=== PATIENT | male | born 1950 | race Caucasian/White ===

== ENCOUNTER 2017-06-21 01:46 | Inpatient (IN) | payer OTHER ==
[~2017-06-21] VITALS: Ht 180.3 cm; Wt 127.2 kg
[2017-06-21] VITALS (8 sets, daily range): BP systolic 105–129; BP diastolic 51–75
--- NOTE | ~2017-06-21 | HC ---
[facility] [place] [address] CONSULTATION Name: KEITH ADAMS Room #: 209-P ADM IN M.R.#: [id number] Admission: 06/21/17 Attend Phys: Jarret Peters MD Discharge: Date of : 52 Report #: [id number] THIS REPORT FOR: //name// CC: Hernán Madrigal REASON FOR CONSULTATION: Chest pain. HISTORY OF PRESENT ILLNESS: The patient is a 67-year-old gentleman with longstanding diabetes, distal small vessel coronary artery disease, medically managed sleep apnea, paralyzed hemidiaphragm and heart block with prior pacemaker implantation. His ejection fraction is in the 55% range with moderately severe pulmonary hypertension by recent echocardiography. He presented in the summer with progressive angina. He ended up having coronary angiography and stenting of the left main and mid right coronary, both with 4.0 x 15 mm Xience medicated stents. Angina following the stenting procedure resolved. He did have exacerbation in his kidney disease post-contrast, although dialysis was not required. Last night, he awakened with midsternal chest tightness. This was reminiscent of his angina. The pain waxed and waned with varying intensity over the course of about 60 minutes. He ended up taking 4 nitroglycerin tablets with variable relief. Paramedics were called and he was brought to the Emergency Department where he has been pain free since. Admitting EKG demonstrated ventricularly paced rhythm. He is currently pain free. He denies orthopnea or paroxysmal nocturnal dyspnea. No history of near syncope or syncope. MEDICATIONS: Include Plavix 75 mg daily, potassium 10 mEq daily, torsemide 20 mg daily, amlodipine 10 mg at night, isosorbide 60 mg twice daily, lisinopril 20 mg twice daily, atorvastatin 40 mg daily, insulin 30 units regular with meals, 70 units Lantus in the evening. He has an intolerance to Effient. PAST MEDICAL HISTORY: Medical records have been reviewed and include a history of mild to moderate carotid plaquing, COPD, diabetes, paralyzed hemidiaphragm, single kidney, PSVT with remote RF ablation, pacemaker implantation, shoulder surgery, knee surgery, tonsillectomy. SOCIAL HISTORY: He is a former smoker, quit in 1986. FAMILY HISTORY: Notable for father with a history of stroke and atrial fibrillation. REVIEW OF SYSTEMS: All systems negative except as that noted above. PHYSICAL EXAMINATION: GENERAL: He is a pleasant gentleman, is pain free. [facility] [address] [place] [address] CONSULTATION Name: KEITH ADAMS Room #: 209-P [facility] IN [facility]#: [id number] Admission: 06/21/17 Attend Phys: Jarret Peters MD Discharge: Date of : 52 Report #: [id number] VITAL SIGNS: Blood pressure is 111/67, heart rate is 62 and regular. He is afebrile, 5 feet 11 inches tall, 280 pounds. HEENT: There are neither xanthelasma, subcutaneous xanthomata, oral mucosal or digital cyanosis or kyphoscoliosis present. CHEST: Clear to auscultation and percussion. CARDIOVASCULAR: Regular rate and rhythm with normal S1, S2. Heart sounds are distant. ABDOMEN: Soft and nontender. EXTREMITIES: Without cyanosis, clubbing or edema. Radial pulses are 2+. NEUROLOGIC: He is alert with a nonfocal exam. EKG, sinus rhythm with ventricular pacing. LABORATORY DATA: Sodium 137, potassium 4.3, creatinine 3.0. Glucose 290, troponin 0.06. ProBNP of 566. White count 11.7, hemoglobin 14, hematocrit 39, platelet count 224. Chest x-ray demonstrates mild perihilar atelectasis. Vascularity is normal. IMPRESSION: 1. Chest pain suspicious for unstable angina. 2. Coronary artery disease with stenting of the left main and mid right coronary (4.0 x 15 mm Xience medicated stents). 3. Advanced chronic kidney disease. 4. Heart block with prior pacemaker implantation. 5. Paralyzed hemidiaphragm; chronic obstructive pulmonary disease; sleep apnea. RECOMMENDATIONS: 1. Hold lisinopril and diuretic therapy. 2. Nephrology consultation. 3. Probable coronary angiography. His symptoms are suspicious for progression of his underlying coronary disease. His issues were discussed with the patient and his in detail including the risk associated with contrast load from angiography, namely dialysis or worsening kidney function. Further thoughts will be forthcoming based on this evaluation and based on his clinical course. Thank you for asking me to participate in his care. <ELECTRONICALLY SIGNED> By: Hernán Urrutia MD, [facility] 06/22/17 1823 0821 1326 Hernán Urrutia MD, FAC /nt
--- NOTE | ~2017-06-21 | EKG ---
[address] [address] ELECTROCARDIOGRAM REPORT Name: KEITH ADAMS Room #: 209-P ADM IN M.R.#: [id number] Admission: 06/21/17 Attend Phys: Jarret Peters MD Discharge: Date of : 52 Report #: [id number] THIS REPORT FOR: //name// [facility] Test Date: 2017-06-26 Test Time: 05:59:12 Pat Name: KEITH ADAMS Department: Room: 209 P Gender: M Clinic Licensed Practical Nurse: STEFFANIE : 1950 Requested By: Narendra Ventura Order Number: [id number] MD: Hernán Urrutia Measurements Intervals [place] Rate: 64 P: 0 [place]: 169 QRS: -88 QRSD: 179 T: 89 QT: 445 QTc: 459 Interpretive Statements Sinus rhythm Left axis deviation Left bundle branch block Compared to ECG 06/24/2017 11:02:18 No significant change was found Electronically Signed On 06-26-2017 8:45:34 DATE PITTER by Hernán Urrutia [email or web address] <ELECTRONICALLY SIGNED> By: Hernán Urrutia MD, [facility] 06/26/17 0845 0559 0559 Hernán Urrutia MD, [facility] /EPI
--- NOTE | ~2017-06-21 | CATHLAB ---
[facility] [place] [address] INVASIVE PROCEDURE REPORT Name: BRYANKEITH W Room #: 209-P [facility] IN [facility].#: [id number] Admission: 06/21/17 Attend Phys: Jarret Peters, Discharge: Date of : 52 Date of Service: 06/25/17 1554 Report #: [id number] THIS REPORT FOR: //name// APPROVED REPORT Patient Details Patient Status: In-Patient Room #: The patient is a 67 year-old male Event Personnel Narendra Ventura Malt House Supervisor, Jona Stark RN, Tiffani Hauser Sandifer, David Monitor Procedures Performed Coronary Angiography Only [id number] CORANG Atherectomy w/wo Plasty Sgl LM [id number] ATHSINGLE Hemostasis with Hemoband Indication Non-STEMI , Dyspnea, Unstable angina Risk Factors Obesity, Chronic Lung DiseaseHypercholesterolemia, Coronary Artery DiseaseHypertensionRenal Failure Previous Procedures/Diagnoses Previous PCI Procedure Narrative The Left Wrist^ was infiltrated with 1% Lidocaine subcutaneous anesthesia. A TRANSRADIAL SLENDER 6F GLIDESHEATH KIT #106387 sheath was inserted into the Left Radial Artery^. Coronary angiography was performed using coronary diagnostic catheters. The right coronary system was accessed and visualized with a JR4 catheter. The left coronary system was accessed and visualized with a VISTA 6FR XB 3.5 #[id number] catheter. The patient tolerated the procedure well and there were no complications associated with the procedure. There was no hematoma. The diagnostic cardiac catheterization was was performed several days before. He presents for a staged angioplasty involving a severe restenotic lesion involving the left main artery stent. This will include laser atherectomy and angioplasty. Intraoperative Conscious Sedation Sedation start time: 13.20 Case end Time: 14.13 Fentanyl 50.0 mcg [facility] [place] [address] INVASIVE PROCEDURE REPORT Name: BRYANKEITH Roxanne Room #: 209-P [facility] IN ..#: [id number] Admission: 06/21/17 Attend Phys: Jarret Peters, Discharge: Date of : 52 Date of Service: 06/25/17 1554 Report #: [id number] Fluoro Time: 15.01 minutes Dose: 2400 mGy Contrast Type and Amount: Visipaque 225 ml Hemodynamics The aortic pressure is 143/91 mmHg with a mean of 74 mmHg. PCI Technique Lesion Anticoagulation was achieved with Angiomax. Patient was preloaded with Brillinta. Percutaneous coronary intervention was performed on the LM. The lesion stenosis prior to intervention was 90% with ALLAN 3 flow. A VISTA 6FR XB 3.5 #[id number] Guide Catheter was used to engage the LCA ostium. A Coco Wire .014 x 182CM #[id number] Interventional Guidewire was used to cross the lesion. BALLOON DILATION A Balloon catheter TREK NC RX 4.0 X 12 #[id number] was inserted and inflated up to 18.00atm for 25seconds. Additional Inflation: 14.00atm for 24seconds. Additional Inflation: 20.00atm for 20seconds. Prior to balloon dilatation, the severe lesion in the left main artery stent was prepped with a laser atherectomy catheter. Multiple passes using 2 different settings were performed at the restenotic site for debulking. After laser atherectomy, balloon angioplasty was performed. STENT DEPLOYMENT A drug-eluting stent RESOLUTE RX 4.0 X 12 #[id number] was inserted and inflated up to 14.00atm for 24seconds. POST STENT DEPLOYMENT BALLOON DILATION A Balloon catheter TREK NC RX 4.5 X 8 #[id number] was inserted and inflated up to 18atm for 24seconds. Additional Inflation: 20.00atm for 20seconds. Final angiography reveals 10 % stenosis with ALLAN 3 flow. Conclusion 1. Successful percutaneous intervention including laser atherectomy and placement of a drug-eluting stent into the severe, [place] [address] INVASIVE PROCEDURE REPORT Name: KEITH ADAMS Room #: 209-P [facility]..#: [id number] Admission: 06/21/17 Attend Phys: Jarret Peters, Discharge: Date of : 52 Date of Service: 06/25/17 1554 Report #: [id number] lesion at the left main artery stent. 2. Dual antiplatelet therapy is recommended. <ELECTRONICALLY SIGNED> By: Narenrda Ventura MD 06/25/17 1554 1554 1554 Narendra Ventura MD /INF
--- NOTE | ~2017-06-21 | EKG ---
[address] [address] ELECTROCARDIOGRAM REPORT Name: KEITH ADAMS Room #: 209-P ADM IN M.R.#: [id number] Admission: 06/21/17 Attend Phys: Jarret Peters MD Discharge: Date of : 52 Report #: [id number] THIS REPORT FOR: //name// [facility] Test Date: 2017-06-24 Test Time: 11:02:18 Pat Name: KEITH ADAMS Department: Room: 209 P Gender: M Senior Agricultural Assistant: SANDRA : 1950 Requested By: Daniel Pulliam Order Number: [id number] MD: Adrian Rouse Measurements Intervals [place] Rate: 67 P: [place]: QRS: -82 QRSD: 176 T: 95 QT: 420 QTc: 444 Interpretive Statements Sinus rhythm lbbb Nonspecific IVCD with LAD Probable anterolateral infarct, recent Electronically Signed On 06-24-2017 23:39:49 GILL TENDER by Adrian Rouse [email or web address] <ELECTRONICALLY SIGNED> By: Adrian Rouse MD 06/24/17 2339 D: 121101 01 Adrian Rouse MD /KINJAL
--- NOTE | ~2017-06-21 | CATHLAB ---
[place] [address] [facility] [place] [address] INVASIVE PROCEDURE REPORT Name: KEITH ADAMS Roxanne Room #: 209-P [facility] IN ..#: [id number] Admission: 06/21/17 Attend Phys: Jarret Peters, Discharge: Date of : 52 Date of Service: 06/22/17 1056 Report #: [id number] THIS REPORT FOR: //name// APPROVED REPORT Patient Details Patient Status: In-Patient Room #: The patient is a 67 year-old male Event Personnel Narendra Ventura Mingle Operator, Jona Stark RN, Moise Sullivan RN RN, Tiffani Hauser Sandifer, David Monitor Procedures Performed Left Heart Cath w/or w/o Coronaries [id number] [facility] Indication Unstable angina Risk Factors Obesity, Hypercholesterolemia, Coronary Artery DiseaseHypertensionRenal Failure Previous Procedures/Diagnoses Previous PCI Procedure Narrative The Right Wrist^ was infiltrated with 1% Lidocaine subcutaneous anesthesia. A TRANSRADIAL SLENDER 6F GLIDESHEATH KIT #259862 sheath was inserted into the Right Radial Artery^. Coronary angiography was performed using coronary diagnostic catheters. The right coronary system was accessed and visualized with a JR4 catheter. The left coronary system was accessed and visualized with a JL3.5 catheter. The left ventricle was accessed and visualized with a PIGTAIL catheter. Left ventricular/Aortic Valve gradient assessed via catheter pullback. Closure device was deployed with a Fr VASC BAND L 27CM #[id number]. There was no hematoma. Intraoperative Conscious Sedation Sedation start time: 9.38 Case end Time: 10.01 Versed mg Fluoro Time: 3.52 minutes [facility] [address] [place] [address] INVASIVE PROCEDURE REPORT Name: KEITH ADAMS Room #: 209-P [facility] IN [facility]#: [id number] Admission: 06/21/17 Attend Phys: Jarret Peters, Discharge: Date of : 52 Date of Service: 06/22/17 1056 Report #: [id number] Dose: 9.13 mGy Contrast Type and Amount: Visipaque 600 ml Diagnostic Cath Left Main There is a stent in the mid/distal segment, with severe restenosis, at least 90%. LAD Supplies 2 diagonal arteries before a total occlusion within the mid segment. The distal segment is partially filled via collateral circulation. This is unchanged from prior procedures. Diagonal 1 Has a high takeoff, has mild diffuse disease. Diagonal 2 Patent vessel, supplies several branches as it travels down the anterolateral wall. Several branches Circumflex Small-caliber vessel with proximal 70% stenosis. Recommend medical therapy. OM1 Small-caliber vessel with moderate diffuse disease. OM2 Small-caliber vessel, with no flow-limiting lesions. Right Coronary This is a dominant vessel with a stent in the midsegment, patent with mild restenosis, 20%. R PDA Moderate diffuse disease. RPLV Patent vessel, no flow-limiting lesions. Left Ventriculography Left Ventriculography was not performed. An LVEDP was measured and there is no gradient across the outflow tract. Hemodynamics The aortic pressure is 129/79 mmHg with a mean of 79 mmHg. The left ventricular pressure is 151/30 mmHg with a mean of mmHg. The left ventricular end diastolic pressure is 37 mmHg. Conclusion 1. Severe restenosis within the left main stent. Recommend staged PCI including laser atherectomy and angioplasty. 2. Patent RCA stent with mild restenosis. <ELECTRONICALLY SIGNED> By: Narendra Ventura MD 06/22/17 1056 1056 1056 Narendra Ventura MD /INF
--- NOTE | ~2017-06-21 | EKG ---
[address] [place] [address] ELECTROCARDIOGRAM REPORT Name: KEITH ADAMS Room #: 209-P ADM IN M.R.#: [id number] Admission: 06/21/17 Attend Phys: Jarret Peters MD Discharge: Date of : 52 Report #: [id number] THIS REPORT FOR: //name// [facility] ED Test Date: 2017-06-21 Test Time: 01:49:33 Pat Name: KEITH ADAMS Department: Room: 209 Gender: M Supervisor Paint: GEM : 1950 Requested By: Saurabh Waite Order Number: [id number] MD: Hernán Urrutia Measurements Intervals [place] Rate: 90 P: 233 NC: 154 QRS: -89 QRSD: 183 T: 75 QT: 410 QTc: 502 Interpretive Statements Sinus rhythm with ventricular pacing Compared to ECG 05/15/2009 06:59:49 Ventricular pacing is now present Electronically Signed On 06-21-2017 12:46:10 ADVENTURE EDUCATION TEACHER by Hernán Urrutia [email or web address] <ELECTRONICALLY SIGNED> By: Hernán Urrutia MD, [facility] 06/21/17 1246 8 8 Hernán Urrutia MD, [facility] /EPI
--- NOTE | ~2017-06-21 | EKG ---
[address] [place] [address] ELECTROCARDIOGRAM REPORT Name: KEITH ADAMS Room #: 209-P ADM IN M.R.#: [id number] Admission: 06/21/17 Attend Phys: Jarret Peters MD Discharge: Date of : 52 Report #: [id number] THIS REPORT FOR: //name// [facility] Test Date: 2017-06-25 Test Time: 17:24:38 Pat Name: KEITH ADAMS Department: Room: 209 P Gender: M Slot Router: Lenore ROA : 1950 Requested By: Narendra Ventura Order Number: [id number] MD: Hernán Urrutia Measurements Intervals [place] Rate: 75 P: -10 [place]: 269 QRS: 267 QRSD: 169 T: 87 QT: 382 QTc: 427 Interpretive Statements Sinus rhythm Prolonged [place] interval Left bundle branch block Compared to ECG 06/24/2017 11:02:18 No significant change was found Electronically Signed On 06-26-2017 8:43:15 MEMORANDUM STATEMENT CLERK by Hernán Urrutia [email or web address] <ELECTRONICALLY SIGNED> By: Hernán Urrutia MD, [facility] 06/26/17 0843 172 23 Hernán Urrutia MD, [facility] /EPI
--- NOTE | ~2017-06-21 | HC ---
[facility] [place] [address] CONSULTATION Name: KEITH ADAMS Room #: 209-P [facility] IN ..#: [id number] Admission: 06/21/17 Attend Phys: Jarret Peters MD Discharge: Date of : 52 Report #: [id number] THIS REPORT FOR: //name// CC: Hernán Madrigal DATE OF SERVICE: 06/21/2017 REASON FOR CONSULTATION: Chronic kidney disease and need for heart cath. HISTORY OF PRESENT ILLNESS: This is a 67-year-old gentleman apparently with known solitary functioning kidney, longstanding diabetes with known proteinuria and CKD and a creatinine of 3, was admitted with angina. He had angina with 2 stents placed over this last summer. He also has a pacemaker. He had crushing chest pain last night, resolved with some nitro, it was then recurred and resolved several times and he was admitted, his troponin-I is slightly elevated. PAST MEDICAL HISTORY: Longstanding diabetes mellitus, very little in the way of neuropathy, no retinopathy that we know of and no enteropathy. He has also had hypertension for sometime, he is a former smoker and has a paralyzed right hemidiaphragm and has had some orthopedic surgeries. HOME MEDICATIONS: Include lisinopril 20 mg daily, Lipitor 40 mg daily, isosorbide mononitrate 60 mg daily, hydrochlorothiazide 25 mg daily, torsemide 20 mg daily, potassium 10 mEq daily, and amlodipine 10 mg daily. SOCIAL HISTORY: Former heavy smoker, but he quit some time ago. Occasional alcohol. REVIEW OF SYSTEMS: GENERAL: He is feeling okay. EYES: His vision is okay. ENT: Hearing okay. Swallows okay. No mouth sores or ulcers. ENDOCRINE: Positive for the diabetes. No known thyroid disease. RESPIRATORY: He does get relatively easily short-winded, particularly when he is lying down. No hemoptysis. CARDIAC: No history palpitations. He did apparently have sick sinus syndrome and a pacemaker was placed, it was more for bradycardia and he has had the angina overnight with elevated troponin and acute coronary syndrome. GASTROINTESTINAL: No nausea, vomiting, or diarrhea. No bloody stools. GENITOURINARY: Good urinary stream. No history of prostate problems or renal stones. NEUROLOGIC: No seizure, syncope, or stroke. PSYCHIATRIC: No depression or anxiety. [facility] [address] [place] [address] CONSULTATION Name: KEITH ADAMS Room #: 209-P [facility]#: [id number] Admission: 06/21/17 Attend Phys: Jarret Peters MD Discharge: Date of : 52 Report #: [id number] PHYSICAL EXAMINATION: GENERAL: This is a reasonably well-appearing gentleman. He is a bit overweight. SKIN: Unremarkable. SKELETAL: Well developed, well nourished, somewhat overweight. HEENT: Extraocular movements are full. Vision intact. No scleral icterus. Hearing intact. Mucous membranes moist. CHEST: Shows somewhat diminished breath sounds. HEART: Regular. ABDOMEN: Soft and nontender. EXTREMITIES: Show trace brawny edema at the ankles. LABORATORY DATA: Hemoglobin is 14. Sodium 137, potassium 4.3, chloride , bicarbonate 22, BUN 74, and creatinine 3. ASSESSMENT: 1. Chronic kidney disease. He has chronic kidney disease, single functioning kidney. He says he has longstanding proteinuria. Certainly, the diabetes is playing a role, seems to be on fairly good treatment at the current time. 2. Acute coronary syndrome. He will need dye. He has appropriately been stopped off the lisinopril and being given IV fluids and diuretics were stopped as well and this should medicate the chances of kidney injury. The chances of his creatinine elevated are probably 25% or bit more, but chances of any serious difficulty requiring dialysis for further therapy likely 10-15% or less. 3. Longstanding diabetes mellitus. 4. Solitary functioning kidney. 5. Longstanding hypertension. 6. Known coronary artery disease, status post stents times 2. 7. Pacemaker. <ELECTRONICALLY SIGNED> By: Daniel Powers MD 06/22/17 1044 1103 1857 Daniel Powers MD /nt
[2017-06-21 02:19] LABS: ABSOLUTE NEUTROPHILS 7.9 thou/uL (1.4-8.2); BASOPHILS 0.4 % (0.0-2.0); EOSINOPHILS 3.3 % (0.0-3.0); HEMATOCRIT 39.1 % (42.0-52.0); LYMPHOCYTES 21.5 % (24.0-44.0); MCH 30.2 pg (26.0-34.0); MCHC 35.9 g/dL (28.0-37.0); MCV 84.1 fL (80.0-100.0); PLATELET COUNT 224 thou/uL (150-400); POLYS 67.8 % (36.0-66.0); RBC 4.65 mil/uL (4.50-6.00); RDW 13.3 % (10.5-14.5); WBC 11.7 thou/uL (4.0-11.0)
[2017-06-21 02:22] LABS: MANUAL DIFF NO
[2017-06-21 02:27] LABS: ANION GAP 14 mmol/L (7-16); BUN 74 mg/dL (7-18); CALCIUM 8.5 mg/dL (8.5-10.1); CHLORIDE 101 mmol/L (98-107); CO2 22 mmol/L (21-32); GLUCOSE 290 mg/dL (74-106); POTASSIUM 4.3 mmol/L (3.5-5.1); SODIUM 137 mmol/L (136-145)
[2017-06-21 02:30] LABS: APTT 24.4 Seconds (24.5-32.8); PROTIME 9.8 Seconds (9.3-11.4)
[2017-06-21] MEDS ORDERED: LISINOPRIL20 MG PO (02:30)
[2017-06-21] MEDS ORDERED: IMDUR 60 MG TAB60 M1 PO ×2 (02:31→02:37)
[2017-06-21] MEDS ORDERED: ATORVASTATIN CA40 MG PO (02:31)
[2017-06-21] MEDS ORDERED: RELION NOV100 UNIT/2 SQ (02:32)
[2017-06-21] MEDS ORDERED: HYDROCHLOROTHIA25 M2 PO (02:33)
[2017-06-21] MEDS ORDERED: NITROGLYCERIN0.4 MG SUBLING (02:33)
[2017-06-21] MEDS ORDERED: NOVOLOG100 UNIT/1 SUBQ (02:34)
[2017-06-21] MEDS ORDERED: DEMADEX20 MG PO (02:35)
[2017-06-21] MEDS ORDERED: KLOR-CON 1010 MEQ PO (02:36)
[2017-06-21] MEDS ORDERED: AMLODIPINE BESY10 MG PO (02:36)
[2017-06-21 02:38] LABS: ALBUMIN 3.3 g/dL (3.4-5.0); ALKALINE PHOSPHATASE 117 U/L (46-116); TOTAL BILIRUBIN 0.5 mg/dL (<0.1-1.0); TOTAL PROTEIN 6.9 g/dL (6.4-8.2); TROPONIN-I 0.06 ng/mL (<0.06)
[2017-06-21 02:58] LABS: SGPT 33 U/L (30-65)
[2017-06-21 03:02] LABS: SGOT ND U/L (15-37)
[2017-06-21 07:12] LABS: CHOLESTEROL 134 mg/dL (<200); HDL CHOLESTEROL 27 mg/dL (>40); TRIGLYCERIDE 668 mg/dL (<150); VLDL 134 mg/dL (<40)
[2017-06-21 13:04] LABS: CALCIUM 9.1 mg/dL (8.5-10.1); CREATININE 2.9 mg/dL (0.7-1.3); POTASSIUM 5.1 mmol/L (3.5-5.1)
[2017-06-21 22:44] LABS: URINE BILIRUBIN NEGATIVE (Negative); URINE BLOOD 1+ (Negative); URINE COLOR YELLOW; URINE GLUCOSE-RANDOM* TRACE (Negative); URINE KETONES NEGATIVE (Negative); URINE NITRITE NEGATIVE (Negative); URINE PROTEIN (DIPSTICK) 2+ (Negative); URINE SPECIFIC GRAVITY 1.025 (1.005-1.035); URINE UROBILINOGEN 0.2 E.U./dl (0.2-1.0)
[2017-06-21 22:56] LABS: BACTERIA 1-9 Few /HPF (None Seen); CASTS None Seen /LPF (None Seen); CRYSTALS None Seen /LPF (None Seen); SQUAMOUS None Seen /LPF (0-3); URINE RBC 0-2 Rare /HPF (0-2); URINE WBC None Seen /HPF (0-5)
[2017-06-21 23:37] LABS: PROT/CREAT RATIO 2.1; URINE CREATININE-RANDOM* 95.6 mg/dL
[2017-06-22] VITALS (11 sets, daily range): BP systolic 120–1119; BP diastolic 55–78
[2017-06-22 01:08] LABS: GLYCOHEMOGLOBIN (HGB A1C) 8.3 % (4.8-5.6)
[2017-06-22 03:50] LABS: HEMATOCRIT 34.9 % (42.0-52.0); HEMOGLOBIN 12.5 gm/dL (14.0-18.0); MCH 30.2 pg (26.0-34.0); MCV 83.8 fL (80.0-100.0); RBC 4.16 mil/uL (4.50-6.00); RDW 13.5 % (10.5-14.5); WBC 8.7 thou/uL (4.0-11.0)
[2017-06-22 04:19] LABS: CALCIUM 8.6 mg/dL (8.5-10.1); CREATININE 2.8 mg/dL (0.7-1.3); MAGNESIUM 1.9 mg/dL (1.8-2.4); PHOSPHORUS 5.4 mg/dL (2.5-4.9); POTASSIUM 4.2 mmol/L (3.5-5.1)
[2017-06-23 04:00] VITALS: BP 142/87
[2017-06-23 06:18] LABS: HEMATOCRIT 35.8 % (42.0-52.0); HEMOGLOBIN 12.8 gm/dL (14.0-18.0); MCH 30.3 pg (26.0-34.0); MCHC 35.7 g/dL (28.0-37.0); MCV 84.7 fL (80.0-100.0); RBC 4.23 mil/uL (4.50-6.00); RDW 13.5 % (10.5-14.5); WBC 8.9 thou/uL (4.0-11.0)
[2017-06-23 06:29] LABS: CALCIUM 8.8 mg/dL (8.5-10.1); CREATININE 2.5 mg/dL (0.7-1.3); POTASSIUM 4.8 mmol/L (3.5-5.1)
[2017-06-23 08:48] VITALS: BP 120/68
[2017-06-23 10:14] LABS: HEMATOCRIT 38.7 % (42.0-52.0); HEMOGLOBIN 13.4 gm/dL (14.0-18.0); MCH 29.5 pg (26.0-34.0); MCHC 34.6 g/dL (28.0-37.0); MCV 85.1 fL (80.0-100.0); RBC 4.55 mil/uL (4.50-6.00); RDW 13.3 % (10.5-14.5); WBC 8.5 thou/uL (4.0-11.0)
[2017-06-23 10:26] LABS: PROTIME 10.7 Seconds (9.3-11.4)
[2017-06-23 11:56] VITALS: BP 138/81
[2017-06-23 15:33] VITALS: BP 124/59
[2017-06-23 19:42] VITALS: BP 158/86
[2017-06-23 23:33] VITALS: BP 114/63
[2017-06-24 03:40] VITALS: BP 129/76
[2017-06-24 04:57] LABS: ALBUMIN 2.9 g/dL (3.4-5.0); CALCIUM 8.7 mg/dL (8.5-10.1); CREATININE 2.7 mg/dL (0.7-1.3); PHOSPHORUS 5.2 mg/dL (2.5-4.9); POTASSIUM 4.7 mmol/L (3.5-5.1)
[2017-06-24 07:25] VITALS: BP 122/66
[2017-06-24 16:00] VITALS: BP 126/72
[2017-06-24 20:09] VITALS: BP 130/81
[2017-06-25] VITALS (11 sets, daily range): BP systolic 114–144; BP diastolic 50–86
[2017-06-25 03:25] LABS: CREATININE 2.6 mg/dL (0.7-1.3); PHOSPHORUS 5.6 mg/dL (2.5-4.9); POTASSIUM 4.1 mmol/L (3.5-5.1)
[2017-06-25 10:15] LABS: CALCIUM 9.1 mg/dL (8.5-10.1); CREATININE 2.5 mg/dL (0.7-1.3)
[2017-06-25 12:11] LABS: KAPPA FREE LIGHT CHAINS 56.1 mg/L (3.3-19.4); KAPPA/LAMBDA RATIO 1.88 (0.26-1.65); LAMBDA FREE LIGHT CHAINS 29.9 mg/L (5.7-26.3)
[2017-06-26] VITALS: BP 128/59
[2017-06-26 04:16] VITALS: BP 138/59
[2017-06-26 04:17] LABS: HEMATOCRIT 35.9 % (42.0-52.0); HEMOGLOBIN 12.7 gm/dL (14.0-18.0); MCH 29.9 pg (26.0-34.0); MCHC 35.5 g/dL (28.0-37.0); MCV 84.2 fL (80.0-100.0); RBC 4.26 mil/uL (4.50-6.00); RDW 13.4 % (10.5-14.5); WBC 8.6 thou/uL (4.0-11.0)
[2017-06-26 04:37] LABS: ALBUMIN 3.3 g/dL (3.4-5.0); CALCIUM 9.2 mg/dL (8.5-10.1); CREATININE 2.6 mg/dL (0.7-1.3); MAGNESIUM 1.5 mg/dL (1.8-2.4); PHOSPHORUS 5.2 mg/dL (2.5-4.9); POTASSIUM 4.5 mmol/L (3.5-5.1)
[2017-06-26 07:38] VITALS: BP 148/84
[2017-06-26] MEDS ORDERED: NORVASC 5 MG TAB5 MG PO (09:25)
[2017-06-26] MEDS ORDERED: ASPIR 8181 MG PO (09:25)
[2017-06-26] MEDS ORDERED: BRILINTA90 MG PO (09:25)
[2017-06-26 09:31] VITALS: BP 148/84
== END 2017-06-26 10:35 | disposition home or self-care (01) | DRG 246 ==
LOC: ER 01:46 → 2N 03:47 → EROBS 03:47 → 2N 05:07 → ENTRNSPT 06-26 10:15 → EDTRNSPTSTS 06-26 10:18 → 2N 06-26 10:35
PROVIDERS: Emergency Medicine; Internal Medicine; Internal Medicine Cardiovascular Disease; Internal Medicine Nephrology; Nurse Practitioner Acute Care
PROC: 5A09357 Assistance with Respiratory Ventilation, Less than 24 Consecutive Hours, Continuous Positive Airway Pressure (ICD-10-PCS; 2017-06-21)
PROC: 4A023N7 Measurement of Cardiac Sampling and Pressure, Left Heart, Percutaneous Approach (ICD-10-PCS; principal; 2017-06-22)
PROC: 5A09457 Assistance with Respiratory Ventilation, 24-96 Consecutive Hours, Continuous Positive Airway Pressure (ICD-10-PCS; 2017-06-22)
PROC: 027034Z Dilation of Coronary Artery, One Artery with Drug-eluting Intraluminal Device, Percutaneous Approach (ICD-10-PCS; 2017-06-25)
PROC: 02C03ZZ Extirpation of Matter from Coronary Artery, One Artery, Percutaneous Approach (ICD-10-PCS; 2017-06-25)
PROC: B211YZZ Fluoroscopy of Multiple Coronary Arteries using Other Contrast (ICD-10-PCS; 2017-06-25)
DX: T82.855A Stenosis of coronary artery stent, initial encounter (principal); N17.0 Acute kidney failure with tubular necrosis; I50.32 Chronic diastolic (congestive) heart failure; I25.110 Atherosclerotic heart disease of native coronary artery with unstable angina pectoris; N18.4 Chronic kidney disease, stage 4 (severe); I24.9 Acute ischemic heart disease, unspecified; I13.0 Hypertensive heart and chronic kidney disease with heart failure and stage 1 through stage 4 chronic kidney disease, or unspecified chronic kidney disease; E78.5 Hyperlipidemia, unspecified; J44.9 Chronic obstructive pulmonary disease, unspecified; I45.9 Conduction disorder, unspecified; J98.6 Disorders of diaphragm; E11.40 Type 2 diabetes mellitus with diabetic neuropathy, unspecified; G47.33 Obstructive sleep apnea (adult) (pediatric); R80.9 Proteinuria, unspecified; E11.65 Type 2 diabetes mellitus with hyperglycemia; E66.01 Morbid (severe) obesity due to excess calories; Z68.39 Body mass index [BMI] 39.0-39.9, adult; Z79.82 Long term (current) use of aspirin; Z79.899 Other long term (current) drug therapy; Z79.4 Long term (current) use of insulin; Z95.0 Presence of cardiac pacemaker; Z87.891 Personal history of nicotine dependence; Z82.49 Family history of ischemic heart disease and other diseases of the circulatory system; Z82.3 Family history of stroke; Z95.5 Presence of coronary angioplasty implant and graft
CPT/HCPCS: 10081

== ENCOUNTER 2018-06-26 14:04 | Inpatient (IN) | payer OTHER ==
[~2018-06-26] VITALS: Ht 175.3 cm; Wt 119.3 kg
[2018-06-26] VITALS (7 sets, daily range): BP systolic 123–161; BP diastolic 68–90
[~2018-06-26 14:04] MED LIST: AMLODIPINE BESY10 MG PO; ASPIR 8181 MG PO; ATORVASTATIN CA40 MG PO; BRILINTA90 MG PO; DEMADEX20 MG PO; HYDROCHLOROTHIA25 M2 PO; IMDUR 60 MG TAB60 M1 PO; KLOR-CON 1010 MEQ PO; LISINOPRIL20 MG PO; NITROGLYCERIN0.4 MG SUBLING; NORVASC 5 MG TAB5 MG PO; NOVOLOG100 UNIT/1 SUBQ; RELION NOV100 UNIT/2 SQ
[2018-06-26 14:29] LABS: ABSOLUTE NEUTROPHILS 5.6 thou/uL (1.4-8.2); BASOPHILS 0.8 % (0.0-2.0); EOSINOPHILS 2.6 % (0.0-3.0); HEMATOCRIT 40.4 % (42.0-52.0); HEMOGLOBIN 14.1 gm/dL (14.0-18.0); LYMPHOCYTES 23.6 % (24.0-44.0); MCH 28.8 pg (26.0-34.0); MCHC 34.8 g/dL (28.0-37.0); MCV 82.8 fL (80.0-100.0); MONOCYTES 6.8 % (1.0-8.0); PLATELET COUNT 267 thou/uL (150-400); POLYS 66.2 % (36.0-66.0); RBC 4.89 mil/uL (4.50-6.00); RDW 13.9 % (10.5-14.5); WBC 8.5 thou/uL (4.0-11.0)
[2018-06-26] MEDS ORDERED: PLAVIX 75 MG TA75 M1 PO (14:36)
[2018-06-26 14:37] LABS: ANION GAP 6 mmol/L (7-16); BUN 59 mg/dL (7-18); CALCIUM 8.9 mg/dL (8.5-10.1); CHLORIDE 100 mmol/L (98-107); CO2 26 mmol/L (21-32); CREATININE 3.2 mg/dL (0.7-1.3); GLUCOSE 280 mg/dL (74-106); POTASSIUM 4.8 mmol/L (3.5-5.1); SODIUM 132 mmol/L (136-145)
[2018-06-26 14:45] LABS: TROPONIN-I <0.06 ng/mL (<0.06)
[2018-06-27] VITALS (12 sets, daily range): BP systolic 116–144; BP diastolic 59–80
[2018-06-27 04:25] LABS: CALCIUM 8.8 mg/dL (8.5-10.1); CREATININE 3.1 mg/dL (0.7-1.3); MAGNESIUM 1.9 mg/dL (1.8-2.4); POTASSIUM 4.5 mmol/L (3.5-5.1)
[2018-06-27 04:30] LABS: CHOLESTEROL 96 mg/dL (<200); HDL CHOLESTEROL 36 mg/dL (>40); LDL CHOLESTEROL 41 mg/dL (<100); TC:HDL 2.7 Ratio (Not establshd); TRIGLYCERIDE 99 mg/dL (<150); VLDL 20 mg/dL (<40)
[2018-06-27 04:39] LABS: SERUM ASSESSMENT Clear
[2018-06-27 05:44] LABS: ABSOLUTE NEUTROPHILS 5.9 thou/uL (1.4-8.2); BASOPHILS 0.6 % (0.0-2.0); EOSINOPHILS 2.3 % (0.0-3.0); HEMATOCRIT 35.9 % (42.0-52.0); HEMOGLOBIN 12.5 gm/dL (14.0-18.0); LYMPHOCYTES 22.1 % (24.0-44.0); MCHC 34.9 g/dL (28.0-37.0); MCV 83.2 fL (80.0-100.0); MONOCYTES 7.5 % (1.0-8.0); PLATELET COUNT 244 thou/uL (150-400); POLYS 67.5 % (36.0-66.0); RBC 4.31 mil/uL (4.50-6.00); RDW 13.3 % (10.5-14.5); WBC 8.7 thou/uL (4.0-11.0)
--- NOTE | 2018-06-27 08:28 | EKG ---
[address] [place] [place] [address] ELECTROCARDIOGRAM REPORT Name: KEITH ADAMS Room #: 219-P ADM IN M.R.#: [id number] Admission: 06/26/18 Attend Phys: New Urban MD Discharge: Date of : 52 Report #: [id number] THIS REPORT FOR: //name// [facility] ED Test Date: 2018-06-26 Test Time: 14:10:37 Pat Name: KEITH ADAMS Department: Room: 219 Gender: M Welfare Manager: SAL : 1950 Requested By: Hema Díaz Order Number: [id number] MD: Hernán Urrutia Measurements Intervals [place] Rate: 88 P: 157 FL: 243 QRS: -88 QRSD: 185 T: 93 QT: 408 QTc: 494 Interpretive Statements Ventricular-paced complexes No further rhythm analysis attempted due to paced rhythm Compared to ECG 06/26/2017 05:59:12 No significant change was found Electronically Signed On 06-27-2018 8:28:40 CHICLE GRINDER FEEDER by Hernán Urrutia [email or web address] <ELECTRONICALLY SIGNED> By: Hernán Urrutia MD, [facility] 06/27/18 0828 1410 1410 Hernán Urrutia MD, [facility] /EPI
--- NOTE | 2018-06-27 15:49 | CATHLAB ---
[place] [address] [facility] [place] [address] INVASIVE PROCEDURE REPORT Name: KEITH ADAMS Room #: 219-P ADM IN M.R.#: [id number] Admission: 06/26/18 Attend Phys: New Urban MD Discharge: Date of : 52 Date of Service: 06/27/18 1549 Report #: [id number] THIS REPORT FOR: //name// APPROVED REPORT Study performed: 06/27/2018 11:09:39 Patient Details Patient Status: In-Patient Room #: The patient is a 68 year-old male Event Personnel Narendra Ventura Air Box Tester, Shankar Martin RN RN, Emory Cantrell, Agata Yu Procedures Performed Coronary Angiography Only [id number] [facility] w/wo Plasty Single DIAG [id number] Indication Dyspnea, Unstable angina , Chest pain Risk Factors HypercholesterolemiaPhysical Activity, Coronary Artery DiseaseHypertensionRenal Failure, Diabetes Previous Procedures/Diagnoses Previous PCI Procedure Narrative The Right Wrist^ was infiltrated with 1% Lidocaine subcutaneous anesthesia. A TRANSRADIAL SLENDER 6F GLIDESHEATH KIT #[id number] sheath was inserted into the Right Radial Artery^. Coronary angiography was performed using coronary diagnostic catheters. The right coronary system was accessed and visualized with a JR4 catheter. The left coronary system was accessed and visualized with a JL4 catheter. Closure device was deployed with a Fr VASC BAND L 27CM #[id number]. The patient tolerated the procedure well and there were no complications associated with the procedure. There was no hematoma. Intraoperative Conscious Sedation Sedation start time: 12.24 Case end Time: 13.19 Fentanyl 50 mcg Versed 1 mg [facility] [address] [place] [address] INVASIVE PROCEDURE REPORT Name: KEITH ADAMS Room #: 219-P ADM IN ..#: [id number] Admission: 06/26/18 Attend Phys: New Urban MD Discharge: Date of : 52 Date of Service: 06/27/18 1549 Report #: [id number] Dose: DAP 79438 cGycm2 2245 mGy Coronary Angiography The patient's coronary anatomy is right dominant. Diagnostic Cath Left Main This is a large caliber vessel with mild to moderate disease at the ostium. There is a stent in the mid/distal segment of the left main artery, patent with an eccentric moderate restenosis, approximately 40%. Recommend medical therapy. LAD There is mild diffuse disease in the proximal segment. After giving off a moderate size first diagonal artery, there is a total occlusion in the midsegment of the LAD. The remaining segments of the LAD are filled via collateral circulation from the right PDA. Diagonal 1 Moderate size caliber vessel, supplies 2 branches as it travels down the anterolateral wall. There is a severe, discrete stenosis in the proximal segment, 95%. Circumflex Moderate ostial stenosis. OM1 Small-caliber vessel with moderate diffuse disease. OM2 Small-caliber vessel with moderate disease. Right Coronary Dominant vessel with a patent stent in the mid segment, with mild restenosis. R PDA Small-caliber vessel with moderate to severe diffuse disease in the mid segment. Unchanged from prior angiograms, continue with medical therapy. RPLV 2 RPL branches, both patent with mild to moderate disease. Left Ventriculography Left Ventriculography was not performed. Hemodynamics The aortic pressure is 132/63 mmHg with a mean of 94 mmHg. PCI Technique Lesion Percutaneous coronary intervention was performed on the first diagnonal branch segment. The lesion stenosis prior to intervention was 95% with ALLAN 3 flow. A VISTA 6FR XB 3.5 #[id number] Guide Catheter was used to engage the ostium. A Luge Wire .014 x 182CM #[id number] Interventional Guidewire was used to cross the lesion. BALLOON DILATION A Balloon catheter [employer] RX 2.50 X 09 #[id number] was inserted and inflated up to 14.00atm for 62seconds. [place] [address] [place] [address] INVASIVE PROCEDURE REPORT Name: BRYANKEITH Room #: 219-P [facility] IN M.R.#: [id number] Admission: 06/26/18 Attend Phys: New Urban MD Discharge: Date of : 52 Date of Service: 06/27/18 1549 Report #: [id number] STENT DEPLOYMENT A drug-eluting stent RESOLUTE STEPHANI RX 2.5 X 12 #[id number] was inserted and inflated up to 16.00atm for 30seconds. POST STENT DEPLOYMENT BALLOON DILATION A Balloon catheter MOZEC NC RX 2.75 X 08 #[id number] was inserted and inflated up to 20.00atm for 44seconds. Final angiography reveals 5 % stenosis with ALLAN 3 flow. Conclusion 1. Successful insertion of a drug-eluting stent into the proximal segment of a moderate size first diagonal artery. 2. Patent stent in the left main artery with mild to moderate restenosis, continue with medical therapy. 3. Occluded LAD in the mid segment, filled via collateral circulation from the right PDA. Unchanged from prior angiographic procedures. 4. Patent stent in the mid RCA with mild restenosis. 5. Severe diffuse disease in a small PDA, unchanged from prior angiograms. 6. Recommend dual antiplatelet therapy and aggressive risk factor management. <ELECTRONICALLY SIGNED> By: Narendra Ventura MD 06/27/18 1549 1549 1549 Narendra Ventura MD /INF
--- NOTE | 2018-06-27 16:48 | EKG ---
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
[2018-06-28 00:39] VITALS: BP 120/59; BP 130/75
[2018-06-28 04:51] LABS: ALBUMIN 3.4 g/dL (3.4-5.0); ANION GAP 11 mmol/L (7-16); BUN 48 mg/dL (7-18); CALCIUM 9.2 mg/dL (8.5-10.1); CHLORIDE 102 mmol/L (98-107); CO2 23 mmol/L (21-32); GLUCOSE 146 mg/dL (74-106); SGOT 13 U/L (15-37); SGPT 19 U/L (30-65); SODIUM 136 mmol/L (136-145); TOTAL BILIRUBIN 0.5 mg/dL (<0.1-1.0); TOTAL PROTEIN 7.5 g/dL (6.4-8.2); TROPONIN-I <0.06 ng/mL (<0.06)
[2018-06-28 04:57] LABS: HEMATOCRIT 37.8 % (42.0-52.0); HEMOGLOBIN 13.1 gm/dL (14.0-18.0); MCH 28.6 pg (26.0-34.0); MCHC 34.7 g/dL (28.0-37.0); MCV 82.3 fL (80.0-100.0); RBC 4.59 mil/uL (4.50-6.00); RDW 13.4 % (10.5-14.5); WBC 8.7 thou/uL (4.0-11.0)
[2018-06-28 05:48] VITALS: BP 152/93
[2018-06-28 08:00] VITALS: BP 145/75
[2018-06-28] MEDS ORDERED: RANEXA500 MG PO (08:08)
--- NOTE | 2018-06-28 08:43 | EKG ---
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 : 1950 Requested By: Narendra Ventura Order Number: [id number] MD: Hernán Urrutia Measurements Intervals Cades Rate: 68 P: -49 MO: 262 QRS: -83 QRSD: 194 T: 98 QT: 435 QTc: 463 Interpretive Statements Sinus with ventricular-paced complexes No further analysis attempted due to paced rhythm Compared to ECG 06/27/2018 14:46:31 No significant change was found Electronically Signed On 06-28-2018 8:43:33 IMMIGRATION INSPECTOR by Hernán Urrutia [email or web address] <ELECTRONICALLY SIGNED> By: Hernán Urrutia MD, [facility] 06/28/18 0843 3 3 Hernán Urrutia MD, [facility] /EPI
[2018-06-28 10:57] VITALS: BP 145/75
--- NOTE | 2018-07-08 11:19 | HC ---
[facility] [place] [address] CONSULTATION Name: KEITH ADAMS Room #: 219-P [facility] IN M.R.#: [id number] Admission: 06/26/18 Attend Phys: New Urban MD Discharge: 06/28/18 Date of : 52 Report #: [id number] THIS REPORT FOR: //name// CC: New Madrigal DATE OF SERVICE: 06/27/2018 ATTENDING PHYSICIAN: Dr. Urrutia. REASON FOR CONSULTATION: Chronic kidney disease. HISTORY OF PRESENT ILLNESS: The patient is followed by us in the office with known diabetic nephropathy, longstanding diabetes and a single functioning kidney. Baseline creatinine has been about 3, followed in our office. The patient has ongoing and worsening angina. Recently started on Repatha and Ranexa. Creatinine this admission 3.2, one year ago was 3.0. PAST MEDICAL HISTORY: Longstanding diabetes, a little bit of neuropathy, no retinopathy. He has had hypertension. He has been a former smoker. 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 HOME MEDICATIONS: As listed include torsemide p.r.n., amlodipine 5 mg daily, aspirin 81 mg daily, Plavix 75 mg daily, hydrochlorothiazide 25 mg daily, insulin, lisinopril 20 mg daily, Brilinta 90 mg b.i.d., Imdur 60 mg daily. Ranexa and Repatha. SOCIAL HISTORY: Former heavy smoker, but he quit. Occasional alcohol. REVIEW OF SYSTEMS: GENERAL: He has been feeling okay except for the angina, particularly nocturnal recumbent angina. EYES: No problems with his vision. ENT: Hearing okay. No mouth sores. ENDOCRINE: Positive for the diabetes. RESPIRATORY: Does get short winded and relatively easily, particularly when he is lying down. CARDIAC: He has been having the chest pain. He has got a pacemaker. GASTROINTESTINAL: No nausea, vomiting, diarrhea or bloody stools. GENITOURINARY: No dysuria or hematuria. Good urinary stream. NEUROLOGIC: No seizure, syncope or stroke. PSYCHIATRIC: No depression or anxiety. PHYSICAL EXAMINATION: VITAL SIGNS: Reasonably well-appearing, but somewhat overweight gentleman. [facility] [address] [place] [address] CONSULTATION Name: KEITH ADAMS Room #: 219-P [facility] IN [facility].#: [id number] Admission: 06/26/18 Attend Phys: New Urban MD Discharge: 06/28/18 Date of : 52 Report #: [id number] SKIN: Unremarkable. SKELETAL: Shows him to be well developed, well nourished. HEENT: Extraocular movements are full. Vision intact. No scleral icterus. Mucous membranes moist. CHEST: Clear. HEART: Regular. ABDOMEN: Soft and nontender. EXTREMITIES: Show very trace peripheral edema. LABORATORY DATA: The hemoglobin is 12.5, platelets are 244. Sodium 139, potassium 4.5, chloride 103, bicarbonate 24, BUN 60, creatinine 3.1. ASSESSMENT: 1. Diabetic nephropathy, has chronic kidney disease. He is being prepared for catheterization with IV fluids. Lisinopril on hold, diuretics on hold. He will have his catheterization today. Hopefully, limiting the amount of dye using nonionic iso-osmolar dye as much as possible and hopefully will not have a kidney injury. We will of course be following him carefully. 2. Diabetes mellitus with diabetic nephropathy. 3. Hypertension. 4. Paralyzed right hemidiaphragm. 5. History of solitary functioning kidney. <ELECTRONICALLY SIGNED> By: Daniel Powers MD 07/08/18 1119 0934 0951 Daniel Powers MD /nt
== END 2018-06-28 11:36 | disposition home or self-care (01) | DRG 246 ==
LOC: ER 14:04 → 2N 15:23 → EROBS 15:23 → 2N 16:24 → ENTRNSPT 06-28 11:03 → EDTRNSPTSTS 06-28 11:05 → 2N 06-28 11:36
PROVIDERS: Internal Medicine Cardiovascular Disease; Nurse Practitioner; Nurse Practitioner Gerontology; Physician Assistant; ADMIT Hospitalist
PROC: 027034Z Dilation of Coronary Artery, One Artery with Drug-eluting Intraluminal Device, Percutaneous Approach (ICD-10-PCS; principal; 2018-06-26)
PROC: B2111ZZ Fluoroscopy of Multiple Coronary Arteries using Low Osmolar Contrast (ICD-10-PCS; principal; 2018-06-26)
PROC: 5A09457 Assistance with Respiratory Ventilation, 24-96 Consecutive Hours, Continuous Positive Airway Pressure (ICD-10-PCS; principal; 2018-06-26)
DX: I25.110 Atherosclerotic heart disease of native coronary artery with unstable angina pectoris (principal); N17.0 Acute kidney failure with tubular necrosis; I24.9 Acute ischemic heart disease, unspecified; N18.4 Chronic kidney disease, stage 4 (severe); E78.5 Hyperlipidemia, unspecified; J44.9 Chronic obstructive pulmonary disease, unspecified; E11.22 Type 2 diabetes mellitus with diabetic chronic kidney disease; I12.9 Hypertensive chronic kidney disease with stage 1 through stage 4 chronic kidney disease, or unspecified chronic kidney disease; J98.6 Disorders of diaphragm; I45.9 Conduction disorder, unspecified; E66.9 Obesity, unspecified; G47.33 Obstructive sleep apnea (adult) (pediatric); Z95.0 Presence of cardiac pacemaker; Z88.8 Allergy status to other drugs, medicaments and biological substances; Z87.891 Personal history of nicotine dependence; Z95.5 Presence of coronary angioplasty implant and graft; Z68.38 Body mass index [BMI] 38.0-38.9, adult; Z79.82 Long term (current) use of aspirin; Z79.899 Other long term (current) drug therapy
CPT/HCPCS: 10081

== ENCOUNTER 2019-08-07 06:58 | Inpatient (IN) | payer OTHER ==
[~2019-08-07] VITALS: Ht 177.8 cm; Wt 114.4 kg
--- NOTE | ~2019-08-07 | HC ---
[facility] [place] [address] CONSULTATION Name: KEITH ADAMS Room #: 217-P ADM IN M.R.#: [id number] Admission: 08/07/19 Attend Phys: Adrian Rouse MD Discharge: Date of : 52 Report #: [id number] THIS REPORT FOR: cc: Byron Madrigal,Byron Ball,Larry Eckert MD ~ THIS REPORT FOR: //name// CC: Byron Rouse DATE OF SERVICE: 08/12/2019 CHIEF COMPLAINT: Bilateral lower extremity edema. HISTORY OF PRESENT ILLNESS: The patient is a 69-year-old male patient who was admitted to the hospital with dyspnea and worsening renal function. He is noted to have significant lower extremity edema, and I have been asked to see him with regard to edema control measures. The patient states he has tried compression stockings at home without much success. The patient denies any open ulcerations or drainage from this area. PAST MEDICAL HISTORY: Positive for type 2 diabetes mellitus, hypertension, dyslipidemia, coronary artery disease, COPD, history of SVT with ablation, obstructive sleep apnea, chronic kidney disease stage 4. He has a paralyzed right hemidiaphragm. He has a single kidney. Had a previous pacemaker placement. SOCIAL HISTORY: Positive for smoking cigarettes 1 pack per day for 10 years. Admits to occasional alcohol use. No recreational drug use. FAMILY HISTORY: Noncontributory. REVIEW OF SYSTEMS: CONSTITUTIONAL: The patient denies fever, chills or weight loss. NEUROLOGICAL: The patient denies focal weakness, numbness or tingling. EYES: The patient denies visual changes, redness, or drainage. ENT: The patient denies earache, nasal drainage or sore throat. CARDIOVASCULAR: The patient denies chest pain, palpitations or diaphoresis. PULMONARY: The patient denies cough or shortness of breath. GASTROINTESTINAL: The patient denies nausea, vomiting, diarrhea or abdominal pain. ORTHOPEDIC: The patient does complain of swelling and some discomfort in both lower extremities. SKIN: The patient denies ulceration, itching or rashes. PSYCHIATRIC: The patient denies anxiety, irritability or depression. [facility] [address] [place] [address] CONSULTATION Name: KEITH ADAMS Room #: 217-P ADM IN M.R.#: [id number] Admission: 08/07/19 Attend Phys: Adrian Rouse MD Discharge: Date of : 52 Report #: [id number] Other systems in a 14-point review of systems are negative. PHYSICAL EXAMINATION: VITAL SIGNS: Include temperature 97.5, pulse 75, respiratory rate 18, and blood pressure 104/66. GENERAL: This is a well-developed male patient who appears to be in minimal distress. HEENT: Head is normocephalic. Nose and throat are clear. NECK: Supple. LUNGS: Clear. HEART: Regular. ABDOMEN: Soft, bowel sounds are present. EXTREMITIES: Lower extremities demonstrate 2-3+ edema bilaterally. No redness or drainage. Pulses are difficult to palpate, I think, mostly on the basis of edema. He has good capillary refill. LABORATORY DATA: Includes white blood cell count of 11.5 with a hemoglobin of 10.8. Sodium 132, potassium 4.9, chloride 95, CO2 26, BUN 118, creatinine 6.2, albumin is 2.9. Venous Doppler bilateral lower extremities shows no evidence of DVT. CLINICAL IMPRESSION: Bilateral lower extremity edema, likely a combination of factors including worsening renal function with fluid retention as well as some decreased cardiac output. RECOMMENDATIONS: At this point in time, we will recommend moisturizer to the skin like AmLactin. We would like to check an arterial Doppler. If he has reasonable flow I think beginning some gentle compression with William wraps and seeing lymphedema therapy would be helpful. He is to start dialysis soon, which also may help offload some of his fluid overload. The patient is agreeable to current plan. I appreciate being asked to see him in consultation. By: [id number] Larry Valentin MD /nt
--- NOTE | ~2019-08-07 | HC ---
[facility] [place] [address] CONSULTATION Name: KEITH ADAMS Room #: 217-P ADM IN M.R.#: [id number] Admission: 08/07/19 Attend Phys: Adrian Rouse MD Discharge: Date of : 52 Report #: [id number] THIS REPORT FOR: //name// cc: Byron Madrigal Kent DO ~ THIS REPORT FOR: //name// CC: Byron Rouse REASON FOR CONSULTATION: Acute kidney injury. REASON FOR PRESENTATION: Acute ventricular systolic heart failure. HISTORY OF PRESENT ILLNESS: This is a 69-year-old with known history of solitary kidney. He has had major issues with his heart in the past and has extensive cardiac workup done by our cardiology team. He is status post complete heart block with [employer] dual chamber pacemaker placed back in 2017. He is also known to have coronary artery disease. He was born with a single kidney. His baseline creatinine in the last couple of years has been in the 3 range. Most recently, he has been having some issues with extensive weight gain, lower extremity edema, dyspnea on exertion. He presented to the laboratory secretary today for an upgrade of his pacemaker. However, because of his symptoms and the worsening renal function, I was consulted to manage his acute kidney injury. Procedure was aborted and the patient was admitted to the cardiac care unit for further evaluation. PAST MEDICAL HISTORY: 1. Solitary kidney status. 2. Chronic kidney disease, baseline creatinine is around 3. 3. Diabetes mellitus. 4. COPD. 5. Coronary artery disease. 6. SVT and ventricular tachycardia in the past. 7. Paralyzed hemidiaphragm. 8. Status post pacemaker insertion. ALLERGIES: EFFIENT and BRILINTA. SOCIAL HISTORY: No drug or alcohol use. He lives with his . FAMILY HISTORY: Significant for hypertension. HOME MEDICATIONS: 1. Plavix. 2. Ranexa. 3. Isosorbide. [facility] [address] [place] [address] CONSULTATION Name: KEITH ADAMS Room #: 217-P [facility] IN [facility].#: [id number] Admission: 08/07/19 Attend Phys: Adrian Rouse MD Discharge: Date of : 52 Report #: [id number] 4. Lisinopril. 5. Torsemide. 6. Recently added metolazone. REVIEW OF SYSTEMS: GENERAL: Significant for dyspnea on exertion and weakness. CARDIOVASCULAR: Significant for dyspnea on exertion, PND, orthopnea. PULMONARY: Significant for shortness of breath. GASTROINTESTINAL: No nausea or vomiting. GENITOURINARY: No frequency. No urgency. MUSCULOSKELETAL: Significant bilateral lower extremity edema. PHYSICAL EXAMINATION: VITAL SIGNS: Temperature 37.1, pulse rate 87, blood pressure 153/81. HEAD AND NECK: Elevated jugular venous pressure. CHEST: Decreased air entry bilaterally. Crackles present. CARDIOVASCULAR: Regular rate and rhythm, no rub. ABDOMEN: Soft, nontender. LOWER EXTREMITIES: Extensive edema. LABORATORY VALUES: Reviewed. Hemoglobin is 10.4. Sodium is 136, BUN 73, creatinine is 4.3. IMPRESSION AND PLAN: 1. Acute kidney injury. 2. Chronic kidney disease. 3. Acutely decompensated heart failure. 4. Solitary kidney status. 5. Status post automatic implantable cardioverter-defibrillator. 6. Remote history of tachyarrhythmias. 7. Significant worsening of the patient's renal function in the last couple of years. 8. We will initiate the appropriate workup. 9. He is in an acute heart failure and will need aggressive diuresis. 10. Discontinue current intermittent Lasix. 11. Initiate on IV Lasix drip. 12. Initiate on IV metolazone. 13. Daily body weight. 14. Low salt diet. 15. We will continue to follow. By: 1030 1259 Shanika Durant MD /nt
--- NOTE | ~2019-08-07 | EKG ---
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 : 1950 Requested By: Rosangela Vines Order Number: [id number] MD: Measurements Intervals Ephraim Rate: 78 P: 41 IA: 269 QRS: -81 QRSD: 191 T: 103 QT: 429 QTc: 489 Interpretive Statements Sinus rhythm Prolonged IA interval Nonspecific IVCD with LAD Left ventricular hypertrophy Compared to ECG 06/28/2018 07:24:03 First degree AV block now present Intraventricular conduction delay now present Left ventricular hypertrophy now present Ventricular-paced complex(es) or rhythm no longer present [email or web address] By: 8 8 Epiphany Epiphany, /KINJAL
[~2019-08-07 06:58] MED LIST changes: +PLAVIX 75 MG TA75 M1 PO; +RANEXA500 MG PO
[2019-08-07 07:34] VITALS: BP 153/81
[2019-08-07 07:41] LABS: ABSOLUTE NEUTROPHILS 6.9 thou/uL (1.4-8.2); BASOPHILS 0.4 % (0.0-2.0); EOSINOPHILS 3.3 % (0.0-3.0); HEMATOCRIT 32.5 % (42.0-52.0); HEMOGLOBIN 10.4 gm/dL (14.0-18.0); LYMPHOCYTES 15.1 % (24.0-44.0); MCHC 32.1 g/dL (28.0-37.0); MCV 80.8 fL (80.0-100.0); MONOCYTES 9.4 % (1.0-8.0); PLATELET COUNT 332 thou/uL (150-400); POLYS 71.8 % (36.0-66.0); RBC 4.02 mil/uL (4.50-6.00); RDW 15.2 % (10.5-14.5); WBC 9.6 thou/uL (4.0-11.0)
[2019-08-07 07:45] LABS: CREATININE 4.3 mg/dL (0.7-1.3); POTASSIUM 4.8 mmol/L (3.5-5.1)
[2019-08-07 07:48] LABS: INR 1.2
[2019-08-07 07:52] LABS: ALBUMIN 2.9 g/dL (3.4-5.0); TOTAL BILIRUBIN 0.3 mg/dL (<0.1-1.0); TOTAL PROTEIN 7.6 g/dL (6.4-8.2)
[2019-08-07] MEDS ORDERED: DEMADEX20 MG PO (08:01)
--- NOTE | 2019-08-07 09:01 | NUR ---
LASIX 120MG IVP GIVEN PER DR. JULIO ORDER. VITAL SIGNS S/P LASIX: BP: 126/72, HR: 85 BPM, 02 STAT: 96 ON 4L NC, RESP: 25. PT IN STABLE CONTITION AT THIS TIME. WILL DO CXR ONCE PT IS ON THE FLOOR. REPORT CALLED TO VANDANA. PT TRANSFERRED TO 217 IN STABLE CONDITION.
[2019-08-07 10:00] VITALS: BP 127/75
--- NOTE | 2019-08-07 13:32 | NUR ---
ASSUMED CARE OF PT AT APPROX FROM 1000 FROM EP LAB. PLAN WAS FOR A NEW ICD, BUT PT PRESENTED WITH CHF EXACERBATION SO PROCEDUCE POSTPONED. ADMISSION ORDERS AND INSTRUCTIONS COMPLETE. VSS. NO C/O PAIN. PT ON 2-4L NC. AT BEDSIDE. PT CAN NOT LAY FLAT D/T DIFFICULTY BREATHING. WILL CONTINUE TO MONITOR AND FOLLOW POC.
[2019-08-07 15:49] LABS: URINE BILIRUBIN NEGATIVE (Negative); URINE BLOOD TRACE (Negative); URINE CLARITY CLEAR; URINE COLOR YELLOW; URINE GLUCOSE-RANDOM* NEGATIVE (Negative); URINE KETONES NEGATIVE (Negative); URINE LEUKOCYTES-REFLEX NEGATIVE (Negative); URINE NITRITE-REFLEX NEGATIVE (Negative); URINE PROTEIN (DIPSTICK) 1+ (Negative); URINE UROBILINOGEN 0.2 E.U./dl (0.2-1.0)
[2019-08-07 15:56] LABS: AMORPHOUS URATES Few /LPF (None Seen); BACTERIA-REFLEX 1-9 Few /HPF (None Seen); CASTS None Seen /LPF (None Seen); SQUAMOUS None Seen /LPF (0-3); URINE WBC-REFLEX None Seen /HPF (0-5)
[2019-08-07 15:57] LABS: URINE RBC None Seen /HPF (0-2)
--- NOTE | 2019-08-07 16:16 | 2DMMODE ---
[facility] [address] [place] [address] 2 D/M-MODE ECHOCARDIOGRAM Name: KEITH ADAMS Room #: 217-P ADM IN M.R.#: [id number] Admission: 08/07/19 Attend Phys: Adrian Rouse MD Discharge: Date of : 52 Report #: [id number] THIS REPORT FOR: cc: Byron Madrigal Kent DO Lundgren,Hernán Coffey MD [facility] ~ THIS REPORT FOR: //name// ADDENDUM APPROVED REPORT Study performed: 08/07/2019 12:25:22 EXAM: Comprehensive 2D, Doppler, and color-flow Echocardiogram Patient Location: Echo lab Room #: 217 BSA: 2.43 HR: 72 bpm BP: 153/81 mmHg Rhythm: Pacemaker Other Information Study Quality: Good Indications Congestive Heart Failure COPD Dyspnea Pacemaker CAD Cardiomyopathy 2D Dimensions RVDd: 44.88 mm IVSd: 15.42 (7-11mm) LVOT Diam: 21.82 (18-24mm) LVDd: 57.82 mm PWd: 14.19 (7-11mm) Ascending Ao: 35.53 (22-36mm) LVDs: 43.96 (25-40mm) Aortic Root: 34.76 mm IVC: 20.00 mm Volumes Left Atrial Volume (Systole) Single Plane 4CH: 79.53 mL Single Plane 2CH: 80.62 mL LA ESV Index: 37.00 mL/m2 [facility] [address] [place] [address] 2 D/M-MODE ECHOCARDIOGRAM Name: KEITH ADAMS Room #: 217-P ADM IN M.R.#: [id number] Admission: 08/07/19 Attend Phys: Adrian Rouse Discharge: Date of : 52 Report #: [id number] Aortic Valve AoV Peak Henok.: 1.09 m/s AO Peak Gr.: 4.74 mmHg LVOT Max P.17 mmHg LVOT Max V: 0.89 m/s TYRA Vmax: 3.06 cm2 Pulmonary Valve PV Peak Henok.: 1.10 m/s PV Peak Gr.: 4.85 mmHg Tricuspid Valve TR Peak Gr.: 55.00 mmHg PA Pressure: 70.00 mmHg Left Ventricle Left ventricle is borderline dilated. There is hypokinesis in the anterior and apical wallsl. Mild to moderate concentric left ventricular hypertrophy. Left ventricular systolic function is severely decreased. Discordant septal motion probably from right ventricular pacing LVEF is 30%. This study is not technically sufficient to allow evaluation of the LV diastolic function. Right Ventricle The right ventricle is normal size. Right ventricle is hypokinetic. Pacemaker lead is present in the right ventricle. Atria The left atrium size is normal. The right atrium size is normal. Aortic Valve The aortic valve is normal in structure. Trace aortic regurgitation. There is no aortic valvular stenosis. Mitral Valve The mitral valve is normal in structure. Moderate mitral regurgitation. No evidence of mitral valve stenosis. Tricuspid Valve The tricuspid valve is normal in structure. There is mild to moderate tricuspid regurgitation. Estimated PAP 70 mmHg. There is severe pulmonary hypertension. Pulmonic Valve The pulmonary valve is normal in structure. Trace pulmonic regurgitation. [facility] [address] [place] [address] 2 D/M-MODE ECHOCARDIOGRAM Name: KEITH ADAMS Room #: 217-P ADM IN [facility].#: [id number] Admission: 08/07/19 Attend Phys: [facility] Discharge: Date of : 51 Report #: [id number] Great Vessels The aortic root is normal in size. The ascending aorta is normal in size. The inferior vena cava is dilated with no inspiratory collapse. Pericardium There is no pericardial effusion. <Conclusion> Left ventricular systolic function is severely decreased. Discordant septal motion probably from right ventricular pacing There is hypokinesis in the anterior and apical wallsl. LVEF is 30%. The aortic valve is normal in structure. Trace aortic regurgitation, no stenosis. The mitral valve is normal in structure. Moderate mitral regurgitation. Pulmonary artery pressure of 60mmHg There is no pericardial effusion. <ELECTRONICALLY SIGNED> By: Hernán Urrutia MD, FACC 08/07/19 1615 1615 1615 Hernán Urrutia MD, FACC /INF
[2019-08-07 16:40] VITALS: BP 133/71
--- NOTE | 2019-08-07 18:25 | NUR ---
ASSUME CARE OF PT AT APPROX 1000. ASSESSMENTS CHARTED. MEDS GIVEN PER MAR. VSS. PT A&OX4, UP AD PUJA. PT ON 2L NC. BECOMES SOA WITH EXERTION. WILL CONTINUE TO MONITOR AND FOLLOW POC.
[2019-08-07 19:00] LABS: URINE CREATININE-RANDOM* 36.9 mg/dL; URINE PROTEIN-RANDOM* 64.4 mg/dL (<11.9)
[2019-08-07 19:24] VITALS: BP 138/75
[2019-08-08 00:17] VITALS: BP 111/74
--- NOTE | 2019-08-08 01:07 | NUR ---
ASSESSMENTS CHARTED, MEDS GIVEN CHARTED. PATIENT CAME IN FOR SCHEDULED PACEMAKER REVISION AND FOUND TO BE IN HEART FAILURE WITH ADVANCED RENAL FAILURE WITH A CREATININE ABOVE 4. PM REVISION HAS BEEN CANCELLED AT PRESENT AND MAY BE DONE OUTPATIENT PROCEDURE ONCE PATIENT IS MORE STABLE. BILATERAL LOWER EXTREMITY EDEMA, +3. USING HOME BIPAP MACHINE WHILE SLEEPING. PATIENT NPO SINCE MIDNIGHT PER ORDERS. UP AT PUJA IN ROOM, C/O PAIN IN KNEES, TYLENOL DOSED. PATIENT ON LASIX GTT DURING SHIFT. VSS.
[2019-08-08 04:19] VITALS: BP 113/50
[2019-08-08 06:00] LABS: ALBUMIN 2.7 g/dL (3.4-5.0); CREATININE 4.5 mg/dL (0.7-1.3); POTASSIUM 4.6 mmol/L (3.5-5.1); TOTAL BILIRUBIN 0.4 mg/dL (<0.1-1.0); TOTAL PROTEIN 7.3 g/dL (6.4-8.2)
--- NOTE | 2019-08-08 08:11 | HC ---
[facility] [place] [address] CONSULTATION Name: KEITH ADAMS Room #: 217-P [facility] IN M.R.#: [id number] Admission: 08/07/19 Attend Phys: Adrian Rouse MD Discharge: Date of : 52 Report #: [id number] THIS REPORT FOR: //name// cc: Byron Madrigal Kent DO ~ THIS REPORT FOR: //name// CC: Byron Rouse DATE OF SERVICE: 08/07/2019 ENDOCRINE CONSULTATION NOTE CONSULTING PHYSICIAN: Adrian Rouse MD REASON FOR CONSULTATION: Uncontrolled type 2 diabetes mellitus. HISTORY OF PRESENT ILLNESS: This is a 69-year-old male patient whose medical background is significant for multiple medical issues including longstanding type 2 diabetes mellitus, coronary artery disease, status post stent placement in 2017, SVT, congestive heart failure as well as advanced stage 4 chronic kidney disease. The patient was admitted earlier today to revise his pacemaker. The patient had type 2 diabetes mellitus for over 20 years and has gone through multiple therapeutic changes. Most recently, he has been on Humulin 70/30 insulin at a largely variable dose that goes anywhere from 80 to 160 units total daily dose divided in 2-3 doses per day. The patient notes that his blood glucose values varied widely but he has not had a particular issue with hypoglycemia in the past. Again, the patient's diabetic course had been marked by stage 4 chronic kidney disease, as well as retinopathy requiring laser surgery. Also, the patient had a significant cardiac history in the form of coronary artery disease, status post stent placements in 2017, SVT status post ablation, pacemaker placement, and congestive heart failure. The patient is also known to have hyperlipidemia, hypertension. REVIEW OF SYSTEMS: CONSTITUTIONAL: Fatigue, tiredness, but no fever, chills or body weight changes. HEENT: Negative for sinus pain, sinus congestion, ear drainage. PULMONARY: Baseline shortness of breath due to diaphragmatic paralysis and COPD. Intermittent cough, but no hemoptysis. CARDIAC: Dyspnea on exertion, intermittent issues with palpitations, chest [facility] [address] [place] [address] CONSULTATION Name: KEITH ADAMS Room #: 217-P [facility] IN M.R.#: [id number] Admission: 08/07/19 Attend Phys: Adrian Rouse MD Discharge: Date of : 52 Report #: [id number] discomfort, and lower extremity swelling. GASTROINTESTINAL: Abdominal distention, discomfort, nausea, but no vomiting. NEUROLOGY: Negative for loss of consciousness, seizure activity, frequent severe headaches. PSYCHIATRIC: Negative for delusions, hallucinations. Otherwise, his review of systems is noncontributory other than those mentioned in HPI. PAST MEDICAL HISTORY: 1. Type 2 diabetes mellitus. 2. Diabetic retinopathy. 3. Stage 4 chronic kidney disease. 4. Hypertension. 5. Hyperlipidemia. 6. Coronary artery disease, status post stent placement in January 2017. 7. Supraventricular tachycardia, status post ablation and pacemaker placement. 8. Chronic obstructive pulmonary disease. 9. Obstructive sleep apnea. 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 11. Obesity. ACTIVE MEDICATIONS: Include amlodipine 5 mg daily, aspirin 81 mg daily, lisinopril 20 mg daily, Ranexa 500 mg b.i.d., torsemide 20 mg daily, Humulin 70/30 insulin 80-160 units total daily dose, Nitrostat 0.4 mg sublingual p.r.n., and Plavix 75 mg daily. ALLERGIES: THE PATIENT IS ALLERGIC TO EFFIENT AND ELIQUIS WELL STATINS. FAMILY HISTORY: Noncontributory. SOCIAL HISTORY: The patient lives with his . He has 1 son. Denies use of tobacco, alcohol or illicit drugs. PHYSICAL EXAMINATION: GENERAL: Pleasant male patient who is not in apparent pain or distress. VITAL SIGNS: Blood pressure is 153/81 mmHg, heart rate is 87 beats per minute, respirations 25 per minute, and temperature 37.1 Celsius. CONSTITUTIONAL: The patient is sitting at the side of his bed, appears mostly comfortable, not in apparent distress. HEENT: Anicteric sclerae. Intact extraocular motions. NECK: Supple, without carotid bruits or thyromegaly. CHEST: Noted for moderate air entry bilaterally with scattered rales, bibasilar crackles. No wheezes. HEART: Regular rate and rhythm. ABDOMEN: Obese, somewhat distended, somewhat tense, but not tender. No guarding. [facility] [address] [place] [address] CONSULTATION Name: KEITH ADAMS Room #: 217-P [facility] IN M.R.#: [id number] Admission: 08/07/19 Attend Phys: Adrian Rouse MD Discharge: Date of : 52 Report #: [id number] EXTREMITIES: Lower extremity exam is noted for trace ankle edema bilaterally. NEUROLOGIC: Awake, alert and oriented to time, place and person. The remainder of his examination is largely nonfocal. PSYCHIATRIC: Pleasant, interactive, appropriate. Normal mood and affect. LABORATORY RESULTS: Sodium is 136, potassium 4.8, chloride 101, CO2 of 23, anion gap 12, BUN 73, creatinine 4.3, glucose 278, AST 18, total bilirubin 0.3, calcium 9.0, phosphorus 4.1, magnesium 1.9, alkaline phosphatase 149, AST 22, total protein 7.6, albumin 2.9, and EGFR 14. Troponin negative. BNP 13,231. INR 1.2. White blood count 9.6, hemoglobin 10.4, hematocrit 32.5, and platelets 332. Hemoglobin A1c in June 2017 was 8.3. TSH 2.55. ASSESSMENT AND PLAN: 1. Type 2 diabetes mellitus. This has been hard to control and I believe the current regimen is major factor in this instability as the patient requires very large doses that are distinctly variable day to day. I discussed the need to achieve and maintain adequate glycemic control with the patient at length and I made a case for the advantage of utilizing a basal bolus regimen, which he ultimately agreed with. That said, I will move towards a combination of Lantus 40 units q.p.m. and Humalog 15 units t.i.d. a.c along with the support of Humalog supplemental scale, moderate scale as we monitor his blood glucose values a.c. and at bedtime and adjust his insulin needs accordingly. Blood glucose monitoring will commence a.c. and at bedtime and further adjustments will be made as needed. I will obtain a hemoglobin A1c today to better assess his most recent level of control. 2. Hypertension. The patient is currently maintained on lisinopril, Norvasc and Zaroxolyn. Further antihypertensive regimen adjustments will be deferred to the Cardiology and Nephrology services. 3. Hyperlipidemia. The patient is reported as having hyperlipidemia, but is not actively on statin therapy due to statin intolerance. He might be considered for Zetia coverage to exert at least partial control bringing him closer towards a goal range. 4. Chronic kidney disease. This is advanced stage 4 chronic kidney disease. The patient is currently under the care of Dr. Durant. I certainly appreciate this consultation by Dr. Rouse. ADDENDUM I have reviewed the patient's clinical care notes, laboratory data, radiology reports past and present as well as outpatient clinical records for over 35 minutes. <ELECTRONICALLY SIGNED> By: Amaya Tran MD 08/08/19 0811 1153 02 Amaya Tran MD /nt
[2019-08-08 08:14] VITALS: BP 126/72
[2019-08-08 11:16] VITALS: BP 112/58
--- NOTE | 2019-08-08 13:02 | HC ---
[facility] [place] [address] CONSULTATION Name: KEITH ADAMS Room #: 217-P [facility] IN M.R.#: [id number] Admission: 08/07/19 Attend Phys: Adrian Rouse MD Discharge: Date of : 51 Report #: [id number] THIS REPORT FOR: //name// CC: Byron Rouse DATE OF SERVICE: 08/07/2019 REASON FOR CONSULTATION: Acute ventricular systolic heart failure. HISTORY OF PRESENT ILLNESS: The patient is a 69-year-old male with history of coronary artery disease, ischemic cardiomyopathy, complete heart block, status post St. Reyes MRI compatible pacemaker in 01/2017. Recently, he has developed worsening LV systolic heart failure with progression of his heart failure symptoms. Today, he presented for upgrade from a pacemaker to a biventricular ICD. However, he has been experiencing increased shortness of breath, lower extremity edema and is unable to lay flat today. Also, he is noted to be in acute on chronic renal insufficiency and has recently seen his sheet catcher for this in the past week or so. Based on these findings, he needs to be admitted for treatment of his heart failure and optimization of his renal function. REVIEW OF SYSTEMS: GENERAL: Denies fevers or chills. CARDIOVASCULAR: No chest pain or chest tightness. PULMONARY: He is chronically short of breath, GASTROINTESTINAL: No nausea or vomiting. GENITOURINARY: No dysuria. MUSCULOSKELETAL: No myalgias or arthralgias. ENDOCRINE: No heat or cold intolerance. PAST MEDICAL HISTORY: 1. Coronary artery disease, status post stent to LAD and RCA with a recent stent to the diagonal in June 2018 2. Complete heart block, status post St. Reyes dual chamber pacemaker placed in December [address] Rubio at [facility]. 3. Paralyzed hemidiaphragm. 4. Supraventricular tachycardia, status post ablation in 2010. 5. Nonsustained ventricular tachycardia. 6. Carotid artery disease. 7. Chronic obstructive pulmonary disease. 8. Diabetes mellitus. 9. Chronic renal insufficiency with a congenital single kidney. 10. Echo 09/2018, EF 35-40%. 11. Echocardiogram on 04/16/2019, EF of 30-35%. 12. Has not been on beta blockers due to COPD. [facility] [address] [place] [address] CONSULTATION Name: KEITH ADAMS Room #: 217-P [facility] IN M.R.#: [id number] Admission: 08/07/19 Attend Phys: Adrian Rouse MD Discharge: Date of : 52 Report #: [id number] ALLERGIES: BRILINTA AND EFFIENT. HOME MEDICATIONS: Include amlodipine, aspirin and Plavix, Repatha, Trilogy, hydrochlorothiazide, insulin, Imdur, lisinopril, multivitamin, nitroglycerin. [place] 3 fatty acid, Mirapex, prednisone, and torsemide. SOCIAL HISTORY: Does not smoke. FAMILY HISTORY: Noncontributory. PHYSICAL EXAMINATION: GENERAL: He is in some respiratory distress, has difficulty lying down and becomes short of breath. HEENT: Oropharynx is clear. NECK: Supple, no thyromegaly. HEART: Regular rate and rhythm with positive JVD. LUNGS: Clear to auscultation bilaterally. ABDOMEN: Soft, nontender. He does have a palpable liver edge. EXTREMITIES: Show 1-2+ lower extremity edema. NEUROLOGIC: Cranial nerves 2-12 are intact. LABORATORY DATA: Sodium is 136, potassium 4.8, BUN 73, creatinine 4.3. White count 9.6, hemoglobin 10, platelets 332. INR 1.2. ProBNP 13,231. ASSESSMENT: 1. Acute on chronic left ventricular systolic heart failure. 2. Coronary artery disease. 3. Ischemic cardiomyopathy. 4. Complete heart block. 5. Chronic obstructive pulmonary disease. 6. Acute on chronic renal failure. 7. Paralyzed hemidiaphragm. PLAN: The patient's upgrade to a Bi-V ICD will be canceled today. This is due to his volume overload and acute renal failure. We will initiate aggressive IV diuresis. I will give him Lasix 120 IV x 1 and we will have Nephrology service see the patient to help with his diuresis. We will also have pulmonary involved to optimize his lung status. The patient will likely be here several days. If his creatinine improves and he stabilizes from a heart failure standpoint, we could consider performing this device as an inpatient when he is more clinically stable. We will continue to follow. <ELECTRONICALLY SIGNED> By: Adrian Rouse MD 08/08/19 1302 [id number] [id number] Adrian Rouse MD /nt
--- NOTE | 2019-08-08 16:26 | NUR ---
Chart reviewed and case discussed with the care team. Pt came in for a pacermaker revision but it was cancelled due to heart failure. Pt now on lasix gtt. He lives at home with his and has two steps to enter their home. He is indep with gait and adl's and utilizes a cane on occasion. He is up ad ml at this time. He has a pcp and insurance in place for f/u care. DC timeframe is uncertain. No cm interventions are indicated at this time. Will follow along should dc needs arise.
[2019-08-08 16:36] VITALS: BP 128/65
--- NOTE | 2019-08-08 17:20 | NUR ---
PT ALERT AND ORIENTED. SCHEDULED PAIN MED GIVEN WITH PARTIAL RELIEF. LASIX DRIP INFUSING @ 10ML/HR. VSS. WILL CONTINUE TO MONITOR.
[2019-08-08 20:10] VITALS: BP 108/54
--- NOTE | 2019-08-09 00:09 | NUR ---
ASSESSMENTS CHARTED, MEDS CHARTED. PATIENT ON LASIX GTT THERAPY. DIURESING PROGRESSING. DAILY STANDING WEIGHTS ORDERED TO MEASURE PROGRESS. PATIENT USING HOME BIPAP WHILE SLEEPING. UP AT PUJA IN ROOM. ZAFAR. PLAN OF CARE IS TO CONTINUE DIURESING. TRY LOWERING CREATININE LEVELS TO STABLIZE PATIENT SO ICD REVISION CAN BE RESCHEDULED.
[2019-08-09 02:06] LABS: GLYCOHEMOGLOBIN (HGB A1C) 8.7 % (4.8-5.6)
[2019-08-09 04:45] VITALS: BP 110/59
[2019-08-09 06:23] LABS: ALBUMIN 2.9 g/dL (3.4-5.0); CALCIUM 9.4 mg/dL (8.5-10.1); CREATININE 4.7 mg/dL (0.7-1.3); PHOSPHORUS 5.9 mg/dL (2.5-4.9); POTASSIUM 4.5 mmol/L (3.5-5.1)
[2019-08-09 08:00] VITALS: BP 96/57
[2019-08-09 12:19] VITALS: BP 116/62
--- NOTE | 2019-08-09 15:55 | NUR ---
AAOXX4 VERY PLEASANT AND COOPERATIVE. DENIES PAIN AT THIS TIME HE REPORTS OCCASIONAL PAIN IN ANKLES. SKIN INTACT. 2+ EDEMA IN FEET BILAT. LUNGS DIMINISHED. GOOD APPETITE FOR MEALS. IV LEFT ARM REPLACED DUE TO ACCIDENTAL DISLODGEMENT. VOIDS CLEAR YELLOW URINE. AT BEDSIDE.
[2019-08-09 16:00] VITALS: BP 103/70
[2019-08-09 19:09] VITALS: BP 104/50
[2019-08-09 23:58] VITALS: BP 106/67
[2019-08-10 05:10] VITALS: BP 111/66
[2019-08-10 05:19] LABS: CALCIUM 9.1 mg/dL (8.5-10.1); CREATININE 5.1 mg/dL (0.7-1.3); PHOSPHORUS 6.4 mg/dL (2.5-4.9); POTASSIUM 4.9 mmol/L (3.5-5.1)
--- NOTE | 2019-08-10 06:22 | NUR ---
ASSUMED CARE OF PATIENT AT 1900. ASSESSMENT COMPLETED. TELE STRIPS PRINTED AND PLACED IN CHART. PATIENT C/O PAUL HAND AND LE CRAMPING. PATIENT'S POTASSIUM CHECKED AND WNL. FLUID RESTRICTION EXPLAINED TO THE PATIENT AND HELD TO ONLY 1000 ML INTAKE FOR OVERNIGHT SHIFT. PATIENT STATES THAT HE HAS BEEN DRINKING 2X THAT AMOUNT PER SHIFT. PATIENT ON LASIX DRIP. PATIENT ON BIPAP OVERNIGHT. PATIENT STATES THAT HE NOTICES IMPROVEMENT IN THE SWELLING OF HIS PAUL ANKLES AND FEET. PATIENT TO CONTINUE WITH POC.
--- NOTE | 2019-08-10 09:51 | HC ---
[facility] [place] [address] CONSULTATION Name: KEITH ADAMS Room #: 217-P [facility] IN M.R.#: [id number] Admission: 08/07/19 Attend Phys: Adrian Rouse MD Discharge: Date of : 51 Report #: [id number] THIS REPORT FOR: //name// CC: Byron Rouse DATE OF SERVICE: 08/07/2019 REASON FOR CONSULTATION: Coronary artery disease. HISTORY OF PRESENT ILLNESS: The patient is a 69-year-old gentleman with longstanding diabetes, distal small vessel coronary artery disease, sleep apnea, on BiPAP, advanced kidney disease, heart block with prior pacemaker implantation, severe COPD and paralyzed hemidiaphragm. He has a remote history of RF ablation for supraventricular tachycardia. During a recent routine visit, he was found to have nonsustained VT on interrogation of his device. He has also developed severe left ventricular dysfunction in part related to RV pacing. Arrangements were made for a biventricular pacer defibrillator upgrade. Although when he presented, he was found to be in heart failure with advancing renal failure with a creatinine over 4. He is now admitted for further evaluation. The patient denies chest heaviness or pressure. He has had substantial reduction in his angina following his last intervention, which was stenting of the diagonal branch with a 2.5 x 12 mm Resolute stent and laser atherectomy of the left main and stenting with a 4.0 x 12 mm Resolute stent dilated to 4.5 mm. He has been compliant with BiPAP. He was doing his best he tells me to watch carbohydrates and salt intake. ALLERGIES: HE IS ALLERGIC TO EFFIENT AND BRILINTA. MEDICATIONS: Include amlodipine 5 mg daily, aspirin, Plavix 75 mg daily, Repatha every 2 weeks, Trelegy Ellipta, insulin, Imdur 60 mg twice daily, lisinopril 20 mg daily, Ranexa 500 mg twice daily, torsemide 40 mg daily. PAST MEDICAL HISTORY: Medical records have been reviewed and include a history of very severe COPD with recent pulmonary function studies demonstrating an FEV1 of 1.12 or 32% of predicted. Paralyzed hemidiaphragm, solitary kidney. Sleep apnea, mild carotid plaquing, diabetes with nephropathy, pacemaker implantation, shoulder surgery, tonsillectomy. SOCIAL HISTORY: He is a former smoker, quit in 1986. FAMILY HISTORY: Notable for father with atrial fibrillation He is , retired. [facility] [address] [place] [address] CONSULTATION Name: KEITH ADAMS Room #: 217-P [facility] IN .R.#: [id number] Admission: 08/07/19 Attend Phys: Adrian Rouse MD Discharge: Date of : 52 Report #: [id number] REVIEW OF SYSTEMS: All systems negative except as that noted above. PHYSICAL EXAMINATION: GENERAL: A pleasant gentleman who is mildly dyspneic. VITAL SIGNS: Blood pressure is 153/80, heart rate of 87 and regular. He is afebrile. HEENT: There are neither xanthelasma, subcutaneous xanthomata, oral mucosal or digital cyanosis or kyphoscoliosis present. CHEST: Reveals diminished breath sounds at both bases. CARDIAC: Regular rate and rhythm with normal S1, S2. Jugular venous pressure is elevated. ABDOMEN: Soft and nontender. EXTREMITIES: Reveal 1 to 2+ pedal edema. Radial pulses are 2+. NEUROLOGIC: He is alert with a nonfocal exam. LABORATORY DATA: Review of his pacemaker demonstrates ventricular pacing 98% of the time. Creatinine 4.3, sodium 136, potassium 4.8. ProBNP of 13,000. Hemoglobin 10.4, white point 9.6. Chest x-ray is pending. EKG: AV sequential pacing. IMPRESSION: 1. Coronary artery disease with stable angina. 2. Ischemic cardiomyopathy. 3. Advanced chronic kidney disease stage 4. Solitary kidney 4. Severe chronic obstructive pulmonary disease with an FEV1 of 1.12 or 32% of predicted, paralyzed hemidiaphragm 5. HTN 6. Diabetes 7. LEAH RECOMMENDATIONS: 1. Intravenous Lasix. 2. Pulmonary and renal consultations. The device upgrade has been put on hold for now. 3. Dietary salt restriction encouraged. 4. He has been intolerant to statin therapy. Continued monoclonal antibody therapy with Repatha recommended. Further thoughts and plans will be forthcoming based on this evaluation. Thank you for asking me to participate in his care. <ELECTRONICALLY SIGNED> By: Hernán Urrutia MD, FACC 08/10/19 0951 [id number] [id number] Hernán Urrutia MD, FACC /nt
[2019-08-10 12:00] VITALS: BP 82/41
--- NOTE | 2019-08-10 14:52 | NUR ---
AFTER SHOWER PATIENT STARTED C/O COLD SWEATS AND CLAMMY. BLOOD SUGAR AND VITAL SIGNS CHECKED. BLOOD GLUCOSE 125. REPORTS ONE DIARHEA STOOL. BIPAP APPLIED. AMOS MCCABE
[2019-08-10 16:00] VITALS: BP 101/60
--- NOTE | 2019-08-10 18:43 | NUR ---
FEELS MUCH BETTER AT THIS TIME. UP IN CHAIR WATCHING TV WITH . REFUSED BLADDER SCAN. VOIDING LARGE AMTS CLEAR YELLOW URINE WITHOUT DIFFICULTY. REMIANS ON 1500CC FLUID RESTRICTION. REMAINS ON ROOM AIR.
[2019-08-10 20:10] VITALS: BP 98/62
[2019-08-11 00:35] VITALS: BP 108/63
[2019-08-11 04:51] LABS: ALBUMIN 2.9 g/dL (3.4-5.0); CALCIUM 8.8 mg/dL (8.5-10.1); PHOSPHORUS 6.7 mg/dL (2.5-4.9); POTASSIUM 4.4 mmol/L (3.5-5.1)
[2019-08-11 04:53] LABS: CREATININE 6.1 mg/dL (0.7-1.3)
[2019-08-11 05:15] VITALS: BP 105/64
[2019-08-11 08:00] VITALS: BP 98/60
[2019-08-11 11:00] VITALS: BP 93/65
[2019-08-11 17:00] VITALS: BP 95/49
--- NOTE | 2019-08-11 18:38 | NUR ---
ASSUMED CARE 0700. ALERT X4, DENIES CHEST PAIN, DENIES SOB. USES BIPAP FROM HOME WITH LAYING IN BED. PAIN IN LE AND VOICE IT IS PAINFULL AND AWAKENS WHEN HE IS SLEEPING. UP AB PUJA IN ROOM. CALLS FOR ASSISTANCE.
[2019-08-11 19:58] VITALS: BP 104/64
[2019-08-12 05:14] LABS: ALBUMIN 2.9 g/dL (3.4-5.0); CALCIUM 8.8 mg/dL (8.5-10.1); CREATININE 6.2 mg/dL (0.7-1.3); POTASSIUM 4.9 mmol/L (3.5-5.1)
[2019-08-12 05:37] VITALS: BP 100/57
[2019-08-12 07:45] VITALS: BP 104/68
[2019-08-12 12:05] VITALS: BP 104/61
[2019-08-12 15:40] LABS: HEMATOCRIT 34.1 % (42.0-52.0); HEMOGLOBIN 10.8 gm/dL (14.0-18.0); MCH 25.6 pg (26.0-34.0); MCHC 31.7 g/dL (28.0-37.0); MCV 80.8 fL (80.0-100.0); RBC 4.23 mil/uL (4.50-6.00); RDW 15.2 % (10.5-14.5); WBC 11.5 thou/uL (4.0-11.0)
[2019-08-12 15:50] VITALS: BP 92/56
--- NOTE | 2019-08-12 19:35 | NUR ---
ASSUMED CARE AT SHIFT CHANGE, ALERT AND ORIENTED X4. DENIES ANY CP, AND C/O LLE PAIN, MEDICATED INDICATED AND DR MALDONADO NOTIFIED. DR DIAS NOTIFIED ABOUT PATIENT AGREEING ON DIALYSIS, NEW ORDERS RECIEVED AND DR DOUGLAS CONSULT CALLED IN TO HIS OFFICE. PATIENT USES BIPAP ON AND OFF THROUGH OUT THE DAY. ALL CONCERNS AND PATIENTS FAMILY QUESTIONS ADDRESSED AND ANSWERED. AND WILL CONTINEU WITH POC.
[2019-08-12 20:30] VITALS: BP 104/66
[2019-08-13 04:14] LABS: INR 1.1; PROTIME 11.3 Seconds (9.3-11.4)
[2019-08-13 04:43] LABS: ALBUMIN 3.4 g/dL (3.4-5.0); CALCIUM 9.3 mg/dL (8.5-10.1); PHOSPHORUS 8.4 mg/dL (2.5-4.9)
[2019-08-13 04:44] LABS: CREATININE 7.2 mg/dL (0.7-1.3)
[2019-08-13 05:15] VITALS: BP 103/63
--- NOTE | 2019-08-13 07:44 | NUR ---
ASSESSMENTS CHARTED, MEDS GIVEN CHARTED. CONTINUING ON LASIX DRIP DURING SHIFT. PATIENT HAD ULTRASOUND OF LOWER EXTREMITIES DONE WITH NEGATIVE RESULTS. BILATERAL LOWER EXTREMITIES WERE WRAPPED. PATIENT HAS BEEN NPO SINCE MIDNIGHT FOR TESSIO PLACEMENT AND FISTULA GRAFT. C/O PAIN IN LOWER EXTREMITIES CONTINUES TO INCREASE DESPITE PAIN MEDS.
[2019-08-13 08:00] VITALS: BP 85/54
[2019-08-13 12:00] VITALS: BP 94/58
[2019-08-13 16:30] VITALS: BP 115/63
--- NOTE | 2019-08-13 17:21 | NUR ---
patient rec dialysis cath today with planned dialysis need in community. Dr Durant to defer to one of his [facility] clinics for community dialysis. [employer] to assist with faxing pertinent information to that clinic as well and communicating to patient clinic information.
--- NOTE | 2019-08-13 17:26 | NUR ---
ASSUMED CARE AT SHIFT CHANGE, ALERT AND ORIENTED X. VSS AND AFEBRILE VPACED ON THE MONITOR. PT HAS NEW TUNNELLED DIALYSIS CATH RT UPPER CHEST, AND WAS DIALIZED TODAY. C/O PAIN LT LEG AND MEDICATED INDICATED. BG LESS THAN 200 TODAY. AND WILL CONTINUE WITH POC.
[2019-08-13 19:49] VITALS: BP 129/74
--- NOTE | 2019-08-14 04:33 | NUR ---
PT ALERT AND ORIENTED. REPORTS BLE PAIN. PAIN MEDS GIVEN SCHEDULED AND NEED. DENIES CHEST PAIN. GARCÍA WRAPS TO THE LE OVER NIGHT. SPOUSE AT THE BEDSIDE. BIPAP AT HS. VSS. OTHER ASSESSMENTS DOCUMENTED. GOOD URINE OUTPUT. WILL CONTINUE TO FOLLOW POC.
[2019-08-14 05:02] VITALS: BP 102/60
[2019-08-14 08:00] VITALS: BP 110/56
[2019-08-14 08:08] LABS: HEP B SURFACE Ab(ANTI-HBS Non Reactive (()); HEPATITIS B SURFACE AG Negative (Negative)
[2019-08-14 12:00] VITALS: BP 112/64
--- NOTE | 2019-08-14 13:17 | NUR ---
Nutrition: Pt seen for length of stay. Hx stage 4 CKD solitary kidney, DM, CAD, systolic heart failure, cardiomyopathy, severe COPD, obstructive sleep apnea, dyslipidemia. Tunneled catheter palced on 08/13/19 for hemodialysis. Currently on heart heathly 1800 carb control diabetic diet and 80-100% intake. Has 3+ BL ankle/feet edema. Phos 8.4, A1c 8.7, Na 133, Cl 93. Addressed possible need for renal diet if dialysis continues and provided handout. He accepted information reluctantly. Reports UBW of 273#. Was 287# on admit and currently 252#. Weight change expected with dialysis. Discussed food preferences and he is aware of how to call for menu changes. Will follow up by 08/19/19 to determine if Pt desires further education. Consider adding renal diet restriction. Consider low nutrition risk.
--- NOTE | 2019-08-14 13:20 | NUR ---
ASSUMED CARE AT SHIFT, ALERT AND ORIENTED X4. DIALIZED TODAY, AND PATIENT TOLERATED WELL. VSS AND AFEBRILE, VPACED/1AVB/BBB ON THE MONITOR. C/O PAIN TO LLE MEDICATED INDICATED, AND WILL CONTINUE POC.
--- NOTE | 2019-08-14 13:52 | NUR ---
Nutrition: Pt currently requiring dialysis and on heart healthy carb controlled diet. Considering current renal lab values, would suggest adding renal diet restriction.
--- NOTE | 2019-08-14 13:55 | NUR ---
New dialysis referral initiated with [facility] per renal. Pt updated and agreeable. He states he is familiar with the clinic and has been there for his renal appts. He is hoping to dc to home tomorrow after his 3rd dialysis treatment. He completed the first one yesterday and the 2nd today. Flow sheets including in the referral packet. Jp HARLEY at [facility] is working on getting him setup. He prefers a MWF mid day schedule. He plans on driving himself. Will follow with all parties to confirm his outpt schedule.
[2019-08-14 16:00] VITALS: BP 105/47
[2019-08-14 16:47] VITALS: BP 116/68
[2019-08-14 20:13] VITALS: BP 99/54
--- NOTE | 2019-08-15 03:32 | NUR ---
NO CONCERNS OVERNIGHT. PT A0 X4. SPOUSE AT BEDSIDE. LOW BP AT THE BEGINNING OF SHIFT . CURRENTLY STABLE. DENIES CHEST PAIN. STILL C/O LE PAIN. PAIN MEDS ADMINISTERED SCHEDULED. LEG WRAPED PER PT REQUEST. WILL CONTINUE TO FOLLOW POC.
[2019-08-15 03:33] VITALS: BP 102/65
[2019-08-15 08:00] VITALS: BP 111/65
[2019-08-15] MEDS ORDERED: IMDUR 60 MG TAB60 M1 PO (08:19)
[2019-08-15] MEDS ORDERED: TRAMADOL 50 MG50 MG PO (08:19)
[2019-08-15] MEDS ORDERED: HUMALOG100 UNIT/1 SUBQ (08:19)
[2019-08-15] MEDS ORDERED: LANTUS SUBQ (08:19)
[2019-08-15 12:06] VITALS: BP 96/52
[2019-08-15 12:13] VITALS: BP 119/77
--- NOTE | 2019-08-15 14:35 | NUR ---
ASSUMMED PT CARE AT APPROXIMATELY 0700. PT A&O X4. ASSESSMENT CHARTED. FALL PRECAUTIONS IN PLACE. PT DENIES HAVING CHEST PAIN. PT DENIES HAVING SOB. PT STATED HE HAD BILATERAL LOWER EXTREMITIY PAIN. PT RECIEVED ANALGESICS. PT STATED ANALGESICS HELPED RELIEVE PAIN. PT RECEIVED DIALYSIS TODAY. VITAL SIGNS STABLE. BLOOD SUGARS STABLE. PT DISCHARGING HOME C SELF CARE. PT AND SPOUSE RECIEVED DISCHARGE EDUCATION. PT AND SPOUSE STATED UNDERSTANDING AND DENIED HAVING FURTHER QUESTIONS. IV DC. TELE DC. PT COMFORTABLE. PT DENIES HAVING FURTHER CONCERNS. PT RECEIVING MEDICAL TRANSPORT OFF UNIT.
--- NOTE | 2019-08-18 00:31 | H ---
[facility] [place] [address] HISTORY AND PHYSICAL Name: KEITH KRISHNAN Room #: 217-P [facility] IN M.R.#: [id number] Admission: 08/07/19 Attend Phys: Adrian Rouse MD Discharge: 08/15/19 Date of : 52 Report #: [id number] THIS REPORT FOR: //name// CC: Byron Rouse DATE OF SERVICE: 08/07/2019 ADMISSION HISTORY AND PHYSICAL EXAMINATION PRIMARY CARE PHYSICIAN: Dr. Maximus Marquez, . PRIMARY PEN TESTER: Dr. Rouse. PRIMARY BOAT OUTFITTING SUPERVISOR: Dr. Durant. PRIMARY STAPLE SHEAR OPERATOR: Dr. Nando Keene. CHIEF COMPLAINT: Shortness of breath and pain in both lower extremities since past 08/02/2019. HISTORY OF PRESENT ILLNESS: The patient is a very pleasant 69-year-old gentleman with a known medical history of mixed ischemic cardiomyopathy with ejection fraction of 30%, also has severe COPD with chronic kidney disease stage 4 with one kidney and known diabetes mellitus type 2, coronary artery disease with obstructive sleep apnea as well as COPD. The patient informs me that he woke up one morning in 03/2006 and was extremely short of breath and since then, the patient has been to multiple doctors and facilities including [facility] for the evaluation and no etiology for his paralysis of diaphragm has been identified and this has been very frustrating for the patient; however, the patient informs me that the baseline shortness of breath has been an issue since 03/2006, but since past Sunday, his shortness of breath has gotten significantly worse along with difficulty sleeping secondary to the pain and cramping or dull ache in both lower extremities, lower back, legs and knee and muscles, mainly kind of a dull ache and his sitting at the bedside, Mrs. Lisbet Krishnan informs me that all night long, he is moaning and groaning and even getting in and out of a car and getting up from the bed and changing position also causes significant discomfort and he has to lift his lower extremities and this is a significant change since past Sunday. The patient denies any fall or trauma. Denies any heavy lifting and he does not have any radicular pain going from the back to the lower extremity. He denies any numbness or paresthesias in both lower extremities; however, it is kind of a dull ache present in muscles of both lower extremities. The patient denies any associated fever, shaking chills or night sweats and he also denies any chest pain, chest pressure or referred pain. His dyspnea is significantly worse since Sunday and has had some weight gain as well and lower extremity edema, which is present [facility] [address] [place] [address] HISTORY AND PHYSICAL Name: KEITH KRISHNAN Room #: 217-P DIS IN M.R.#: [id number] Admission: 08/07/19 Attend Phys: Adrian Rouse MD Discharge: 08/15/19 Date of : 52 Report #: [id number] for quite some time, but it is now significantly worse. The patient was scheduled for biventricular ICD placement and he was noted to have worsening in his renal function as well as he had significant orthopnea with acute ventricular systolic heart failure and therefore, he is being admitted to the medical service while the Cardiology and Nephrology work on trying to optimize his volume status. REVIEW OF SYSTEMS: The patient has a review of systems negative for any dysuria, hematuria, frequency or urgency of urination and he also denies any hematochezia, melena, nausea, vomiting or diarrhea. Review of systems is also negative for any fever, chills or night sweats and please note that the patient has positive myalgia and arthralgia mainly of both lower extremities and lower back. Other than that, review of system is pretty much completely negative except pulmonary with the shortness of breath and orthopnea per Cardiology and both lower extremities edema worsening. PAST MEDICAL HISTORY: Significant for: 1. Cardiomyopathy with ejection fraction of 30% approximately. Echo report is not available to me, but according to Dr. Rouse's verbal check out, the patient had an ejection fraction of ____ 2. Diabetes mellitus type 2. 3. Chronic kidney disease with solitary kidney. 4. Hypertension. 5. Paralyzed right hemidiaphragm. 6. Chronic obstructive pulmonary disease with FEV1 of 0.3. 7. Hyperlipidemia. 8. History of PSVT with remote RF ablation and pacemaker implantation and now having pacemaker dysfunction. CURRENT MEDICATIONS: 1. Ipratropium and albuterol nebulizer treatment q. 4 hours. 2. Plavix 75 mg daily. 3. Ranolazine 500 mg p.o. b.i.d. 4. Isosorbide mononitrate 60 mg daily. 5. Amlodipine 5 mg daily. 6. Lisinopril 20 mg daily. 7. Aspirin 81 mg daily. 8. Torsemide 20 mg daily. 9. Insulin NPH/regular 70 units as directed and aspart as before meals and at bedtime. ALLERGIES: The patient is allergic to PRASUGREL and APIXABAN, severe general malaise is the reaction he describes. FAMILY HISTORY: The patient's mother in her 80s because of metastatic colon cancer and father of old age in his 80s at the age of 87 [facility] [place] [address] [place] [address] HISTORY AND PHYSICAL Name: KEITH KRISHNAN Room #: 217-P [facility] IN M.R.#: [id number] Admission: 08/07/19 Attend Phys: Adrian Rouse MD Discharge: 08/15/19 Date of : 52 Report #: [id number]. SOCIAL HISTORY: The patient smoked 1 pack per day, but quit 30 years ago and rarely takes any alcohol and no other recreational drugs. The patient is full code and he lives at home with his and Mrs. Lisbet Krishnan is the durable power of deputy county attorney for his health and that she can be reached at [phone]. PAST SURGICAL HISTORY: Significant for: 1. Tonsillectomy. 2. Lipoma removal from right kidney. 3. Pacemaker placement. 4. RF ablation. 5. Sebaceous cyst from the mid back removed. PHYSICAL EXAMINATION: VITAL SIGNS: Temperature 37.1, heart rate 87, respirations 25, blood pressure 153/81, pulse oximetry 93% on room air. GENERAL: Alert and oriented to time, place and person, very pleasant, obese gentleman who is sitting upright and is able to lie down up to 50 degrees incline and beyond that he has significant orthopnea, but the patient is not in any acute respiratory distress. HEENT: Normocephalic, atraumatic. Pupils are equally round and reactive to light and extraocular muscle movement is intact. Conjunctivae are clear, pale. Sclerae are nonicteric. Oropharynx is clear. Mucous membranes moist. Angle of mouth symmetrical. NECK: Supple. Hard to evaluate JVD as the patient is unable to lie down even at 45 degrees. No lymphadenopathy noted. No thyromegaly noted. HEART: S1, S2, regular. No murmur, no S3, no S4. LUNGS: Clear to auscultation bilaterally with distant breath sounds noted, but no wheezing or crackles noted. ABDOMEN: Soft, nontender, nondistended and obese abdomen, hard to evaluate hepatosplenomegaly secondary to large obese abdomen. EXTREMITIES: 2+ pitting edema all the way up to the knee joint and skin extremely dry, but intact. NEUROLOGIC: Completely nonfocal with cranial nerves 2-12 intact. The patient has significant weakness in both lower extremities but it is bilaterally symmetrical and mood and affect normal. LABORATORY DATA AND X-RAYS: The patient's WBC 9600 with increasingly significant monocytosis and eosinophilia and lymphopenia noted. Hemoglobin 10.4 with normal red cell indices, RDW, however, is mildly elevated at 15.2, hematocrit 32.5. Coagulation panel indicates PT 12.0, INR 1.2. Chemistries indicate sodium 136, potassium 4.8, chloride 101, bicarbonate 23, [address] [address] HISTORY AND PHYSICAL Name: KEITH KRISHNAN Room #: 217-P DIS IN M.R.#: [id number] Admission: 08/07/19 Attend Phys: Adrian Rouse MD Discharge: 08/15/19 Date of : 52 Report #: [id number] anion gap 12, BUN 73, creatinine 4.3, estimated GFR 14, glucose 278, calcium 9.0, total bilirubin 0.3, AST 22, alkaline phosphatase 149. BNP markedly elevated at 13,231; however, when compared with a baseline ProBNP, the patient had 2201 as compared to 13,000 today. Urinalysis is pending at the present time. LFTs within normal. AST 18, ALT 22, alkaline phosphatase is 149, total protein 7.6 and albumin low at 2.9. Chest x-ray, PA and lateral, is pending at the time of dictation. ASSESSMENT: 1. Acute exacerbation of chronic systolic heart failure. 2. Severe chronic obstructive pulmonary disease with FEV1 32% of predicted. 3. Chronic kidney disease stage 4 with acute worsening creatinine of 3 weeks ago was 3.3 and today is 4.4. 4. Diabetes mellitus type 2. 5. Right hemidiaphragm paralysis. 6. Obstructive sleep apnea with BiPAP compliance present. 7. Hyperlipidemia. 8. Coronary artery disease, asymptomatic. 9. Anemia of chronic disease with possibly iron deficiency anemia as well. 10. Full code. 11. Both lower extremities with significant arthralgia and myalgia. PLAN: 1. The patient is being admitted to CCU service. Cardiology has admitted the patient because of acute CHF exacerbation. The patient actually was being admitted for replacing the current pacemaker because of pacemaker malfunction and was going to get biventricular pacemaker placement; however, secondary to significant orthopnea, the patient could not get the procedure done and also had significant worsening in the renal function and therefore, Nephrology has already been consulted. 2. Chronic obstructive pulmonary disease without exacerbation. The patient has severe disease with FEV1 32% of predicted. We will go ahead and Cardiology has been consulted and Pulmonary team as well to maximize the management for pulmonary. 3. We will go ahead and do Accu-Cheks q.i.d. before meals and at bedtime. The patient is on 70/30 insulin at home; however, here will use Lantus and t.i.d. aspart insulin or regular insulin. 4. For both lower extremities, myalgia and arthralgia, we will go ahead and do a CPK and a sedimentation rate and we will also check TSH to the blood work and we will do imaging of the lower back L-spine. We will go ahead and consult physical therapy as well. Appreciate Nephrology's inpatient here in the cardiac catheterization lab. We will go ahead and start his budesonide and nebulizer treatment home dose and we will write for incentive spirometer as tolerated as the patient has a hemidiaphragm paralysis. Plan of care was discussed with the patient in detail. 5. For dyslipidemia, the patient is intolerant to statins according to [address] [address] HISTORY AND PHYSICAL Name: KEITH KRISHNAN Room #: 217-P [facility] IN M.R.#: [id number] Admission: 08/07/19 Attend Phys: Adrian Rouse MD Discharge: 08/15/19 Date of : 52 Report #: [id number] Renan's progress note, so we will go ahead and add intolerance to the allergy list and the patient is on Repatha at home. 6. Coronary artery disease remains asymptomatic and we will continue the home medications. <ELECTRONICALLY SIGNED> By: Margarette Trejo MD 08/18/19 0031 1009 [id number] Margarette Trejo MD /nt
== END 2019-08-15 14:36 | disposition home or self-care (01) | DRG 291 ==
LOC: CATH 06:58 → 2N 09:30 → CATH 10:43 → ENTRNSPT 08-15 14:33 → EDTRNSPTSTS 08-15 14:35 → 2N 08-15 14:36
PROVIDERS: Hospitalist; Internal Medicine; Nurse Practitioner Adult Health; ADMIT Internal Medicine Cardiovascular Disease
DX: I13.0 Hypertensive heart and chronic kidney disease with heart failure and stage 1 through stage 4 chronic kidney disease, or unspecified chronic kidney disease (principal); I50.43 Acute on chronic combined systolic (congestive) and diastolic (congestive) heart failure; N18.6 End stage renal disease; N17.9 Acute kidney failure, unspecified; I47.1 Supraventricular tachycardia; E87.1 Hypo-osmolality and hyponatremia; E78.5 Hyperlipidemia, unspecified; I25.10 Atherosclerotic heart disease of native coronary artery without angina pectoris; J44.9 Chronic obstructive pulmonary disease, unspecified; E11.22 Type 2 diabetes mellitus with diabetic chronic kidney disease; E11.319 Type 2 diabetes mellitus with unspecified diabetic retinopathy without macular edema; D63.8 Anemia in other chronic diseases classified elsewhere; G83.89 Other specified paralytic syndromes; G47.33 Obstructive sleep apnea (adult) (pediatric); I25.5 Ischemic cardiomyopathy; E11.65 Type 2 diabetes mellitus with hyperglycemia; E87.6 Hypokalemia; E83.39 Other disorders of phosphorus metabolism; E66.9 Obesity, unspecified; Z88.8 Allergy status to other drugs, medicaments and biological substances; Z68.36 Body mass index [BMI] 36.0-36.9, adult; Z95.5 Presence of coronary angioplasty implant and graft; Z87.891 Personal history of nicotine dependence; Z80.0 Family history of malignant neoplasm of digestive organs; Z95.810 Presence of automatic (implantable) cardiac defibrillator; Z79.82 Long term (current) use of aspirin; Z79.899 Other long term (current) drug therapy
CPT/HCPCS: 10081; 32100; 62110; 62900; 70005

== ENCOUNTER 2019-08-27 15:53 | Inpatient (IN) | payer OTHER ==
[~2019-08-27] VITALS: Ht 177.8 cm; Wt 109.3 kg
[~2019-08-27 15:53] MED LIST changes: +HUMALOG100 UNIT/1 SUBQ; +LANTUS SUBQ; +TRAMADOL 50 MG50 MG PO
[2019-08-27 15:57] VITALS: BP 96/55
[2019-08-27 17:29] LABS: ABSOLUTE NEUTROPHILS 9.4 thou/uL (1.4-8.2); BASOPHILS 0.5 % (0.0-2.0); EOSINOPHILS 0.7 % (0.0-3.0); HEMATOCRIT 34.7 % (42.0-52.0); HEMOGLOBIN 10.9 gm/dL (14.0-18.0); LYMPHOCYTES 15.7 % (24.0-44.0); MCH 25.3 pg (26.0-34.0); MCHC 31.4 g/dL (28.0-37.0); MCV 80.7 fL (80.0-100.0); MONOCYTES 11.4 % (1.0-8.0); PLATELET COUNT 288 thou/uL (150-400); POLYS 71.7 % (36.0-66.0); RDW 16.3 % (10.5-14.5); WBC 13.1 thou/uL (4.0-11.0)
[2019-08-27 17:36] LABS: ANION GAP 9 mmol/L (7-16); BUN 46 mg/dL (7-18); CALCIUM 9.1 mg/dL (8.5-10.1); CHLORIDE 94 mmol/L (98-107); CO2 27 mmol/L (21-32); CREATININE 3.6 mg/dL (0.7-1.3); GLUCOSE 163 mg/dL (74-106); POTASSIUM 4.5 mmol/L (3.5-5.1); SODIUM 130 mmol/L (136-145)
[2019-08-27 17:46] LABS: TROPONIN-I <0.06 ng/mL (<0.06)
[2019-08-27 20:53] LABS: URINE BLOOD NEGATIVE (Negative); URINE CLARITY CLEAR; URINE COLOR YELLOW; URINE GLUCOSE-RANDOM* NEGATIVE (Negative); URINE KETONES NEGATIVE (Negative); URINE LEUKOCYTES-REFLEX NEGATIVE (Negative); URINE NITRITE-REFLEX NEGATIVE (Negative); URINE PROTEIN (DIPSTICK) 3+ (Negative); URINE SPECIFIC GRAVITY >= 1.030 (1.005-1.035); URINE UROBILINOGEN 0.2 E.U./dl (0.2-1.0)
[2019-08-27 20:56] LABS: ICTOTEST (BILI CONFIRMATORY) Negative (Negative); URINE BILIRUBIN NEGATIVE (Negative)
[2019-08-27 21:03] LABS: CASTS None Seen /LPF (None Seen); CRYSTALS None Seen /LPF (None Seen); URINE RBC 3-10 Few /HPF (0-2)
[2019-08-27 21:04] LABS: BACTERIA-REFLEX 1-9 Few /HPF (None Seen); SQUAMOUS None Seen /LPF (0-3); URINE WBC-REFLEX None Seen /HPF (0-5)
[2019-08-28 01:28] VITALS: BP 121/70
[2019-08-28] MEDS ORDERED: LANTUS SUBQ (02:22)
[2019-08-28] MEDS ORDERED: HUMALOG100 UNIT/1 SUBQ (02:23)
[2019-08-28] MEDS ORDERED: NITROGLYCERIN SUBLING (02:28)
--- NOTE | 2019-08-28 02:43 | NUR ---
PT ADMITTED FROM ED. PT AT HOME REPORTED INCREASED WEAKNESS NOT ABLE TO AMBULATE AND INCREASE EDEMA AND PAIN IN BLE. STATED HE CALLED RENAL DR BUT COULD NOT TOLERATE DISCOMFORT UNTIL AM DIALYSIS TREATMENT. PT REPORTED L SIDE PAIN ONCE IN ED. MORPHINE IV PRN WITH RELIEF PT STATED HE WAS AT [facility] 2 WEEKS AGO. PT REPORTS 3 OUTPT DIALYSIS TREATMENTS CHEST TESIO. PT REPORTS 3 DOSES OF LASIX THIS LAST WEEK AND IS CORRELATING INCREASE IN PAIN WITH THIS MED. DUSKY SKIN TONE, BLE EDEMA +3, AND COOL TO THE TOUCH. REVIEWED HOME MED LIST, PT REQUESTING DOSE OF RANEXA AND IMDUR THIS ALLEY, PROVIDER NOTIFIED 9AM DOSE WILL BE PROVIDED NOW. FSBS 407 PT HAD METHYLPREDNISONE AND BOX LUNCH IN ED. ONE TIME DOSE OF LANTUS ORDERED. PT HAS HOME BIPAP AND USING. PT SLEEPS SITTING UPRIGHT WITH FEET DANGLING OVER SIDE OF BED. AT BEDSIDE. PT VERBALIZED UNDERSTANDING OF NEED TO CALL FOR ASSISTANCE R/T FALL RISK. PT REQUESTING PRN NITRO ORDER, PROVIDER NOTIFIED, PT TO DISCUSS WITH DR DURING AM ROUNDS. PT HAS PACEMAKER. PREVIOUS HX DIALYSIS, DM, STENTS X 2,COPD, DM, DEPRESSION.
--- NOTE | 2019-08-28 03:07 | NUR ---
PT STATED HE WAS HAVING ANXIETY RE NOT HAVING THE MEDS HE WANTS THEM. PROVIDER CONTACTED, ORDERS MAINTAINED AND PRN FOR ANXIETY AND SLEEP ADDED.
--- NOTE | 2019-08-28 03:31 | NUR ---
PT DECLINED PRN XANAX AND MELATONIN, STATED HE HAD APPREHENSION VERSUS ANXIETY AND PT WAS GOING TO GO TO SLEEP. AT BEDSIDE.
[2019-08-28 03:45] VITALS: BP 145/85
[2019-08-28 07:13] VITALS: BP 135/83
--- NOTE | 2019-08-28 08:18 | EKG ---
[facility] [place] [address] [address] [place] [address] ELECTROCARDIOGRAM REPORT Name: KEITH ADAMS Room #: 357-P ADM IN M.R.#: [id number] Admission: 08/27/19 Attend Phys: New Urban MD Discharge: Date of : 52 Report #: [id number] THIS REPORT FOR: cc: AUTUMN - Jaclyn family physician/PCP AUTUMN - Jaclyn family physician/PCP Adrian Rouse MD ~ THIS REPORT FOR: //name// 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 : 1950 Requested By: Osito Capone Order Number: [id number] MD: Adrian Rouse Measurements Intervals [place] Rate: 83 P: 249 CO: 227 QRS: -79 QRSD: 198 T: 113 QT: 433 QTc: 509 Interpretive Statements Ventricular-paced complexes No further analysis attempted due to paced rhythm Compared to ECG 08/08/2019 07:19:33 Sinus rhythm no longer present Electronically Signed On 08-28-2019 8:17:03 HEADING SAW OPERATOR by Adrian Rouse [email or web address] <ELECTRONICALLY SIGNED> By: Adrian Rouse MD 08/28/19 0817 1609 1609 Adrian Rouse MD /EPI
--- NOTE | 2019-08-28 13:16 | NUR ---
Nutrition: Pt assessed for RD consult received for 'renal dialysis'. Admit: weakness, LE edema/leg pain. Pt w/ CKD which has progressed to ESRD per notes. Other hx: DM, CAD s/p stents, COPD, depression, heart failure. He had recent tunneled catheter placed 08/13/19 and started HD ~2 wks ago. Per EMR, pt very fluid overloaded w/ plans for daily dialysis. Has a 3.5 hr session ordered for today and tomorrow. On a heart healthy, low K+ diet at this time. RD visited pt while on dialysis. He reports receiving education since HD started and has lots of education materials at home. RD reviewed certain low vs high K+ fruits/vegetables, strongly reminded on phos restriction w/ goal to limit dairy to no more than 1 serving/day. Also discussed 1500 mg Na restriction pt was placed on. He reads food labels thoroughly; "I spend 5x as long at store" per report. He declined further renal diet review needs. Low nutrition risk.
[2019-08-28 15:21] VITALS: BP 119/53
--- NOTE | 2019-08-28 16:21 | NUR ---
ASSUMED CARE OF PT AT 0700. PT AOX4 IN NO ACUTE DISTRESS. SENT TO /RM425 FOR DIALYSIS - 2L REMOVED. PER RENAL TO BE DIALYZED DAILY FOR NOW. AMBULATED AROUND HALLWAY WITH PHYSICAL THERAPY. ON BIPAP/2LNC. CALLS OUT APPROPRIATELY. VITALS STABLE. NOW RESTING. WILL CONT TO MONITOR.
[2019-08-28 19:30] VITALS: BP 100/51
--- NOTE | 2019-08-29 00:11 | NUR ---
PT RESTING IN BED, WATCHING TV, BIPAP ON. BLE EDEMA REMAINS +2. NO C/O PAIN. PT DISCUSSED HE BELIEVES THE STEROIDS ARE IMPROVING HIS PAIN, HE STATED DIALYSIS MAKES HIM FEEL WASHED OUT AND EXHAUSTED. PT CALLS FOR ASSISTANCE WITH AMBULATION.
[2019-08-29 03:45] VITALS: BP 129/69
[2019-08-29 03:51] LABS: HEMATOCRIT 36.8 % (42.0-52.0); HEMOGLOBIN 11.5 gm/dL (14.0-18.0); LYMPHOCYTES 5.8 % (24.0-44.0); MCH 25.3 pg (26.0-34.0); MCHC 31.3 g/dL (28.0-37.0); MCV 80.9 fL (80.0-100.0); MONOCYTES 3.7 % (1.0-8.0); POLYS 90.5 % (36.0-66.0); RBC 4.55 mil/uL (4.50-6.00); RDW 16.5 % (10.5-14.5); WBC 19.9 thou/uL (4.0-11.0)
[2019-08-29 03:56] LABS: ALBUMIN 2.9 g/dL (3.4-5.0); CALCIUM 8.7 mg/dL (8.5-10.1); CREATININE 4.1 mg/dL (0.7-1.3); MAGNESIUM 2.4 mg/dL (1.8-2.4); POTASSIUM 5.6 mmol/L (3.5-5.1)
[2019-08-29 04:07] LABS: ANA INTERPRETATION Negative (Negative)
[2019-08-29 04:31] LABS: PLATELET COUNT 372 thou/uL (150-400)
[2019-08-29 07:12] VITALS: BP 115/60
[2019-08-29 15:29] VITALS: BP 115/66
--- NOTE | 2019-08-29 17:19 | NUR ---
Chart reviewed and case discussed with the care team. Pt known to cm from recent discharge home 10 days ago with new outpt dialysis treatment. [facility] He lives with his and was indep with gait and adl's. He was driving himself to treatments. The pt readmited with fluid overload and edema. He is working with therapy and using his home bipap. The pt does not have any hh or snf history and will likley want to dc to home with outpt tx when medically ready. Will follow along and assess for hh referral. Pt has a cane at home but may need a rwalker pending his progress. He has two steps to enter their home. Pt's is supportive and able to assist as needed. Will follow.
--- NOTE | 2019-08-29 18:48 | NUR ---
PATIENT SEEN BY DR. BRYSON THIS DATE FOR REHAB CONSULT. AT THIS TIME THERE ARE NO REHAB BEDS AVAILABLE ON [address] [place] [address]. NEXT SCHEDULED DISCHARGE IS ON 09/03/19. INFORMED GARMENT PRESSER. IF PATIENT IS STILL IN HOSPITAL SUNDAY (09/01/19) CAN REASSESS BED AVAILIBILITY AND PATEINT APPROPRIATENESS FOR REHAB SERVICES. THANK YOU FOR THIS REFERRAL.
--- NOTE | 2019-08-29 19:34 | NUR ---
HAD DIALYSIS TODAY WHICH HE TOLERATED WELL. DOES NOT SEEM TO BE IN PAIN OR DISTRESS AT THIS TIME. RESPIRATIONS EVEN NON LABORED. BLE WRAPPED ORDERED. WILL CONT WITH PLAN OF CARE.
[2019-08-29 20:24] VITALS: BP 112/66
--- NOTE | 2019-08-29 22:55 | NUR ---
PT WATCHING TV WITH BIPAP ON. PT OFFERING NURSE TEA. BLE WRAPS INTACT PT REQUESTED REMOVAL AT HS. BLE EDEMA+3. NO C/O PAIN. AMBULATES WITH WALKER, CALLS FOR ASSISTANCE.
--- NOTE | 2019-08-30 02:30 | NUR ---
PT AMBULATING IN HALLS, TALKING WITH STAFF AT DESK. PT REPORTS THAT WALKING RELIEVE RLE PAIN.
[2019-08-30 03:59] VITALS: BP 119/65
[2019-08-30 06:57] VITALS: BP 101/56
[2019-08-30] MEDS ORDERED: PANTOPRAZOLE SO40 M1 PO (08:26)
[2019-08-30] MEDS ORDERED: PREDNISONE 20 M20 M1 PO (08:26)
[2019-08-30] MEDS ORDERED: VOLTAREN GEL 1100 G1 TOP (08:26)
--- NOTE | 2019-08-30 09:35 | NUR ---
0735 pt blood glucose 74, pt alert and oriented X4.Complained of right leg pain, 8/10, pt medicated according to order. assessment completed. denies any other needs. pt taken down for dialysis.
[2019-08-30 13:15] VITALS: BP 118/76
--- NOTE | 2019-08-30 14:16 | NUR ---
1310 PT BACK FROM DIALYSIS. JUDITH AND ORIENTED x4. pt updated about discharge. pt stated wanted to talk to dr. iglesias. dr. iglesias paged. waiting for response
--- NOTE | 2019-08-30 16:45 | NUR ---
Pt updated on discharge planning, stated non of the doctor has spoken to him about leaving and wanted to talk to DR. WALKER, DR WALKER paged and informed about pt requested. He stated he is okay with patient staying until he sees pt tomorrow. Pt updated and is okay with waiting until tomorrow to talk to the doctor before discharge.
[2019-08-30 19:40] VITALS: BP 116/64
[2019-08-31 06:22] VITALS: BP 111/58
[2019-08-31 07:29] VITALS: BP 118/64
--- NOTE | 2019-08-31 07:48 | NUR ---
SHORTLY AFTER SHIFT CHANGE NURSE ASKED PATIENT TO CALL WHEN HE WANTS TO GET UP HE IS A HIGH FALL RISK. PATIENT BECAME OFFENDED AND STATED THAT "I HAVE BEEN WALKING AROUND HERE BY MYSELF FOR THE PAST FEW DAYS." PATIENT REFUSES HIGH FALL RISK STATUS AND IS ADAMENT THAT HE DOES NOT HAVE BED ALARM ACTIVATED.
--- NOTE | 2019-08-31 15:19 | NUR ---
PT DOES NOT WANT TO DISCHARGE YET...FEELS WHEN HE GOES HOME HE WILL JUST COME RIGHT BACK...WANTS TO DO REHAB BEFORE DISCHARGE..
[2019-08-31 15:38] VITALS: BP 121/69
[2019-08-31 20:23] VITALS: BP 146/88
--- NOTE | 2019-08-31 21:18 | NUR ---
PT VISITING WITH FAMILY. USES CANE FOR AMBULATION, PT DECLINING TO CALL FOR ASSISTANCE WITH AMBULATION. PT USES BIPAP AT HS. PT NOT SOA WHEN TALKING WITH STAFF. AFFECT BRIGHT. JOKING. PT STATES HE BREATHES BETTER SITTING UPRIGHT TO TALK AND SLEEP UPRIGHT SITTING ON EDGE OF BED AT TIMES. BLE WRAPPED WITH GARCÍA WRAP, EDEMA +2. PT DECLINED HEPARIN. DIALYSIS CHEST CATHETER INTACT. PT STATED HE TALKED WITH HOSPITALIST AND RENAL WEEKEND DR, HE WANTS TO WAIT UNTIL RICKIE RETURNS TO DISCUSS POSSIBLE DC HOME, SINCE REHAB NOT BEING COVERED BY INSURANCE.
[2019-09-01 04:06] VITALS: BP 130/69
--- NOTE | 2019-09-01 06:03 | NUR ---
PT PLACED TRASH CAN IN FRONT OF DOOR DURING THE NIGHT AND TAPED DOWN HIS WALL LIGHT SWITCHES.
[2019-09-01 06:18] LABS: ALBUMIN 2.8 g/dL (3.4-5.0); CALCIUM 8.5 mg/dL (8.5-10.1); CREATININE 3.9 mg/dL (0.7-1.3); PHOSPHORUS 4.6 mg/dL (2.5-4.9); POTASSIUM 4.4 mmol/L (3.5-5.1)
[2019-09-01 07:41] VITALS: BP 131/67
[2019-09-01] MEDS ORDERED: DEXAMETHASONE1 MG PO (08:46)
--- NOTE | 2019-09-01 14:07 | NUR ---
DISCHARGE PLANNING. PATIENT CLINICAL UPDATES FAXED TO [facility] FOR REVIEW. CALL PLACED TO [facility] TO NOTIFY. VERIFIED CLINICALS RECEIVED WITH BARRY, COST ACCOUNTANT. REBECCAT TO DO ONSITE BEDSIDE CONSULT WITH PATIENT. UNIT SW NOTIFIED. PATIENT CLINICAL UPDATES FAXED TO [facility] PER REQUEST. CALL PLACED TO [facility] TO NOTIFY. AWAITING RESPONSE.
[2019-09-01 14:09] VITALS: BP 131/67
--- NOTE | 2019-09-01 15:00 | NUR ---
DISCHARGE ORDER COMPLETED. PATIENT DISCHARGING TO HOME. HOME HEALTH RECOMMENDED AT DISCHARGE. PATIENT DECLINED HOME HEALTH SERVICES. STATES HE DOES NOT NEED. PATIENT DIALYSIS CLINICAL INFORMATION, DISCHARGE SUMMARY AND DIALYSIS FLOW SHEETS FAXED TO [facility]. VERIFIED RECEIVED. UNIT SW AWARE.
--- NOTE | 2019-09-01 15:09 | NUR ---
DISCHARGE NOTE: SW reviewed chart and spoke with nursing and attending physician. Pt is medically stable for discharge home today. Orders written for HH services. Pt is too high level for admission to rehab. SW met with pt at bedside to discuss discharge plan. Pt declines HH services. Pt will resume his regular outpatient dialysis tomorrow at [facility]. planner intern faxed info and orders to [facility] for review. Pt's family to provide transportation home. No additional SW needs identified at this time, but is available to assist should needs arise.
--- NOTE | 2019-09-01 16:39 | NUR ---
PT is A&OX3, PT'S VS ARE STABLE, PT DENIES PAIN AND SOB , PT'S WEAKNESS HAS IMPROVED, PT FINISHED HIS DIALYSIS ABOUT 1300PM , PT IS TOLERATED , RN RECEIVED ORDER TO DC HOME WITH HOME HEALTH , BUT PT REFUSED HOME HEALTH SERVICE, HAS NOTIED, RN HAS GIVING PT DC INSTRUCTIONS, PT UNDSTANDERS WELL, PT'S FAMILY BREAD DOUGH MIXER THE PT ABOUT 1440PM.
== END 2019-09-01 15:24 | disposition home health service (06) | DRG 291 ==
LOC: ER 15:53 → EROBS 21:47 → 3W 21:47 → ENTRNSPT 09-01 15:05 → EDTRNSPTSTS 09-01 15:11 → 3W 09-01 15:24
PROVIDERS: Emergency Medicine; Internal Medicine; Internal Medicine Nephrology; Nurse Practitioner; ADMIT Hospitalist
PROC: 5A1D70Z Performance of Urinary Filtration, Intermittent, Less than 6 Hours Per Day (ICD-10-PCS; principal; 2019-08-28)
PROC: 5A09357 Assistance with Respiratory Ventilation, Less than 24 Consecutive Hours, Continuous Positive Airway Pressure (ICD-10-PCS; principal; 2019-08-28)
PROC: 5A1D70Z Performance of Urinary Filtration, Intermittent, Less than 6 Hours Per Day (ICD-10-PCS; 2019-08-29)
PROC: 5A1D70Z Performance of Urinary Filtration, Intermittent, Less than 6 Hours Per Day (ICD-10-PCS; 2019-08-30)
PROC: 5A1D70Z Performance of Urinary Filtration, Intermittent, Less than 6 Hours Per Day (ICD-10-PCS; 2019-08-31)
PROC: 5A09357 Assistance with Respiratory Ventilation, Less than 24 Consecutive Hours, Continuous Positive Airway Pressure (ICD-10-PCS; 2019-09-01)
DX: I13.2 Hypertensive heart and chronic kidney disease with heart failure and with stage 5 chronic kidney disease, or end stage renal disease (principal); N18.6 End stage renal disease; N17.9 Acute kidney failure, unspecified; M12.862 Other specific arthropathies, not elsewhere classified, left knee; I50.9 Heart failure, unspecified; M12.861 Other specific arthropathies, not elsewhere classified, right knee; M25.562 Pain in left knee; M25.561 Pain in right knee; E11.22 Type 2 diabetes mellitus with diabetic chronic kidney disease; E78.5 Hyperlipidemia, unspecified; I25.10 Atherosclerotic heart disease of native coronary artery without angina pectoris; J44.9 Chronic obstructive pulmonary disease, unspecified; G47.33 Obstructive sleep apnea (adult) (pediatric); J98.6 Disorders of diaphragm; D63.8 Anemia in other chronic diseases classified elsewhere; Z79.82 Long term (current) use of aspirin; Z95.5 Presence of coronary angioplasty implant and graft; Z95.810 Presence of automatic (implantable) cardiac defibrillator; Z79.84 Long term (current) use of oral hypoglycemic drugs; Z79.899 Other long term (current) drug therapy; Z88.8 Allergy status to other drugs, medicaments and biological substances
CPT/HCPCS: 10879; 32100

== ENCOUNTER → 2019-10-27 | Outpatient (CLI) | payer OTHER ==
[~2019-10-27] MED LIST changes: +DEXAMETHASONE1 MG PO; +NITROGLYCERIN SUBLING; +PANTOPRAZOLE SO40 M1 PO; +PREDNISONE 20 M20 M1 PO; +VOLTAREN GEL 1100 G1 TOP
== END ==
LOC: SJCVC 13:43
DX: R94.31 Abnormal electrocardiogram [ECG] [EKG] (principal); I25.118 Atherosclerotic heart disease of native coronary artery with other forms of angina pectoris; I25.5 Ischemic cardiomyopathy; I10 Essential (primary) hypertension; E78.5 Hyperlipidemia, unspecified; I12.0 Hypertensive chronic kidney disease with stage 5 chronic kidney disease or end stage renal disease; N18.6 End stage renal disease; J44.9 Chronic obstructive pulmonary disease, unspecified; G47.33 Obstructive sleep apnea (adult) (pediatric); E11.22 Type 2 diabetes mellitus with diabetic chronic kidney disease; Z99.2 Dependence on renal dialysis; Z79.4 Long term (current) use of insulin

== ENCOUNTER 2020-01-02 14:54 | Emergency (ER) | payer OTHER ==
[~2020-01-02] VITALS: Ht 177.8 cm; Wt 120.2 kg
[2020-01-02] MEDS ORDERED: LEVEMIR100 UNIT/1 SUBQ (15:38)
[2020-01-02] MEDS ORDERED: TORSEMIDE5 MG PO (15:41)
[2020-01-02 17:07] LABS: CALCIUM 9.4 mg/dL (8.5-10.1); CREATININE 4.3 mg/dL (0.7-1.3)
[2020-01-02 17:11] LABS: POTASSIUM 5.3 mmol/L (3.5-5.1)
[2020-01-02 17:24] LABS: ABSOLUTE NEUTROPHILS 6.8 thou/uL (1.4-8.2); BASOPHILS 0.5 % (0.0-2.0); EOSINOPHILS 1.3 % (0.0-3.0); HEMATOCRIT 40.5 % (42.0-52.0); HEMOGLOBIN 13.9 gm/dL (14.0-18.0); LYMPHOCYTES 23.4 % (24.0-44.0); MCH 29.8 pg (26.0-34.0); MCHC 34.2 g/dL (28.0-37.0); MCV 87.3 fL (80.0-100.0); MONOCYTES 10.2 % (1.0-8.0); PLATELET COUNT 268 thou/uL (150-400); POLYS 64.6 % (36.0-66.0); RBC 4.65 mil/uL (4.50-6.00); WBC 10.6 thou/uL (4.0-11.0)
[2020-01-02 18:50] VITALS: BP 119/61
== END 2020-01-02 18:50 | disposition home or self-care (01) ==
LOC: ER 14:54
PROVIDERS: Emergency Medicine
DX: T82.838A Hemorrhage due to vascular prosthetic devices, implants and grafts, initial encounter (principal); R42 Dizziness and giddiness; R60.9 Edema, unspecified; I13.0 Hypertensive heart and chronic kidney disease with heart failure and stage 1 through stage 4 chronic kidney disease, or unspecified chronic kidney disease; N18.4 Chronic kidney disease, stage 4 (severe); I50.9 Heart failure, unspecified; Z88.8 Allergy status to other drugs, medicaments and biological substances; Z79.899 Other long term (current) drug therapy; Z79.82 Long term (current) use of aspirin; Z99.2 Dependence on renal dialysis; Y92.89 Other specified places as the place of occurrence of the external cause

== ENCOUNTER → 2020-02-04 | Outpatient (CLI) | payer OTHER ==
[~2020-02-04] MED LIST changes: +LEVEMIR100 UNIT/1 SUBQ; +TORSEMIDE5 MG PO
== END ==
LOC: SJCVC 14:33
PROVIDERS: ATTEND Internal Medicine
DX: R94.31 Abnormal electrocardiogram [ECG] [EKG] (principal); I25.118 Atherosclerotic heart disease of native coronary artery with other forms of angina pectoris; I25.5 Ischemic cardiomyopathy; I12.0 Hypertensive chronic kidney disease with stage 5 chronic kidney disease or end stage renal disease; E11.22 Type 2 diabetes mellitus with diabetic chronic kidney disease; N18.6 End stage renal disease; E78.5 Hyperlipidemia, unspecified; J44.9 Chronic obstructive pulmonary disease, unspecified; G47.33 Obstructive sleep apnea (adult) (pediatric); M35.3 Polymyalgia rheumatica; Z79.4 Long term (current) use of insulin; Z79.82 Long term (current) use of aspirin; Z79.899 Other long term (current) drug therapy; Z82.49 Family history of ischemic heart disease and other diseases of the circulatory system; Z87.891 Personal history of nicotine dependence; Z99.2 Dependence on renal dialysis

== ENCOUNTER → 2020-02-12 | Outpatient (CLI) | payer OTHER | LOC: SJCVC 15:00 | PROVIDERS: ATTEND Internal Medicine Cardiovascular Disease | DX: R94.31 Abnormal electrocardiogram [ECG] [EKG] (principal); I44.2 Atrioventricular block, complete; I50.20 Unspecified systolic (congestive) heart failure; I25.5 Ischemic cardiomyopathy; Z95.0 Presence of cardiac pacemaker ==

== ENCOUNTER → 2020-02-16 | Outpatient (CLI) | payer OTHER | LOC: HYPER 09:12 | PROVIDERS: ATTEND Emergency Medicine Emergency Medical Services | DX: S81.812A Laceration without foreign body, left lower leg, initial encounter (principal); S91.311A Laceration without foreign body, right foot, initial encounter; E11.621 Type 2 diabetes mellitus with foot ulcer; L97.522 Non-pressure chronic ulcer of other part of left foot with fat layer exposed; E11.622 Type 2 diabetes mellitus with other skin ulcer; L97.822 Non-pressure chronic ulcer of other part of left lower leg with fat layer exposed; E11.628 Type 2 diabetes mellitus with other skin complications; L03.116 Cellulitis of left lower limb; L03.031 Cellulitis of right toe; I25.10 Atherosclerotic heart disease of native coronary artery without angina pectoris; J44.9 Chronic obstructive pulmonary disease, unspecified; I10 Essential (primary) hypertension; E66.9 Obesity, unspecified; G47.30 Sleep apnea, unspecified; Z90.89 Acquired absence of other organs; Z68.38 Body mass index [BMI] 38.0-38.9, adult; Z79.4 Long term (current) use of insulin; Z79.82 Long term (current) use of aspirin; Z79.52 Long term (current) use of systemic steroids; Z99.2 Dependence on renal dialysis; Z87.891 Personal history of nicotine dependence; X58.XXXA Exposure to other specified factors, initial encounter; Y93.89 Activity, other specified; Y92.89 Other specified places as the place of occurrence of the external cause; Y99.8 Other external cause status ==

== ENCOUNTER → 2020-02-25 | Outpatient (CLI) | payer OTHER | LOC: SJCVC 11:18 | PROVIDERS: ATTEND Internal Medicine | DX: I25.118 Atherosclerotic heart disease of native coronary artery with other forms of angina pectoris (principal); R94.31 Abnormal electrocardiogram [ECG] [EKG]; E11.22 Type 2 diabetes mellitus with diabetic chronic kidney disease; I13.2 Hypertensive heart and chronic kidney disease with heart failure and with stage 5 chronic kidney disease, or end stage renal disease; N18.5 Chronic kidney disease, stage 5; I50.42 Chronic combined systolic (congestive) and diastolic (congestive) heart failure; I25.5 Ischemic cardiomyopathy; J44.9 Chronic obstructive pulmonary disease, unspecified; G47.33 Obstructive sleep apnea (adult) (pediatric); M35.3 Polymyalgia rheumatica; Z79.4 Long term (current) use of insulin; Z79.899 Other long term (current) drug therapy; Z87.891 Personal history of nicotine dependence ==

== ENCOUNTER → 2020-02-25 | Outpatient (CLI) | payer OTHER | LOC: HYPER 14:04 | PROVIDERS: ATTEND Emergency Medicine | DX: E11.622 Type 2 diabetes mellitus with other skin ulcer (principal); L97.822 Non-pressure chronic ulcer of other part of left lower leg with fat layer exposed; E11.621 Type 2 diabetes mellitus with foot ulcer; L97.522 Non-pressure chronic ulcer of other part of left foot with fat layer exposed; L03.116 Cellulitis of left lower limb; L03.031 Cellulitis of right toe; S91.311D Laceration without foreign body, right foot, subsequent encounter; S81.812D Laceration without foreign body, left lower leg, subsequent encounter; S91.311A Laceration without foreign body, right foot, initial encounter; L84 Corns and callosities; G47.30 Sleep apnea, unspecified; I25.10 Atherosclerotic heart disease of native coronary artery without angina pectoris; I10 Essential (primary) hypertension; J44.9 Chronic obstructive pulmonary disease, unspecified; M35.3 Polymyalgia rheumatica; Z68.38 Body mass index [BMI] 38.0-38.9, adult; Z99.2 Dependence on renal dialysis; Z79.4 Long term (current) use of insulin; Z79.82 Long term (current) use of aspirin; Z79.52 Long term (current) use of systemic steroids; Z87.891 Personal history of nicotine dependence; X58.XXXA Exposure to other specified factors, initial encounter; Y93.89 Activity, other specified; Y92.89 Other specified places as the place of occurrence of the external cause; Y99.8 Other external cause status; E66.01 Morbid (severe) obesity due to excess calories ==

== ENCOUNTER → 2020-03-10 | Outpatient (CLI) | payer OTHER | LOC: SJCVC 13:33 | PROVIDERS: ATTEND Internal Medicine | DX: I50.42 Chronic combined systolic (congestive) and diastolic (congestive) heart failure (principal); I25.10 Atherosclerotic heart disease of native coronary artery without angina pectoris; I65.23 Occlusion and stenosis of bilateral carotid arteries; G47.33 Obstructive sleep apnea (adult) (pediatric); E11.22 Type 2 diabetes mellitus with diabetic chronic kidney disease; J44.9 Chronic obstructive pulmonary disease, unspecified; N18.5 Chronic kidney disease, stage 5; Z79.4 Long term (current) use of insulin ==

== ENCOUNTER → 2020-03-22 | Outpatient (CLI) | payer OTHER | LOC: LAB 09:30 | PROVIDERS: ATTEND Internal Medicine Cardiovascular Disease | DX: Z01.812 Encounter for preprocedural laboratory examination (principal); Z20.828 Contact with and (suspected) exposure to other viral communicable diseases ==

== ENCOUNTER → 2020-03-23 | Outpatient (CLI) | payer OTHER ==
[~2020-03-23] MED LIST changes: +REPATHA SU140 MG/1 M SUBQ; +TORSEMIDE100 MG PO
== END ==
LOC: SJCVC 13:29
PROVIDERS: ATTEND Internal Medicine Cardiovascular Disease
DX: I45.10 Unspecified right bundle-branch block (principal); R94.31 Abnormal electrocardiogram [ECG] [EKG]; I25.5 Ischemic cardiomyopathy; I50.20 Unspecified systolic (congestive) heart failure; I44.2 Atrioventricular block, complete; J44.9 Chronic obstructive pulmonary disease, unspecified; I25.811 Atherosclerosis of native coronary artery of transplanted heart without angina pectoris; E11.9 Type 2 diabetes mellitus without complications; G47.33 Obstructive sleep apnea (adult) (pediatric); G58.8 Other specified mononeuropathies; E66.01 Morbid (severe) obesity due to excess calories; Z79.82 Long term (current) use of aspirin; Z79.899 Other long term (current) drug therapy; Z79.4 Long term (current) use of insulin; Z82.49 Family history of ischemic heart disease and other diseases of the circulatory system; Z87.891 Personal history of nicotine dependence

== ENCOUNTER 2020-03-25 06:36 | Observation (INO) | payer OTHER ==
[~2020-03-25] VITALS: Ht 185.4 cm; Wt 124.3 kg
[~2020-03-25 06:36] MED LIST changes: -REPATHA SU140 MG/1 M SUBQ; -TORSEMIDE100 MG PO
[2020-03-25 07:38] VITALS: BP 127/62
[2020-03-25] MEDS ORDERED: DEXAMETHASONE1 MG PO (09:04)
[2020-03-25] MEDS ORDERED: REPATHA SU140 MG/1 M SUBQ (09:05)
[2020-03-25] MEDS ORDERED: RANEXA500 MG PO (09:09)
[2020-03-25] MEDS ORDERED: TORSEMIDE100 MG PO (09:10)
--- NOTE | 2020-03-25 13:02 | 2DMMODE ---
[address] [address] D/M-MODE ECHOCARDIOGRAM Name: KEITH ADAMS Room #: 212-P ADM IN M.R.#: [id number] Admission: 03/25/20 Attend Phys: Adrian Rouse MD Discharge: Date of : 52 Report #: [id number] THIS REPORT FOR: cc: FAM - Family physician unknown FAM - Family physician unknown Narendra Ventura MD ~ APPROVED REPORT Study performed: 03/25/2020 11:45:14 EXAM: Limited 2D, Doppler, and color-flow Echocardiogram Patient Location: Recovery Status: JEFFERY BSA: 2.44 HR: 84 bpm BP: 127/62 mmHg Rhythm: Pacemaker Other Information Study Quality: Fair/morbid obesity Technically limited study due to patient sitting up in bed on BiPAP.. Indications Abbreviated echo for Chest pain status post BivICD implant. Rule out pericaridal effusion. Hx: ISCM, CHF, pacemaker, COPD. Tricuspid Valve TR Peak Henok.: 3.18 m/s RAP Estimate: 10.00 mmHg TR Peak Gr.: 41.00 mmHg PA Pressure: 51.00 mmHg Left Ventricle Left ventricular systolic function is severely decreased. LVEF is 30%. Right Ventricle The right ventricle is normal size. Aortic Valve The aortic valve is normal in structure. No aortic regurgitation is present. [address] [address] D/M-MODE ECHOCARDIOGRAM Name: KEITH ADAMS Room #: 212-P ADM IN M.R.#: [id number] Admission: 03/25/20 Attend Phys: Adrian Dominique Couchonnal Discharge: Date of : 52 Report #: [id number] Mitral Valve The mitral valve is normal in structure. Mild to moderate mitral regurgitation. Tricuspid Valve The tricuspid valve is normal in structure. Mild tricuspid regurgitation. Estiamted PAP is 50mmHg. Great Vessels IVC is dilated and collapses <50% with inspiration. Pericardium Trivial posterior pericardial fluid noted. <Conclusion> Left ventricular systolic function is severely decreased. The aortic valve is normal in structure. Mild to moderate mitral regurgitation. Mild tricuspid regurgitation. Estiamted PAP is 50mmHg. <ELECTRONICALLY SIGNED> By: Narendra Ventura MD 03/25/20 1302 130 01 Narendra Ventura MD /INF
[2020-03-25 13:45] VITALS: BP 143/89
--- NOTE | 2020-03-25 16:06 | EKG ---
[facility] [place] [address] ELECTROCARDIOGRAM REPORT Name: KEITH ADAMS Room #: 212-P ADM IN M.R.#: [id number] Admission: 03/25/20 Attend Phys: Adrian Rouse MD Discharge: Date of : 52 Report #: [id number] THIS REPORT FOR: cc: FAM - Family physician unknown FAM - Family physician unknown Denis Meneses MD [facility] ~ THIS REPORT FOR: //name// [facility] Test Date: 2020-03-25 Test Time: 11:08:29 Pat Name: KEITH ADAMS Department: Room: 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 : 1950 Requested By: Ellen Mendoza Order Number: [id number] MD: Denis Meneses Measurements Intervals [place] Rate: 94 P: 90 MS: 69 QRS: 144 QRSD: 168 T: -18 QT: 415 QTc: 520 Interpretive Statements Atrial-sensed ventricular-paced rhythm No further analysis attempted due to paced rhythm Baseline wander in lead(s) I,II,aVR Compared to ECG 08/27/2019 16:09:50 No significant changes Electronically Signed On 03-25-2020 16:05:51 CDT by Denis Meneses [email or web address] <ELECTRONICALLY SIGNED> By: Denis Meneses MD, FACC 03/25/20 1605 1108 1108 Denis Meneses MD, FAC /EPI
--- NOTE | 2020-03-25 16:54 | NUR ---
14:00 SITUATED PT. IN ROOM, SITTING UP AT SIDEOF BED STATED IT WAS EASIER FOR HIM TO BREATHE IN THIS POSITION AND DOES SO AT HOME OFTEN. PACEMAKER INSERTION SITE IS LEFT UPPER CHEST WALL, CLEAN, DRY AND INTACT, NO OOZING OR HEMATOMA AT INSERION SITE. PT. IS V PACED CURRENTLY AND CAPTURING 100% THUS FAR. RATE IN THE 70'S. AT BEDSIDE VERY HELPFUL WITH HIS CARE. PLACED PT. ON HIS HOME BIPAP MACHINE PER HIS REQUEST AND HIS HOME SETTINGS-OXYGEN SATURATIONS=98%. PT. IS ON STEROIDS AND HAS BEEN TAPERING DOWNHIS DOSE BUT FEELS LIKE TODAY HE NEEDS SOME MORE, WILL ASK MD ABOUT SUCH ORDER. VOIDING PER URINAL NO ISSUES. ATE ALL OF HIS LUNCH TRAY. PAIN MEDICATION FOR PAIN=3 AT THE INSERTION SITE WILL MEDICATE FOR SUCH AND BACK PAIN =7 FROM LYING FLAT "ALL MORNING".
--- NOTE | 2020-03-25 19:40 | NUR ---
17:00-PT CONTINUES TO REFUSE TO LIE DOWN AND BE NON-COMPLIANT WITH HIS POC OVERALL. HE HAD SLING UNHOOKED WELL AND SAID THE MD WHEN HE CAME IN TOLD HIM THAT 'WAS FINE SO LONG i DON'T PUT MY ARM ABOVE MY HEAD". THIS IS HIS SELF CARE SO EVEN THOUGH WE HAVE ISNTRUCTED HIM TO FOLLOW POST OP CARE PLANS , HE REFUSES.
[2020-03-25 19:54] VITALS: BP 144/60
[2020-03-26 00:02] VITALS: BP 127/72
--- NOTE | 2020-03-26 04:20 | NUR ---
ASSESSMENT DOCUMENTED.PT BEEN RESTING IN NO ACUTE DISTRESS.A/OX4.S/P PACEMAKER/AICD PLACEMENT.LEFT INCISION INTACT.MILD SWELLING NOTED.PT BEEN UP EITHER SITTING UP ON THE SIDE OF THE BED OR THE RECYCLINER THROUGH THE NOC.INSTRUCTED ON THE POST-OPE INSTRUCTONS/BEDREST ORDERS.PT VOICED UNDERSTANDING,STATING HE IS NOT ABLE TO SLEEP UNLESS HE SLEEPS ON HIS LEFT SIDE OR SIT UP.CPAP ON THROUGH THE NOC.DENIES PAIN.POC IS TO DISCHARGE TO HOME TODAY IF STABLE.WILL CONT TO MONITOR PER POC.
[2020-03-26 04:31] VITALS: BP 141/75
[2020-03-26 06:04] LABS: CALCIUM 9.3 mg/dL (8.5-10.1); CREATININE 5.1 mg/dL (0.7-1.3); POTASSIUM 5.5 mmol/L (3.5-5.1)
[2020-03-26 09:01] VITALS: BP 118/103
[2020-03-26 12:14] VITALS: BP 118/103
--- NOTE | 2020-03-26 14:47 | P ---
[facility] [place] [address] PROCEDURE REPORT Name: KEITH ADAMS Room #: 212-P [facility]..#: [id number] Admission: 03/25/20 Attend Phys: Adrian Rouse MD Discharge: 03/26/20 Date of : 52 Report #: [id number] THIS REPORT FOR: cc: AUTUMN - Family physician unknown AUTUMN - Family physician unknown Adrian Rouse MD ~ CC: AUTUMN Rouse BI-V ICD UPGRADE PREOPERATIVE DIAGNOSES: 1. Cardiomyopathy. 2. [place] Heart Association functional class 3 heart failure. 3. Chronic RV pacing. 4. Chronic obstructive pulmonary disease. 5. Chronic renal insufficiency. 6. Paralyzed hemidiaphragm. PROCEDURES PERFORMED: Upgrade to a Bi-V ICD with addition of an ICD lead and an LV lead. HISTORY: The patient is a gentleman with a history of chronic cardiomyopathy with [place] Heart Association functional class 2-3 heart failure as well as complete heart block, status post pacemaker, who has chronic RV pacing and worsening LV ventricular systolic function. He also has a history of chronic renal insufficiency and a paralyzed left hemidiaphragm. He is here for upgrade from a dual chamber pacemaker to a biventricular ICD. ANESTHESIA: The patient underwent general anesthesia performed by the Anesthesiology service. Of note, this was a challenging induction for anesthesia given his dyspnea when lying flat. Therefore, they initially sedated him while sitting up and then laid him down and intubated him. He did well from an anesthesiology standpoint throughout the procedure. DESCRIPTION OF PROCEDURE: The patient underwent informed consent, was prepped and draped in standard fashion and underwent a venogram showing patency of left axillary vein and received IV antibiotics. Next, lidocaine was injected at the prior incision site. The incision was opened and the device was removed from the pocket. I then obtained access twice to left axillary vein using the extrathoracic approach, which sheaths positioned using the modified Seldinger technique. An ICD lead was positioned in the right ventricular apex with adequate pacing and sensing thresholds and this lead was sutured to the prepectoral fascia. Next, coronary sinus guide sheath was placed into the right atrium and I quickly obtained access to the coronary sinus. A venogram was performed and showed that [facility] [address] [place] [address] PROCEDURE REPORT Name: KEITH ADAMS Room #: 212-P [facility] Yvette Ragland#: [id number] Admission: 03/25/20 Attend Phys: Adrian Rouse MD Discharge: 03/26/20 Date of : 52 Report #: [id number] he had very limited targets. There was essentially only an anterolateral branch noted. Therefore, a quadripolar lead was positioned here with adequate pacing and sensing thresholds, although somewhat higher than desirable. The sheath was split. The lead remained in position and the lead was sutured to the prepectoral fascia. The new LV lead and ICD lead were connected to the ICD and the old atrial lead was connected as well. The old ventricular pacing wire was capped and placed in the pocket. The pocket was irrigated with vancomycin and the pocket was closed in 2 layers using 2-0 for the deep layer, 3-0 for the middle layer. Surgical glue was placed to outer skin layer. A total of 30 mL of contrast was utilized for the procedure. The patient was awoken neurologically and hemodynamically intact. No complications and no significant bleeding. The implanted device was a [employer], model number [id number], serial number [id number]. The atrial lead was a [employer], model number [id number], 53 cm, serial number [id number]. Capped RV lead was a [employer] [id number], 58 cm, serial number [id number]. The new lead implanted RV lead was a Medtronic model number 6935, 62 cm, serial [id number] and the LV lead was a model number 4598, 88 cm, serial [id number]. The atrial lead values were unchanged from nominal settings. The RV lead demonstrated no underlying R waves. The pacing impedance was 40 ohms and the pacing threshold was 0.6 volts at 0.5 milliseconds. The LV lead was programmed from LV1-LV2 with a pacing impedance of 800 ohms and a pacing threshold of 2.3 volts at 1 millisecond. A 30 millisecond LV offset was programmed, which improved the QRS complex down to 135 milliseconds. The VT zone was set at 180-220 beats per minute and the VF zone was set at greater than 240 beats per minute. CONCLUSIONS: 1. Successful upgrade to a Bi-V ICD. 2. Satisfactory atrial, right ventricular and left ventricular pacing and sensing thresholds. <ELECTRONICALLY SIGNED> By: Adrian Rouse MD 03/26/20 1447 1411 1443 Adrian Rouse MD /nt
== END 2020-03-26 13:33 | disposition home or self-care (01) ==
LOC: CATH 06:36 → 2N 12:53 → CATH 13:49 → 2N 03-26 13:33
PROVIDERS: ADMIT Internal Medicine Cardiovascular Disease; ATTEND Internal Medicine Cardiovascular Disease
DX: I25.5 Ischemic cardiomyopathy (principal); J44.9 Chronic obstructive pulmonary disease, unspecified; G47.33 Obstructive sleep apnea (adult) (pediatric); I13.0 Hypertensive heart and chronic kidney disease with heart failure and stage 1 through stage 4 chronic kidney disease, or unspecified chronic kidney disease; N18.9 Chronic kidney disease, unspecified; I50.23 Acute on chronic systolic (congestive) heart failure; G58.8 Other specified mononeuropathies; E11.22 Type 2 diabetes mellitus with diabetic chronic kidney disease; I25.10 Atherosclerotic heart disease of native coronary artery without angina pectoris; I63.29 Cerebral infarction due to unspecified occlusion or stenosis of other precerebral arteries; I44.2 Atrioventricular block, complete; J98.6 Disorders of diaphragm; I47.2 Ventricular tachycardia; Z79.4 Long term (current) use of insulin; Z79.899 Other long term (current) drug therapy
CPT/HCPCS: 62110; 62900; 70005

== ENCOUNTER 2020-04-19 11:58 | Observation (INO) | payer OTHER ==
[~2020-04-19] VITALS: Ht 177.8 cm; Wt 113.4 kg
[~2020-04-19 11:58] MED LIST changes: +REPATHA SU140 MG/1 M SUBQ; +TORSEMIDE100 MG PO
[2020-04-19 12:13] VITALS: BP 126/63
[2020-04-19 16:38] LABS: ABSOLUTE NEUTROPHILS 5.4 thou/uL (1.4-8.2); BASOPHILS 0.8 % (0.0-2.0); EOSINOPHILS 2.7 % (0.0-3.0); HEMATOCRIT 41.1 % (42.0-52.0); HEMOGLOBIN 13.8 gm/dL (14.0-18.0); LYMPHOCYTES 20.2 % (24.0-44.0); MCH 28.3 pg (26.0-34.0); MCHC 33.5 g/dL (28.0-37.0); MCV 84.4 fL (80.0-100.0); MONOCYTES 7.1 % (1.0-8.0); PLATELET COUNT 235 thou/uL (150-400); POLYS 69.2 % (36.0-66.0); RBC 4.87 mil/uL (4.50-6.00); RDW 15.3 % (10.5-14.5); WBC 7.8 thou/uL (4.0-11.0)
[2020-04-19 16:44] LABS: CALCIUM 9.8 mg/dL (8.5-10.1); CREATININE 4.5 mg/dL (0.7-1.3)
[2020-04-19 16:47] LABS: URINE BILIRUBIN NEGATIVE (Negative); URINE BLOOD TRACE (Negative); URINE CLARITY CLEAR; URINE COLOR YELLOW; URINE GLUCOSE-RANDOM* NEGATIVE (Negative); URINE KETONES NEGATIVE (Negative); URINE LEUKOCYTES-REFLEX NEGATIVE (Negative); URINE NITRITE-REFLEX NEGATIVE (Negative); URINE PROTEIN (DIPSTICK) 1+ (Negative); URINE SPECIFIC GRAVITY 1.015 (1.005-1.035); URINE UROBILINOGEN 0.2 E.U./dl (0.2-1.0)
[2020-04-19 16:55] LABS: ALBUMIN 4.4 g/dL (3.4-5.0); MAGNESIUM 2.7 mg/dL (1.8-2.4); PHOSPHORUS 5.1 mg/dL (2.5-4.9); TOTAL BILIRUBIN 0.7 mg/dL (0.2-1.0); TOTAL PROTEIN 9.2 g/dL (6.4-8.2); TROPONIN-I 0.09 ng/mL (<0.06)
[2020-04-19 17:05] LABS: BACTERIA-REFLEX 1-9 Few /HPF (None Seen); CASTS None Seen /LPF (None Seen); CRYSTALS None Seen /LPF (None Seen); SQUAMOUS None Seen /LPF (0-3); URINE RBC None Seen /HPF (0-2); URINE WBC-REFLEX 0-5 Rare /HPF (0-5)
[2020-04-19 21:00] VITALS: BP 118/76
--- NOTE | 2020-04-20 01:00 | NUR ---
PT SITTING UP IN HIS WHEELCHAIR IN THE ROOM, ON HIS CPAP MACHINE. PT HAD TAKEN OFF ALL THE MONITORING CORDS AND HAD REMOVED THE HOSPITAL GOWN AND WORE HIS PERSONAL CLOTHES. PT STATED TO MARINA MCCABE THAT HE WAS NOT COMFORTABLE IN THE ER BED.
--- NOTE | 2020-04-20 01:45 | NUR ---
MOVED PT ROOM 17 AND AND PUT A HOSPITAL BED IN THE ROOM. PT SITTING IN THE RECLINER PER PREFERENCE, ALL PT 'S BELONGINGS MOVED TO ROOM 17 WITH PT.
[2020-04-20 06:31] LABS: CALCIUM 9.7 mg/dL (8.5-10.1); CREATININE 5.2 mg/dL (0.7-1.3); POTASSIUM 4.8 mmol/L (3.5-5.1)
--- NOTE | 2020-04-20 07:34 | EKG ---
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 : 1950 Requested By: Emmie Johansen Order Number: [id number] MD: Denis Meenses Measurements Intervals [place] Rate: 75 P: 67 NH: 58 QRS: 130 QRSD: 164 T: 148 QT: 454 QTc: 508 Interpretive Statements Atrial-sensed ventricular-paced complexes No further analysis attempted due to paced rhythm Baseline wander in lead(s) V6 Compared to ECG 03/25/2020 11:08:29 No significant changes Electronically Signed On 04-20-2020 7:34:21 CDT by Denis Meneses [email or web address] <ELECTRONICALLY SIGNED> By: Denis Meneses MD, FACC 04/20/20 0734 05 05 Denis Meneses MD, FACC /EPI
[2020-04-20 11:53] VITALS: BP 119/54
--- NOTE | 2020-04-20 12:47 | NUR ---
DR CAMARA VISITED WITH PT ABOUT ADMISSION AND PT STATES HE REQUESTS TO BE DISCHARGED HOME LATER THIS AFTERNOON HIS IS HAVING A SURGERY AND HE WANTS TO BE PRESENT FOR SURGERY. DR CAMARA EDUCATED PT ON LEAVING AMA. PT VERBALIZED UNDERSTANDING.
[2020-04-20 15:48] VITALS: BP 114/67
== END 2020-04-20 15:48 | disposition home or self-care (01) ==
LOC: ER 11:58 → EROBS 18:38
PROVIDERS: Nurse Practitioner; Nurse Practitioner Family; ADMIT Hospitalist; ATTEND Hospitalist
DX: I13.2 Hypertensive heart and chronic kidney disease with heart failure and with stage 5 chronic kidney disease, or end stage renal disease (principal); I50.9 Heart failure, unspecified; E11.22 Type 2 diabetes mellitus with diabetic chronic kidney disease; N18.6 End stage renal disease; I25.10 Atherosclerotic heart disease of native coronary artery without angina pectoris; E78.5 Hyperlipidemia, unspecified; J44.9 Chronic obstructive pulmonary disease, unspecified; G47.33 Obstructive sleep apnea (adult) (pediatric); J98.6 Disorders of diaphragm; D50.0 Iron deficiency anemia secondary to blood loss (chronic); Z79.82 Long term (current) use of aspirin; Z79.4 Long term (current) use of insulin; Z87.891 Personal history of nicotine dependence; Z95.818 Presence of other cardiac implants and grafts; Z99.2 Dependence on renal dialysis

== ENCOUNTER 2020-04-22 13:30 | Inpatient (IN) | payer OTHER ==
[~2020-04-22] VITALS: Ht 177.8 cm; Wt 116.1 kg
--- NOTE | ~2020-04-22 | EMS ---
[facility] [address] [place] [address] EMS Patient Care Report Name: KEITH ADAMS Room #: REG ANNMARIE Ragland#: [id number] Admission: 04/22/20 Attend Phys: Discharge: Date of : 52 Report #: [id number] THIS REPORT FOR: //name// Report Transmitted: 04/22/2020 14:08 EMS Care Summary [facility] Incident [id number] @ 04/22/2020 12:47 Incident Location [address] [facility] [place] [address] Patient KEITH ADAMS Male, 69 Years 1950 Patient Address [address] [place] [place] [address] Patient History Asthma,Congestive Heart Failure (CHF),Chronic Obstructive Pulmonary Disease (COPD),Chronic Ischemic Heart Disease,Diabetes,Pacemaker/AICD,Dialysis, Patient Allergies Other drug allergy, Patient Medications Isosorbide, Insulin, Amlodipine, Plavix, Chief Complaint Laceration from fall Disposition Transported No Lights/[place] Reason Falls Transported To [facility] Narrative EMS DISPATCHED FOR A 69 YR OLD MALE WHO FELL FROM STANDING AND HAS LACERATIONS. ASSIGNED UNITS ARRIVED ON SCENE TO FIND A MALE SITTING ON A BENCH IN HIS HOME. 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 PATIENT STATED THAT HE FELL IN THE KITCHEN LANDING IN THE GLASS OVEN FRONT. PATIENT IS ON BLOOD THINNERS AND HAD SEVERAL SMALL SUPERFICIAL LACERATIONS THROUGHOUT HIS BODY INCLUDING HIS UPPER BACK, ELBOW AND KNEE. PATIENT WAS ABLE TO WALK TO THE COT WITH HELP AND PUT IN SEMI DAUGHERTY POSITION. PATIENT STATED THAT HE HAD BEEN GETTING WEAKER THE PAST 3 DAYS. PATIENT MOVED TO AMBULANCE. TRANSPORT BEGAN. VITALS TAKEN. PATIENT INFO GATHERED. PATIENT REMAINED PAIN FREE THROUGHOUT TRANSPORT. VITALS TAKEN. PATIENT INFO GIVEN TO RECEIVING FACILITY VIA [employer] RADIO. PATIENT OFFLOADED FROM AMBULANCE AND TAKEN INTO [facility] ED FOR MD ASSESSMENT. CARE TRANSFERRED. SIGNATURES OBTAINED. UNIT RETURNED TO SERVICE. Initial Vitals @13:03P: 112,R: 18,BP: 145/76,Pain: 0/10,GCS: 15,SpO2: 95,Revised Trauma: 12, @13:12P: 81,R: 18,BP: 155/79,Pain: 0/10,GCS: 15,SpO2: 97,Revised Trauma: 12, Assessments @12:54MENTAL:Person Oriented,Time Oriented,Place Oriented,Event Oriented,SKIN:HEENT:LUNG SOUNDS:ABDOMEN:PELVIS//GI:EXTREMITIES:PULSE:Radial: 2+ Normal,NEURO:@13:15MENTAL:No Abnormalities,SKIN:HEENT:LUNG SOUNDS:ABDOMEN:PELVIS//GI:EXTREMITIES:PULSE:Radial: 2+ Normal,NEURO: Impression Laceration/Abrasion/Hematoma (minor surface trauma) Procedures @12:54ALS AssessmentResponse: UnchangedSucceeded@12:57BandagingResponse: UnchangedSucceeded@13:02StretcherResponse: Unchanged Timeline 12:46,Call Received 12:46,Psap Call 12:47,Dispatched 12:49,En Route 12:53,On Scene 12:54,At Patient 12:54,ALS Assessment,Response: UnchangedSucceeded, 12:57,Bandaging,Response: UnchangedSucceeded, 13:02,Stretcher,Response: Unchanged 13:03,BP: 145/76 M,PULSE: 112,RR: 18 R,SPO2: 95 Ox,ETCO2: ,BG: ,PAIN: 0,GCS: 15, 13:05,Depart Scene 13:12,BP: 155/79 M,PULSE: 81,RR: 18 R,SPO2: 97 Ox,ETCO2: ,BG: ,PAIN: 0,GCS: 15, 13:24,At Destination 14:04,Call Closed [facility] [address] [place] [address] EMS Patient Care Report Name: KEITH ADAMS Room #: REG [facility].#: [id number] Admission: 04/22/20 Attend Phys: Discharge: Date of : 52 Report #: [id number] Disclaimer v1.1 Copyright 2020 [employer] This EMS Care Summary contains data elements from the applicable legal record (which may be displayed differently). It is designed to provide pertinent information for the following purposes: continuity of care, clinical quality, and state data reporting. The complete legal record is available to ED staff and administrators of the receiving hospital in [facility]'s Patient Tracker. All data is provided "as is."
--- NOTE | ~2020-04-22 | EEG ---
[facility] [place] [address] ELECTROENCEPHALOGRAM Name: KEITH ADAMS Room #: 219-P [facility] IN M.R.#: [id number] Admission: 04/22/20 Attend Phys: Jefferson Spaulding MD Discharge: 04/24/20 Date of : 52 Report #: [id number] THIS REPORT FOR: //name// CC: BALJINDER Spaulding DATE OF SERVICE: 04/24/2020 This patient is being evaluated for the possibility of seizure. EEG is low voltage and therefore it is difficult to determine the background frequency. It does appear to be about 8 Hz and 15 microvolt. It is a symmetrical activity. The patient went to sleep that is associated with bilateral slowing and vertex sharp waves. Throughout the record, no active epileptiform activity was noticed. IMPRESSION: This patient's EEG is slow voltage and is somewhat intermixed with theta range slowing that is a nonspecific finding, which can occur with encephalopathy, effect of psychotropic medication, dementia, etc. No active epileptiform activity was noticed during this record. Thank you very much for this referral. By: 1059 1116 Lavelle Gerber MD /nt
--- NOTE | ~2020-04-22 | HC ---
[facility] [address] [address] [place] [address] CONSULTATION Name: KEITH ADAMS Room #: 219-P ADM IN M.R.#: [id number] Admission: 04/22/20 Attend Phys: Jefferson Spaulding MD Discharge: Date of : 52 Report #: [id number] THIS REPORT FOR: cc: BALJINDER VOGEL MD, OSSAMA MD Khosla,Lavelle Hamm MD ~ DATE OF SERVICE: 04/23/2020 HISTORY OF PRESENT ILLNESS: This is a 69-year-old male patient who was evaluated by me for any neurological etiology for the patient's syncope. This patient describes a complicated history. He says that he does not sleep at night well. During the day, he is excessively sleepy. He said he has recurrent episodes of syncope. He will have several of them in a day, but that will last just a second or so. He said he does not fall down. It looks like he excessively feels sleepy and he said he blacks out. He said he had multiple sleep studies done. He follows up with Dr. Casiano in that regard and he is scheduled for another sleep study. It is a nighttime sleep study, but he never had any daytime sleep study. He takes CPAP. He says usually, he takes it at night, but he was taking it during the daytime when I saw him. REVIEW OF SYSTEMS: Pretty extensive in this patient. He has numerous medical problems. He has a history of heoot-iw-rojbinx systolic heart failure. He has a pacemaker. He has a history of cardiomyopathy. He has a history of severe COPD. He has renal failure. He said he has polymyalgia rheumatica. He follows up with [employer]. They have diagnosed this patient with polymyalgia rheumatica and then started the patient on dexamethasone. He indicated that his insomnia and subsequently, these episodes where he blacks out for a second started after that. He does have a history of diabetes. He said his diaphragm is paralyzed on both sides, especially on the right side. He has a history of dyslipidemia. He thinks his pacemaker is incompatible with MRI. A 14-point review of system was carried out and it is positive for multiple problems. He is not complaining of any new eye, ENT, musculoskeletal, constitutional, dermatological, hematological, psychiatric, throat, allergic symptom associated with present symptomatology. PAST MEDICAL HISTORY: Positive for numerous medical problems including COPD. FAMILY HISTORY: Noncontributory. SOCIAL HISTORY: He has smoked in the past. He drinks alcohol very rarely. PHYSICAL EXAMINATION: Indicates he is alert, responsive, oriented. Speech, concentration, fund of knowledge, and memory is at his baseline. Cranial nerve examination 2-12 is nonfocal. He has trouble with position sense on both sides, [facility] [address] [address] CONSULTATION Name: KEITH ADAMS Room #: 219-P [facility] IN M.R.#: [id number] Admission: 04/22/20 Attend Phys: Jefferson Spaulding MD Discharge: Date of : 52 Report #: [id number] but he said he can feel touch. His reflexes are diminished. There is no meningeal sign. I could not look at the fundus. He does dakwlm-tu-fwlx reasonably well. I did not make him back. He is obese individual who does not have any dysmorphic features of eyes, ears, and face. His vision and hearing looks adequate. Pulses are difficult to feel. He has no edema. Cardiac examination is unremarkable. He does have respiratory difficulty and rhonchi on both sides. Blood pressure is 122/50, respiration 17, pulse is 76, temperature is 97.9. LABORATORY DATA: White count is 6.5. Estimated GFR is 13. He is on a combination of aspirin and Plavix. IMPRESSION AND PLAN: This patient is having severe insomnia and he has these spells. These spells may be related to his excessive daytime sleepiness. He is scheduled to have a sleep study and I will suggest getting a multiple sleep latency study at the same time. I will get an EEG and a carotid Doppler done to make sure there are not TIAs, but I still think the emphasis should be on evaluating and managing any systemic cause for his problem. I discussed all of it with the patient in detail. More than 50 minutes of time was spent taking care of this patient and majority of that time was spent counseling and coordinating. By: 1412 1836 Lavelle Gerber MD /nt
[2020-04-22 14:55] LABS: ABSOLUTE NEUTROPHILS 4.7 thou/uL (1.4-8.2); BASOPHILS 0.5 % (0.0-2.0); EOSINOPHILS 1.8 % (0.0-3.0); HEMATOCRIT 38.9 % (42.0-52.0); HEMOGLOBIN 12.8 gm/dL (14.0-18.0); LYMPHOCYTES 18.5 % (24.0-44.0); MONOCYTES 8.3 % (1.0-8.0); PLATELET COUNT 208 thou/uL (150-400); POLYS 70.9 % (36.0-66.0); RBC 4.57 mil/uL (4.50-6.00); RDW 15.4 % (10.5-14.5); WBC 6.6 thou/uL (4.0-11.0)
[2020-04-22 15:00] LABS: CALCIUM 9.3 mg/dL (8.5-10.1); CREATININE 4.9 mg/dL (0.7-1.3)
[2020-04-22 15:04] LABS: POTASSIUM 5.9 mmol/L (3.5-5.1)
[2020-04-22 15:09] LABS: MAGNESIUM 2.7 mg/dL (1.8-2.4); TROPONIN-I 0.13 ng/mL (<0.06)
--- NOTE | 2020-04-22 15:58 | EKG ---
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: Repair Technician: CHACORTA : 1950 Requested By: Rodriguez Gaspar Order Number: [id number] MD: Denis Meneses Measurements Intervals [place] Rate: 78 P: 79 CT: 141 QRS: 164 QRSD: 171 T: -57 QT: 400 QTc: 456 Interpretive Statements Atrial-sensed ventricular-paced complexes No further analysis attempted due to paced rhythm Compared to ECG 04/19/2020 17:06:49 No significant changes Electronically Signed On 04-22-2020 15:58:16 CDT by Denis Meneses [email or web address] <ELECTRONICALLY SIGNED> By: Denis Meneses MD, FACC 04/22/20 1558 1457 1457 Denis Meneses MD, FACC /EPI
--- NOTE | 2020-04-22 17:03 | NUR ---
ASSUMING CARE AT THIS TIME
[2020-04-22 17:33] VITALS: BP 103/58
[2020-04-22 18:45] VITALS: BP 118/74
--- NOTE | 2020-04-22 19:03 | NUR ---
PT ARRIVED FROM ED 1819. ALERT X4, DENIES SOB, DENIES PAIN, +3 EDEMA TO LE. COMBED OUT GLASS IN HAIR. CLEANED UP DRY BLOOD. VSS. FALL PRECAUTIONS IN PLACE. CALL LIGHT IN REACH. DTR BEDSIDE.
[2020-04-23 00:15] VITALS: BP 132/50
--- NOTE | 2020-04-23 04:44 | NUR ---
Assumed pt care at 1900. Pt is alert and oriented but forgetful. Pt is an ER admit. Admission assessment and data, education. No sign of distress noted in pt. Pt is stable. Fall precaution in place. Assessment completed and dcoumented. Scheduled meds administered to pt. NO acute events overnight. Continue to monitor. No further needs at this time.
[2020-04-23 04:45] VITALS: BP 108/64
[2020-04-23 05:36] LABS: ABSOLUTE NEUTROPHILS 4.1 thou/uL (1.4-8.2); BASOPHILS 0.6 % (0.0-2.0); EOSINOPHILS 3.3 % (0.0-3.0); HEMATOCRIT 34.9 % (42.0-52.0); HEMOGLOBIN 11.7 gm/dL (14.0-18.0); LYMPHOCYTES 22.5 % (24.0-44.0); MCH 28.2 pg (26.0-34.0); MCHC 33.6 g/dL (28.0-37.0); MCV 83.8 fL (80.0-100.0); MONOCYTES 10.3 % (1.0-8.0); PLATELET COUNT 189 thou/uL (150-400); POLYS 63.3 % (36.0-66.0); RBC 4.17 mil/uL (4.50-6.00); RDW 15.1 % (10.5-14.5); WBC 6.5 thou/uL (4.0-11.0)
[2020-04-23 05:48] LABS: ALBUMIN 3.6 g/dL (3.4-5.0); CALCIUM 9.1 mg/dL (8.5-10.1); CREATININE 4.6 mg/dL (0.7-1.3); MAGNESIUM 2.6 mg/dL (1.8-2.4); PHOSPHORUS 4.7 mg/dL (2.5-4.9)
--- NOTE | 2020-04-23 10:37 | 2DMMODE ---
[facility] [place] [address] 2 D/M-MODE ECHOCARDIOGRAM Name: KEITH ADAMS Room #: 219-P ADM IN M.R.#: [id number] Admission: 04/22/20 Attend Phys: Jefferson Spaulding MD Discharge: Date of : 52 Report #: [id number] THIS REPORT FOR: cc: BALJINDER VOGEL MD, OSSAMA MD Lundgren, Craig H. MD [facility] ~ APPROVED REPORT Study performed: 04/23/2020 09:53:04 EXAM: Limited 2D, Doppler, and color-flow Echocardiogram Patient Location: Bedside Room #: 219 Status: routine BSA: 2.29 HR: 76 bpm BP: 108/64 mmHg Rhythm: Pacemaker/Irregular Other Information Study Quality: Fair Technically limited study due to morbid obesity, on CPaP, COPD. Indications Limited follow up echo to rule out pericaridal effusion and LV function. Hx: ISCM, Biv ICD, CHF, COPD. 2D Dimensions LVDd: 58.80 mm LVDs: 50.71 (25-40mm) Tricuspid Valve TR Peak Henok.: 3.23 m/s RAP Estimate: 10.00 mmHg TR Peak Gr.: 42.00 mmHg PA Pressure: 52.00 mmHg Left Ventricle Left ventricle is mildly dilated. Left ventricular systolic function is moderately decreased. LVEF is 40%. Right Ventricle Right ventricle is mildly hypokinetic. Device lead is present in the right ventricle. [facility] [address] [place] [address] 2 D/M-MODE ECHOCARDIOGRAM Name: KEITH ADAMS Room #: 219-P ADM IN M.R.#: [id number] Admission: 04/22/20 Attend Phys: Jefferson Spaulding MD Discharge: Date of : 52 Report #: [id number] Aortic Valve The aortic valve is normal in structure. No aortic regurgitation is present. Mitral Valve The mitral valve is normal in structure. Mild mitral regurgitation. Tricuspid Valve The tricuspid valve is normal in structure. Mild tricuspid regurgitation. Estimated PAP is 50-55mmHg. Great Vessels IVC is dilated and collapses <50% with inspiration. Pericardium There is no pericardial effusion. <Conclusion> Left ventricular systolic function is moderately decreased. LVEF is 40%. The aortic valve is normal in structure. No aortic regurgitation or stenosis The mitral valve is normal in structure. Mild mitral regurgitation. Pulmonary artery pressure of 50mmHg There is no pericardial effusion. <ELECTRONICALLY SIGNED> By: Hernán Urrutia MD, FACC 04/23/20 1037 1037 1037 Hernán Urrutia MD, FACC /INF
--- NOTE | 2020-04-23 11:05 | NUR ---
ORDERS FOR EVAL AND TREAT. OBSERVED Pt STAND AND AMBULATE IN ROOM. Pt STATES HE ISN'T HAVING ANY DIFFICULTY WITH MOBILITY AND PASSED O.T. Pt DECLINING FORMAL P.T. EVAL. Pt APPEARS SAFE FOR HOME WHEN MEDICALLY CLEAR
[2020-04-23 13:33] VITALS: BP 122/50
[2020-04-23 16:50] VITALS: BP 122/75
[2020-04-23 17:19] LABS: BE(vivo) 1.1 mmol/L (-2 to +3); HCO3 26.1 mmol/L (22.0-26.0); PCO2 42.8 mmHg (35.0-45.0); PO2 79.7 mmHg (80.0-100.0); pH 7.403 (7.360-7.450); sO2 95.8 % (92.0-98.0)
[2020-04-23 20:55] VITALS: BP 106/67
[2020-04-24 04:45] VITALS: BP 118/64
[2020-04-24 05:36] LABS: HEMATOCRIT 36.8 % (42.0-52.0); HEMOGLOBIN 12.3 gm/dL (14.0-18.0); MCH 28.3 pg (26.0-34.0); MCHC 33.4 g/dL (28.0-37.0); MCV 84.7 fL (80.0-100.0); RBC 4.34 mil/uL (4.50-6.00); WBC 6.7 thou/uL (4.0-11.0)
--- NOTE | 2020-04-24 06:05 | NUR ---
pt alert and oriented, forgetful, was lethargic and sitting in chair at start of shift and then found up in bed with monitor and o2 sat monitor removed and he was packing up his cpap machine stated he was going home he was agitated and stated no one will tell him why he has to stay he states his is in hospital also and he needs to go home so he can visit her, reassured pt and he agreed to stay after talking to family, vss, no c/o pain, using cpap while sleeping, will con't to monitor per ppoc.
[2020-04-24 06:14] LABS: CALCIUM 9.4 mg/dL (8.5-10.1); CREATININE 5.1 mg/dL (0.7-1.3); MAGNESIUM 2.6 mg/dL (1.8-2.4); POTASSIUM 5.3 mmol/L (3.5-5.1)
[2020-04-24 07:08] LABS: CORTISOL 30 MIN 24.9 ug/dL (Not Estab.); CORTISOL 60 MIN 22.3 ug/dL (Not Estab.); CORTISOL BASELINE 13.4 ug/dL (())
[2020-04-24 08:00] VITALS: BP 113/68
[2020-04-24 12:15] VITALS: BP 131/74
[2020-04-24] MEDS ORDERED: TRAZODONE HCL50 MG PO (13:18)
[2020-04-24 15:00] VITALS: BP 101/54; BP 112/70; BP 125/82
[2020-04-24 16:37] VITALS: BP 112/70
--- NOTE | 2020-04-24 17:15 | NUR ---
ASSUMMED PT CARE AT APPROXIMATELTY 0700. PT A&O X4. ASSESSMENT CHARTED. FALL PRECAUTIONS IN PLACE. PT DENIES HAVING CHEST PAIN. PT HAS SOB ON EXERSION.O2 SAT STABLE. VITAL SIGNS STABLE. BLOOD SUGARS STABLE. PT DISCHARGING HOME C SELF CARE. PT RECEIVED DISCHARGE EDUCATION. PT STATED UNDERSTANDING AND DENIED HAVING FURTHER QUESTIONS. IV DC. TELE DC. PT COMFORTABLE. PT DENIES HAVING FURTHER CONCERNS. PT RECEIVING HOSPITAL TRANSPORT TO TAKE PT OFF UNIT.
[2020-04-26 00:05] LABS: GLYCOHEMOGLOBIN (HGB A1C) 8.1 % (4.8-5.6)
== END 2020-04-24 18:38 | disposition home or self-care (01) | DRG 291 ==
LOC: ER 13:30 → 2N 18:04
PROVIDERS: Emergency Medicine; Internal Medicine; Nurse Practitioner; ADMIT Internal Medicine; ATTEND Internal Medicine
PROC: 4B02XSZ Measurement of Cardiac Pacemaker, External Approach (ICD-10-PCS; principal; 2020-04-22)
PROC: 5A09457 Assistance with Respiratory Ventilation, 24-96 Consecutive Hours, Continuous Positive Airway Pressure (ICD-10-PCS; 2020-04-23)
DX: I13.2 Hypertensive heart and chronic kidney disease with heart failure and with stage 5 chronic kidney disease, or end stage renal disease (principal); N18.6 End stage renal disease; I50.43 Acute on chronic combined systolic (congestive) and diastolic (congestive) heart failure; J44.9 Chronic obstructive pulmonary disease, unspecified; E78.5 Hyperlipidemia, unspecified; G47.33 Obstructive sleep apnea (adult) (pediatric); E11.22 Type 2 diabetes mellitus with diabetic chronic kidney disease; I25.10 Atherosclerotic heart disease of native coronary artery without angina pectoris; M17.0 Bilateral primary osteoarthritis of knee; E87.5 Hyperkalemia; G47.00 Insomnia, unspecified; I25.5 Ischemic cardiomyopathy; M35.3 Polymyalgia rheumatica; J98.6 Disorders of diaphragm; E11.51 Type 2 diabetes mellitus with diabetic peripheral angiopathy without gangrene; Z95.0 Presence of cardiac pacemaker; Z95.5 Presence of coronary angioplasty implant and graft; Z79.4 Long term (current) use of insulin; Z88.8 Allergy status to other drugs, medicaments and biological substances; Z79.899 Other long term (current) drug therapy
CPT/HCPCS: 10081

== ENCOUNTER → 2020-05-06 | Outpatient (CLI) | payer OTHER ==
[~2020-05-06] MED LIST changes: +TRAZODONE HCL50 MG PO
== END ==
LOC: LAB 05-05 11:02
PROVIDERS: ATTEND Pediatrics
DX: Z01.812 Encounter for preprocedural laboratory examination (principal); Z20.828 Contact with and (suspected) exposure to other viral communicable diseases

== ENCOUNTER → 2020-05-10 | Outpatient (CLI) | payer OTHER ==
--- NOTE | 2020-05-17 16:40 | SLE ---
[facility] [place] [address] POLYSOMNOGRAPHY STUDY Name: KEITH ADAMS Room #: REG [facility].#: [id number] Admission: 05/10/20 Attend Phys: Brodie Siegel MD Discharge: Date of : 52 Report #: [id number] THIS REPORT FOR: //name// CC: Brodie Madrigal DATE OF SERVICE: 05/10/2020 SLEEP STUDY REFERRING PHYSICIAN: Dr. Nando Keene. The patient is a 69-year-old who weighs 260 pounds with a BMI of 37.3. The patient has been using BiPAP for several years at home. The patient has a history of paralyzed diaphragm. The patient was referred to the sleep lab for a split night study. During the night of the study, the patient spent 408 minutes in bed and slept for 331 minutes with a sleep efficiency of 81%. Sleep latency was 5.4 minutes with a REM latency of 11.5 minutes, which was short. Overall, sleep architecture showed normal stage 1 sleep, increased stage 2 sleep, absent slow wave sleep and normal REM sleep, which was 23% of the total sleep time. During the initial diagnostic portion of the study, the patient spent 76 minutes in bed and slept for 50 minutes. During that time, the patient had 1 obstructive and 1 central apnea and 22 hypopneas. The patient's AHI was 28.8 per hour with a REM AHI of 17.1 per hour and a supine AHI of 37.9 per hour. The patient could not tolerate sleep without the BiPAP, and since patient met the criteria within the first hour, patient was switched to BiPAP. EKG monitoring revealed an average heart rate of 74 beats per minute. Paced rhythm and frequent PVC'S throughout the night were seen. sustained arrhythmias observed. PLMS were seen at an index of 28 per hour and 2 per hour caused EEG arousals. Nocturnal oximetry study revealed an average oxygen saturation of 96% with the lowest of 88%. 0.2 minutes were spent with oxygen saturation of less than 90%. The patient was started on BiPAP at a pressure of 8/4. The pressure was increased to 12/8. At that pressure, the patient slept for 27 minutes including 1 minute of REM sleep. The patient slept in the lateral position. The patient's AHI was still 24 per hour and oxygen saturation remained in the mid to high 80s with a lowest of 80%. Optimum BiPAP pressure was not achieved. [facility] [address] [place] [address] POLYSOMNOGRAPHY STUDY Name: KEITH ADAMS Room #: REG [facility]#: [id number] Admission: 05/10/20 Attend Phys: Brodie Siegel MD Discharge: Date of : 51 Report #: [id number] IMPRESSION: 1. Moderate obstructive sleep apnea with worsening during supine sleep. The patient's total AHI of 28.8 per hour with a supine AHI of 37.9 per hour. 2. Mild nocturnal hypoxia secondary to sleep apnea and suspected hypoventilation. 3. Moderate periodic limb movements of sleep without any significant EEG arousals. RECOMMENDATIONS: 1. Optimum BiPAP pressure was not achieved on this split night study. I would recommend that the patient should be placed on an auto BiPAP with a maximum IPAP of 20 cm water and a minimum IPAP of 14 cm of water with a pressure support of 4. 2. The patient would also benefit from 1 liter of supplemental oxygen with the BiPAP. 3. The patient should have a followup in 4-6 weeks to assess compliance with BiPAP and to document clinical improvement. 4. Weight loss is advised. 5. Avoid MEDICAL ADVISOR depressants. 6. Cautioned regarding driving until symptoms of sleep apnea resolve with the use of BiPAP. 7. PLMS does not need to be treated unless the patient has symptoms of restless legs during the day. <ELECTRONICALLY SIGNED> By: Brodie Siegel MD 05/17/20 1640 3 Brodie Siegel MD /nt
== END ==
LOC: SLEEPLAB 07-14 13:53
PROVIDERS: ATTEND Internal Medicine Critical Care Medicine
DX: G47.33 Obstructive sleep apnea (adult) (pediatric) (principal); R09.02 Hypoxemia

== ENCOUNTER 2020-05-21 04:54 | Emergency (ER) | payer OTHER ==
[~2020-05-21] VITALS: Ht 177.8 cm; Wt 117.9 kg
[2020-05-21 06:22] LABS: HEMATOCRIT 37.4 % (42.0-52.0); HEMOGLOBIN 12.1 gm/dL (14.0-18.0); MCH 27.7 pg (26.0-34.0); MCHC 32.4 g/dL (28.0-37.0); MCV 85.4 fL (80.0-100.0); PLATELET COUNT 177 thou/uL (150-400); RBC 4.38 mil/uL (4.50-6.00); RDW 15.4 % (10.5-14.5); WBC 10.8 thou/uL (4.0-11.0)
[2020-05-21 06:38] LABS: CALCIUM 8.4 mg/dL (8.5-10.1); CREATININE 4.4 mg/dL (0.7-1.3); MAGNESIUM 2.2 mg/dL (1.8-2.4); POTASSIUM 4.9 mmol/L (3.5-5.1); TROPONIN-I 0.08 ng/mL (<0.06)
--- NOTE | 2020-05-21 08:24 | EKG ---
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: TBARNES : 1950 Requested By: Rodriguez Gaspar Order Number: [id number] MD: Denis Meneses Measurements Intervals Miller Rate: 76 P: 47 TX: 146 QRS: 105 QRSD: 170 T: 97 QT: 442 QTc: 498 Interpretive Statements Atrial-sensed ventricular-paced complexes No further analysis attempted due to paced rhythm Compared to ECG 04/22/2020 14:57:00 No significant changes Electronically Signed On 05-21-2020 8:24:35 FORESTRY WORKER by Denis Meneses [email or web address] <ELECTRONICALLY SIGNED> By: Denis Meneses MD, FACC 05/21/20 0824 0500 0500 Denis Meneses MD, [facility] /EPI
[2020-05-21 08:58] VITALS: BP 147/86
[2020-05-21 10:15] LABS: ABSOLUTE NEUTROPHILS 8.9 thou/uL (1.4-8.2)
[2020-05-21 10:16] LABS: ANISOCYTOSIS 1+
== END 2020-05-21 09:40 | disposition home or self-care (01) ==
LOC: ER 04:54
PROVIDERS: Emergency Medicine
DX: R07.9 Chest pain, unspecified (principal); E78.5 Hyperlipidemia, unspecified; I25.10 Atherosclerotic heart disease of native coronary artery without angina pectoris; I13.0 Hypertensive heart and chronic kidney disease with heart failure and stage 1 through stage 4 chronic kidney disease, or unspecified chronic kidney disease; E11.22 Type 2 diabetes mellitus with diabetic chronic kidney disease; I50.9 Heart failure, unspecified; N18.4 Chronic kidney disease, stage 4 (severe); J44.9 Chronic obstructive pulmonary disease, unspecified; Z86.2 Personal history of diseases of the blood and blood-forming organs and certain disorders involving the immune mechanism; Z79.899 Other long term (current) drug therapy; Z79.82 Long term (current) use of aspirin; Z88.8 Allergy status to other drugs, medicaments and biological substances

== ENCOUNTER → 2020-06-09 | Outpatient (CLI) | payer OTHER | LOC: SJCVC 13:11 | PROVIDERS: ATTEND Internal Medicine | DX: I50.42 Chronic combined systolic (congestive) and diastolic (congestive) heart failure (principal); E11.22 Type 2 diabetes mellitus with diabetic chronic kidney disease; I13.2 Hypertensive heart and chronic kidney disease with heart failure and with stage 5 chronic kidney disease, or end stage renal disease; N18.5 Chronic kidney disease, stage 5; J44.9 Chronic obstructive pulmonary disease, unspecified; I65.23 Occlusion and stenosis of bilateral carotid arteries; G47.33 Obstructive sleep apnea (adult) (pediatric); M35.3 Polymyalgia rheumatica; E78.5 Hyperlipidemia, unspecified; I25.10 Atherosclerotic heart disease of native coronary artery without angina pectoris; Z79.4 Long term (current) use of insulin; Z79.82 Long term (current) use of aspirin; Z79.899 Other long term (current) drug therapy; Z87.891 Personal history of nicotine dependence ==

== ENCOUNTER → 2020-06-18 | Outpatient (CLI) | payer OTHER | LOC: CAT 11:11 | PROVIDERS: ATTEND Emergency Medicine | DX: M19.071 Primary osteoarthritis, right ankle and foot (principal); M77.31 Calcaneal spur, right foot; E11.621 Type 2 diabetes mellitus with foot ulcer ==

== ENCOUNTER → 2020-06-23 | Outpatient (CLI) | payer OTHER | LOC: HYPER 13:30 | PROVIDERS: ATTEND Emergency Medicine | DX: E11.622 Type 2 diabetes mellitus with other skin ulcer (principal); L97.822 Non-pressure chronic ulcer of other part of left lower leg with fat layer exposed; E11.621 Type 2 diabetes mellitus with foot ulcer; L97.522 Non-pressure chronic ulcer of other part of left foot with fat layer exposed; L03.116 Cellulitis of left lower limb; L03.031 Cellulitis of right toe; L84 Corns and callosities; S91.311D Laceration without foreign body, right foot, subsequent encounter; S81.812D Laceration without foreign body, left lower leg, subsequent encounter; G47.30 Sleep apnea, unspecified; I25.10 Atherosclerotic heart disease of native coronary artery without angina pectoris; I10 Essential (primary) hypertension; J44.9 Chronic obstructive pulmonary disease, unspecified; M35.3 Polymyalgia rheumatica; E66.01 Morbid (severe) obesity due to excess calories; Z68.38 Body mass index [BMI] 38.0-38.9, adult; Z99.2 Dependence on renal dialysis; Z79.4 Long term (current) use of insulin; Z79.82 Long term (current) use of aspirin; Z79.52 Long term (current) use of systemic steroids; Z87.891 Personal history of nicotine dependence; X58.XXXD Exposure to other specified factors, subsequent encounter ==

== ENCOUNTER → 2020-06-23 | Outpatient (CLI) | payer OTHER | LOC: SJCVCIMAG 09:04 | PROVIDERS: ATTEND Emergency Medicine | DX: I73.9 Peripheral vascular disease, unspecified (principal); L97.818 Non-pressure chronic ulcer of other part of right lower leg with other specified severity; L97.929 Non-pressure chronic ulcer of unspecified part of left lower leg with unspecified severity; E11.51 Type 2 diabetes mellitus with diabetic peripheral angiopathy without gangrene; Z79.4 Long term (current) use of insulin; Z79.899 Other long term (current) drug therapy; Z87.891 Personal history of nicotine dependence ==

== ENCOUNTER → 2020-07-13 | Outpatient (CLI) | payer OTHER | LOC: SJCVC 14:34 | PROVIDERS: ATTEND Internal Medicine | DX: R94.31 Abnormal electrocardiogram [ECG] [EKG] (principal); I42.9 Cardiomyopathy, unspecified; I12.9 Hypertensive chronic kidney disease with stage 1 through stage 4 chronic kidney disease, or unspecified chronic kidney disease; E11.22 Type 2 diabetes mellitus with diabetic chronic kidney disease; N18.30 Chronic kidney disease, stage 3 unspecified; I25.10 Atherosclerotic heart disease of native coronary artery without angina pectoris; J44.9 Chronic obstructive pulmonary disease, unspecified; E66.9 Obesity, unspecified; Z87.891 Personal history of nicotine dependence; Z79.82 Long term (current) use of aspirin; Z95.810 Presence of automatic (implantable) cardiac defibrillator; Z79.4 Long term (current) use of insulin; Z79.899 Other long term (current) drug therapy ==

== ENCOUNTER → 2020-07-19 | Outpatient (CLI) | payer OTHER | LOC: RAD 12:17 | PROVIDERS: ATTEND Pediatrics | DX: I51.7 Cardiomegaly (principal); J98.4 Other disorders of lung ==

== ENCOUNTER → 2020-09-08 | Outpatient (CLI) | payer OTHER | LOC: SJCVC 14:45 | PROVIDERS: ATTEND Internal Medicine | DX: E11.22 Type 2 diabetes mellitus with diabetic chronic kidney disease (principal); I13.2 Hypertensive heart and chronic kidney disease with heart failure and with stage 5 chronic kidney disease, or end stage renal disease; I50.42 Chronic combined systolic (congestive) and diastolic (congestive) heart failure; N18.5 Chronic kidney disease, stage 5; J44.9 Chronic obstructive pulmonary disease, unspecified; G47.33 Obstructive sleep apnea (adult) (pediatric); I65.23 Occlusion and stenosis of bilateral carotid arteries; E78.5 Hyperlipidemia, unspecified; M35.3 Polymyalgia rheumatica; I25.5 Ischemic cardiomyopathy; I27.20 Pulmonary hypertension, unspecified; E66.9 Obesity, unspecified; E78.00 Pure hypercholesterolemia, unspecified; Q60.0 Renal agenesis, unilateral; Z79.4 Long term (current) use of insulin; Z79.899 Other long term (current) drug therapy; Z87.891 Personal history of nicotine dependence; Z72.89 Other problems related to lifestyle; Z79.82 Long term (current) use of aspirin; Z88.8 Allergy status to other drugs, medicaments and biological substances ==

== ENCOUNTER 2020-10-01 17:06 | Inpatient (IN) | payer OTHER ==
[~2020-10-01] VITALS: Ht 177.8 cm; Wt 112.1 kg
--- NOTE | ~2020-10-01 | EMS ---
[address] [address] EMS Patient Care Report Name: KEITH ADAMS Room #: PRE M.R.#: [id number] Admission: Attend Phys: Discharge: Date of : 52 Report #: [id number] THIS REPORT FOR: //name// Report Transmitted: 10/01/2020 16:50 EMS Care Summary [facility] Incident [id number] @ 10/01/2020 16:12 Incident Location [address] [place] [address] Patient KEITH ADAMS Male, 70 Years 1950 Patient Address [address] [place] [address] Patient History Other,Diabetes,Hypertension (HTN),Pacemaker/AICD,Kidney/Renal Failure, Patient Allergies Other drug allergy, Patient Medications Torsemide, Ranolazine, Hydrocodone, Clopidogrel, Trazodone, Novolog, Amlodipine, Dexamethasone, Lisinopril, Chief Complaint SOA Disposition Transported No Lights/[place] Reason Breathing Problem Transported To [facility] Units dispatched to the residence of a 70 year old male pt with a chief complaint of shortness of air. Upon arrival crew located pt sitting on the ground. Pt presented with a patent airway and warm dry skin. stated [address] [address] EMS Patient Care Report Name: KEITH ADAMS Room #: PRE [place]#: [id number] Admission: Attend Phys: Discharge: Date of : 51 Report #: [id number] that they pt had slipped onto the floor from the couch approx 1 hour ago. Since then the pt had been having increased SOA as he tried to get off the floor. stated that the pt had a paralyzed diaphragm and always had difficulty breathing and talking. Pt was tachypneic. Pt was able to speak in 2 to 3 word sentences. Pt stated that the pt had PMR which made his joints and muscles weak and caused him significant pain and stiffness. Pt was unable to move extremities. Pt was placed on stretcher by crew and secured using straps. 20 g IV was established in pts left AC. Blood glucose check was 326. 250 mL fluid bolus was administered in route. 3 lead ECG was preformed and pt was monitored for rhythm changes. Pt breathing became better during transport to the hospital. Pt stated that he hurt all over but reported that was normal for him. Pt stated that he had been feeling generally unwell for the last day. Pt was transported to [facility] without incident and care was transferred to ED staff. Initial Vitals @16:22P: 126,BP: 136/86,Pain: 4/10,GCS: 15,SpO2: 96, @16:35P: 117,BP: 134/74,Pain: 4/10,GCS: 15,SpO2: 98, @16:50P: 115,BP: 135/81,Pain: 4/10,GCS: 15,SpO2: 99, Assessments @16:20MENTAL:No Abnormalities,SKIN:HEENT:Head/Face: No Abnormalities,Neck/Airway: No Abnormalities,LUNG SOUNDS:General: No Abnormalities,Left Upper: No Abnormalities,Right Upper: No Abnormalities,Left Lower: No Abnormalities,Right Lower: No Abnormalities,ABDOMEN:General: No Abnormalities,Left Upper: No Abnormalities,Right Upper: No Abnormalities,Left Lower: No Abnormalities,Right Lower: No Abnormalities,PELVIS//GI:No Abnormalities,EXTREMITIES:Right Leg: Weakness,Left Leg: Weakness,Left Arm: Weakness,Right Arm: Weakness,Capillary Refill: Right Upper: < 2 Sec,PULSE:Radial: 2+ Normal,NEURO:No Abnormalities,@16:40MENTAL:No Abnormalities,SKIN:No Abnormalities,HEENT:Head/Face: No Abnormalities,Eyes: No Abnormalities,Neck/Airway: No Abnormalities,LUNG SOUNDS:General: No Abnormalities,Left Upper: No Abnormalities,Right Upper: No Abnormalities,Left Lower: No Abnormalities,Right Lower: No Abnormalities,ABDOMEN:General: No Abnormalities,Left Upper: No Abnormalities,Right Upper: No Abnormalities,Left Lower: No Abnormalities,Right Lower: No Abnormalities,PELVIS//GI:No Abnormalities,EXTREMITIES:Capillary Refill: Right Upper: < 2 Sec,Left Arm: No Abnormalities,Right Arm: No Abnormalities,Left Leg: No Abnormalities,Right Leg: No Abnormalities,PULSE:Radial: 2+ Normal,NEURO:No Abnormalities, Impression Shortness of breath Procedures @16:38Saline Lock 0cc (20 ga) Site: Antecubital-LeftResponse: UnchangedSucceeded@16:20ALS AssessmentResponse: UnchangedSucceeded@16:[address] [address] EMS Patient Care Report Name: SONIACRISTINAMARILEEKEITH W Room #: PRE M.R.#: [id number] Admission: Attend Phys: Discharge: Date of : 51 Report #: [id number] FlowRate: 4 Device: Nasal Cannula (NC) Response: UnchangedSucceeded@16:40Normal Saline (.9% NaCl) 250cc () Site: Antecubital-LeftResponse: UnchangedSucceeded Timeline 16:10,Call Received 16:10,Psap Call 16:12,Dispatched 16:13,En Route 16:18,On Scene 16:19,At Patient 16:20,ALS Assessment,Response: UnchangedSucceeded, 16:22,BP: 136/86 M,PULSE: 126,RR: R,SPO2: 96 Ox,ETCO2: ,BG: ,PAIN: 4,GCS: 15, 16:25,Oxygen FlowRate: 4 Device: Nasal Cannula (NC) Response: UnchangedSucceeded, 16:35,BP: 134/74 M,PULSE: 117,RR: R,SPO2: 98 Ox,ETCO2: ,BG: ,PAIN: 4,GCS: 15, 16:38,Saline Lock 0cc 20 ga Site: Antecubital-Left,Response: UnchangedSucceeded, 16:40,Normal Saline (.9% NaCl) 250cc Site: Antecubital-Left,Response: UnchangedSucceeded, 16:40,Depart Scene 16:50,BP: 135/81 M,PULSE: 115,RR: R,SPO2: 99 Ox,ETCO2: ,BG: ,PAIN: 4,GCS: 15, 17:02,At Destination 17:18,Call Closed Disclaimer v1.1 Copyright 2020 [employer] This EMS Care Summary contains data elements from the applicable legal record (which may be displayed differently). It is designed to provide pertinent information for the following purposes: continuity of care, clinical quality, and state data reporting. The complete legal record is available to ED staff and administrators of the receiving hospital in [employer] Patient Tracker. All data is provided "as is."
[2020-10-01 17:09] VITALS: BP 128/65
[2020-10-01 17:45] LABS: ABSOLUTE NEUTROPHILS 11.3 thou/uL (1.4-8.2); BASOPHILS 0.1 % (0.0-2.0); HEMATOCRIT 40.1 % (42.0-52.0); HEMOGLOBIN 12.5 gm/dL (14.0-18.0); LYMPHOCYTES 2.6 % (24.0-44.0); MCH 25.6 pg (26.0-34.0); MCHC 31.2 g/dL (28.0-37.0); MONOCYTES 3.5 % (1.0-8.0); PLATELET COUNT 142 thou/uL (150-400); POLYS 93.8 % (36.0-66.0); RBC 4.89 mil/uL (4.50-6.00); RDW 17.9 % (10.5-14.5)
[2020-10-01 18:30] LABS: CALCIUM 8.5 mg/dL (8.5-10.1); CREATININE 5.4 mg/dL (0.7-1.3); POTASSIUM 5.1 mmol/L (3.5-5.1)
[2020-10-01 18:35] LABS: ALBUMIN 3.5 g/dL (3.4-5.0); TOTAL BILIRUBIN 1.5 mg/dL (0.2-1.0); TOTAL PROTEIN 7.8 g/dL (6.4-8.2)
[2020-10-01 18:37] LABS: TROPONIN-I 2.39 ng/mL (<0.06)
[2020-10-01 18:40] LABS: BE(vivo) -5.3 mmol/L (-2 to +3); HCO3 15.7 mmol/L (22.0-26.0); PO2 168.7 mmHg (80.0-100.0); pH 7.502 (7.360-7.450); sO2 99.3 % (92.0-98.0)
[2020-10-01 18:41] LABS: PCO2 20.5 mmHg (35.0-45.0)
[2020-10-01 20:56] LABS: URINE BILIRUBIN NEGATIVE (Negative); URINE BLOOD 2+ (Negative); URINE CLARITY SL CLOUDY; URINE COLOR YELLOW; URINE GLUCOSE-RANDOM* NEGATIVE (Negative); URINE KETONES NEGATIVE (Negative); URINE LEUKOCYTES-REFLEX NEGATIVE (Negative); URINE NITRITE-REFLEX NEGATIVE (Negative); URINE PROTEIN (DIPSTICK) 3+ (Negative); URINE SPECIFIC GRAVITY 1.025 (1.005-1.035); URINE UROBILINOGEN 0.2 E.U./dl (0.2-1.0)
[2020-10-01 21:07] LABS: AMP/METHAMP Negative (Negative); BARBITURATES Negative (Negative); BENZODIAZEPINES Negative (Negative); COCAINE Negative (Negative); METHADONE Negative (Negative); OPIATES Negative (Negative); PCP Negative (Negative)
[2020-10-01 21:08] LABS: AMORPHOUS URATES Moderate /LPF (None Seen); CASTS None Seen /LPF (None Seen); SQUAMOUS 0-3 Few /LPF (0-3); URINE WBC-REFLEX 6-15 Few /HPF (0-5)
[2020-10-01 21:09] LABS: BACTERIA-REFLEX 1-9 Few /HPF (None Seen); CRYSTALS None Seen /LPF (None Seen); URINE RBC 3-10 Few /HPF (0-2)
[2020-10-02] VITALS (43 sets, daily range): BP systolic 88–127; BP diastolic 44–104
--- NOTE | 2020-10-02 01:41 | NUR ---
Pt admitted to ICU room 245 from ED at 0030. Pt very restless, unable to follow commands, keeps trying to pull off bipap mask. Moans, but no coherent speech. Kiya Diaz NP notified and pt placed in soft wrist restraints bilaterally. Monitor a-fib with V-paced beats. On bipap 13/8, FiO2 40%. Heparin and Lasix gtts infusing per LAC field site. Pt pulled out left wrist IV site at 0140; IV restarted by Saira Mathis RN.
[2020-10-02 05:22] LABS: HEMATOCRIT 41.4 % (42.0-52.0); HEMOGLOBIN 13.1 gm/dL (14.0-18.0); MCHC 31.6 g/dL (28.0-37.0); MCV 82.4 fL (80.0-100.0); RBC 5.02 mil/uL (4.50-6.00); RDW 18.3 % (10.5-14.5); WBC 13.3 thou/uL (4.0-11.0)
[2020-10-02 05:30] LABS: CALCIUM 8.6 mg/dL (8.5-10.1); CREATININE 6.2 mg/dL (0.7-1.3); POTASSIUM 5.1 mmol/L (3.5-5.1)
[2020-10-02 06:37] LABS: ALBUMIN 3.2 g/dL (3.4-5.0); MAGNESIUM 1.6 mg/dL (1.8-2.4); TOTAL PROTEIN 7.6 g/dL (6.4-8.2)
--- NOTE | 2020-10-02 08:44 | NUR ---
AT O500 PT ACCIDENTLY DISLODGED LAC IV. A TOTAL OF 6 ATTEMPTS BETWEEN 3 NURSES MADE TO OBTAIN SECOND IV SITE FOR ANTIBIOTICS BUT UNSUCCESSFUL IN GAINING ACCESS. NURSE PRACTIONER AND DR. ROBISON NOTIFIED. PT TO GET CENTRAL LINE TODAY AFTER DIALYSIS.
--- NOTE | 2020-10-02 09:52 | HC ---
[facility] [place] [address] CONSULTATION Name: KEITH ADAMS Room #: 245-P ADM IN M.R.#: [id number] Admission: 10/01/20 Attend Phys: Violeta Siegel MD Discharge: Date of : 51 Report #: [id number] THIS REPORT FOR: cc: BALJINDER VOGEL MD, OSSAMA MD Barry, Joseph W. MD ~ DATE OF SERVICE: 10/02/2020 INFECTIOUS DISEASE CONSULTATION ATTENDING PHYSICIAN: Dr. Siegel. REASON FOR EVALUATION: Gram-positive cocci, septicemia. HISTORY OF PRESENT ILLNESS: Chart reviewed, patient examined. This is a 70-year-old gentleman with extensive medical history, who has diabetes mellitus that has been complicated by end-stage renal disease, had previously been on dialysis, has not had for several weeks, also on severe COPD requiring BiPAP on a continuous basis, who was noted to be increasingly dyspneic, had some nausea, emesis and some progressive now profound weakness in addition to encephalopathy. He was brought to the Emergency Room, found to have lactic acidemia. Urinalysis showed 6-15 white cells. Procalcitonin was elevated to around 30, now has gram-positive cocci in 2/2 blood cultures, was empirically started on Zosyn and vancomycin. At this point, he is quite encephalopathic. He is again on BiPAP, FiO2 30%. Unable to give any additional history was noted to have inflammatory eruption involving his distal right lower extremity consistent with the cellulitic process. ALLERGIES: LISTED TO STATINS, PRASUGREL, TICAGRELOR, APIXABAN. CURRENT MEDICATIONS: Include ipratropium and albuterol inhaler, nitroglycerin, ondansetron as needed, insulin lispro, Zosyn, vancomycin, furosemide, has not required any pressor support thus for. PAST MEDICAL HISTORY: Includes diabetes mellitus, insulin requiring; hypertension, hyperlipidemia, has known vasculopathy, coronary artery disease, COPD with continuous requirement of BiPAP. Previous history of SVT, has had a rapid AFib, obstructive sleep apnea, end-stage renal disease, paralyzed right hemidiaphragm, pacemaker, chronic anemia, cardiomyopathy with congestive heart failure, PMR. SOCIAL HISTORY: Former smoker, occasional ethanol, no illicit drug use. FAMILY HISTORY: Noncontributory. [facility] [address] [place] [address] CONSULTATION Name: KEITH ADAMS Room #: [facility] IN M.R.#: [id number] Admission: 10/01/20 Attend Phys: Violeta Siegel MD Discharge: Date of : 51 Report #: [id number] REVIEW OF SYSTEMS: Unobtainable. PHYSICAL EXAMINATION: GENERAL: He appears chronically ill, undernourished. He is restless. He is moderately to markedly encephalopathic, appears undernourished. VITAL SIGNS: He has been afebrile, pulse 96, respirations 23, blood pressure is 113/45. SKIN: Warm, dry, no rashes. HEENT: BiPAP in place. NECK: Supple, has a dialysis catheter, right side. Central venous catheter on the left. LUNGS: Few scattered coarse breath sounds. HEART: Irregular, distant. I do not appreciate a murmur. ABDOMEN: Distended, obese, somewhat firm. No apparent peritoneal signs. GENITOURINARY AND RECTAL: Deferred. LABORATORY DATA: Lactic acid on repeat was elevated at 6.0. Electrolytes: Sodium 136, potassium 5.1, chloride 99, bicarbonate of 17, anion gap of 20, BUN and creatinine 125 and 6.2, glucose of 207. Blood cultures as described above, gram-positive cocci 2/2. CBC: White count 13.3, H and H 13.1 and 41.41, platelet count of 110. Procalcitonin elevated at 29.97. Drug screen was negative. Urinalysis, 16-25 white cells. Chest x-ray: Mild atelectasis for developing infiltrate in the lateral right. ABGs yesterday, pH 7.502, pCO2 of 20.5, pO2 of 168.7 on BiPAP, FiO2 of 40%. Liver functions, total bilirubin 1.5. AST of 41, ALT of 27, albumin 3.5, total protein of 7.8. Venous Dopplers negative. D-dimer elevated at 3.98. ASSESSMENT AND PLAN: Gram-positive cocci, septicemia in a patient appears to have a cellulitic process involving his right lower extremity. He has got multiple medical problems and is certainly at risk for line-related septicemia as well. We will continue vancomycin. We will adjust dosing given his renal failure. Discontinue Zosyn, it is not clear if he is still a dialysis candidate or if he even agrees to it at this point. We will await the results and may be able to track back where the source might be, likely need an echo, repeat chest x-ray is pending. He remains critically ill. Continue ICU level support. <ELECTRONICALLY SIGNED> By: Dario Rose MD 10/02/20 0952 0635 0749 Dario Rose MD /nt
[2020-10-02 11:16] LABS: BE(vivo) -3.5 mmol/L (-2 to +3); HCO3 19.3 mmol/L (22.0-26.0); PCO2 29.2 mmHg (35.0-45.0); PO2 103.2 mmHg (80.0-100.0); pH 7.439 (7.360-7.450)
--- NOTE | 2020-10-02 16:14 | 2DMMODE ---
[facility] [address] [place] [address] 2 D/M-MODE ECHOCARDIOGRAM Name: KEITH ADAMS Room #: 245-P ADM IN M.R.#: [id number] Admission: 10/01/20 Attend Phys: Violeta Siegel MD Discharge: Date of : 51 Report #: [id number] THIS REPORT FOR: cc: BALJINDER VOGEL MD, OSSAMA MD Santiago, Patrick MD [facility] ~ APPROVED REPORT Study performed: 10/02/2020 13:21:39 EXAM: Comprehensive 2D, Doppler, and color-flow Echocardiogram Patient Location: Bedside Room #: [facility] Status: on-call BSA: 2.31 HR: 76 bpm BP: 110/70 mmHg Risk Factors: Cardiac Risk Factors: HTN Indications Sepsis Pacemaker CAD Respiratory Failure ESRD 2D Dimensions IVSd: 13.31 (7-11mm) LVOT Diam: 20.00 (18-24mm) LVDd: 57.15 mm PWd: 12.57 (7-11mm) Ascending Ao: 38.28 (22-36mm) LVDs: 51.13 (25-40mm) Aortic Root: 37.90 mm LV Single Plane 4CH: 25.03 % LV Single Plane 2CH: 22.25 % Volumes Left Atrial Volume (Systole) Single Plane 4CH: 72.57 mL Single Plane 2CH: 86.00 mL LA ESV Index: 37.00 mL/m2 Aortic Valve [facility] [address] [place] [address] 2 D/M-MODE ECHOCARDIOGRAM Name: KEITH ADAMS Room #: 245-P ADM IN M.R.#: [id number] Admission: 10/01/20 Attend Phys: Violeta Siegel MD Discharge: Date of : 51 Report #: [id number] AoV Peak Henok.: 1.35 m/s AO Peak Gr.: 7.24 mmHg LVOT Max P.51 mmHg LVOT Max V: 0.94 m/s TYRA Vmax: 2.12 cm2 Pulmonary Valve PV Peak Henok.: 1.04 m/s PV Peak Gr.: 4.31 mmHg Tricuspid Valve TR Peak Henok.: 2.40 m/s TR Peak Gr.: 23.30 mmHg Left Ventricle The left ventricle is normal size. There is global hypokinesis of the left ventricle. Mild concentric left ventricular hypertrophy. Left ventricular systolic function is severely decreased. LVEF is 25%. This study is not technically sufficient to allow evaluation of the LV diastolic function due to rhythm. Right Ventricle Right ventricle is mildly dilated. Right ventricle is hypokinetic. Pacemaker lead is present in the right ventricle. Atria Left atrium is mildly dilated. Right atrium is dilated. Pacemaker lead is present in the right atrium. Aortic Valve The Aortic valve is mildly sclerotic. Trace aortic regurgitation. There is no aortic valvular stenosis. Mitral Valve The mitral valve is normal in structure. Moderate mitral regurgitation. No evidence of mitral valve stenosis. Tricuspid Valve The tricuspid valve is normal in structure. Moderate tricuspid regurgitation. Tricuspid regurgitant jet is 23 mmHg. Unable to assess PA pressure. Pulmonic Valve The pulmonary valve is normal in structure. Trace pulmonic regurgitation. Great Vessels The aortic root is normal in size. The ascending aorta is normal in [facility] [address] [place] [address] 2 D/M-MODE ECHOCARDIOGRAM Name: KEITH ADAMS Room #: 245-P [facility] IN ..#: [id number] Admission: 10/01/20 Attend Phys: Violeta Siegel MD Discharge: Date of : 51 Report #: [id number] size. IVC is dilated. Pt. on ventilator. Pericardium There is no pericardial effusion. <Conclusion> Normal left ventricular size with mild concentric hypertrophy Global hypokinesis ejection fraction 25% more prominent in the inferoseptum Moderate dilated right ventricle/hypokinetic Pacer wire detected in the RV Moderate biatrial enlargement Aortic valve mildly calcified, no obvious stenosis. Moderate mitral valve insufficiency Moderate tricuspid valve insufficiency Unable to assess pulmonary systolic pressure. Normal aortic root size No pericardial effusion <ELECTRONICALLY SIGNED> By: Denis Meneses MD, [facility] 10/02/20 1613 [id number] Denis Meneses MD, FACC /INF
--- NOTE | 2020-10-02 18:35 | NUR ---
A#5F TRIPLE LUMEN CENTRAL LINE PLACED PER HOSPITAL POLICY. LINE WAS TRIMMED TO 25CM AND ADVANCED WITHOUT DIFFICULTY. A STAT CHEST XRAY SHOWS LINE IN ADEQUATE POSITION AND RELEASED FOR USE
[2020-10-03] VITALS (38 sets, daily range): BP systolic 82–127; BP diastolic 33–83
[2020-10-03 05:18] LABS: MCHC 31.6 g/dL (28.0-37.0); MCV 82.1 fL (80.0-100.0); RBC 4.64 mil/uL (4.50-6.00); RDW 18.9 % (10.5-14.5); WBC 16.1 thou/uL (4.0-11.0)
[2020-10-03 05:34] LABS: ALBUMIN 2.7 g/dL (3.4-5.0); CALCIUM 8.4 mg/dL (8.5-10.1); CREATININE 6.2 mg/dL (0.7-1.3); PHOSPHORUS 6.1 mg/dL (2.6-4.7); POTASSIUM 5.2 mmol/L (3.5-5.1)
--- NOTE | 2020-10-03 11:23 | EKG ---
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 [employer]: : 1950 Requested By: Mary Jones Order Number: [id number] MD: Denis Meneses Measurements Intervals Enterprise Rate: 116 P: 0 NV: 44 QRS: 193 QRSD: 213 T: -48 QT: 459 QTc: 638 Interpretive Statements Ventricular-paced complexes No further analysis attempted due to paced rhythm Baseline wander in lead(s) V3 Compared to ECG 05/21/2020 05:00:37 Atrial-sensed ventricular-paced complex(es) or rhythm no longer present Electronically Signed On 10-03-2020 11:23:47 CDT by Denis Meneses [email or web address] <ELECTRONICALLY SIGNED> By: Denis Meneses MD, FACC 10/03/20 1123 20 20 Denis Meneses MD, [facility] /EPI
[2020-10-04] VITALS (63 sets, daily range): BP systolic 74–121; BP diastolic 33–83
[2020-10-04 05:23] LABS: HEMATOCRIT 38.6 % (42.0-52.0); HEMOGLOBIN 11.9 gm/dL (14.0-18.0); MCH 25.5 pg (26.0-34.0); MCHC 30.8 g/dL (28.0-37.0); MCV 82.7 fL (80.0-100.0); RBC 4.66 mil/uL (4.50-6.00); RDW 18.6 % (10.5-14.5); WBC 20.2 thou/uL (4.0-11.0)
[2020-10-04 05:45] LABS: ALBUMIN 2.6 g/dL (3.4-5.0); CALCIUM 8.3 mg/dL (8.5-10.1); CREATININE 5.7 mg/dL (0.7-1.3); PHOSPHORUS 6.9 mg/dL (2.5-4.9); POTASSIUM 5.7 mmol/L (3.5-5.1)
--- NOTE | 2020-10-04 06:00 | NUR ---
PT HAS BEEN RESTLESS AT TIMES TONIGHT. ON BIPAP MOST OF NIGHT. NOW 6 L NC LUNGS CLEAR. 20 CC UO THIS SHIFT. REMAINS ON HEPARIN GTT AT 14 UNITS/HR APTT 50.6 THERAPUTIC. PAIN MED X 2 FOR GENERAL ACHING JOINTS. PT MOANING OUT LOUD. STATES I JUST WANT TO BE HAPPY. S/C FOR DIALYSIS THIS AM. RESTRAINTS REMOVED AT 2100 LAST EVENING. NOT PROGRESSING TOWARD GOALS.
--- NOTE | 2020-10-04 11:08 | NUR ---
ASSUMED CARE OF PT AT 0700 DR. GUSMAN AT BEDSIDE AT 0700, NO NEW ORDERS GIVEN DR. ELAM AT BEDSIDE AT 0830, HE WANTS HIM TO HAVE HIS CARDIAC CATH AND STATED HE WILL SPEAK TO DR. GUSMAN. DR. BECKETT AT BEDSIDE AT 0730 AND STATED THAT HIS FISTULA IS NOT WORKING AND WANTS HIM TO GO TO IR TO HAVE ANOTHER ACCESS PLACED. AT BEDSIDE AT [address] BECKETT ON THE PHONE.
--- NOTE | 2020-10-04 15:53 | NUR ---
chart review. cm unable to visit with zoie this am rt circular stuffer and md visiting. noted he had dialysis set up in past, lives with his nayeli, home bipap with o2 bleed in bipap. cm called spoke with via phone call. " he not needed dialysis in 6months, he may or may not need it. one kidney. no hh or rehab before. will look more at dc closer to it"/ nayeli. will cont following as needed for dc needs.
--- NOTE | 2020-10-04 23:10 | NUR ---
PT TAKEN TO CAT SCAN FOR CT OF RIGHT LEG. BECAME VERY AGITATED AND TRIED TO JUMP OFF OG THE CT CART. SECURITY CALLED. STAT DOSE OF MORPHINE 4 MG AND ATIVAN 1 MG GIVEN FOR SEDATION. SCAN WAS ABLE TO BE DONE THEN.
[2020-10-05] VITALS (63 sets, daily range): BP systolic 41–181; BP diastolic 17–154
[2020-10-05 05:20] LABS: HEMATOCRIT 38.1 % (42.0-52.0); HEMOGLOBIN 11.8 gm/dL (14.0-18.0); MCH 25.8 pg (26.0-34.0); MCHC 30.9 g/dL (28.0-37.0); MCV 83.5 fL (80.0-100.0); RBC 4.56 mil/uL (4.50-6.00); RDW 18.4 % (10.5-14.5); WBC 24.9 thou/uL (4.0-11.0)
[2020-10-05 05:37] LABS: ALBUMIN 2.6 g/dL (3.4-5.0); CALCIUM 8.1 mg/dL (8.5-10.1); CREATININE 4.6 mg/dL (0.7-1.3); TOTAL BILIRUBIN 1.7 mg/dL (0.2-1.0); TOTAL PROTEIN 7.4 g/dL (6.4-8.2)
[2020-10-05 05:38] LABS: APTT 53.5 Seconds (24.5-32.8); INR 1.2; POTASSIUM 5.9 mmol/L (3.5-5.1)
--- NOTE | 2020-10-05 06:00 | NUR ---
VSS PT HAS SLEPT ALL NIGHT. LETHARGIC BUT AROUSES. ATTEMPTS TO PULL AT BIPAP REMAINS ON HEPARIN GTT. APTT 53.5 THERAPUTIC. 15 CC UO THIS SHIFT. WILL HAVE DIALYSIS THIS AM. NOT PROGRESSING TOWARD GOALS
--- NOTE | 2020-10-05 10:34 | NUR ---
Nutrition: Pt NPO x 3 days in ICU. Requiring bipap, dialysis this am. Currently with hyperkalemia, hyperphosphatemia. REC initiate TPN per renal/pharmacy when labs stabilize.
--- NOTE | 2020-10-05 10:51 | HC ---
[facility] [place] [address] CONSULTATION Name: KEITH ADAMS Room #: 245-P [facility] ..#: [id number] Admission: 10/01/20 Attend Phys: Violeta Siegel MD Discharge: Date of : 52 Report #: [id number] THIS REPORT FOR: cc: BALJINDER VOGEL MD, OSSAMA MD Althoff,Larry Eckert MD ~ DATE OF SERVICE: 10/04/2020 CHIEF COMPLAINT: Cellulitis with multiple bullae involving the right lower extremity. HISTORY OF PRESENT ILLNESS: This is a 70-year-old male patient who was admitted to the hospital on 10/01/2020 with sepsis and respiratory failure. He has a history of end-stage renal disease on dialysis, COPD, sleep apnea, hypertension and diabetes. He was somewhat lethargic and did not follow commands on admission, he had been complaining of shortness of breath and fever. He has been noted to have increasing redness and bulla formation involving his right lower leg. I have been asked to see him with regard to wound care. He is in the ICU presently. His is at the bedside. The patient is not able to answer any specific questions at this time. PAST MEDICAL HISTORY: Positive for polymyalgia rheumatica, type 2 diabetes mellitus, hypertension, hyperlipidemia, coronary artery disease, COPD, obstructive sleep apnea, chronic kidney disease requiring hemodialysis. He has a paralyzed right hemidiaphragm, solitary kidney. He has a pacemaker, AICD, history of congestive heart failure. SOCIAL HISTORY: The patient is a former smoker. No recreational drug use. Occasional alcohol consumption. , accompanied by his . FAMILY HISTORY: Noncontributory. MEDICATIONS: Include Isordil, amlodipine, aspirin, trazodone, Ranexa, nitroglycerin, insulin, clopidogrel. ALLERGIES: TO ELIQUIS, BRILINTA, EFFIENT, STATINS, HMG-COA REDUCTASE INHIBITORS. REVIEW OF SYSTEMS: Not obtainable due to being relatively obtunded. PHYSICAL EXAMINATION: VITAL SIGNS: At this time include temperature 36.4, blood pressure 101/75, respiratory rate of 20. GENERAL: This is a chronically ill-appearing male patient who appears to be in some stage of obtundation. He does not open his eyes or respond to verbal [facility] [address] [place] [address] CONSULTATION Name: KEITH ADAMS Room #: [facility].#: [id number] Admission: 10/01/20 Attend Phys: Violeta Siegel MD Discharge: Date of : 52 Report #: [id number] stimuli. He does move with painful stimuli. HEENT: His head is atraumatic. Nose and throat are clear. NECK: Supple. He has a dialysis catheter. He is currently being dialyzed. LUNGS: Diminished. HEART: Irregular without murmur. ABDOMEN: Obese, soft, nontender. EXTREMITIES: Lower extremities demonstrate diminished distal pulses. There is 2+ edema bilaterally. He has moderate redness and swelling of the right lower leg. He has multiple areas of bullae formation both medially and laterally. With verbal permission from the , I have unroofed the bulla medially and removed some loose superficial epidermis laterally with tissue forceps and scissors. Cultures have been obtained from the previously unruptured bulla on the medial lower leg. NEUROLOGICALLY: The patient appears to have symmetric spontaneous movement. He does not answer any questions. LABORATORY STUDIES: Include white blood cell count 20.2 with a hemoglobin of 11.9. Sodium 136, potassium 5.7, chloride 99, CO2 of 21, BUN 95, creatinine 5.7, glucose 233. Albumin is 2.6. CLINICAL IMPRESSION: 1. Cellulitis with bulla formation involving the right lower leg. 2. Group A strep septicemia. 3. Diabetes mellitus. 4. End-stage renal disease, requiring dialysis. 5. Respiratory failure with underlying chronic obstructive pulmonary disease. 6. Moderate protein-calorie malnutrition. 7. End-stage renal disease, requiring hemodialysis. RECOMMENDATIONS: At this point in time, recommend topical gentamicin ointment to the open areas of the right lower leg, covered with Xeroform gauze, ABD and lightly applied Kerlix. We will recommend elevation for control of edema. He is currently being followed by Infectious Disease for antibiotic management. He will need ongoing nutritional support, continuation of medical management for his other underlying medical issues. I appreciate being asked to see the patient in consultation. <ELECTRONICALLY SIGNED> By: Larry Valentin MD 10/05/20 1051 [id number] Larry Valentin MD /nt
[2020-10-05 14:24] LABS: BE(vivo) -4.2 mmol/L (-2 to +3); HCO3 21.4 mmol/L (22.0-26.0); PCO2 40.9 mmHg (35.0-45.0); PO2 112.2 mmHg (80.0-100.0); pH 7.336 (7.360-7.450); sO2 97.9 % (92.0-98.0)
[2020-10-06] VITALS (35 sets, daily range): BP systolic 99–157; BP diastolic 54–95
--- NOTE | 2020-10-06 07:06 | NUR ---
Assummed care of this patient from the night nurse, Dee MCCABE. Patient is presently on hemodialysis.
[2020-10-06 10:09] LABS: ALBUMIN 3.1 g/dL (3.4-5.0); CALCIUM 8.5 mg/dL (8.5-10.1); CREATININE 4.4 mg/dL (0.7-1.3); MAGNESIUM 2.4 mg/dL (1.8-2.4); PHOSPHORUS 7.1 mg/dL (2.5-4.9); POTASSIUM 5.4 mmol/L (3.5-5.1); TOTAL BILIRUBIN 1.8 mg/dL (0.2-1.0); TOTAL PROTEIN 7.6 g/dL (6.4-8.2)
--- NOTE | 2020-10-06 12:30 | NUR ---
DIALYSIS COMPLETED THIS AM. PATIENT REMAINS LETHARGIC AND UNABLE TO TAKE PO DIET. AT BEDSIDE EARLIER AND AWARE OF THE PATIENT'S STATUS. WOUND CARE TEAM IN AND DEBRIDED AND REDRESSED RT LEG WOUND. WILL CONTINUE TO MONITOR.
[2020-10-06 16:06] LABS: HEP B SURFACE Ab(ANTI-HBS Non Reactive (()); HEPATITIS B SURFACE AG Negative (Negative)
--- NOTE | 2020-10-06 17:30 | NUR ---
IS EXPRESSING CONCERNS ABOUT STARTING TPN WITHOUT DR ROBISON'S APPROVAL. SPOKE WITH DR ELAM VIA PHONE CONCERNING HER CONCERNS.
--- NOTE | 2020-10-06 19:49 | NUR ---
PATIENT IS NOT PROGRESSING TOWARDS OUTCOME GOALS HE REMAINS LETHARGIC AND UNABLE TO EAT. STRONG LOOSE NON/PRODUCTIVE COUGH. O2 TITRATED UP. MS GIVEN FOR AIR HUNGER, HE IS USING ACCESSORY MUSCLES. WILL CONTINUE TO MONITOR.
[2020-10-07] VITALS (28 sets, daily range): BP systolic 114–141; BP diastolic 56–90
[2020-10-07 04:43] LABS: ALBUMIN 2.7 g/dL (3.4-5.0); CREATININE 4.4 mg/dL (0.7-1.3); MAGNESIUM 2.4 mg/dL (1.8-2.4); PHOSPHORUS 6.2 mg/dL (2.5-4.9); POTASSIUM 4.8 mmol/L (3.5-5.1); TOTAL BILIRUBIN 1.9 mg/dL (0.2-1.0)
--- NOTE | 2020-10-07 05:37 | NUR ---
RESTLESS ALL NIGHT, NOT RESPONDING TO COMMANDS, MOVES ALL 4 EXTREMITIES. BIPAP ALL SHIFT. MINIMAL UOP, HEPARIN GTT PER PROTOCOL. NOT PROGRESSING TOWARD GOALS
--- NOTE | 2020-10-07 11:05 | NUR ---
0730-GENEVIEVE SOTELO & RICKI IN.--VW 0830- IN. PT JOSHUA HD W/O PROBLEM.--VW 1000- IN,STAYED ~15 MIN'S TO VISIT. ASKING ?'S RE:END OF LIFE CARE. WHEN DO YOU KNOW WHEN TO STOP? WHEN CAN OUR DTR VISIT? VISITATION RULES W PT'S IN POD & RESTRICTIONS EXPLAINED TO HER. END OF LIFE/WITHDRAW OF CARE EXPLAINED TO HER.SHE WANTS TO GIVE DIALYSIS A CHANCE. MUCH SUPPORT GIVEN. SHE IS HAPPY W CARE & HOPES HD WILL HELP.--VW
[2020-10-08] VITALS (38 sets, daily range): BP systolic 84–151; BP diastolic 39–101
[2020-10-08 10:39] LABS: CALCIUM 8.3 mg/dL (8.5-10.1); CREATININE 2.9 mg/dL (0.7-1.3); MAGNESIUM 2.1 mg/dL (1.8-2.4); PHOSPHORUS 3.7 mg/dL (2.5-4.9); POTASSIUM 3.6 mmol/L (3.5-5.1)
--- NOTE | 2020-10-08 12:07 | NUR ---
WOUND CARE F/U; ROUNDED WITH DR ROUSE AND NADINE GARCIA MSN. THE PATIENTS RIGHT LE WAS ASSESSED AGAIN TODAY. THE WOUNDS HAVE SKIN CHANGES DARKER LOOKING WOUND BED. ETIOLOGY UNKNOWN. DISCUSSE WITH RN, KAYLIN BARNES AT THIS TIME.
--- NOTE | 2020-10-08 15:07 | NUR ---
chart review. bipap off and on, and o2 as well. nutritional support. no anticipated dc over the weekend. cm visited with nayeli, no concerns voiced, "if i have problem i take care of it" per nayeli. will cont following as needed for dc needs.
--- NOTE | 2020-10-08 19:45 | NUR ---
PT VERY DROWSY, LETHARGIC, NONVERBAL ALL DAY TODAY. DIALYSIS DONE THIS AM. SPOKE WITH PT'S AT 0930 BY PHONE AND UPDATED HER. PT'S HERE AT [phone]. SHE STATES "PT WOULD NOT WANT ANY OF THIS" SHE REQUESTED CODE STATUS CHANGE TO DNR AND WANTS TO CONSIDER PALLATIVE OPTIONS. PT'S MET WITH RICKIE CLARK, AND ASHLEIGH THIS AFTERNOON TO DISCUSS CARE DECISION. SHE STATES SHE WILL DISCUSS WITH HER DAUGHTER PRIOR TO MAKING DECISIONS. PT REMAINS ON BIPAP. WOUND CARE AND ARTERIAL US OF RIGHT LE DONE THIS AFTERNOON. REPORT GIVEN TO SALES AGENT FINANCIAL REPORT SERVICE RN.
[2020-10-09] VITALS (65 sets, daily range): BP systolic 75–132; BP diastolic 42–77
[2020-10-09 04:46] LABS: ALBUMIN 2.5 g/dL (3.4-5.0); CALCIUM 7.8 mg/dL (8.5-10.1); PHOSPHORUS 4.6 mg/dL (2.6-4.7); POTASSIUM 4.1 mmol/L (3.5-5.1)
[2020-10-09 04:47] LABS: CREATININE 4.6 mg/dL (0.7-1.3)
--- NOTE | 2020-10-09 05:53 | NUR ---
RESTING QUIETLY ON BIPAP MOST OF NIGHT, ASKING FOR A BREAK X2. MORE COHERENT AND MORE ALERT THIS SHIFT THAN PREVIOUSLY. STILL CONFUSED, ASKING TO SIT ON SIDE OF BED AND FOR WATER. EXPLAINED SITUATION AND CURRENT STATUS, LINES, DIALYSIS, ETC. PT DOES NOT SEEM ORIENTED ENOUGH TO DISCONTINUE RESTRAINTS, THIS RN HAS CONCERN FOR DIALYSIS LINE AND TLC.
--- NOTE | 2020-10-09 08:56 | NUR ---
0855 speech called for swallow eval. no answer, left message.
--- NOTE | 2020-10-09 19:56 | NUR ---
PT ORIENTATION IMPROVED X3 THROUGHOUT THE DAY. DIALYSIS THIS AM REMOVED 2.5L PER CABLE REPAIRER. AT BEDSIDE 1000. TPN AND INSULIN GTT DC'D TODAY. STARTED ON DIET... 90% OF LUNCH CONSUMED. DANGLED AT EDGE OF BED 1400. PT STEADY WHILE SEATED W/O SUPPORT, WOULD BENEFIT FROM PT CONSULT. 1700 BG 484, DR. ELAM NOTIFIED. CHECK BG Q2 AND GIVE SSI Q4, OK TO GIVE SSI NOW.
[2020-10-10] VITALS (10 sets, daily range): BP systolic 72–103; BP diastolic 47–61
[2020-10-10 04:25] LABS: HEMATOCRIT 36.7 % (42.0-52.0); HEMOGLOBIN 11.4 gm/dL (14.0-18.0); MCH 25.2 pg (26.0-34.0); MCHC 31.1 g/dL (28.0-37.0); MCV 80.9 fL (80.0-100.0); PLATELET COUNT 60 thou/uL (150-400); RBC 4.54 mil/uL (4.50-6.00); RDW 18.1 % (10.5-14.5); WBC 20.7 thou/uL (4.0-11.0)
[2020-10-10 05:36] LABS: ABSOLUTE NEUTROPHILS 18.6 thou/uL (1.4-8.2); ANISOCYTOSIS 2+; PLATELET ESTIMATE DECREASED
--- NOTE | 2020-10-10 06:21 | NUR ---
ASSUMED CARE OF PATIENT AT 1900. A&O, TALKATIVE, C/O PAIN. WANTING TO WEAR BIPAP TO SLEEP. PAIN MEDS GIVEN, MUCH RELIEF NOTED. BLOOD SUGARS LABILE. CHECKED Q2. PROGRESSING TOWARDS POC GOALS.
--- NOTE | 2020-10-10 15:24 | NUR ---
PT RESTING COMFORTABLY IN BED. NO DIALYSIS TODAY. PLAN IS TO START MWF DIALYSIS. TRANSFER TO CCU TODAY AT APPROX 1415. PT AND HAVE BEEN UPDATED AND EDUCATED ON PT CONDITION AND POC. PT PROGRESSING TOWARDS POC.
--- NOTE | 2020-10-10 17:29 | NUR ---
PT CARE ASSUMED AT 1430. ASSESSMENTS CHARTED. MEDICATIONS CHARTED. LIJ 3L PICC. RJ TEMPORARY DIALYSIS CATHETER. LUZ NON-FUNCTIONING DIALYSIS FISTULA, NEED REPAIR. V PACED, BBB. BIPAP , 6, 30%. ONE FUNCTIONING KIDNEY. BLE CELLULITIS, NO SCD'S. HERNANDEZ, OLIGURIA. DIALYSIS MWF.
--- NOTE | 2020-10-11 02:53 | NUR ---
ASSESSMENTS CHARTED, MEDS CHARTED GIVEN. PATIENT WAS SITTING ON THE SIDE OF THE BED AT START OF SHIFT. TRIED TO HAVE A BOWEL MOVMENT ON BSC. DID WOUND CARE AND DRESSING CHANGE TO RIGHT LOWER LEG. DENIED PAIN. SLEPT WITH BIPAP ON DURING NIGHT WITH 5 LITERS BLEED IN. PATIENTS RIGHT ARM FISTULA IS CLOTTED, HAD NEW RIGHT JUGULAR TEMPORARY DIALYSIS CATHETER. PLAN IS TO CONTINUE DIALYSIS TREATMENTS, ANTIBIOTIC THERAPY, RESPIRATORY CARE. FALL PRECAUTIONS IN PLACE DURING SHIFT.
[2020-10-11 04:45] VITALS: BP 84/59
[2020-10-11 08:12] VITALS: BP 96/52
--- NOTE | 2020-10-11 08:31 | NUR ---
ASSUMED PT CARE AT 0700. PT CURRENTLY RECEIVING DIALYSIS. ASSESSMENT PERFORMED. MEDICATION ADMINISTRATION HELD UNTIL AFTER DIALYSIS. VSS. WILL CONTINUE TO MONITOR.
[2020-10-11 10:59] VITALS: BP 101/54
--- NOTE | 2020-10-11 11:38 | NUR ---
spoke with patient and at bedside. Discussed LTAC with . Patient currently on BIPAP. Referral to [facility] and request to submit for auth if accepted. Gave brochures for [facility] and [facility] did not have [facility] brochure.
--- NOTE | 2020-10-11 11:42 | NUR ---
PT SLEEPING ON LEFT SIDE. AT BEDSIDE. PT STATES HE IS READY FOR LUNCH. VSS. WILL CONTINUE TO MONITOR AND FOLLOW POC.
--- NOTE | 2020-10-11 14:03 | NUR ---
FAXED REFERRAL TO [facility] SPOKE WITH [facility] IN ADM SHE RECEIVED REFERRAL AND CAN ACCEPT SHE WILL SUBMIT FOR AUTH..
[2020-10-11 15:18] VITALS: BP 96/46
--- NOTE | 2020-10-11 16:19 | NUR ---
PT WORKED WITH PT WAS ABLE TO SIT ON THE SIDE OF THE BED. PT C/O OF MILD PAIN IN KNEES. VSS. WILL CONTINUE TO MONITOR PT AND FOLLOW POC.
[2020-10-11 20:15] VITALS: BP 92/51
--- NOTE | 2020-10-12 01:11 | NUR ---
ASSESSMENTS CHARTED, MEDS CHARTED GIVEN. C/O PAIN IN RIGHT SIDE. WAS TOO SOON FOR PAIN MEDS. TRIED REPOSITIONING WITH [facility]. ONCE PAIN MEDS GIVEN, PATIENT SLEPT THROUGH MOST OF SHIFT. FALL PRECAUTIONS IN PLACE DURING SHIFT.
[2020-10-12 03:16] LABS: ABSOLUTE NEUTROPHILS 12.7 thou/uL (1.4-8.2); BASOPHILS 0.1 % (0.0-2.0); HEMATOCRIT 34.6 % (42.0-52.0); HEMOGLOBIN 10.8 gm/dL (14.0-18.0); MCH 25.5 pg (26.0-34.0); MCHC 31.2 g/dL (28.0-37.0); MCV 81.5 fL (80.0-100.0); PLATELET COUNT 53 thou/uL (150-400); POLYS 94.9 % (36.0-66.0); RBC 4.25 mil/uL (4.50-6.00); RDW 18.2 % (10.5-14.5); WBC 13.3 thou/uL (4.0-11.0)
[2020-10-12 04:45] VITALS: BP 107/57
[2020-10-12 07:18] VITALS: BP 91/54
[2020-10-12 10:53] VITALS: BP 95/46
--- NOTE | 2020-10-12 14:31 | NUR ---
AAOX4. STUBBORN, QUESTIONING TX. V-PACED BBB PER TELE. DRESSING CHANGED RIGHT CALF. AT BEDSIDE, DEMANDS TO SPEAK WITH DR. ROBISON AND DID SO. STILL, HE REFUSED TO HAVE HIS TEMPORARY DIALYSIS CATH TUNNELED IN I.R. FALL PRECAUTIONS IN PLACE.
[2020-10-12 15:26] VITALS: BP 105/48
--- NOTE | 2020-10-12 16:07 | NUR ---
FAXED CLINICAL UPDATE TO [facility] RECEIVED CONFIRMATION AND LEFT MSG WITH AMLA IN ADM.
--- NOTE | 2020-10-12 16:57 | NUR ---
[facility] accepting of patient and submitting for auth. Sp with patient and . reports casemgt is the only person who has mentioned LTAC she wants to sp with regarding LTAC Care.
[2020-10-12 20:06] VITALS: BP 103/51
[2020-10-13 04:45] VITALS: BP 127/68
--- NOTE | 2020-10-13 04:50 | NUR ---
ASSESSMENTS CHARTED, MEDS CHARTED GIVEN. PATIENT HAS BEEN NPO SINCE MIDNIGHT FOR POSSIBLE PROCEDURE THIS MORNING FOR TUNNELING PERMANENT DIALYSIS CATHETER. PATIENT WANTS TO TALK TO DR DAMIAN BEFORE TUNNELING PROCEDURE. PATIENT REFUSING TO DRINK HONEY THICK LIQUID. FALL PRECAUTIONS IN PLACE DURING SHIFT. PLAN IS TO DEBRID WOUND ON RIGHT CALF SOON. DISCHARGE TO [facility].
[2020-10-13 08:13] VITALS: BP 116/76
[2020-10-13 11:18] VITALS: BP 103/68
--- NOTE | 2020-10-13 11:44 | NUR ---
PATIENT RESTING WITH BIPAP ON POST DIALYSIS. PATIENT STATES HE JUST FEELS EXHAUSTED AND WORN OUT. HYPOGLYCEMIC X2 TODAY TREATED WITH DEXTROSE. REMAINS NPO FOR PROCEDURE IN IR THIS AFTERNOON. PATIENT TO HAVE SPEECH THERAPY EVAL POST PROCEDURE. WOUND CARE TEAM AT BEDSIDE CURRENTLY. CHANGING DRESSING, PICTURES TAKEN BY WOUND CARE NURSE.
--- NOTE | 2020-10-13 14:12 | NUR ---
PATIENT OFF UNIT IN INTERVENTIONAL RADIOLOGY FOR TUNNELED DIALYSIS CATH PLACEMENT
[2020-10-13 15:26] VITALS: BP 94/74
--- NOTE | 2020-10-13 16:07 | NUR ---
PATIENT BACK FRON IR WITH TUNNLED DIALYSIS CATH PLACED. SEEN BY SPEECH THERAPY, CLEARED FOR REGULAR RENAL DIET WITH THIN LIQUIDS. PATIENT CURRENTLY ON 4L NC. SATS MAINTAINED. AT BEDSIDE.
[2020-10-13 20:03] VITALS: BP 108/54
[2020-10-14 03:58] VITALS: BP 105/54
[2020-10-14 07:20] VITALS: BP 111/61
[2020-10-14 11:45] VITALS: BP 118/63
--- NOTE | 2020-10-14 11:58 | NUR ---
VASCULAR ACCESS NURSE ROUNDING- THE [facility] CENTRAL LINE WAS NOTED TO BE LAYING ON THE PATIENTS CHEST AND NO LONGER IN THE IJ. DRESSING REMOVED AND A PIV PLACED FOR ACCESS
[2020-10-14 15:55] VITALS: BP 113/66
--- NOTE | 2020-10-14 17:02 | NUR ---
Case discussed with the care team. [facility] lt[facility] updated as they are following and have submitted for ins auth. Dc time frame is uncertain as pt will be having surgical I/D of wound in the am followed by afternoon dialysis. His new dialysis cath was placed yesterday and tx initiated. The [facility] liason will f/u with pt's to provide info/visitor policy and answer any questions. at bedside most of the day. Will follow.
--- NOTE | 2020-10-14 18:10 | NUR ---
ASSUMED CARE OF PT AT SHIFT CHANGE. ASSESSMENTS CHARTED. MEDS GIVEN PER SEP. PT A&OX4, NO C/O PAIN OR DISTRESS. NO IMPULSIVENESS DURING SHIFT. PLAN FOR WOUND DEBRIDMENT IN MORNING, FOLLOWED BY DIALYSIS. POSSIBLE DC FOR FOR SUNDAY. WILL CONTINUE TO MONITOR FOR CHANGES AND FOLLOW POC.
[2020-10-14 19:19] VITALS: BP 106/63
[2020-10-15] VITALS (7 sets, daily range): BP systolic 85–129; BP diastolic 43–65
[2020-10-15 03:28] LABS: HEMATOCRIT 36.4 % (42.0-52.0); HEMOGLOBIN 11.5 gm/dL (14.0-18.0); MCH 25.8 pg (26.0-34.0); MCHC 31.7 g/dL (28.0-37.0); MCV 81.4 fL (80.0-100.0); RBC 4.47 mil/uL (4.50-6.00); RDW 18.3 % (10.5-14.5); WBC 11.9 thou/uL (4.0-11.0)
[2020-10-15 03:49] LABS: CALCIUM 7.2 mg/dL (8.5-10.1); CREATININE 6.4 mg/dL (0.7-1.3); POTASSIUM 5.8 mmol/L (3.5-5.1)
--- NOTE | 2020-10-15 12:45 | NUR ---
REFERRAL GIVEN TO JACIEL FROM [facility] SHE WILL REVIEW STILL NEED TO FAX PROCEDURE REPORT ONCE AVAILABLE.
--- NOTE | 2020-10-15 16:48 | NUR ---
[facility] Room Attendant met with the pt's spouse twice today to discuss dc planning efforts. Information on [facility] provided along with SNF listing. Pt's spouse hopeful ins will approve LTAC level of care. No weekend dc anticipated as the pt's I/D has been moved to Sunday. [facility] liason updated and they have spoken with the pt . SNF options reviewed but limited as the pt will need dialysis and too weak to go out to a clinic in a w/c. interested in [facility] due to their onsite dialysis program and proximity to the hospital. Referral sent per the dc party planner and they are reviewing. Call back rec'd late this afternoon from Stephanie indicating [employer] has denied ltac with option for peer to peer by 1200 on Sunday. option 4 ref # [id number] and medical health researcher Dr. Samson. Information forwarded to the attending. Will followup with all parties on Sunday.
--- NOTE | 2020-10-15 18:29 | NUR ---
ASSUMED CARE OF PT AT SHIFT CHANGE. ASSESSMENTS CHARTED. MEDS GIVEN PER. PT A&X4 NO C/O PAIN OR DISTRESS. DIALYSIS COMPLETE, 2.5 L OFF. WOUND DEBRIDEMENT PUSHED TO SUNDAY. WILL CONTINUE MONITOR FOR CHANGES AND FOLLOW POC.
[2020-10-16 05:14] VITALS: BP 119/63
[2020-10-16 07:10] VITALS: BP 108/39
[2020-10-16 10:00] VITALS: BP 180/80
[2020-10-16 12:00] VITALS: BP 134/109
[2020-10-16 15:45] VITALS: BP 102/48
--- NOTE | 2020-10-16 17:31 | NUR ---
ASSUMED CARE SHIFT CHANGE. ASSESSMENTS CHARTED.MEDS GIVEN. VSS. CPAP WITH O2 ON THROUGHOUT DAY, O2 SATS WNL. SPOUSE AT BEDSIDE. WOUND CARE COMPLETED. PT C/O PAIN IN BILAT LEGS, PAIN MEDS GIVEN PER SEP. BILAT FEET SWELLING 3+, NOTIFIED METAL DOOR ASSEMBLER ORDERS RECEIVED. CONDOM CATH PLACED IN ATTEMPT FOR I&OS. PT OLIGURIC D/T DIALYSIS. PLAN FOR DIALYSIS TOMORRW, SURGERY SUNDAY. PT CURRENTLY RESTING, SPOUSE REMAINS BEDSIDE. CONTINUING POC. WILL PASS ON REPORT TO ANGELO RN.
[2020-10-16 19:26] VITALS: BP 117/57
[2020-10-17 03:50] VITALS: BP 115/49
[2020-10-17 07:05] VITALS: BP 118/52
--- NOTE | 2020-10-17 07:54 | NUR ---
pt resting in bed with cpap, prn pain med given for c/o leg pain, dressing remained cdi, incon't of urine and cleaned up twice thru the noc. plan dialysis for today, report given to next shift to con't ppoc.
[2020-10-17 12:00] VITALS: BP 122/78
[2020-10-17 17:05] VITALS: BP 86/61
--- NOTE | 2020-10-17 17:40 | NUR ---
RECEIVED PT'S CARE AROUND 0720; PT. ON BED; ON BYPAP; O2 SAT ABOVE 90%; ALERT; DURING AM ASSESSMENT AOX4; NO C/O PAIN; AM MEDICATIONS HOLD AT 0900 DUE TO DIALISYS; DIALYSIS NURSE PAGED AT 0945 TO KNOW DIALYSIS TIME; NO CALL BACK; AM MEDICATIONS GIVEN; EDUCATED ABOUT CALLING BEFORE GETTING UP FROM BED; ST. UNDERSTANDING; ST. NOT HAVING A BM DURING LAST "THREE WEEKS"; PER REPORT PT. HAD A BM 10/14/20; PT. REFUSED PRN MEDICATION; ST. "I AM GETTING CLOSE"; REQUESTED BED ARAMBULA; ST. NOT FEELING CONSTIPATED; EDUCATED ABOUT THE IMPORTANCE OF HAVING A BM; PER DIALYSIS NURSE 2L PULLED UP; WOUND CARE PERFORMED; COMPLETE BED CHANGED; VPACED ON THE MONITOR; ASSESSMENT CHARGED; FOLLOWING POC; WILL PASS ON REPORT;
[2020-10-17 20:15] VITALS: BP 118/69
[2020-10-18 04:05] VITALS: BP 115/82
[2020-10-18 05:03] LABS: HEMATOCRIT 33.1 % (42.0-52.0); HEMOGLOBIN 10.6 gm/dL (14.0-18.0); MCH 26.3 pg (26.0-34.0); RBC 4.03 mil/uL (4.50-6.00); RDW 18.3 % (10.5-14.5); WBC 14.4 thou/uL (4.0-11.0)
[2020-10-18 05:04] LABS: ALBUMIN 2.5 g/dL (3.4-5.0); CALCIUM 7.3 mg/dL (8.5-10.1); CREATININE 4.7 mg/dL (0.7-1.3); PHOSPHORUS 5.4 mg/dL (2.5-4.9); POTASSIUM 4.9 mmol/L (3.5-5.1)
[2020-10-18 07:24] VITALS: BP 127/61
--- NOTE | 2020-10-18 07:25 | NUR ---
PT RESTING QUIETLY IN ROOM WITH BIPAP AND SATS 98%, VSS, PRN PAIN MEDS GIVEN FOR C/O PAIN, NPO SINCE MNOC FOR SURG.THIS AM, INCON'T OF URINE AT TIMES, WILL CON'T TO MONITOR PER PPOC
--- NOTE | 2020-10-18 07:48 | NUR ---
AM BLOOD SUGAR 31 THIS AM. AMP OF DEXTROSE GIVEN. WILL RECHECK BLOOD SUGAR
[2020-10-18 13:04] VITALS: BP 120/65
[2020-10-18 16:00] VITALS: BP 113/51
--- NOTE | 2020-10-18 16:24 | NUR ---
PT RETURNED FROM I&D PROCEDURE, VSS, CPAP PUT ON PER PT REQUEST. O2 SATS WNL. DENIES PAIN. R LEG WITH ORIG POST OP DRESSING AND GARCÍA WRAP. SPOUSE AT BEDSIDE. VPACED ON MONITOR. ASKS FOR SOMETHING TO EAT AND DRINK, WILL ASSIST. CONTINUING POC. PLAN FOR POSSIBLE SKIN GRAFT SUNDAY. WILL PASS ON REPORT TO NOC RN.
--- NOTE | 2020-10-18 17:32 | NUR ---
spoke with patient and . Ins denied LTAC but reports would admit to acute rehab 5n, updated at bedside.
[2020-10-18 20:45] VITALS: BP 108/65
[2020-10-18 23:48] VITALS: BP 129/59
[2020-10-19 04:50] VITALS: BP 127/54
[2020-10-19 07:35] VITALS: BP 97/77
[2020-10-19 11:00] VITALS: BP 111/97
--- NOTE | 2020-10-19 12:15 | NUR ---
WOUND CARE F/U; THE LEFT LE WAS ASSESSED BY NADINE CURIEL RN MSN TODAY. THE EXTREMITY WAS MORE EDEAMATOUS TODAY. NON-PITTING. ITS DIFFICULT TO ASSESS WOUND PAIN DUE TO THE OVERIDDING KNEE PAIN. THERE WAS NO ODOR OR OTHER S/S OF INFECTION. A XEROFORM,ABD,KERLIX, GARCÍA DRESSING CHANGE WAS COMPLETED ORDERED BY DR ELLIS.
--- NOTE | 2020-10-19 14:28 | NUR ---
Patient to have I/D on Sunday. 5N following. 5N to inquire into authorization. Nurse practioner for 5N met with patient and reviewed 5N. Casemgt following.
[2020-10-19 15:15] VITALS: BP 154/77
--- NOTE | 2020-10-19 18:32 | NUR ---
ASSUMED CARE OF PT AT SHIFT CHANGE. ASSESSMENTS CHARTED. MEDS GIVEN PER SEP. PT A&OX4, NO C/O PAIN OR DISTRESS. DIALYSIS COMPLETE, 3L OFF. PLAN FOR DIALYSIS AGAIN TOMORROW. AT BEDSIDE MOST OF DAY. WILL CONTINUE TO MONITOR FOR CHANGES AND FOLLOW POC.
[2020-10-19 20:15] VITALS: BP 93/50
[2020-10-19 23:20] VITALS: BP 121/53
--- NOTE | 2020-10-19 23:59 | NUR ---
2330 NOTED FRESH BLOOD IN MOUTH. PATIENT RINSED AND MOUTH CARE DONE. NOTIFIED ZAID SUBMARINE ELEMENT COORDINATOR AND SHE WILL TRY TO COME SEE. ENCOURAGED TO RINSE MOUTH FREQUENTLY. PATIENT STATES THIS HAPPENS EVERY TIME HE COMES TO THE HOSPITAL. CONTINUE TO ASSES CLOSELY.
--- NOTE | 2020-10-20 04:16 | NUR ---
SLEPT PART OF SHIFT. TAKES CPAP ON AND OFF. DENIES PRESENT COMPLAINTS OF PAIN OR SHORTNESS OF AIR. DRESSING TO RIGHT LOWER LEG REMAINS CLEAN, DRY AND INTACT. NO FURTHER BLEEDING NOTED TO MOUTH AT THIS TIME. ENCOURAGED TO RINSE MOUTH WHEN AWAKE. WORKING ON GOALS AND PLAN OF CARE FOR NOC. PROGRESSING SLOWLY TOWARDS SURGERY SUNDAY. CONTINUE TO ASSES CLOSELY.
[2020-10-20 04:45] VITALS: BP 121/62
[2020-10-20 07:29] VITALS: BP 108/62
[2020-10-20 11:21] VITALS: BP 100/78
--- NOTE | 2020-10-20 14:22 | NUR ---
PATIENT SEEN BY REHAB DIRECTOR OF SOCIAL WORK AND IS APPROPRIATE FOR ACUTE REHAB STAY. PATIENT WILL BE READY TO D/C TO ACUTE REHAB ON 10/23/19. AUTHORIZATION REQUESTED THIS DATE. WILL AWAIT INSURANCE RESPONSE.
[2020-10-20 15:45] VITALS: BP 90/66
--- NOTE | 2020-10-20 16:18 | NUR ---
ASSUMED CARE OF PT AT SHIFT CHANGE. ASSESSMENTS CHARTED. MEDS GIVEN PER MRA. PT A&OX4, C/O PAIN TREATED WITH PO MEDS WITH PARTIAL RELIEF. HEMODIALYSIS IN PROGRESS. WILL CONTINUE TO MONITOR FOR CHANGES AND FOLLOW POC.
[2020-10-20 19:47] VITALS: BP 112/52
--- NOTE | 2020-10-21 03:01 | NUR ---
SLEEPING AT PRESENT TIME WITHOUT COMPLAINTS. NO PRESENT COMPLAINTS OF PAIN. WEARS CPAP AT TIMES, TAKES OFF AND ON AT TIMES. WORKING ON GOALS AND PLAN OF CARE FOR NOC. MOVES FREQUENTLY. PROGRESSING TOWARDS GOALS FOR SURGERY SUNDAY. NO BLEEDING FROM MOUTH TONIGHT NOTED. CONTINUE TO ASSES CLOSELY.
[2020-10-21 05:17] VITALS: BP 91/31
[2020-10-21 08:19] VITALS: BP 137/85
--- NOTE | 2020-10-21 11:07 | PATH ---
[facility] [address] [place] [address] PATHOLOGY RPT PROCEDURE Name: KEITH KRISHNAN Room #: 201-P ADM IN M.R.#: [id number] Admission: 10/01/20 Date of : 52 Discharge: Report #: [id number] Path Case #: [id number] LCA Accession Number: [id number] . 01 Material submitted: . leg - RIGHT LOWER LEG WOUND. Modifiers: right, lower . 01 Clinical history: . DEBRIDEMENT EXTREMITY WITH IRRIGATION RIGHT LEG WOUND . 02 Diagnosis: Right lower leg wound, debridement: - Fragments of skin and subcutaneous tissue with marked acute inflammation, ulceration as well as fibrinoid degeneration. (IUV:bark spudder; 10/20/2020) MBR 10/20/2020 1541 Local . 02 Electronically signed: . Nandini Fuentes MD, Pathologist NPI- [id number] . 01 Gross description: . The specimen is received in formalin, labeled "Keith Krishnan, right lower leg wound". Received is a segment of yellow-del rosario to red-brown skin with a slight amount of attached soft tissue measuring 17.8 x 9.4 x 0.5 cm in greatest dimensions. No distinct nodules or lesions are noted grossly. The specimen is submitted representatively in cassette A1. (CAA; 10/19/2020) QA/QA 10/19/2020 1730 Local . 02 Pathologist provided ICD-10: L08.9, L98.499 . 02 CPT . 761246 Specimen Comment: A courtesy copy of this report has been sent to [phone] Specimen Comment: [id number] Specimen Comment: Report sent to / DR HARE Performed at: [address] [id number] MD Riley Voss MD Phone: [phone] Performed at: [address] [id number] [address] [address] PATHOLOGY RPT PROCEDURE Name: KEITH KRISHNAN Room #: 201-P [facility] IN M.R.#: [id number] Admission: 10/01/20 Date of : 52 Discharge: Report #: [id number] Path Case #: [id number] MD Nandini Fuentes MD Phone: [phone]
[2020-10-21 11:47] VITALS: BP 103/64
[2020-10-21 13:33] LABS: CALCIUM 7.8 mg/dL (8.5-10.1); CREATININE 2.3 mg/dL (0.7-1.3); POTASSIUM 3.8 mmol/L (3.5-5.1)
[2020-10-21 15:34] VITALS: BP 96/67
--- NOTE | 2020-10-21 18:48 | NUR ---
PT IS AXOX4, PLEASANT. PT RECEIVED DIALYSIS IN THE AM; 3.5L PULLED OFF. PT HAS BEEN USING BIPAP OFF AND ON WHEN SITTING AT THE BEDSIDE OR LAYING DOWN. PT IS ON 3L. PT HAS SACRAL WOUND, RX SILVADINE MORPHINE WITH Z GUARD. PT HAS R CALF WOUND; WOUND CARE TEAM DOING CARES. POC IS CONTINUE TO MONITOR O2 SAT, DAILY DIAYLISIS TO CONTINUE TO PULL FLUIDS OFF PT. PLAN IS FOR DEBRIDEMENT OF CALF WOUND WITH POSSIBLE SKIN GRAFT AND WOUND VAC PLACEMENT. VSS, AFEBRILE. PT IS VPACED, AVPACED ON MONITOR. FALL PRECAUTIONS IN PLACE. NO CONCERNS AT THIS TIME.
[2020-10-21 20:05] VITALS: BP 85/52
[2020-10-22] VITALS (12 sets, daily range): BP systolic 90–153; BP diastolic 39–84
--- NOTE | 2020-10-22 05:13 | NUR ---
PT RESTING ON AND OFF THRU THE NOC, PRN PAIN MED GIVEN AT HS FOR BACK AND LEG PAIN, NPO SINCE MNOC FOR SCHEDULED SURG TODAY, VSS, REMAINS CONSTIPATED PASSING GAS SITTING ON BED ARAMBULA, WILL CON'T TO MONITOR PER PPOC.
[2020-10-22 05:34] LABS: CALCIUM 7.4 mg/dL (8.5-10.1); PHOSPHORUS 3.6 mg/dL (2.5-4.9); POTASSIUM 4.6 mmol/L (3.5-5.1)
[2020-10-22 05:54] LABS: CREATININE 3.6 mg/dL (0.7-1.3)
--- NOTE | 2020-10-22 13:51 | NUR ---
PT WENT TO PRE OP PRIOR TO SHIFT CHANGE. PT TO RECEIVE DEBRIDEMENT, SKIN GRAFT, AND WOUND GRAFT PLACEMENT ON R CALF. CONSENT IN CHART.
--- NOTE | 2020-10-22 13:52 | NUR ---
RECEIVED PT FROM PACU, ESTELLE BOOGIE. PT IS AXOX4, VSS, AFEBRILE. C/O PAIN IN LEG AND SACRAL AREA. RX HYDROCODONE GIVEN. PT TO DIALYZE THIS AFTERNOON. DIALYSIS NURSE BRADLEY ZUÑIGA. FALL PRECAUTIONS IN PLACE.
--- NOTE | 2020-10-22 15:50 | NUR ---
Pt had dialysis today and is postop I/D with grafting and wound vac. Ins auth for 5N admission still pending per the liason. They can accept him in the am if rec'd today. Covid test requested for rehab admission. All parties updated.
--- NOTE | 2020-10-22 16:14 | NUR ---
RECEIVED CALL FROM [facility]. AUTHORIZATION FOR ACUTE REHAB WAS APPROVED FOR 10/23/20-10/29/20. WILL PLAN TO ADMIT Pt TO 5N REHAB TOMORROW. AUTH #[id number]. CASE MGMT UPDATED.
[2020-10-23 03:22] VITALS: BP 132/39
[2020-10-23 08:18] VITALS: BP 75/43
[2020-10-23] MEDS ORDERED: SSD CREAM 1% 5050 GM TOP (11:44)
[2020-10-23] MEDS ORDERED: NORCO7.5 PO (11:44)
[2020-10-23] MEDS ORDERED: RESTORIL7.5 MG PO (11:44)
[2020-10-23] MEDS ORDERED: STIMULANT LAXA1 EACH PO (11:44)
[2020-10-23] MEDS ORDERED: PROTONIX40 M2 PO (11:44)
[2020-10-23] MEDS ORDERED: MIRALAX17 GM PO (11:44)
[2020-10-23] MEDS ORDERED: RANOLAZINE ER500 MG PO (11:44)
[2020-10-23] MEDS ORDERED: IMDUR 30 MG TAB30 M1 PO (11:44)
[2020-10-23] MEDS ORDERED: LANTUS SUBQ (11:44)
[2020-10-23] MEDS ORDERED: LEVOFLOXACIN750 MG PO (11:44)
[2020-10-23] MEDS ORDERED: IPRAT-ALBUT 0.5-3 ML INH (11:44)
[2020-10-23 11:50] VITALS: BP 98/51
--- NOTE | 2020-10-23 13:15 | NUR ---
PT IS AXOX4, IRRITABLE, DROWSY. PT HAD 2 SUPPOSITORY, HAD BM THIS AM. VSS, AFEBRILE, PT IS AVPACED ON MONITOR. PT TO TRANSFER TO N. FALL PRECAUTIONS IN PLACE. NO CONCERNS AT THIS TIME.
--- NOTE | 2020-10-25 19:06 | PATH ---
[facility] [place] [address] PATHOLOGY RPT PROCEDURE Name: KEITH KRISHNAN Room #: 201-P DIS IN M.R.#: [id number] Admission: 10/01/20 Date of : 52 Discharge: 10/23/20 Report #: [id number] Path Case #: [id number] L[facility] Accession Number: [id number] . 01 Material submitted: . limb - RIGHT LOWER EXTREMITY WOUND. Modifiers: right, lower . 01 Clinical history: . RIGHT LOWER EXTREMITY DEBRIDEMENT WOUND . 02 Diagnosis: Right lower extremity wound, debridement: - Fragments of skin and subcutaneous tissue with ulceration, marked acute inflammation as well as fibrinoid degeneration consistent with wound tissue. (IUV:jann; 10/25/2020) QMS 10/25/2020 1706 Local . 02 Electronically signed: . Nandini Fuentes MD, Pathologist NPI- [id number] . 01 Gross description: . Received in formalin labeled "Keith Krishnan, right lower extremity wound" are 2 irregular unoriented segments of sanders-brown skin measuring 4.1 x 3.2 x 1.2 cm and 19.9 x 2.3 x 0.4 cm. The skin surface is sanders-brown and roughened with brown-black possible necrotic edges. The specimen is serially sectioned to reveal a sanders-white to sanders-yellow cut surface. Skein Straightener sections of the specimen are submitted in cassette A1.([facility]; 10/23/2020) GZA/GZA 10/25/2020 1705 Local . 02 Pathologist provided ICD-10: L98.499, L08.9 . 02 CPT . 823152 Specimen Comment: A courtesy copy of this report has been sent to [phone] Specimen Comment: [id number], Specimen Comment: Report sent to ,DR HARE / DR VOGEL Performed at: 01 [facility] [address] [place] [address] [id number] MD Riley Voss MD Phone: [phone] Performed at: [address] [address] PATHOLOGY RPT PROCEDURE Name: KEITH KRISHNAN Room #: 201-P DIS IN M.R.#: [id number] Admission: 10/01/20 Date of : 52 Discharge: 10/23/20 Report #: [id number] Path Case #: [id number] [address], [place] [id number] MD Nandini Fuentes MD Phone: [phone]
== END 2020-10-23 12:29 | DRG 853 ==
LOC: ER 17:06 → EROBS 19:07 → ICU 19:07 → 2N 10-10 14:44
PROVIDERS: Anesthesiology; Emergency Medicine; Hospitalist; Internal Medicine; Internal Medicine Pulmonary Disease; Nurse Practitioner; Pediatrics; Specialist; Student in an Organized Health Care Education/Training Program; ADMIT Internal Medicine; ATTEND Internal Medicine
PROC: 5A09457 Assistance with Respiratory Ventilation, 24-96 Consecutive Hours, Continuous Positive Airway Pressure (ICD-10-PCS; principal; 2020-10-01)
PROC: 5A1D70Z Performance of Urinary Filtration, Intermittent, Less than 6 Hours Per Day (ICD-10-PCS; 2020-10-03)
PROC: B548ZZA Ultrasonography of Superior Vena Cava, Guidance (ICD-10-PCS; 2020-10-04)
PROC: 5A1D70Z Performance of Urinary Filtration, Intermittent, Less than 6 Hours Per Day (ICD-10-PCS; 2020-10-04)
PROC: 02HV33Z Insertion of Infusion Device into Superior Vena Cava, Percutaneous Approach (ICD-10-PCS; 2020-10-04)
PROC: B5181ZA Fluoroscopy of Superior Vena Cava using Low Osmolar Contrast, Guidance (ICD-10-PCS; 2020-10-04)
PROC: 5A0935A Assistance with Respiratory Ventilation, Less than 24 Consecutive Hours, High Flow/Velocity Cannula (ICD-10-PCS; 2020-10-05)
PROC: 5A1D70Z Performance of Urinary Filtration, Intermittent, Less than 6 Hours Per Day (ICD-10-PCS; 2020-10-05)
PROC: 5A09357 Assistance with Respiratory Ventilation, Less than 24 Consecutive Hours, Continuous Positive Airway Pressure (ICD-10-PCS; 2020-10-05)
PROC: 5A0935A Assistance with Respiratory Ventilation, Less than 24 Consecutive Hours, High Flow/Velocity Cannula (ICD-10-PCS; 2020-10-06)
PROC: 5A09357 Assistance with Respiratory Ventilation, Less than 24 Consecutive Hours, Continuous Positive Airway Pressure (ICD-10-PCS; 2020-10-06)
PROC: 5A1D70Z Performance of Urinary Filtration, Intermittent, Less than 6 Hours Per Day (ICD-10-PCS; 2020-10-06)
PROC: 5A0935A Assistance with Respiratory Ventilation, Less than 24 Consecutive Hours, High Flow/Velocity Cannula (ICD-10-PCS; 2020-10-07)
PROC: 5A09357 Assistance with Respiratory Ventilation, Less than 24 Consecutive Hours, Continuous Positive Airway Pressure (ICD-10-PCS; 2020-10-07)
PROC: 5A0935A Assistance with Respiratory Ventilation, Less than 24 Consecutive Hours, High Flow/Velocity Cannula (ICD-10-PCS; 2020-10-08)
PROC: 5A09357 Assistance with Respiratory Ventilation, Less than 24 Consecutive Hours, Continuous Positive Airway Pressure (ICD-10-PCS; 2020-10-08)
PROC: 5A09357 Assistance with Respiratory Ventilation, Less than 24 Consecutive Hours, Continuous Positive Airway Pressure (ICD-10-PCS; 2020-10-09)
PROC: 5A0935A Assistance with Respiratory Ventilation, Less than 24 Consecutive Hours, High Flow/Velocity Cannula (ICD-10-PCS; 2020-10-09)
PROC: 5A0935A Assistance with Respiratory Ventilation, Less than 24 Consecutive Hours, High Flow/Velocity Cannula (ICD-10-PCS; 2020-10-10)
PROC: 5A09357 Assistance with Respiratory Ventilation, Less than 24 Consecutive Hours, Continuous Positive Airway Pressure (ICD-10-PCS; 2020-10-10)
PROC: 5A09357 Assistance with Respiratory Ventilation, Less than 24 Consecutive Hours, Continuous Positive Airway Pressure (ICD-10-PCS; 2020-10-11)
PROC: 5A0935A Assistance with Respiratory Ventilation, Less than 24 Consecutive Hours, High Flow/Velocity Cannula (ICD-10-PCS; 2020-10-11)
PROC: 5A0935A Assistance with Respiratory Ventilation, Less than 24 Consecutive Hours, High Flow/Velocity Cannula (ICD-10-PCS; 2020-10-12)
PROC: 5A09357 Assistance with Respiratory Ventilation, Less than 24 Consecutive Hours, Continuous Positive Airway Pressure (ICD-10-PCS; 2020-10-12)
PROC: 5A09357 Assistance with Respiratory Ventilation, Less than 24 Consecutive Hours, Continuous Positive Airway Pressure (ICD-10-PCS; 2020-10-13)
PROC: B5181ZA Fluoroscopy of Superior Vena Cava using Low Osmolar Contrast, Guidance (ICD-10-PCS; 2020-10-13)
PROC: 02H633Z Insertion of Infusion Device into Right Atrium, Percutaneous Approach (ICD-10-PCS; 2020-10-13)
PROC: B548ZZA Ultrasonography of Superior Vena Cava, Guidance (ICD-10-PCS; 2020-10-13)
PROC: 0JH63XZ Insertion of Tunneled Vascular Access Device into Chest Subcutaneous Tissue and Fascia, Percutaneous Approach (ICD-10-PCS; 2020-10-13)
PROC: 5A0935A Assistance with Respiratory Ventilation, Less than 24 Consecutive Hours, High Flow/Velocity Cannula (ICD-10-PCS; 2020-10-13)
PROC: 5A09557 Assistance with Respiratory Ventilation, Greater than 96 Consecutive Hours, Continuous Positive Airway Pressure (ICD-10-PCS; 2020-10-14)
PROC: 5A1D70Z Performance of Urinary Filtration, Intermittent, Less than 6 Hours Per Day (ICD-10-PCS; 2020-10-15)
PROC: 0JBN0ZZ Excision of Right Lower Leg Subcutaneous Tissue and Fascia, Open Approach (ICD-10-PCS; 2020-10-18)
PROC: 5A1D70Z Performance of Urinary Filtration, Intermittent, Less than 6 Hours Per Day (ICD-10-PCS; 2020-10-19)
PROC: 5A1D70Z Performance of Urinary Filtration, Intermittent, Less than 6 Hours Per Day (ICD-10-PCS; 2020-10-20)
PROC: 0HRKXK3 Replacement of Right Lower Leg Skin with Nonautologous Tissue Substitute, Full Thickness, External Approach (ICD-10-PCS; 2020-10-22)
PROC: 0JBN0ZZ Excision of Right Lower Leg Subcutaneous Tissue and Fascia, Open Approach (ICD-10-PCS; 2020-10-22)
PROC: 5A1D70Z Performance of Urinary Filtration, Intermittent, Less than 6 Hours Per Day (ICD-10-PCS; 2020-10-22)
DX: A40.0 Sepsis due to streptococcus, group A (principal); L89.153 Pressure ulcer of sacral region, stage 3; L89.323 Pressure ulcer of left buttock, stage 3; L89.313 Pressure ulcer of right buttock, stage 3; N18.6 End stage renal disease; R65.21 Severe sepsis with septic shock; J96.01 Acute respiratory failure with hypoxia; I21.A1 Myocardial infarction type 2; E43 Unspecified severe protein-calorie malnutrition; I50.43 Acute on chronic combined systolic (congestive) and diastolic (congestive) heart failure; G92 Toxic encephalopathy; I13.2 Hypertensive heart and chronic kidney disease with heart failure and with stage 5 chronic kidney disease, or end stage renal disease; L03.115 Cellulitis of right lower limb; E87.2 Acidosis; N17.9 Acute kidney failure, unspecified; M31.9 Necrotizing vasculopathy, unspecified; I47.1 Supraventricular tachycardia; Z68.42 Body mass index [BMI] 45.0-49.9, adult; J44.0 Chronic obstructive pulmonary disease with (acute) lower respiratory infection; E78.5 Hyperlipidemia, unspecified; I25.10 Atherosclerotic heart disease of native coronary artery without angina pectoris; M17.0 Bilateral primary osteoarthritis of knee; G47.33 Obstructive sleep apnea (adult) (pediatric); E11.51 Type 2 diabetes mellitus with diabetic peripheral angiopathy without gangrene; E11.22 Type 2 diabetes mellitus with diabetic chronic kidney disease; I25.5 Ischemic cardiomyopathy; D64.9 Anemia, unspecified; E87.70 Fluid overload, unspecified; E11.65 Type 2 diabetes mellitus with hyperglycemia; E83.51 Hypocalcemia; E88.09 Other disorders of plasma-protein metabolism, not elsewhere classified; D69.6 Thrombocytopenia, unspecified; E87.5 Hyperkalemia; E66.01 Morbid (severe) obesity due to excess calories; J98.6 Disorders of diaphragm; M35.3 Polymyalgia rheumatica; R53.81 Other malaise; L89.890 Pressure ulcer of other site, unstageable; Z20.822 Contact with and (suspected) exposure to COVID-19; T38.0X5A Adverse effect of glucocorticoids and synthetic analogues, initial encounter; Z88.8 Allergy status to other drugs, medicaments and biological substances; Z87.891 Personal history of nicotine dependence; Z79.4 Long term (current) use of insulin; Z95.5 Presence of coronary angioplasty implant and graft; Z95.0 Presence of cardiac pacemaker; Y92.89 Other specified places as the place of occurrence of the external cause
CPT/HCPCS: 10078; 10081; 10797; 32100; 50010; 50101; 50366; 50386; 50643; 51412; 54118; 56524; 56526; 57091; 57119; 57120; 57192; 58641; 58643; 62110; 62900; 70005

== ENCOUNTER 2020-10-23 12:32 | Inpatient (IN) | payer OTHER ==
[~2020-10-23] VITALS: Ht 177.8 cm; Wt 109.5 kg
[~2020-10-23 12:32] MED LIST changes: +IMDUR 30 MG TAB30 M1 PO; +IPRAT-ALBUT 0.5-3 ML INH; +LEVOFLOXACIN750 MG PO; +MIRALAX17 GM PO; +NORCO7.5 PO; +PROTONIX40 M2 PO; +RANOLAZINE ER500 MG PO; +RESTORIL7.5 MG PO; +SSD CREAM 1% 5050 GM TOP; +STIMULANT LAXA1 EACH PO
--- NOTE | 2020-10-23 16:35 | NUR ---
PATIENT ADMITTED TO ROOM. AFTER ORIENTING PATIENT AND COMPLETING ASSESSMENT PATIENT ASK NURSE HE PREFERS TO SIT ON THE CHAIR. THERAPY WILL EVALUATE IN AM. HE IS ALERT ORIENTED X4. DENIES ANY NEW PAIN. WOUND VAC IN PLACE AND DRAINING WITH NO LEAKAGE NOTED. WILL CONT WITH PLAN OF CARE.
[2020-10-23 19:36] VITALS: BP 106/47
--- NOTE | 2020-10-24 00:52 | NUR ---
assumed care approx 1900 evening 10/23. pt lying in bed with head of bed elevated at change of shift. pt sleeping and wearing bipap with continuous pulse oximeter in place with sats 92% and greater.wound vac in place with small amt drainage intact. pt awoke to take hs meds with water and pt incontinent of stool tonight. monika wrap to right lower leg c/d/i. pt asleep now with bipap on. bed alarm on and call light in reach. will continue to monitor.
[2020-10-24 05:08] LABS: HEMATOCRIT 27.7 % (42.0-52.0); HEMOGLOBIN 8.6 gm/dL (14.0-18.0); MCH 25.9 pg (26.0-34.0); MCHC 31.2 g/dL (28.0-37.0); MCV 83.1 fL (80.0-100.0); RBC 3.33 mil/uL (4.50-6.00); RDW 17.9 % (10.5-14.5); WBC 12.1 thou/uL (4.0-11.0)
[2020-10-24 05:30] LABS: CALCIUM 8.2 mg/dL (8.5-10.1); POTASSIUM 5.3 mmol/L (3.5-5.1)
[2020-10-24 05:33] LABS: CREATININE 5.1 mg/dL (0.7-1.3)
[2020-10-24 08:35] VITALS: BP 97/54
--- NOTE | 2020-10-24 13:37 | NUR ---
ASSUMED CARE AT 0700 THIS MORNING. PT. IN HIS BED EATING BREAKFAST. HE HAS BLOOD SUGARS ACHS. HIS BLOOD SUGAR WAS 199 THIS MORNING AND 122 AT NOON. HE WAS WITH THERAPY (PT) THIS MORNING. PT. FEET BILATERALLY IS VERY EDEMATOUS (+4 OR BETTER). HE WAS ABLE TO STAND ON HIS FEET FOR ABOUT 30 TO 60 SECONDS WITH ASSISTANCE OF WALKER AND 2 STAFF. HE STATED THAT WORE HIM OUT. HE ALSO BECAME SHORT OF AIR REQUIRING TO DO SOME DEEP BREATHING TO GET BACK TO NORMAL BREATHING. HE HAS WOUNDS TO HIS LOWER LEGS WITH WOUND VAC TO RT. LEG. HE DOES NOT HAVE DIALYSIS TODAY. HE IS ON 3 LPM PER NC AT THIS TIME. HE IS ONB CPAP AT [facility]. AT ONE TIME HE PUT IT ON TODAY WHEN HE STATED HE WAS SHORT OF AIR. HE HAS A NORMAL SALINE LOCK TO HIS LEFT HAND. HE GETS MORPHINE CREAM TO HIS BOTTOM WHEN HE LAYS DOWN. HE HAS HIS DIALYSIS TESSIO CATHETER TO HIS RT. UPPER CHEST. IT IS WRAPPED IN GAUZE. WILL CONTINUE TO MONITOR HIM PRN.
[2020-10-24 19:34] VITALS: BP 102/54
--- NOTE | 2020-10-25 02:43 | NUR ---
TRYING TO REST WEARING CPAP MACHINE, SMALL BM ON BEDPAN AT HS. HAS BLISTERED AREA ON BUTTOCK THAT FEELS BETTER AFTER SILVADENE/Z-GUARD/MOISTURE BARRIER MIXTURE APPLIED. LANTUS 22 UNITS SCHEDULED, ONLY 10 UNITS GIVEN PER PATIENT REFUSAL AND CONSULT WITH ROSA COVERING FOR HOSPITALISTS OVERNIGHT.
[2020-10-25 08:15] VITALS: BP 117/66
--- NOTE | 2020-10-25 09:00 | NUR ---
chart review. unable to visit with zoie starting to work with therapy and was here to visit him. cm spoke with nayeli to clarify what location he used about 6 months ago when he needed short term dialysis, and intro to cm, dcp and team meeting, " ko medina, thank you for checking"/ nayeli. noted he was independent when he as feeling ok, lives home with his , 2 steps to enter, no stairs inside that he has to do. has bipap at home with oxygen. uses cane. manage own medication and drives vehicle. will cont following as needed for dc needs.
--- NOTE | 2020-10-25 11:01 | NUR ---
Received awake on bed. Due medications given as prescribed, able to swallow meds w/o difficulty. On O2 at 3lpm via nasal cannula at daytime and CPAP at HS; on continous pulse oximetry. On renal diet- tolerating well; no nausea, no vomiting and no abdominal pain noted; assisted and encouraged in eating and drinking. On MS, not on telemetry; no complains and signs of chest pain, crushing sensation and heaviness. Assisted in ADLs. On blood sugar monitoring, taken and recorded accordingly. Dialysis scheduled for today; a/w dialysis personel. Falls bundle in place. With SL at L hand. With wound vac at R leg- dressing in place. Silvadine + Zguard applied to buttocks. With generalized edema noted. Seen by physical therapist today- able to sit on the wheelchair. To continue monitoring patient.
--- NOTE | 2020-10-25 15:47 | NUR ---
WOUND F/U; ASSESSMENT WITH NADINE ROTHMAN MSN TODAY. THE SKIN SUBSTITUTE COVERS THE ENTIRE WOUND BED, THE PRODUCT LOOKS HEALTHY/VIABLE. THERE IS NO ODOR OR ANY OTHER S/S OF INFECTION. THE PATIENT TOLERATED THE DRESSING CHANGE WELL. NO C/O PAIN. DR LEVINE AND NADINE MSN ARE PRESENT.
[2020-10-25] MEDS ORDERED: MULTAQ 400 MG400 MG PO (17:28)
[2020-10-25] MEDS ORDERED: PROTONIX40 M2 PO (17:29)
[2020-10-25 19:19] VITALS: BP 88/67
--- NOTE | 2020-10-26 02:38 | NUR ---
CONTINUOUS LOW AIR LOSS THERAPY SILVADENE/Z-GUARD MIXTURE APPLIED TO GALDED AREA RIGHT BUTTOCK. PATIENT TOLERATING PRAFO BOOTS WHEN LYING DOWN EVEN THOUGH HE IS SKEPTICAL ABOUT HOW MUCH GOOD THEY WILL DO. LEFT WRIST SALINE LOCK REMOVED BECAUSE IT WAS BOTHERING PATIENT AND HAS NOT BEEN USED RECENTLY, AREA LOOKS FINE, BAND-AID APPLIED. PATIENT IS USING CPAP WITH 3L BLEED-IN WHEN ASLEEP AND TOLERATES IT INTERMITTENTLY WHEN AWAKE. AEROSOL TREATMENTS Q 4 HOURS. NOT VOIDING, HAS BEEN HAVING DIALYSIS DAILY SUNDAY THROUGH SUNDAY.
[2020-10-26 07:15] VITALS: BP 91/57
--- NOTE | 2020-10-26 13:22 | NUR ---
team meeting, recommendation. requiring 2 person to stand. wound vac to left leg, right leg swelling. mil/mod memory/cog. shoulder pain with limited rom. re team.
--- NOTE | 2020-10-26 15:45 | NUR ---
Received awake on bed. Due medications given as prescribed, able to swallow meds w/o difficulty. On O2 at 3lpm via nasal cannula and CPAP at HS. On MS, not on telemetry; no complains and signs of chest pain, crushing sensation and heaviness. On renal diet- tolerating well; no nausea, no vomiting and no abdominal pain noted. On blood sugar monitoring, taken and recorded accordingly. Vital signs stable. Continent of bowel- able to use bedside commode- had a bowel movement today- charted; anuric. Dialysis patient- dialysis started this PM around 1:30pm; dialysis access at R chest. With swelling at L leg- EDUARD hose applied. With wound at R leg- wound vac in place; no bleeding and profuse drainage noted. With wound at nose- boardered foam in place. With wound at sacrum- Zguard+ silvadine/morphine applied to area. During team meeting, PT wanted to verify re: sitting schedule- went to wound nurse Abiel's office to verify re: this- he called Natalya and physician to ask re: this- as tolerated- relayed to [place] medical reimbursement manager and PT. Complained of pain at shoulder this PM, PRN PO pain meds given as prescribed. To continue monitoring patient.
[2020-10-26 19:47] VITALS: BP 90/65
--- NOTE | 2020-10-27 02:30 | NUR ---
PATIENT HAS SCANT BM THIS SHIFT.USES CPAP AT NIGHT.C/O LEFT ANKLE PAIN.WILL DANGLE AT THE SIDE OF THE BED AT TIMES.WOUND VAC INTACT.POC CONTINUED.
[2020-10-27 07:15] VITALS: BP 119/70
--- NOTE | 2020-10-27 09:36 | NUR ---
ASSUMED CARE AT 0700. PATIENT IS ALERT AND ORIENTED X4, BUT IS FORGETFUL. PATIENT MULLINS'S, LADLE LINER ARE EQUAL. LUNGS ARE CLEAR. ABD IS SOFT WITH BSX4. RIGHT TESSIO FOR DIALSYSIS. PATIENT HAD DIALYSIS YESTERDAY AND 3.5 L WAS REMOVED. HAS WOUND VAC TO RIGHT LEG THAT IS INTACT. PLAN WOUND VAC CHANGE AFTER 11AM. UP TO THE BR WITH SBA. PATIENT CONTINUES ON ABT WITHOUT ADVERSE AFFECTS. FALL AND SAFETY PROTOCOLS IN PLACE. DENIES PAIN AT THIS TIME. CONTINUES TO PRDOGRESS SLOWLY TOWARDS D/C GOALS. WILL CONTINUE TO MONITER.
--- NOTE | 2020-10-27 14:19 | NUR ---
cm left message with nayeli rt dcp and team meeting. will cont following as needed for dc needs.
--- NOTE | 2020-10-27 14:32 | NUR ---
WOUND CARE F/U; ASSESSNENT OF THE RLE WITH DR LEVINE AND NADINE LUO. THE WOUND BED IS COVERED WITH A SKIN SUBSTITUTE WHICH SEEMS VIABLE MILD ODOR. NO PAIN TODAY. NO CHANGES TO THE POC. RN PRESENT.
[2020-10-27 19:35] VITALS: BP 87/56
[2020-10-28 09:00] VITALS: BP 102/57
--- NOTE | 2020-10-28 11:38 | NUR ---
PATIENT SEEN THIS AM PER [employer] LOC AND [facility], AND TOLERATING THERAPIES. WOUND WAS SEEN BY JAYCOB MONTERROSO. PT HAD EPISODE OF ZAFAR WITH AMBULATION DURING PT, AND O2 SAT IS 85% ON ROOM AIR. PT PLACED ON 2L PER NC PER O2 PROTOCOL ORDERS VERIFIED BY RT.
--- NOTE | 2020-10-28 18:00 | NUR ---
PT TOLERATED HD WELL WITH NO COMPLAINTS. HD NURSE NOTED THAT PT HAD 3.5 LITERS REMOVED, AND THAT BP REMAINS STABLE AT 94/59.
[2020-10-28 19:35] VITALS: BP 91/52
--- NOTE | 2020-10-29 03:18 | NUR ---
WOUND VAC AT 125, CARE TAKEN TO KEEP SOME SLACK ON TUBING. PATIENT USING CPAP WHENEVER HE THINKS HE WILL DOZE OFF. PERIANAL CARE AND MIX OF SILVADENE AND Z-GUARD TO BUTTOCK WOUND. LIKES ROOM WARM, FREQUENT OBSERVATION WITH PATIENT NEAR DESK IN ROOM 514.
[2020-10-29 04:58] LABS: HEMATOCRIT 27.4 % (42.0-52.0); HEMOGLOBIN 8.9 gm/dL (14.0-18.0); MCH 26.7 pg (26.0-34.0); MCHC 32.6 g/dL (28.0-37.0); MCV 82.1 fL (80.0-100.0); PLATELET COUNT 343 thou/uL (150-400); RBC 3.34 mil/uL (4.50-6.00); RDW 18.3 % (10.5-14.5); WBC 7.2 thou/uL (4.0-11.0)
[2020-10-29 05:13] LABS: CALCIUM 8.2 mg/dL (8.5-10.1); CREATININE 3.8 mg/dL (0.7-1.3); POTASSIUM 3.8 mmol/L (3.5-5.1)
[2020-10-29 06:03] LABS: METAMYELOCYTES 2 %
[2020-10-29 06:04] LABS: ANISOCYTOSIS 2+; PLATELET ESTIMATE NORMAL; POIKILOCYTOSIS 2+; POLYCHROMASIA 1+
[2020-10-29 07:15] VITALS: BP 110/50
--- NOTE | 2020-10-29 12:14 | NUR ---
WOUND CARE F/U; HERE TODAY FOR A VAC DRESSING CHANGE AND WOUND ASSESSMENT WITH DR LEVINE TODAY. THE RIGHT LEG WOUNDBED IS NOT VISABLE. THE SKIN SUBSTITUTE IS A PALE YELLOW. MILD ODOR TO THE WOUND VAC DRESSING. NO ERYTHEMA TO THE PERIWOUND. DR LEVINE'S ORDER IS TO CONTINUE VAC THERAPY. RN PRESENT.
--- NOTE | 2020-10-29 17:38 | NUR ---
ASSUMED CARE OF PT AT 0700 THIS MORNING. PT WAS ADMITTED FOR SOA, AND WOUND ON RIGHT LOWER LEG. VAC PUMP IS IN PLACE FOR THE WOUND. PT IS A/OX4, SKIN INTACT EXCEPT FOR THE RIGHT LEG WOUND AND A PRESSURE WOUND ON THE RIGHT COCCYX AREA. SKIN W/D/P, NO TENTING NOTED. LUNGS CLEAR UPPER AND DIMINISHED IN THE LOWER LOBES, CR<3SEC, DISTAL PULSES PRESENT, WOUND ON LOWER RIGHT LEG DRESSING CDI. COCCYX WOUND HAS SILVADIEN W/ MS. EYES PERRLA, ASSESSMENT OTHERWISE UNREMARKABLE.
[2020-10-29 20:00] VITALS: BP 118/56
--- NOTE | 2020-10-30 03:00 | NUR ---
assumed care approx 1900 evenning 10/29. pt wearing cpap at change of shift. wound vac in place functioning properly. pt awoke to take hs meds and assisted with turning and cream on coccyx area. pt appears to be sleeping at present. bed alarm on and call light in reach. will continue to monitor.
[2020-10-30 08:00] VITALS: BP 106/68
--- NOTE | 2020-10-30 09:46 | NUR ---
ASSUMED CARE AT 0700. PATIENT IS ALERT AND ORIENTED X4, BUT FORGETFUL. PATIENT MULLINS'S, ORTHOPEDIC RN ARE EQUAL. LUNGS ARE CLEAR AND DEMINISHED. ABD IS SOFT WITH BSX4. PATIENT CONTINUES ON DIALYSIS. PATIENT HAS A RIGHT TESSIO FOR DIALYSIS. PLAN DIALYSIS TODAY. PATIENT WOUND VAC INTACT TO RIGHT LOWER EXTREMITY. FALL AND SAFETY PROTOCOLS IN PLACE. DENIES PAIN AT THIS TIME. CONTINUES TO PROGRESS SLOWLY TOWARDS D/C GOALS. WILL CONTINUE TO MONITER. DR. WALKER HERE TO SEE PATIENT.
[2020-10-30 20:20] VITALS: BP 106/66
--- NOTE | 2020-10-31 01:38 | NUR ---
assumed care approx 0 evening 10/30. pt lying in bed with head of bed slightly elevated with cpap on. pt with large bm x2 tonight on bsc. pt took hs meds with water tolerating well. pt now back to bed appears to be sleeping soundly. bed alarm on and call light in reach. will continue to monitor.
[2020-10-31 07:15] VITALS: BP 90/50
--- NOTE | 2020-10-31 13:40 | NUR ---
ASSUMED CARE AT 0700. SLEPT FAIRLY WELL. ALERT AND ORIENTATED X 2-3 WITH SOME FORGETFULNESS. REPORTED GENERALIZED PAIN IN HIS JOINT AREA AND IS ON JACLYN TYLENOL WITH PARTIAL RELIEF. LUNGS CLEAR/DIM ON 2L 0XYGEN, WEARS CPAP OFF AND ON. APPETITE GOOD, HAD A BM 4/25. ACCUCHECKS DONE AND MEDICATED WITH SSI. WOUND VAC TO R LE WITH CONT SUCTION WITH MIN DRAINAGE. BOTH LE 3+ PITTING AND WRAPPED WITH GARCÍA WRAP APPLIED. SILVERDENE/MORPHINE CREAM APPLIED TO COCCYX AREA AND BRIDGE OF THE NOSE WOUND CARE DONE. WALKED WITH PHY THERAPY.
[2020-10-31 19:40] VITALS: BP 99/56
--- NOTE | 2020-11-01 00:28 | NUR ---
PT ASSESSMENT COMPLETED AND VSS. MEDS GIVEN ORDERED AND WELL TOLERATED. FALL PRECAUTIONS IN PLACE. WOUND VAC AND DRESSING WNL. MEDICATED CREAM APPLIED TO WOUND ON BUTTOCK ORDERED. UP TO THE BSC WITH ASST X 2. SMALL BM AT HS. VOIDING PER URINAL. ASST WITH REPOSITION FOR COMFORT. CPAP ON AT HS. PT DENIES NEEDS. SLEEPING AT THIS TIME. WILL CONTINUE TO MONITOR FREQUENTLY.
[2020-11-01 07:15] VITALS: BP 113/58
--- NOTE | 2020-11-01 11:45 | NUR ---
ASSUMED CARE AT 0700. SLEPT FAIR. REPORTED PAIN THIS MORNING AFTER WOUND CARE TEAM CHANGED HIS WOUND VAC AND REMOVED THE ELKIN TO HIS R LAT LE AND MEDICATED WITH TYLENOL. WOUND VAC ON CONT SUCTION AT 125MM HG WITH SS DRAINAGE. PT IS ALERT AND ORIENTATED X 3. ON 2L 02 IN THE DAY, SAT ABOVE 92%. UP WITH MIN ASSIST TO THE BSC AND HAD A MOD AMT OF FORMED STOOL. ACCUCHECKS DONE AND INSULIN GIVEN ACCORDINGLY. WOUND CARE TO SACRAL DONE WITH MORPHINE/SILVERDENE, XEROFOAM AND COVERED WITH BORDERED FORM. PARTICIPATING WITH THERAPY.
--- NOTE | 2020-11-01 12:06 | NUR ---
WOUND CARE F/U; ROUNDING WITH DR LEVINE AND NADINE GARCIA RN MSN. THE RIGHT LOWER EXTREMITY WOUND WAS ASSESSED. THE WOUND IS STABLE. THE SKIN SUB REMAINS STABLE. THERE IS NO ODOR. NADINE GARCIA REMOVED THE ELKIN TODAY. THE PATIENT DENIES PAIN. THE PATIENT IS GAINING STRENGTH AND ENDURANCE WITH THERAPIES. RECOMMENDATIONS; CONTINUE CURRENT VAC ORDERS. RN WAS PRESENT.
--- NOTE | 2020-11-01 12:53 | H ---
[facility] [place] [place] [address] HISTORY AND PHYSICAL Name: KEITH ADAMS Room #: 514-P ADM IN M.R.#: [id number] Admission: 10/23/20 Attend Phys: Emory Solomon MD Discharge: Date of : 52 Report #: [id number] THIS REPORT FOR: cc: BALJINDER VOGEL MD, OSSAMA MD Smithson,Emory Carranza MD ~ DATE OF SERVICE: 10/23/2020 HISTORY OF PRESENT ILLNESS: The patient is a 70-year-old male, originally admitted to [facility] on 10/01/2020, diagnosed with group A Strep septicemia, multiple organ dysfunction, bullous cellulitis of right lower extremity. Pulmonary, Nephrology, ID, Cardiology, Wound Care, General Surgery, and the hospitalist were all treating the patient. He was placed on IV antibiotics. He was treated with BiPAP and nasal cannula O2 along with nebulizer treatments. He underwent right lower extremity excisional debridement on 10/18/2020. He has had close followup with Surgery. He underwent another procedure on 10/22/2020 with excisional and ultrasonic debridement of the chronic right lower extremity nonhealing ulcer. 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 He was started on hemodialysis with a tunneled dialysis catheter placed. Bilateral lower extremity venous ultrasounds are negative for DVT. He was noted to have significant functional mobility and ADL deficits and has now been admitted for acute in-hospital inpatient rehabilitation. PAST MEDICAL HISTORY: His prior medical history includes insulin-dependent diabetes mellitus, polymyalgia rheumatica, hypertension, hyperlipidemia, coronary artery disease with prior stenting, COPD, SVT, status post ablation, obstructive sleep apnea, on BiPAP, chronic kidney disease stage 4, paralyzed right hemidiaphragm, solitary kidney, pacemaker, AICD, rotator cuff repair, knee repair, past smoker, anemia, OA of the knees. HABITS: He does have past history of tobacco abuse as noted. No history of alcohol abuse. MEDICATIONS: Please see the full medication listing. ALLERGIES: THERE ARE MULTIPLE ALLERGIES, PLEASE SEE THE FULL LISTING. SOCIAL HISTORY: He was living at home with in a house, 2 steps in. He did not use any assistive device. He was independent with ADLs, retired and driving. REVIEW OF SYSTEMS: No current complaints of chest pain, shortness of breath or abdominal discomfort. PHYSICAL EXAMINATION: [facility] [address] [place] [address] HISTORY AND PHYSICAL Name: KEITH ADAMS Room #: 514-P [facility] IN [facility]#: [id number] Admission: 10/23/20 Attend Phys: Emory Solomon MD Discharge: Date of : 52 Report #: [id number] GENERAL: A 70-year-old male, who was seen on 10/23/2020, in no obvious distress. VITAL SIGNS: Temperature 36.1, pulse 66, respirations 18, blood pressure 97/54. He was sleepy, but easily responded. HEENT: Appeared to be benign. CHEST: Some decreased breath sounds at the bases. CARDIAC: Sounded regular rate and rhythm. ABDOMEN: Bowel sounds positive, nontender. GENITOURINARY AND RECTAL: Deferred. NEUROMUSCULOSKELETAL: He has decreased range of motion of bilateral upper extremities, some difficulty lifting from the shoulders. Range of motion intact for forearm and wrist. Strength is probably grade 4- to 3+/5. He does have some lower extremity edema with William wraps in place and has some difficulty lifting both lower extremities against gravity. Strength is probably grade 3+/5. He has been max assist for basic transfers. ASSESSMENT: A 70-year-old male with the following problem list: 1. Medical complexity with generalized debilitation. 2. Group A strep septicemia. 3. Right lower extremity cellulitis with multiple bullae and ulcers in the right lower leg. 4. Acute respiratory failure, underlying chronic obstructive pulmonary disease. 5. Acute renal insufficiency on chronic kidney disease. He has been on hemodialysis. 6. Paralyzed right hemidiaphragm. 7. Obstructive sleep apnea with home BiPAP. 8. Mixed cardiomyopathy with ICD. 9. Coronary artery disease with history of stent. PLAN: The patient has been admitted for acute in-hospital inpatient rehabilitation. Please see the patient's previous and current functional status. As far as risks of complications, he has multiple medical comorbidities as noted above. Initial plan of care involves interdisciplinary acute inpatient rehabilitation program. Measurable functional goals would be for the patient to become modified independent with transfers, mobility, ADLs, and hopefully return back to the home setting. Prognosis is reasonably good. Estimated length of stay is probably at least 2 weeks up to 3 weeks, we will need to see how he progresses. Potential barriers would include his multiple medical comorbidities and decreased functional status. The patient will be involved in the [facility] [address] [place] [address] HISTORY AND PHYSICAL Name: KEITH ADAMS Room #: 514-P [facility] IN M.R.#: [id number] Admission: 10/23/20 Attend Phys: Emory Solomon MD Discharge: Date of : 52 Report #: [id number] interdisciplinary acute inpatient rehabilitation program and we will have the multiple senior analytic consultant physicians continue to follow while on the [place]hab [place]. <ELECTRONICALLY SIGNED> By: Emory Solomon MD 11/01/20 1253 1017 1100 Emory Solomon MD /nt
--- NOTE | 2020-11-01 12:53 | PLAN ---
[facility] [place] [address] [address] [place] [address] REHAB UNIT PLAN OF CARE Name: KEITH ADAMS Room #: 514-P ADM IN M.R.#: [id number] Admission: 10/23/20 Attend Phys: Emory Solomon MD Discharge: Date of : 52 Report #: [id number] THIS REPORT FOR: cc: BALJINDER VOGEL MD, OSSAMA MD Smithson,Emory Carranza MD ~ DATE OF SERVICE: 10/25/2020 PROGRESS NOTE/OVERALL PLAN OF CARE SUBJECTIVE: The patient was seen back today in followup. He is in no distress. Last recorded temperature 97.2, pulse 76, respirations 20, blood pressure 102/54. He is alert, no distress. He follows basic commands without difficulty. He does have dressings in place in lower extremities. Strength is probably grade 3+/5, bilateral lower extremities. He is quite weak and needs a lot of assistance with basic transfers. Currently, max assist of 2. He has not been able to ambulate to this point. Working on range of motion of both upper and lower extremities. In speech therapy, he is being further evaluated. ASSESSMENT: 1. Medical complexity with generalized debilitation. 2. Group A strep septicemia. 3. Right lower extremity cellulitis with multiple ulcers in the right lower leg. 4. Acute respiratory failure with underlying chronic obstructive pulmonary disease. 5. Acute renal insufficiency superimposed on chronic kidney disease. He is back on hemodialysis. 6. Paralyzed right hemidiaphragm. 7. Obstructive sleep apnea with home BiPAP and O2 just at night. 8. Mixed cardiomyopathy with ICD. 9. Coronary artery disease with stenting. PLAN: The overall plan of care is based on the preadmission screen and information garnered from therapy assessments. 1. Estimated length of stay is probably 2 weeks to 3 weeks, potentially longer with his low level. 2. Medical prognosis is reasonably good. 3. Anticipated interventions includes the interdisciplinary acute inpatient rehabilitation program. 4. Anticipated functional outcomes would be for him to improve as far as transfers, mobility, ADLs and to further assess cognition. Hopefully, we can get him up and moving better and stronger with improved endurance. Goal would be up ambulatory with a walker and performing ADLs. 5. Discharge destination would be back home with his . [address] [address] REHAB UNIT PLAN OF CARE Name: KEITH ADAMS Room #: 514-P [facility] IN ..#: [id number] Admission: 10/23/20 Attend Phys: Emory Solomon MD Discharge: Date of : 52 Report #: [id number] 6. Expected therapy by discipline includes PT, OT and speech 1 hour per day each five days a week throughout the duration of the acute inpatient rehabilitation stay. ADDENDUM: The patient's prognosis for significant practical improvement within a reasonable period of time appears good. Given the patient's complex medical condition and risk of further medical complication, rehabilitation services could not be safely provided at a lower level of care such as a [facility] facility. <ELECTRONICALLY SIGNED> By: Emory Solomon MD 11/01/20 1253 1114 1432 Emory Solomon MD /[facility]
[2020-11-01 19:58] VITALS: BP 111/55
--- NOTE | 2020-11-02 00:07 | NUR ---
PT ASSESSMENT COMPLETED AND VSS. MEDS GIVEN ORDERED AND WELL TOLERATED. FALL PRECAUTIONS IN PLACE. WOUND VAC AND DRESSING WNL. DSG CHANGED ORDERED TO BUTTOCK. PRN PAIN MEDICATION HELPFUL FOR SHOULDER PAIN. CPAP ON AT HS AND PRN. PT TALKED ABOUT HIS MEDICAL HISTORY AND STRUGGLES. PROVIDED MUCH EMOTIONAL SUPPORT. SLEEPING WELL. WILL CONTINUE TO MONITOR FREQUENTLY.
[2020-11-02 05:37] LABS: HEMATOCRIT 29.9 % (42.0-52.0); HEMOGLOBIN 9.6 gm/dL (14.0-18.0); MCH 26.3 pg (26.0-34.0); MCHC 32.1 g/dL (28.0-37.0); MCV 81.8 fL (80.0-100.0); PLATELET COUNT 460 thou/uL (150-400); RBC 3.65 mil/uL (4.50-6.00); RDW 19.1 % (10.5-14.5); WBC 11.2 thou/uL (4.0-11.0)
[2020-11-02 05:54] LABS: ALBUMIN 2.2 g/dL (3.4-5.0); CALCIUM 8.1 mg/dL (8.5-10.1); MAGNESIUM 2.1 mg/dL (1.8-2.4); PHOSPHORUS 4.7 mg/dL (2.5-4.9); POTASSIUM 4.3 mmol/L (3.5-5.1)
[2020-11-02 08:00] VITALS: BP 116/66
[2020-11-02 10:52] LABS: ABSOLUTE NEUTROPHILS 6.8 thou/uL (1.4-8.2); METAMYELOCYTES 2 %; MYELOCYTES 2 %
[2020-11-02 10:53] LABS: ANISOCYTOSIS 2+
[2020-11-02 10:55] LABS: PLATELET ESTIMATE INCREASED
--- NOTE | 2020-11-02 13:06 | NUR ---
team meeting, recommendation: cont with wound vac, skin graft. cont with wound care. still getting dialysis. transfer mid to mod or max from different services. mild/mod for memory/cog. diet regular thin. will need wc vs walker at dc. need to know if he is going to cont with dialysis outside hospital. this would be a new referral since he had been off 6m prior to hospital. 11/16 dc home with hh ( pt, ot, nursing).
[2020-11-02 20:00] VITALS: BP 126/60
--- NOTE | 2020-11-02 20:27 | NUR ---
Assumed pt care at 0700. pt was Alert and oriented x3. Took meds whole with thin liquid, no difficulty noted. CPAP hs and prn during the day. calm and co-operative with care. Dressing change to right buttocks as ordered. pt talked about sleep deprivation, pt stated leg pains makes him unable to sleep at night. Pt had Dialysis today. dialysis was well tolerated by pt. No Bm noted per shift. pt refused mirilax. medication was administered as ordered. Blood sugar was monitor, insulin administered as ordered. will continue to monitor pt.
--- NOTE | 2020-11-03 04:15 | NUR ---
ASSUMED PT CARE AT 1900.PT WAS OBSERVED LYING ON HIS BED WITH HIS CPAP ON AT SHIFT CHANGE.DRSG TO HIS R BUTTOCK COMPLETED,PT JOSHUA WELL.WOUND VAC IN PLACE TO HIS RLE.NO BM NOTED SO FAR.PT SLEEPING ON HIS BED AT THIS TIME.CALL LIGHT WITHIN REACH.
[2020-11-03 07:15] VITALS: BP 113/81
--- NOTE | 2020-11-03 11:11 | NUR ---
Received awake on bed. Due medications given as prescribed, able to swallow meds w/o difficulty. On room air. Vital signs stable. On MS, not on telemetry; no complains and signs of chest pain, crushing sensation and heaviness. Assisted in ADLs. On O2 during daytime; using CPAP as well.
--- NOTE | 2020-11-03 13:58 | NUR ---
cm visit with nayeli via phone call, she here visiting with zoie. updates to be sent to [facility], to restart outpt dialysis. education on hh needs " any hh that is in with his insurance [employer]are"/ nayeli. " thank you for calling"/nayeli.
--- NOTE | 2020-11-03 14:02 | NUR ---
ON-GOING ASSESSMENT: CM REVIEWED CHART AND FAXED UPDATED CLINICAL AND FLOWSHEETS TO [facility] AND CONFIRMED THEY RECEIVED IT. PER NOTES TENTATIVE DISCHARGE DATE FOR 11/16/20, [facility] NOTIFIED.
[2020-11-03 19:40] VITALS: BP 107/49
--- NOTE | 2020-11-04 02:14 | NUR ---
assumed care approx 0 evening 11/03. pt sitting up dangling on side of bed at change of shift. pt wearing cpap off and on. pt took hs meds with water tolerating well. wound vac in place. removed monika wraps from legs and legs elevated in bed while sleeping. pt appears to be sleeping soundly. bed alarm on and call light in reach. will continue to monitor.
[2020-11-04 08:00] VITALS: BP 100/65
--- NOTE | 2020-11-04 18:58 | NUR ---
ASSUMED CARE AT 0700. PATIENT IS A&OX4. REPORTS VARIOUS MUSCULOSKELETAL PAIN, MANAGED WITH SCHEDULED TYLENOL AND PRN HYDROCODONE. NEW SKIN ABRAISON NOTED ON LEFT ELBOW. PATIENT DENIES PAIN AROUND LEFT ELBOW. RENEWALS MANAGER HAS BEEN NOTIFIED AND WILL BE RETURNING TOMMOROW TO FULLY ASSESS IT. BANDAGE WRAPPED AROUND ELBOW TO DECREASE FRICTION AND FOR PROTECTION. LOWER EXTRMITY AND PEDAL PITTING EDEMA NOTED, RLE +3 AND LLE +4. BLE GARCÍA WRAPS ARE IN PLACE. PATIENT IS RECEIVING DIALYSIS DURING SHIFT. CONTINUES ON BIPAP PRN, AND CONTINUOUS 2L OF O2. 02Sat REMAINS ABOVE 90%. NO CONCERNS AT THIS TIME. WILL CONTINUE TO MONITOR.
[2020-11-04 19:51] VITALS: BP 104/40
--- NOTE | 2020-11-05 01:46 | NUR ---
assumed care approx 1900 evening 11/04. pt receiving dialysis treatment at change of shift. pt rested for awhile after treatment then sat up and ate his dinner before falling asleep at hs. 02 at 2l per n/c. pt took hs meds with water tolerating well. monika wraps removed from legs bilaterally at hs. wound vac in place working properly. pt appears to be sleeping soundly. bed alarm on and call light in reach. will continue to monitor.
--- NOTE | 2020-11-05 07:12 | NUR ---
when shank maker was assisting pt to get up on bsc early this am she noticed tubing from wound vac was loose. checked by this typewriter operator automatic approx 0620 and noticed tubing was loose and disc had come apart from granulofoam. no drainage from site and applied 4x4 with paper tape to black foam. report given to day ESTELLE Adams and she will notify wound care this am. pt sleeping at present.
[2020-11-05 08:00] VITALS: BP 97/53
--- NOTE | 2020-11-05 12:03 | NUR ---
ASSUMED CARE AT 0700. SLEPT FAIRLY WELL. ALERT AND ORIENTATED X 3. NO REPORTED PAIN, DOES GET JACLYN TYLENOL WHICH SEEMS TO HELP WITH PAIN CONTROL. R LE WOUND VAC NOT FUNCTIONING AT SHIFT CHANGE, WET TO DRY NS APPLIED TO WOUND. WOUND CARE TEAM CHANGED DRESSING AND RE APPLIED THE WOUND VAC TO 125MM HG SUCTION, LARGE DRAINAGE WITH SS DRAINAGE. DR LEVINE NOTIFIED ABOUT L ELBOW ABRASION. EDEMA TO BLE L>R, WITH KERLEX AND GARCÍA WRAP APPLIED. PLAN FOR ANOTHER HD TODAY PER NEPHROLOGY RELATED TO FLUID OVERLOAD. PARTICIPATED WITH THERAPY WITH GOOD PROGRESS TOWARDS GOAL.
[2020-11-05 19:36] VITALS: BP 115/66
--- NOTE | 2020-11-06 00:33 | NUR ---
PT ASSESSMENT COMPLETED AND VSS. MEDS GIVEN ORDERED AND WELL TOLERATED. FALL PRECAUTIONS IN PLACE. WOUND VAC DRESSING AND WOUND VAC RUNNING AND WNL. DRESSING CHANGED ON R BUTTOCK ORDERED. DRESSING TO LEFT ELBOW DRY AND INTACT. INSULIN GIVEN WITH SNACK FOR 205 BG. PT HAS CPAP ON AT HS. PT DENIES NEEDS. SLEEPING WELL. WILL CONTINUE TO MONITOR FREQUENTLY.
[2020-11-06 08:00] VITALS: BP 88/64
[2020-11-06 08:07] LABS: HEPATITIS B SURFACE AG Negative (Negative)
--- NOTE | 2020-11-06 12:20 | NUR ---
ASSUMED CARE OF PT THIS MORNING. PT WAS SITTING ON THE SIDE OF THE BED A/OX4, ASSESSMENTS COMPLETED. WOUND DRESSING CHANGES TO THE RIGHT LOWER LEG, SACRAL AREA AND LEFT ELBOW. PT WORKED WITH PHYSTHERAPY THIS MORNING. PT HAS BEEN IN CHAIR THROUGHOUT LUNCH. CALL LIGHT AND OTHER NEEDS ARE WITHIN REACH.
--- NOTE | 2020-11-06 18:30 | HC ---
[facility] [place] [address] CONSULTATION Name: KEITH ADAMS Room #: 514-P [facility] IN M.R.#: [id number] Admission: 10/23/20 Attend Phys: Emory Solomon MD Discharge: Date of : 52 Report #: [id number] THIS REPORT FOR: cc: BALJINDER VOGEL MD, OSSAMA MD Deutch,Keanu Ardon. PhD ~ DATE OF SERVICE: 10/31/2020 NEUROBEHAVIORAL STATUS EXAM AGE: 70. ATTENDING PHYSICIAN: Emory Solomon MD PORTFOLIO ADMINISTRATOR: Keanu Ramirez, PhD CLINICAL PRESENTATION: The patient is a 70-year-old male originally admitted to the hospital on 10/01/2020 with strep septicemia, multiorgan dysfunction and bullous cellulitis of the right lower extremity. His assessment on admission to the rehab unit included medical complexity with generalized debilitation, group A strep septicemia, right lower extremity cellulitis with multiple bullae and ulcers in the right lower leg, acute respiratory failure with underlying COPD, acute renal insufficiency on chronic kidney disease, paralyzed right hemidiaphragm, obstructive sleep apnea with home BiPAP, mixed cardiomyopathy with ICD, coronary artery disease with history of stent. A complete description of his medical condition and history can be found in his medical record. Neuropsychological consultation was requested to provide assistance in the assessment of cognitive and emotional status and to provide recommendations and services. Prior to this most recent admission, the patient was living independently with the assistance of his . He was independent with basic and instrumental activities of daily living. However, multiple medical conditions were reported. 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 Periods of confusion and disorientation are reported. The patient had a period of agitation that was quite severe during his initial hospitalization in which restraints were necessary. He has 1 daughter. TECHNIQUES UTILIZED: Clinical interview, review of medical records, staff consultation and behavioral observation, mini mental status exam 2 standard version, verbal fluency assessment and family interview - . EXAMINATION FINDINGS: The patient was alert and cooperative with the [facility] [address] [place] [address] CONSULTATION Name: KEITH ADAMS Room #: 514-P [facility] IN M.R.#: [id number] Admission: 10/23/20 Attend Phys: Emory Solomon MD Discharge: Date of : 52 Report #: [id number] assessment. He accurately described events surrounding his admission. There is no evidence of aphasia. Thoughts are logical and goal oriented. There is no evidence of thought disorder. He describes his symptoms to include difficulty with short-term memory, decreased speed of processing, difficulty with sleep, tiredness and fatigue, subjective anxiety and depression. He does not report having had prior treatment for mood disorder. His indicates functioning to include difficulty with word finding and short-term memory. Performance on the MMSE 2 brief version is within normal limits with a raw score of 15/16. The patient missed 1 item for orientation to time. Performance on the MMSE 2 standard version is within normal limits with a raw score of 26/30. He missed 2 items on serial 7s and had difficulty with copying a simple geometric design. Performance in clock drawing initially was impaired. However, clock drawing improved upon diminished impulsivity and pay more attention to his performance. Letter fluency was in the borderline range with a T score of 30 and percentile rank at 2. Category fluency was a T score 35 and percentile rank of 7. Overall, total verbal fluency was a T score of 30 and percentile rank of 2, which is in the borderline range. The patient is presenting with deficits in executive functioning. While alert and oriented, difficulty with attention and concentration along with planning and problem solving are suggested. 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 Delirium -- resolved. Adjustment disorder with depressed mood. RECOMMENDATIONS: The patient may benefit from a treatment program for depression. He will require additional assistance at home with the management of medication, finances and nutrition. Followup neuropsych assessment may be of benefit to clarify cognitive status upon stabilization of his medical condition. He has a veru supportive who is available for providing the assistance that is likely to require. Thank you very much for allowing me to provide the consultation on this patient. <ELECTRONICALLY SIGNED> By: Keanu Ramirez, PhD 11/06/20 1830 [id number] [id number] Keanu Ramirez, PhD /nt
[2020-11-06 19:45] VITALS: BP 89/53
--- NOTE | 2020-11-07 02:00 | NUR ---
APPRECIATES TRAZADONE/MELATONIN AND GARCÍA WRAP REMOVAL AT HS. UP TO BSC FOR VOID AND BM, ABLE TO WIPE SELF AND ONLY NEEDED MINIMAL ASSIST TO STAND ONCE GAIT BELT AND WALKER IN PLACE, AN IMPROVEMENT IN STRENGTH AND CONFIDENCE FOR HIM THIS WEEK. BLEEDING FROM INFERIOR POINT OF RIGHT BUTTOCK WOUND, MSSILVADENE AND ZGUARD APPLIED TO RIGHT BUTTOCK AND NEW OPTIFOAM APPLIED.
[2020-11-07 06:06] LABS: HEPATITIS B SURFACE AG Negative (Negative)
[2020-11-07 08:00] VITALS: BP 86/49
--- NOTE | 2020-11-07 10:26 | NUR ---
ASSUMED CARE AT 0700 THIS MORNING. PT IS A/OX4, LUNGS CLEAR UPPER LOBES AND DIMINISHED IN LOWER, SKIN INTACT WITH WOUNDS AT SACRAL AREA, LEFT ELBOW AND ACROOS THE NOSE. ABD, SOFT NONTENDER, DISTAL PULSES PRESENT WITH EDEMA IN BILAT FEET AT 3+, ASSESSMENTS OTHERWISE UNREMARKABLE. WOUND DRESSINGS CHANGES, MEDS GIVEN SCHEDULED. CALL LIGHT AND OTHER NEEDS ARE WITHIN REACH.
[2020-11-07 20:00] VITALS: BP 123/64
--- NOTE | 2020-11-08 03:31 | NUR ---
assumed care approx 1900 evening 11/07. pt sleeping at change of shift with cpap on. pt awoke to take hs meds and stated he was very tired. removed monika wraps form lower legs bilaterally. pt denies pain. pt sleeping well. bed alarm on and call light in reach. will continue to monitor.
[2020-11-08 07:15] VITALS: BP 121/42
--- NOTE | 2020-11-08 11:00 | NUR ---
ASSUMED CARE AT 0700. SLEPT FAIRLY WELL. ALERT AND ORIENTATED X 3. DENIES ANY PAIN, DOES GET HIS SCHEDULED TYLENOL. LUNG CLEAR AND DIM AT THE BASES ON 2L 0XYGEN. APPETITE GOOD, HAD A BM TODAY. OLIGURIC ON HD. WOUND CARE DONE TO R LAT LE BY WOUND CARE, KSENIA CHANGED TODAY. WOUND CARE TO SACRAL AND L ELBOW DONE ORDERED. HEALING WELL WITH NO SIGNS OF INFLAMMATION. PARTICIPATING WITH THERAPY AND PROGRESSING WELL TOWARDS GOAL.
--- NOTE | 2020-11-08 14:18 | NUR ---
CM FAXED REFERRAL TO [facility] [phone].
[2020-11-08 19:50] VITALS: BP 127/72
--- NOTE | 2020-11-09 03:00 | NUR ---
LANTUS INSULIN HELD FOR HS BLOOD SUGAR LESS THAN 150 = 111. PATIENT STATES HE IS TIRED FROM THERAPIES TODAY, ASKED FOR GARCÍA WRAPS TO BE REMOVED AND PUT HIMSELF ON CPAP AND IS RESTING ON HIS RIGHT SIDE.
[2020-11-09 05:27] LABS: HEMATOCRIT 29.3 % (42.0-52.0); HEMOGLOBIN 9.2 gm/dL (14.0-18.0); MCH 26.4 pg (26.0-34.0); MCHC 31.5 g/dL (28.0-37.0); MCV 83.7 fL (80.0-100.0); PLATELET COUNT 229 thou/uL (150-400); RDW 19.4 % (10.5-14.5); WBC 11.7 thou/uL (4.0-11.0)
[2020-11-09 06:13] LABS: ALBUMIN 1.9 g/dL (3.4-5.0); CALCIUM 8.1 mg/dL (8.5-10.1); CREATININE 5.1 mg/dL (0.7-1.3); MAGNESIUM 1.9 mg/dL (1.8-2.4); PHOSPHORUS 4.9 mg/dL (2.5-4.9); POTASSIUM 5.1 mmol/L (3.5-5.1)
[2020-11-09 08:00] VITALS: BP 109/65
[2020-11-09 08:33] LABS: ABSOLUTE NEUTROPHILS 8.5 thou/uL (1.4-8.2); ANISOCYTOSIS 1+; OVALOCYTES FEW; POIKILOCYTOSIS SLIGHT
--- NOTE | 2020-11-09 12:00 | NUR ---
ASSUMED CARE AT 0700. PT WAS TIRED AND SLEPT WELL LAST NIGHT. HE FEELS MUCH BETTER TODAY. DENIES ANY PAIN. ALERT AND ORIENTATED X 3. COOPERATIVE. BLOOD SUGAR HIGH RELATED TO STEROID, ON INSULIN. APPETITE GOOD. WOUND CARE TO L ELBOW AND R GLUTEAL DONE ORDERED. WOUND VAC INTACT AND FUNCTIONING WITH MODERATE DRAINAGE. UP WITH MIN ASSIST WITH AMBULATION. L LE EDEMA > R LE, ORDERS RECEIVED FOR LYMPHEADEMA TREATMENT, YAMILETH NOTIFIED. PROGRESSING TOWARDS GOAL WITH THERAPY, PLAN FOR DC HOME ON 11/23.
--- NOTE | 2020-11-09 13:52 | NUR ---
team meeting, recommendation: dc moved to 11/23 if insurance will approve. will need outpt dialysis anuradha thakur, and son in law for family training.
[2020-11-09 19:20] VITALS: BP 130/99
--- NOTE | 2020-11-10 02:47 | NUR ---
PATIENT USING CPAP IN THE EVENING AND OVERNIGHT. BLOOD SUGARS LOWER THAN PREVIOUS DAY, BUT 179 AT HS; 20 UNITS LANTUS INSULIN GIVEN WITH PEANUT BUTTER AND GRHAHAM CRACKER SNACK. GARCÍA WRAPS REMOVED, ELBOW AND BUTTOCK DRESSINGS INTACT, WOUND VAC CONTINUOUS 125 FROM RIGHT LEG. PAIN MED GIVEN FOR RIGHT LEG AND RIGHT SHOULDER AT MIDNIGHT.
[2020-11-10 07:30] VITALS: BP 137/65
--- NOTE | 2020-11-10 08:12 | NUR ---
ASSUMED CARE AT 0700. PATIEN IS ALERT AND ORIENTED X4. PATIENT MULLINS'S, MORTGAGE PROTECTION SALES ARE EQUAL. LUNGS ARE CLEAR AND DEMINISHED. ABD IS SOFT WITH BSX4. OT HERE TO LYMPH WRAPS. PATIENT HAS WOUND VAC TO HIS RIGHT LEG. PLAN CHANGE WITH WOUND CARE TEAM TODAY. DRESSING AND WOUND CARE TO BUTTOCK COMPLETED ACCORDING TO PROTOCOL. LEFT ELBOW DRESISNG DONE. PATIENT HAS RIGHT TESSIO FOR DIALSYSIS. CONTINUES TO VOID Small AMOUNTS OF TEA COLORED URINE. PATIENT IS UP WITH WALKER AND GAIT BELT AND ASSIST OF 1 STAFF. FALL AND SAFETY PROTOCOLS IN PLACE. C/O PAIN IN HIS RIGHT LEG. MEDICATED WITH SCED PAIN MED. CONTINUES TO PROGRESS SLOWLY TOWARDS D/C GOALS. WILL CONTINUE TO MONITER.
--- NOTE | 2020-11-10 13:25 | NUR ---
WOUND CARE F/U; THE WOUND IS MUCH IMPROVED TODAY. NO ODOR. MORE GRANULATION BUDS SEEN. THE PATIENT DENIES PAIN. VAC ACHIEVED 125MMHG SEAL. CONTINUE VAC THERAPY. DISCUSSED WITH ESTELLE
[2020-11-10 20:00] VITALS: BP 126/68
--- NOTE | 2020-11-11 02:55 | NUR ---
ASSUMED PT CARE AT 1900.PT C/O PAIN TO HI RLE,MANAGED WITH MED.WOUND VAC TO LEG,SUCTION AT 125.LYMPEDEMA WRAP TO HIS BLE.DRGS CHANGE DONE TO HIS R BUTTOCK,JOSHUA WELL.PT ABLE TO MAKE HIS NEEDS KNOWN.PT SLEEPING WITH HIS CPAP AT THIS TIME.CALL LIGHT WITHIN REACH.
[2020-11-11 08:00] VITALS: BP 146/64
--- NOTE | 2020-11-11 11:00 | NUR ---
ASSUMED CARE AT 0700. SLEPT FAIRLY WELL. ALERT AND ORIENTATED X 3. REPORTED SOME SORENESS IN BLE AND TREATED WITH JACLYN TYLENOL. BLOOD SUGAR CHECKED AND TREATED WITH INSULIN PER SS. WOUND VAC TO RLE WITH MOD SS DRAINAGE. WOUND CARE DONE TO L ELBOW AND R GLUTEAL AREA. APPETITE GOOD, LAST BM /. UP WITH MIN ASSIST WITH GAIT BELT AND WALKER. PARTICIPATED WITH THERAPY AND PROGRESSING TOWARDS GOAL. PLAN FOR HD TODAY.
--- NOTE | 2020-11-11 14:40 | NUR ---
samira left message with [facility], about updates that have been faxed and what is his chair time going to be. need to elizabeth pcp appointment and he needs to keep appointment or pcp will not follow for hh.
[2020-11-11 20:34] VITALS: BP 105/46
--- NOTE | 2020-11-12 02:58 | NUR ---
assumed care approx 1900 evening 11/11. pt alert and oriented x4, dangling on side of bed. pt in good mood stating he feels he is making progress with therapy. wound vac in place with leg wrappings on intact. pt took hs meds with water tolerating well. pt with cpap on appears to be sleeping soundly. bed alarm on and call light in reach. will continue to monitor.
[2020-11-12 07:15] VITALS: BP 103/76
--- NOTE | 2020-11-12 11:00 | NUR ---
ASSUMED CARE AT 0700. PT REPORTED WASNT FEELING TOO WELL IN THE NIGHT AND HAVING ACHES AND PAIN AND BELIEVES IT MIGHT BE DUE TO TOO MUCH FLUID TAKEN OFF HIM YESTERDAY DURING HD. THE DAY PROGRESSED, HE IS FEELING BETTER. ALERT AND ORIENTATED X 3. REPORTED PAIN IN R LE AND ON JACLYN TYELNOL. LYMPHEDEMA TREATMENT DONE THIS MORNING. WOUND CARE DONE TO L ELBOW AND R SACRAL. WOUND TEAM CHANGED THE WOUND VAC DRESSING AND PLACED A NEW CANNISTER. FAMILY TRAINING DONE TODAY WITH AND DAUGHTER. PROGRESSING WITH THERAPY TOWARDS GOAL. CONT TO MONITOR.
--- NOTE | 2020-11-12 11:13 | NUR ---
cm faxed updates to [facility], still needing chair time?, cm left message with nayeli rt dc on 11/23. will cont following as needed for dc needs.
[2020-11-12 20:10] VITALS: BP 138/71
--- NOTE | 2020-11-13 02:25 | NUR ---
assumed care approx 1900 evening 11/12. pt alert and oriented x4, appropriate and cooperative. wound vac in place functioning properly. pt took hs meds with water tolerating well. pt appears to be sleeping soundly likes his door shut. pt had large bm tonight on bsc. bed alarm on and call light in reach. will continue to monitor.
[2020-11-13 08:13] VITALS: BP 112/67
--- NOTE | 2020-11-13 11:57 | NUR ---
ASSUMED CARE AT 0700. PATIENT IS ALERT AND ORIENTED X4. PATIENT MULLINS'S, BONE DRIER OPERATOR ARE EQUAL. LUNGS ARE DEMINISHED. PATIENT USES HIS CPAP DURING THE DAY. PATIENT HAS RIGHT TESSIO FOR DIALYSIS TODAY. ABD IS SOFT WITH BSX4. PATIENT VOIDED TEA COLORED URINE. DR. GAMBOA HERE TO SEE SARAH. DIALYSIS ORDERS WRITTEN. WOUND VAC TO RIGHT LEG IS INTACT. TUBIGRIP TO LEFT ELBOW. DRESSING TO RIGHT BUTTOCK INTACT AND CHANGED ACCORDING TO PROTOCOL. LYMEDEMA WRAPS ON AND INTACT. FALL AND SAFETY PROTOCOLS IN PLACE. SCED PAIN MED GIVEN. CONTINUES TO PROGRESS TOWARDS D/C GOALS. WILL CONTINUE TO MONITER.
[2020-11-13 19:40] VITALS: BP 103/56
--- NOTE | 2020-11-14 03:28 | NUR ---
WOUND VAC CONTINUES AT 125, PATIENT USING CPAP, TURNING SELF MOST TO HIS LEFT, LOW AIR LOSS MATTRESS, PATIENT ABLE TO SIT AT EDGE OF BED TO TAKE PILLS. 20 UNITS LANTUS INSULIN GIVEN AT HS WHILE BLOOD SUGAR WAS 202. RIGHT BUTTOCK DRESSING WAS DONE LATER ON DAY SHIFT. VOIDS TEA COLOR URINE PER URINAL AND HAS DIALYSIS 3 BLANCA A WEEK. LYMPHEDEMA WRAPS REMAIN BLE
[2020-11-14 08:00] VITALS: BP 116/92
--- NOTE | 2020-11-14 14:33 | NUR ---
ASSUMED CARE AT 0700. SLEPT WELL. ALERT AND ORIENTATED X 3. PAIN IS STABLE AND CONTROLLED WITH JACLYN TYLENOL. APPETITE GOOD. LAST BM 11/13. ACCUCHECK DONE WITH SSI GIVEN. WOUND CARE TO R GLUTEAL, L ELBOW DONE, HEALING. R LE TO WOUND VAC WITH SS DRAINAGE. GARCÍA WRAPS TO BLE, ON LYMPHEDEMA TREATMENT. SWELLING DOWN AT 2+. PROGRESSING TOWARDS GOAL. PLAN FOR DC HOME ON 11/23.
[2020-11-14 20:52] VITALS: BP 113/60
--- NOTE | 2020-11-15 00:33 | NUR ---
PT ALERT AND ORIENTED X 4. CPAP ON DURING THE NIGHT. RIGHT TESSIO DRESSING C/D/I. RLE WOUND VAC INTACT WITH SEROSANGUINOUS DRAINAGE IN CANNISTER. DRESSING TO BUTTOCKS CHANGE AT HS ORDERED. PT DENIES PAIN OR DISCOMFORT. BED ALARM ON FOR SAFETY. PT APPEARS TO BE SLEEPING ON HOURLY ROUNDS.
[2020-11-15 08:00] VITALS: BP 106/84
--- NOTE | 2020-11-15 11:45 | NUR ---
ASSUMED CARE AT 0700. SLEPT WELL WITH BIPAP ON. PAIN IS STABLE AND CONTROLLED WITH JACLYN TYLENOL. APPETITE GOOD, LAST BM ON 11/13. OLIGURIC AND HAD DIURESED ONCE TODAY. WOUND CARE DONE TO SACRAL AND L ELBOW WITH GOOD GRANULATION. WOUND VAC DONE BY WOUND CARE, CANNISTER CHANGED WITH MOD AMT OF SS DRAINAGE. PARTICIAPTING WITH THERAPY AND PROGRESSING WELL. PLAN FOR DC ON 11/23.
[2020-11-15 20:20] VITALS: BP 119/68
--- NOTE | 2020-11-15 23:34 | NUR ---
PT ASSESSMENT COMPLETED AND VSS. MEDS GIVEN ORDERED AND WELL TOLERATED. FALL PRECAUTIONS IN PLACE. CPAP ON AND OFF PRN AND ON AT HS. [facility]G TO [facility] COMPLET[facility]. WOUND VAC DSG AND WOUND VAC WNL. LEFT ELBOW DRESSING INTACT. PT DENIES NEEDS. DIALYSIS ACCESS INTACT AND WNL. PT SLEEPING WELL AT THIS TIME. WILL CONTINUE TO MONITOR FREQUENTLY.
[2020-11-16 05:53] LABS: BASOPHILS 0.3 % (0.0-2.0); EOSINOPHILS 0.4 % (0.0-3.0); HEMOGLOBIN 8.9 gm/dL (14.0-18.0); LYMPHOCYTES 21.7 % (24.0-44.0); MCH 27.1 pg (26.0-34.0); MCHC 32.9 g/dL (28.0-37.0); MCV 82.3 fL (80.0-100.0); MONOCYTES 16.1 % (1.0-8.0); PLATELET COUNT 177 thou/uL (150-400); POLYS 61.5 % (36.0-66.0); RBC 3.27 mil/uL (4.50-6.00); RDW 19.6 % (10.5-14.5)
[2020-11-16 06:08] LABS: ALBUMIN 2.1 g/dL (3.4-5.0); CALCIUM 8.2 mg/dL (8.5-10.1); PHOSPHORUS 4.9 mg/dL (2.5-4.9); POTASSIUM 5.2 mmol/L (3.5-5.1)
[2020-11-16 08:22] VITALS: BP 112/64
--- NOTE | 2020-11-16 10:00 | NUR ---
PT WORKING WITH THERAPY THIS AM. PT GETTING UP WITH WALKER AND GAIT BELT WITH MIN TO MAX ASSIST. PT HAS WOUND VAC TO RT LEG. PT GETTING DIALYSIS TODAY. PT HAS TESSIO TO RT CHEST. PT HAS LYMPHEDEMA TO LEFT LEG. PT TOOK MEDS WHOLE WITH WATER.
--- NOTE | 2020-11-16 13:25 | NUR ---
team meeting, recommendation: family assist with medication. zoie planning on buying wheel chair in case he needs to use when fatigued and weak. [facility] ( pt, ot, st, nursing). no driving. will need to be able to do stair to get into house.
[2020-11-16 19:49] VITALS: BP 137/64
--- NOTE | 2020-11-17 02:38 | NUR ---
UP TO BSC WITH ONE PERSON ASSIST FOR BM AT SHIFT CHANGE. RIGHT BUTTOCK AND LEFT ELBOW DRESSINGS DONE WITH FRESH XEROFOAM. 20 UNITS LANTUS GIVEN FOR BLOOD SUGAR OF 171. MEDICATED FOR GENERALIZED PAIN AT HS, STATES HE USUALLY HAS PAIN AFTER DIALYSIS TREATMENTS. LOW AIR LOSS THERAPY, PATIENT TURNING SELF MAINLY TO HIS LEFT SIDE.
[2020-11-17 07:15] VITALS: BP 111/56
--- NOTE | 2020-11-17 10:30 | NUR ---
PT FINISHED WITH THERAPY. PT SEEMS STRONGER TODAY. PT UP WITH WALKER. PT HAS WOUND VAC TO RT LE AND LYMPHEDEMA TO LLE. PT HAS DRESSING TO LEFT ELBOW AND BUTTOCKS. PT HAS OXYGEN BLEED TO CPAP. PT TAKES MEDS WHOLE WITH WATER. PT VERY CHEERFUL.
[2020-11-17 20:11] VITALS: BP 118/71
--- NOTE | 2020-11-18 04:50 | NUR ---
PATIENT HAS BEEN SLEEPING WELL TONIGHT. HAD PAIN LAST EVENING, MAINLY FROM WOUND-VAC SINCE FRESHLY APPLIED TODAY, BUT ALSO FROM LEFT ELBOW WOUND, RIGHT BUTTOCK WOUND NOT BOTHERING PATIENT TODAY. GENTAMICIN OINTMENT, XEROFORM, BORDERFOAM REAPPLIED TO LEFT ELBOW, HYDROCODONE GIVEN WITH PARTIAL RELIEF IF PAIN ENOUGH TO ALLOW SLEEP. LOW AIR LOW PUMP THERAPY CONTINUES WITH PATIENT LYING AND SHIFTING MAINLY TO HIS LEFT SIDE. USING CPAP EVEN WHILE AWAKE.
[2020-11-18 08:41] VITALS: BP 113/69
--- NOTE | 2020-11-18 12:00 | NUR ---
cm met with nayeli outside of room rt her request. " just wanted to visit in person. thank you for talking with me today, had baby shower yesterday for our daughter"/nayeli education on hh, keeping dr appointments, and vna hh. no chair time yet, possible will be back on tt per ko crowderi, they still getting auth completed. should check back on sunday with ko crowderi " he never misses his appointment allot of time his dr doesnt have opening so he see different dr in that group"/nayeli. will cont following as needed for dc needs.
--- NOTE | 2020-11-18 12:30 | NUR ---
ASSUMED CARE AT 0700. ALERT AND ORIENTATED X 3. PAIN IS STABLE AND CONTROLLED WITH JACLYN TYLENOL. R LE TO WOUND VAC WITH SS DRAINAGE. LYMPHEDEMA WRAP TO R LE. SWELLING IS DOWN. APPETITE GOOD,LAST BM 11/17. WOUND CARE DONE TO R GLUTEAL L ELBOW WITH GOOD GRANULATION. HD FOR THIS AFTERNOON. PARTICIPATING WITH THERAPY AND PROGRESSING TOWARDS GOAL.
[2020-11-18 19:54] VITALS: BP 99/63
--- NOTE | 2020-11-19 00:10 | NUR ---
PT ALERT AND ORIENTED X 4. CPAP ON DURING THE NIGHT. WOUND VAC INTACT TO RLE. PT C/O PAIN IN RLE. HYDROCODONE GIVEN AT HS. PT CHECKED ON HOURLY ROUNDS.
[2020-11-19 08:00] VITALS: BP 95/53
--- NOTE | 2020-11-19 11:15 | NUR ---
ASSUMED CARE AT 0700. SLEPT WELL WITH BIPAP. ALERT AND ORIENTATED X 3. REPORTED PAIN AFTER WOUND CARE DONE TO R LE AND TREATED WITH HYDROCODONE WITH GOOD RELIEF. WOUND CARE DONE TO SACRAL AND L ELBOW WITH GOOD GRANULATION WOUND HEALING. UP WITH SBA TO COMMODE. DIURESED X 1 WITH TEA COLORED URINE. PARTICIPATED WITH THERAPY AND PROGRESSING TOWARDS GOAL.
--- NOTE | 2020-11-19 13:50 | NUR ---
WOUND F/U; ASSESSMENT WITH DR PILAR ELLIS/NADINE LUO. THE WOUND HAS NO ODOR. NO ERYTHEMA OR ANY S/S OF INFECTION. THE PERIWOUND IS INTACT. MORE GRANULATION BUD TODAY. THE PATIENT IS SCHEDULED FOR D/C November. THE WOUND MEANSURES 20 X 19 X 1.5 CONTINUE VAC THERAPY. DISCUSSED WITH ESTELLE.
[2020-11-19 20:00] VITALS: BP 105/54
--- NOTE | 2020-11-20 01:05 | NUR ---
PT ASSESSMENT COMPLETED AND VSS. MEDS GIVEN ORDERED AND WELL TOLERATED. FALL PRECAUTIONS IN PLACE. SAT WNL ON CPAP AT HS. PRN PAIN MEDICATION WORKING WELL. DSG ON BUTTOCK CHANGED ORDERED. PT WANTING INFORMATION ON EQUIPMENT THAT HE WILL NEED TO ORDER FOR D/C HOME ON THE . VOIDING SMALL AMOUNT OF DARK URINE. SLEEPING WELL AT THIS TIME. WILL CONTINUE TO MONITOR FREUQENTLY. DIALYSIS ACCESS WNL.
[2020-11-20 07:41] VITALS: BP 115/44
[2020-11-20 20:28] VITALS: BP 102/50
--- NOTE | 2020-11-21 05:29 | NUR ---
PT LYING IN BED. LORTAB PROVIDING PAIN RELIEF. RESTING COMFORTABLY. NO NEEDS VOICED. CALL LIGHT WITHIN REACH. FREQUENT OBSERVATION.
--- NOTE | 2020-11-21 09:36 | NUR ---
PT SITTING UP IN BED EATING BREAKFAST. PT HAS OXYGEN 3L NC. PT ALSO USES CPAP AT BEDSIDE WHEN HE REST. PT STILL VOIDS TEA COLOR URINE. TESSIO TO RT CHEST. PT HAS DRESSING TO LEFT ELBOW AND WOUND VAC TO RT LOWER EXT. PT HAS WOUND TO COCCYX. PT HAS LOWER LEGS WRAPPED IN GARCÍA BANDAID. PT IS GETTING STRONGER AND ABLE TO WALK WITH STAND-BY ASSIST. PT TAKES MEDS WITH THIN WATER.
[2020-11-21 19:43] VITALS: BP 118/72
--- NOTE | 2020-11-21 23:08 | NUR ---
PT ALERT AND ORIENTED X 4. CPAP ON DURING THE NIGHT. WOUND VAC INTACT TO RLE. PT REFUSED DRESSING CHANGE TO WOUND ON BUTTOCKS THIS EVENING. RIGHT TESSIO INTACT. PT DENIES PAIN OR DISCOMFORT. PT APPEARS TO BE SLEEPING ON HOURLY ROUNDS.
[2020-11-22 05:59] LABS: HEMATOCRIT 28.4 % (42.0-52.0); HEMOGLOBIN 9.1 gm/dL (14.0-18.0); MCH 26.5 pg (26.0-34.0); MCHC 32.1 g/dL (28.0-37.0); MCV 82.5 fL (80.0-100.0); PLATELET COUNT 214 thou/uL (150-400); RBC 3.44 mil/uL (4.50-6.00); RDW 19.6 % (10.5-14.5); WBC 8.7 thou/uL (4.0-11.0)
[2020-11-22 06:18] LABS: ALBUMIN 2.2 g/dL (3.4-5.0); CALCIUM 8.5 mg/dL (8.5-10.1); CREATININE 4.2 mg/dL (0.7-1.3); MAGNESIUM 1.9 mg/dL (1.8-2.4); PHOSPHORUS 4.7 mg/dL (2.6-4.7)
[2020-11-22 07:15] VITALS: BP 110/67
[2020-11-22 08:58] LABS: ABSOLUTE NEUTROPHILS 4.5 thou/uL (1.4-8.2); ANISOCYTOSIS 1+; PLATELET ESTIMATE NORMAL
--- NOTE | 2020-11-22 10:54 | NUR ---
spoke with feng at [facility], his chair time, tthursat at noon, needs to arrive on thur at 1130 11/25/20. passed on to bedside nurse. will need dialysis tx early on so it will not hold up his dc.
--- NOTE | 2020-11-22 11:35 | NUR ---
ASSUMED CARE AT 0700. ALERT AND ORIENTATED X 3. PAIN IS STABLE WITH TYLENOL AND TREATED WITH HYDROCODONE AFTER WOUND VAC CHANGE. APPETITE GOOD, BLOOD SUGAR CHECKED AND TREATED WITH INSULIN NEEDED. WOUND CARE TO R SACRAL, L ELBOW DONE, WOUND HEALING WELL WITH GOOD GRANULATION. R LE TO WOUND VAC AND DRESSING CHANGE BY WOUND CARE WITH SS DRAINAGE. HD FOR TODAY. PLAN FOR DC TODAY. OK PER NEPHRO TO HAVE HD DONE TODAY AND WAIT FOR 2 DAYS FOR THE NEXT DIALYSIS.
[2020-11-22 15:15] VITALS: BP 110/67
[2020-11-22 19:35] VITALS: BP 128/61
--- NOTE | 2020-11-23 02:41 | NUR ---
SLEEPING NOW AFTER PAIN MED GIVEN 90 MINUTES AGO. PAIN IS IN AREA OF WOUND VAC. PATIENT IS LOOKING FORWARD TO GOING HOME. WILL HAVE HOME HEALTH FOR WOUND VAC AND PLANS RETURN TO [facility] DIALYSIS. IS USING CPAP MOST OF SHIFT SO FAR AND HAS HAD A BM ON THE TOILET, WALKING THERE WITH STANDBY ASSIST ONLY.
[2020-11-23 08:01] VITALS: BP 117/65
[2020-11-23 08:08] VITALS: BP 117/65
--- NOTE | 2020-11-23 10:23 | NUR ---
ASSUMED CARE AT 0700. SLEPT FAIRLY WELL. ALERT AND ORIENTATED X 3. PAIN IS STABLE WITH JACLYN TYLENOL THIS AM. LYMPHEDEMA RX DONE THIS MORNING TO LLE. MARMOLEJO WITH WOUND CARE CHANGE THE WOUND VAC TO THE PORTABLE VAC TODAY. EDUCATION GIVEN TO PT. WOUND CARE DONE TO SACRAL AND L ELBOW, HEALING WELL.
[2020-11-23] MEDS ORDERED: LANTUS SUBQ (12:10)
[2020-11-23] MEDS ORDERED: TRAZODONE HCL100 MG PO (12:10)
[2020-11-23] MEDS ORDERED: GENTAMICIN SULF15 GM TOP (12:11)
[2020-11-23] MEDS ORDERED: LEVEMIR100 UNIT/1 SUBQ (13:23)
--- NOTE | 2020-11-23 14:02 | NUR ---
notified during team that he will need fww, provider plus to deliver piror to dc home today, anuradha torres and dr mojica on aki tthursat.
== END 2020-11-23 13:19 | disposition home health service (06) | DRG 91 ==
PROVIDERS: Internal Medicine Nephrology; Nurse Practitioner; ADMIT Physical Medicine & Rehabilitation; ATTEND Physical Medicine & Rehabilitation
DX: G72.81 Critical illness myopathy (principal); L89.153 Pressure ulcer of sacral region, stage 3; L89.323 Pressure ulcer of left buttock, stage 3; L89.313 Pressure ulcer of right buttock, stage 3; L89.023 Pressure ulcer of left elbow, stage 3; A40.0 Sepsis due to streptococcus, group A; J96.00 Acute respiratory failure, unspecified whether with hypoxia or hypercapnia; N18.6 End stage renal disease; I21.A1 Myocardial infarction type 2; R65.21 Severe sepsis with septic shock; G93.41 Metabolic encephalopathy; I50.43 Acute on chronic combined systolic (congestive) and diastolic (congestive) heart failure; L03.115 Cellulitis of right lower limb; I42.8 Other cardiomyopathies; M31.9 Necrotizing vasculopathy, unspecified; N17.9 Acute kidney failure, unspecified; I13.2 Hypertensive heart and chronic kidney disease with heart failure and with stage 5 chronic kidney disease, or end stage renal disease; R53.81 Other malaise; J44.9 Chronic obstructive pulmonary disease, unspecified; G47.33 Obstructive sleep apnea (adult) (pediatric); I25.10 Atherosclerotic heart disease of native coronary artery without angina pectoris; J98.6 Disorders of diaphragm; G31.84 Mild cognitive impairment of uncertain or unknown etiology; F43.21 Adjustment disorder with depressed mood; E78.5 Hyperlipidemia, unspecified; M17.0 Bilateral primary osteoarthritis of knee; E11.22 Type 2 diabetes mellitus with diabetic chronic kidney disease; R74.01 Elevation of levels of liver transaminase levels; D69.6 Thrombocytopenia, unspecified; E11.51 Type 2 diabetes mellitus with diabetic peripheral angiopathy without gangrene; L89.890 Pressure ulcer of other site, unstageable; E87.70 Fluid overload, unspecified; G47.00 Insomnia, unspecified; B37.9 Candidiasis, unspecified; E66.9 Obesity, unspecified; Z95.5 Presence of coronary angioplasty implant and graft; Z79.4 Long term (current) use of insulin; Z95.0 Presence of cardiac pacemaker; Z88.8 Allergy status to other drugs, medicaments and biological substances; Z68.34 Body mass index [BMI] 34.0-34.9, adult
CPT/HCPCS: 10112; 32100

== ENCOUNTER → 2020-12-15 | Outpatient (CLI) | payer OTHER ==
[~2020-12-15] MED LIST changes: +GENTAMICIN SULF15 GM TOP; +MULTAQ 400 MG400 MG PO; +TRAZODONE HCL100 MG PO
--- NOTE | 2020-12-15 15:18 | NUR ---
WOUND CARE F/U; I WAS ASKED TO SEE A PATIENT FOR A WOUND VAC APPLICATION. THE OUTPATIENT CLINIC DOES NOT APPLY WOUND VACS. THE WOUND BED HAD SOME BLEEDING FROM DEBRIDMENT WHICH RESOLVED WITH SILVER NITRATE STICKS. THE WOUND BED WAS CLEAN AND BEEFY RED. NO ODOR OR ANY S/S OF INFECTION. THE SEAL WAS ACHIEVED TO 125MMHG. NO ALARMS. RECOMMENDATIONS; CONTINUE WOUND VAC DRESSING CHANGES PER DR PILAR ELLIS MD.
== END ==
LOC: HYPER 08:05
PROVIDERS: ATTEND Emergency Medicine
DX: T81.89XA Other complications of procedures, not elsewhere classified, initial encounter (principal); E11.622 Type 2 diabetes mellitus with other skin ulcer; L97.812 Non-pressure chronic ulcer of other part of right lower leg with fat layer exposed; L03.115 Cellulitis of right lower limb; A40.0 Sepsis due to streptococcus, group A; E11.22 Type 2 diabetes mellitus with diabetic chronic kidney disease; I13.0 Hypertensive heart and chronic kidney disease with heart failure and stage 1 through stage 4 chronic kidney disease, or unspecified chronic kidney disease; I50.9 Heart failure, unspecified; N18.4 Chronic kidney disease, stage 4 (severe); E43 Unspecified severe protein-calorie malnutrition; E66.9 Obesity, unspecified; I25.10 Atherosclerotic heart disease of native coronary artery without angina pectoris; G47.30 Sleep apnea, unspecified; J44.9 Chronic obstructive pulmonary disease, unspecified; M35.3 Polymyalgia rheumatica; Z99.2 Dependence on renal dialysis; Z79.4 Long term (current) use of insulin; Z95.818 Presence of other cardiac implants and grafts; Y92.238 Other place in hospital as the place of occurrence of the external cause; Y83.8 Other surgical procedures as the cause of abnormal reaction of the patient, or of later complication, without mention of misadventure at the time of the procedure

== ENCOUNTER → 2020-12-29 | Outpatient (CLI) | payer OTHER | LOC: HYPER 09:17 | PROVIDERS: ATTEND Emergency Medicine | DX: T81.89XD Other complications of procedures, not elsewhere classified, subsequent encounter (principal); E11.622 Type 2 diabetes mellitus with other skin ulcer; L97.812 Non-pressure chronic ulcer of other part of right lower leg with fat layer exposed; L03.115 Cellulitis of right lower limb; A40.0 Sepsis due to streptococcus, group A; E11.22 Type 2 diabetes mellitus with diabetic chronic kidney disease; I13.0 Hypertensive heart and chronic kidney disease with heart failure and stage 1 through stage 4 chronic kidney disease, or unspecified chronic kidney disease; I50.9 Heart failure, unspecified; N18.4 Chronic kidney disease, stage 4 (severe); E43 Unspecified severe protein-calorie malnutrition; E66.01 Morbid (severe) obesity due to excess calories; I25.10 Atherosclerotic heart disease of native coronary artery without angina pectoris; G47.30 Sleep apnea, unspecified; J44.9 Chronic obstructive pulmonary disease, unspecified; M35.3 Polymyalgia rheumatica; Z99.2 Dependence on renal dialysis; Z79.4 Long term (current) use of insulin; Z95.818 Presence of other cardiac implants and grafts; Z68.33 Body mass index [BMI] 33.0-33.9, adult; Y83.8 Other surgical procedures as the cause of abnormal reaction of the patient, or of later complication, without mention of misadventure at the time of the procedure ==

== ENCOUNTER 2021-01-07 10:58 | Inpatient (IN) | payer OTHER ==
[~2021-01-07] VITALS: Ht 177.8 cm; Wt 101.6 kg
[2021-01-07] VITALS (7 sets, daily range): BP systolic 76–119; BP diastolic 46–82
[2021-01-07 11:53] LABS: HEMATOCRIT 28.8 % (42.0-52.0); HEMOGLOBIN 9.2 gm/dL (14.0-18.0); MCH 26.3 pg (26.0-34.0); MCHC 31.8 g/dL (28.0-37.0); MCV 82.6 fL (80.0-100.0); PLATELET COUNT 288 thou/uL (150-400); RBC 3.49 mil/uL (4.50-6.00); RDW 16.9 % (10.5-14.5); WBC 27.8 thou/uL (4.0-11.0)
[2021-01-07 12:06] LABS: CREATININE 4.1 mg/dL (0.7-1.3); POTASSIUM 4.2 mmol/L (3.5-5.1)
[2021-01-07 12:09] LABS: APTT 30.7 Seconds (24.5-32.8); INR 1.24; PROTIME 13.4 Seconds (10.5-12.1)
[2021-01-07 12:17] LABS: ALBUMIN 2.6 g/dL (3.4-5.0); TOTAL BILIRUBIN 0.7 mg/dL (0.2-1.0); TOTAL PROTEIN 7.8 g/dL (6.4-8.2); TROPONIN-I 0.25 ng/mL (<0.06)
[2021-01-07 13:06] LABS: ABSOLUTE NEUTROPHILS 23.9 thou/uL (1.4-8.2); ANISOCYTOSIS 1+
[2021-01-07] MEDS ORDERED: FISH OIL 1,0001 EAC9 PO (14:35)
[2021-01-07] MEDS ORDERED: TYLENOL325 MG PO (14:35)
[2021-01-07 16:47] LABS: ALBUMIN 2.6 g/dL (3.4-5.0)
--- NOTE | 2021-01-07 17:19 | EKG ---
[address] [place] [address] ELECTROCARDIOGRAM REPORT Name: KEITH ADAMS Room #: 358-P ADM IN M.R.#: [id number] Admission: 01/07/21 Attend Phys: Jarret Peters MD Discharge: Date of : 52 Report #: [id number] [facility] ED Test Date: 2021-01-07 Test Time: 11:55:37 Pat Name: KEITH ADAMS Department: Room: [facility] Gender: M Digital Commentator: jimmy : 1950 Requested By: Lilibeth Alexander Order Number: [id number] MD: Denis Meneses Measurements Intervals [place] Rate: 81 P: -67 AL: 155 QRS: 113 QRSD: 176 T: 104 QT: 450 QTc: 523 Interpretive Statements Ventricular-paced complexes No further analysis attempted due to paced rhythm Compared to ECG 10/01/2020 18:21:24 No significant changes Electronically Signed On 01-07-2021 17:19:42 CDT by Denis Meneses [email or web address] <ELECTRONICALLY SIGNED> By: Denis eMneses MD, [facility] 01/07/21 1719 1155 1155 Denis Meneses MD, [facility] /EPI
--- NOTE | 2021-01-07 19:50 | NUR ---
PT ADINITTED FROM ER FOR LLE CELLULITIS AND RLE WOUND, PT IS A&OX4, PT 'S VS ARE STABLE, PT STARTS IV ABX , RN HAS ASSESSED PT'S WOUND AND PUT WET TO DRY DRESSING IN RLE, PT DENIES SOB AND PAIN AT DAY SHFIT , ID ,WOUND AND RENAL DR HAVE CONSULT, ID DR HAS SEEING PT. PT'S STAYS AT PT'S BED SIDE .
--- NOTE | 2021-01-07 23:21 | NUR ---
PT ALERT AND ORIENTED X4 . BP MODERATELY LOW. RECHECKED BP 95/46 PRIOR TO GIVEING NORCO. PT PRESENTLY SLEEPING. HE REFUSED BHIS TRAZADONE. WILL CONTINUE TO MONITOR PT FOR CHANGES.BIPAP ON PRESENTLY. BED DOWN CALL LIGHT IN REACH. BED ALARM IS ON. INSTRUCTED PT TO NOT GET UP OOB WITHOUT HELP.
--- NOTE | 2021-01-08 00:04 | NUR ---
PT RESTING QUIETLY. VSS UNLABOREDON BIPAP. CALLED RESULT OF LA 2.8 TO FACILITIES PAINTER. NO ORDERS GIVEN.
--- NOTE | 2021-01-08 03:51 | NUR ---
PT PROGRESSING SLOWLY TOWARDS D/C GOALS. SATS WNL WITH BIPAP ON. NO C/O PAIN PRESENTLY. DOPLLERS DONE. RESULTS ARE STILL PENDING.
[2021-01-08 04:08] VITALS: BP 116/58
[2021-01-08 04:46] LABS: HEMATOCRIT 27.9 % (42.0-52.0); MCH 26.7 pg (26.0-34.0); MCHC 32.1 g/dL (28.0-37.0); MCV 83.2 fL (80.0-100.0); RBC 3.36 mil/uL (4.50-6.00); RDW 17.2 % (10.5-14.5); WBC 19.7 thou/uL (4.0-11.0)
[2021-01-08 05:09] LABS: CALCIUM 8.3 mg/dL (8.5-10.1); CREATININE 4.9 mg/dL (0.7-1.3); POTASSIUM 4.3 mmol/L (3.5-5.1)
[2021-01-08 08:11] VITALS: BP 92/51
[2021-01-08 11:00] VITALS: BP 111/96
[2021-01-08 11:25] VITALS: BP 109/62
[2021-01-08 15:22] VITALS: BP 101/58
--- NOTE | 2021-01-08 16:25 | HC ---
[facility] [place] [address] CONSULTATION Name: KEITH ADAMS Room #: 358-P [facility] IN ..#: [id number] Admission: 01/07/21 Attend Phys: Jarret Peters MD Discharge: Date of : 52 Report #: [id number] THIS REPORT FOR: cc: BALJINDER VOGEL MD, OSSAMA MD Geha,Saurabh Chávez MD ~ DOC #: [id number] Saurabh Flores MD DATE OF SERVICE: 01/07/2021 INFECTIOUS DISEASE CONSULTATION REASON FOR CONSULTATION: I was asked to evaluate concerning sepsis and left lower extremity cellulitis. HISTORY OF PRESENT ILLNESS: The patient is a 70-year-old known from his previous hospitalization having been discharged last month where he was diagnosed with group A strep, sepsis and necrotizing skin infection. He also has end-stage renal disease on dialysis via right chest dialysis catheter, diabetes and congestive heart failure. Following discharge, he was off antibiotics and doing reasonably well. Over the last two days, he has had some lethargy. He has also noticed increased lower extremity edema, mostly on his left leg. This morning, he was difficult to arouse and was brought into the Emergency Room. Denies any fever, chills or sweats. Denies any chest pain, shortness of breath, cough or sputum production. No nausea, vomiting, abdominal pain. Has had loose stools for the last 24 hours. REVIEW OF SYSTEMS: A 14-point review of system was negative other than what has been described above. He is now alert and cooperative, sitting up to the side of the bed and eating his lunch. ALLERGIES: ELIQUIS, BRILINTA, EFFIENT AND STATINS. MEDICATIONS: As noted on his MAR, which were reviewed. PAST MEDICAL HISTORY: Polymyalgia rheumatica, diabetes, hypertension, hyperlipidemia, coronary artery disease, status post stents, permanent pacemaker with AICD, congestive heart failure, past smoker, SVT, status post ablation procedure, obstructive sleep apnea with BiPAP usage, chronic kidney disease, obesity, paralyzed right hemidiaphragm, solitary kidney, rotator cuff surgery, knee surgery, anemia, osteoarthritis. FAMILY HISTORY: Negative for tuberculosis. SOCIAL HISTORY: He is a past smoker. No significant alcohol intake. Lives with his . [address] [address] CONSULTATION Name: KEITH ADAMS Room #: 358-[facility] IN .R.#: [id number] Admission: 01/07/21 Attend Phys: Jarret Peters MD Discharge: Date of : 52 Report #: [id number] PHYSICAL EXAMINATION: GENERAL: He was afebrile and hemodynamically stable. Alert and cooperative and pleasant, sitting up to the side of the bed. SKIN: Evidence of cellulitis involving the left lower extremity from ankle to proximal calf with 2+ pitting edema, venous stasis dermatitis changes as well. The right lower extremity with extensive wound mostly to the lateral and posterior calf with a clean granulating base. No surrounding cellulitis with no purulent drainage. HEENT: Eyes without scleral icterus. Mouth without mucositis. NECK: Supple. LUNGS: Few crackles in the bases bilaterally. HEART: Regular, without appreciable murmur, gallop or rub. ABDOMEN: Obese, soft and nontender. NEUROLOGIC: The patient had orthopnea and was unable to lay flat in bed. Cranial nerves intact. Strength in his upper and lower extremities was symmetric and within normal limits. GENITOURINARY: External genitalia without mass or lesion. Rectal examination not performed. BACK: Nontender. PSYCHIATRIC: Mood without anxiety or depression. LABORATORY DATA: Ultrasound of the lower extremity, negative for DVT. Does have a complex left Osman cyst. Chest x-ray, basilar infiltrates, left greater than right, unchanged from previous scan. IMPRESSION: 1. Sepsis with altered mental status and leukocytosis. I suspect related to his left lower extremity venous stasis disease and cellulitis. Other consideration would be bacteremia from his wound. He also has diarrhea, although he was eating and his abdomen was soft. Therefore, doubt significant colitis. 2. Diabetes. 3. End-stage renal disease, on dialysis. 4. Chronic heart failure with ICD in place. 5. Peripheral vascular disease. 6. Anemia of chronic disease. 7. Paralyzed right hemidiaphragm. 8. Malnutrition. RECOMMENDATION: We will continue broad antibiotic coverage, pending culture results. Continue with edema control, dialysis and leg elevation. If diarrhea persists, we will check stool for C. diff. Await repeat CBC. Saurabh Flores MD [address] [address] CONSULTATION Name: KEITH ADAMS Room #: 358-P ADM IN M.R.#: [id number] Admission: 01/07/21 Attend Phys: Jarret Peters MD Discharge: Date of : 52 Report #: [id number] JOSH/PRATIK <ELECTRONICALLY SIGNED> By: Saurabh Flores MD 01/08/21 1625 1657 0105 Saurabh Flores MD /nt
[2021-01-08 19:36] VITALS: BP 87/44
--- NOTE | 2021-01-08 19:38 | NUR ---
RN ASSUMED PT'S CARE AT 0700-1900PM , PT IS A&OX4, PT IS CONTINUING IV ABX, WOUND CARE AND PAIN MANAGEMENT, PT IS TOLERATIVE DIALYSIS TODAY, PT'S VS ARE STABLE AT DAY SHIFT.
[2021-01-09 03:58] VITALS: BP 89/51
[2021-01-09 05:24] LABS: HEMATOCRIT 27.9 % (42.0-52.0); HEMOGLOBIN 8.7 gm/dL (14.0-18.0); MCH 26.1 pg (26.0-34.0); MCHC 31.2 g/dL (28.0-37.0); MCV 83.5 fL (80.0-100.0); RBC 3.35 mil/uL (4.50-6.00); RDW 16.9 % (10.5-14.5); WBC 19.2 thou/uL (4.0-11.0)
[2021-01-09 05:41] LABS: POTASSIUM 3.9 mmol/L (3.5-5.1)
[2021-01-09 05:44] LABS: CREATININE 3.9 mg/dL (0.7-1.3)
--- NOTE | 2021-01-09 06:18 | NUR ---
PT ON CPAP ALL NIGHT. STATES HE IS VERY TIRED AFTER DIALYSIS. SPOKE TO PT AFTER SHE CALLED ABOUT PT. DUE TO PATIENT NOT WANTING TO ANSWER HER CALLS. FOLLOW POC WITH IVPB AND PO ANTIBIOTICS. TELE SHOWS VPACED. NO URINE OUTPUT OVERNIGHT. WBC STILL ELEVATED PER AM LABS. PO PAIN MEDICATION GIVEN X1 FOR LEG PAIN.
[2021-01-09 07:11] VITALS: BP 99/57
[2021-01-09 11:20] VITALS: BP 102/64
--- NOTE | 2021-01-09 12:23 | NUR ---
CARE ASSUMED THIS, PT ALERT AND OREINTED X4, DENIES ANY CHEST PAIN, NUASEA AND VOMITTING. PT ON PRN CPAP DURING THE DAY AND PM. RIGHT LEG WOUND CHANGED PER ORDER. UP TO COMMODE WITH [address]IST[address] F[address] PRECAUTIONS IN PLACE. DENIES ANY NEEDS AT MOMENT, WILL CONTINUE TO MONITOR
[2021-01-09 15:33] VITALS: BP 107/71
[2021-01-09 20:11] VITALS: BP 113/85
[2021-01-10 03:50] VITALS: BP 86/38
[2021-01-10 05:25] LABS: CALCIUM 8.1 mg/dL (8.5-10.1); MAGNESIUM 2.1 mg/dL (1.8-2.4); POTASSIUM 4.8 mmol/L (3.5-5.1)
[2021-01-10 05:26] LABS: CREATININE 5.3 mg/dL (0.7-1.3)
[2021-01-10 05:28] LABS: HEMATOCRIT 26.7 % (42.0-52.0); HEMOGLOBIN 8.5 gm/dL (14.0-18.0); MCH 26.3 pg (26.0-34.0); MCHC 31.7 g/dL (28.0-37.0); MCV 82.8 fL (80.0-100.0); RBC 3.22 mil/uL (4.50-6.00); RDW 16.9 % (10.5-14.5)
--- NOTE | 2021-01-10 06:16 | NUR ---
PT SCHEDULED FOR DIALYSIS TODAY, PT STATES SUNDAY IS HIS DAY OFF, WHILE HIS SCHEDULE IS . WBC DROPPING FROM PREVIOUS HIGHS. PT SLEEPS ON HIS LEFT SIDE WITH CPAP ON. VSS.
--- NOTE | 2021-01-10 06:46 | NUR ---
DIALYSIS NURSE CAME BY AND PT REFUSING TO HAVE DIALYSIS. STATES NO ONE TOLD HIM HE WAS GOING TO DIALYSIS TODAY AND IT IS NOT HIS DAY.
[2021-01-10 07:11] VITALS: BP 100/53
[2021-01-10 11:05] VITALS: BP 105/61
[2021-01-10 15:10] VITALS: BP 108/51
--- NOTE | 2021-01-10 17:37 | NUR ---
UP IN THE CHAIR, VISITING WITH . BLE WOUND CARE COMPLETED. PT IS PROGRESSING TOWARDS POC AND POSSIBLE D/C SOON. CALL LIGHT AND TABLE WITHIN REACH. WILL CONTINUE TO MONITOR
[2021-01-10 19:37] VITALS: BP 93/62
[2021-01-11] VITALS (7 sets, daily range): BP systolic 98–115; BP diastolic 42–63
--- NOTE | 2021-01-11 03:51 | NUR ---
PT MAKING SLOW PROGRESS TOWARDS GOALS. PT ABLE TO STAND FROM SITTING POSITON LONG IT IS NOT TOO LOW. UNABLE TO RISE FROM THE CHAIR IN THE ROOM BUT WAS ABLE TO RISE W/O ASSISTANCE FROM THE BSC. STEADY ONCE STANDING AND IS COMPLIANT WITH USING THE WALKER. O2 AT 3L PER NC OR CPAP W/3L BLED IN THROUGHOUT THE NIGHT. NOTED FAINT CRACKLES IN LLL.
[2021-01-11 05:32] LABS: HEMATOCRIT 30.9 % (42.0-52.0); HEMOGLOBIN 9.5 gm/dL (14.0-18.0); MCHC 30.8 g/dL (28.0-37.0); MCV 84.5 fL (80.0-100.0); RBC 3.65 mil/uL (4.50-6.00); RDW 17.1 % (10.5-14.5); WBC 17.2 thou/uL (4.0-11.0)
[2021-01-11 05:52] LABS: CALCIUM 7.9 mg/dL (8.5-10.1); CREATININE 6.2 mg/dL (0.7-1.3); MAGNESIUM 2.2 mg/dL (1.8-2.4); POTASSIUM 4.7 mmol/L (3.5-5.1)
--- NOTE | 2021-01-11 11:50 | HC ---
[facility] [place] [address] CONSULTATION Name: KEITH ADAMS Room #: 358-P ADM IN M.R.#: [id number] Admission: 01/07/21 Attend Phys: Jarret Peters MD Discharge: Date of : 52 Report #: [id number] THIS REPORT FOR: cc: BALJNIDER VOGEL MD, OSSAMA MD Althoff,Larry Eckert MD ~ DOC #: [id number] Larry Valentin MD DATE OF SERVICE: 01/08/2021 CHIEF COMPLAINT: Ulceration to the right lower extremity. HISTORY OF PRESENT ILLNESS: This is a 70-year-old male patient with a history of end-stage renal disease and type 2 diabetes mellitus who is admitted to the hospital with recurring infection involving a wound, involving his right lower extremity and early signs of sepsis. The patient has had a spontaneous ulceration on his right leg. He underwent surgical debridement and tissue substitute grafting and has been treated with a wound VAC. The wound has been progressing nicely. He apparently has had some decreased level of consciousness and some swelling and pain involving the right leg and I have been asked see him with regard to ongoing wound care. PAST MEDICAL HISTORY: Significant for type 2 diabetes mellitus, hypertension, hyperlipidemia, coronary artery disease, COPD, history of SVT, status post ablation, chronic kidney disease. He has a solitary kidney. He is a previous smoker. History of congestive heart failure. SOCIAL HISTORY: Negative for alcohol or tobacco use, but he is a current smoker. MEDICATIONS: Include trazodone, insulin, ranolazine, Imdur, aspirin. ALLERGIES: INCLUDE ELIQUIS, BRILINTA, EFFIENT, AND STATINS. REVIEW OF SYSTEMS: CONSTITUTIONAL: The patient does complain of malaise, mild fever and chills. Denies weight loss. EYES: The patient denies visual changes, redness or drainage. ENT: The patient denies earache, nasal drainage, sore throat. CARDIOVASCULAR: The patient denies chest pain or palpitations, diaphoresis. PULMONARY: The patient denies cough or shortness of breath. GASTROINTESTINAL: The patient denies nausea, vomiting, diarrhea or abdominal pain. ORTHOPEDIC: The patient does complain of some pain, swelling, redness to the right lower extremity. Others systems in a 14-point review of systems are negative. [address] [address] CONSULTATION Name: KEITH ADAMS Room #: 358-P [facility] IN ..#: [id number] Admission: 01/07/21 Attend Phys: Jarret Peters MD Discharge: Date of : 52 Report #: [id number] PHYSICAL EXAMINATION: VITAL SIGNS: Include temperature 36.8, pulse 79, respiration of 22, blood pressure 119/57. GENERAL: This is a chronically ill-appearing male patient, appears to be in minimal distress. He is lying in bed, wearing his CPAP device presently. HEENT: Head is normocephalic. Nose and throat are clear. NECK: Supple. LUNGS: Diminished. HEART: Irregular without murmur. ABDOMEN: Soft and bowel sounds are present. EXTREMITIES: Lower extremities demonstrate the leg and foot appear to be well perfused. There is a relatively large wound involving the right lower leg. It is actually healthy clean, granulating and much improved since I last saw him, which was during his last hospitalization. There is some mild erythema surrounding this area consistent with possible cellulitis. NEUROLOGIC: The patient is alert, oriented, appropriate. LABORATORY STUDIES: Include serum sodium 134, potassium 4.2, chloride 98, CO2 of 27, BUN 38, creatinine 4.1, glucose 265, albumin is low at 2.6. INR is 1.24. White blood cell count is 27.8, hemoglobin is 9.2. CLINICAL IMPRESSION: 1. Ulceration of the right lower extremity with wound infection and cellulitis. 2. Sepsis secondary to wound infection. 3. Type 2 diabetes mellitus. 4. End-stage renal disease, requiring hemodialysis. 5. Chronic obstructive pulmonary disease. 6. Chronic systolic heart failure. 7. Paroxysmal atrial fibrillation. RECOMMENDATIONS: At this point in time, we will recommend topical gentamicin, Xeroform, ABD, Kerlix and William wrap to the right lower extremity. We will hold off on the wound VAC presently. He will need antibiotic therapy. Cultures pending. The patient is agreeable to current plan of care and I appreciate being asked to see him in consultation. Larry Valentin MD JRA/LUI [address] [address] CONSULTATION Name: KEITH ADAMS Room #: 358-P ADM IN M.R.#: [id number] Admission: 01/07/21 Attend Phys: Jarret Peters MD Discharge: Date of : 52 Report #: [id number] <ELECTRONICALLY SIGNED> By: Larry Valentin MD 01/11/21 1150 0 1857 Larry Valentin MD /nt
[2021-01-11] MEDS ORDERED: MIDODRINE HCL 55 M1 PO (13:28)
[2021-01-11] MEDS ORDERED: GENTAMICIN SULF15 GM TOP (13:28)
[2021-01-11] MEDS ORDERED: CEPHALEXIN500 MG PO (14:15)
--- NOTE | 2021-01-11 16:39 | NUR ---
INITIAL ASSESSMENT/DISCHARGE NOTE: JOHN reviewed chart and spoke with nursing and attending physician. Pt was admitted from home due to RLE wound/LLE cellulitis. Pt was on 5N and discharged home in November of this year. Pt goes to dialysis T-R-S at [facility]. Pt to discharge home today. Awaiting final discharge ppwk. JOHN met with pt and at bedside. Introduced role of SW. Pt was sleeping during SW visit. Pt's confirmed that pt and live at home. Pt has a cane, walker, O2 and bipap machine in place at home. JOHN informed pt's that [facility] will be sent info and notified of pt's discharge. Pt will resume his regular outpatient dialysis on , 01/13. JOHN was notified that pt does have HH through [facility]. JOHN spoke with Tiffani in intake at [facility] who confirmed. SW to fax d/c ppwk when available. JOHN updated attending physician to write orders for HH. Awaiting d/c ppwk at this time. JOHN is following to assist as needed with discharge planning.
[2021-01-11 18:06] LABS: HEP B SURFACE Ab(ANTI-HBS Non Reactive (()); HEPATITIS B SURFACE AG Negative (Negative)
--- NOTE | 2021-01-12 08:40 | NUR ---
SW faxed discharge ppwk to [facility] and [facility]. Received confirmation. Pt did discharge last evening. JOHN spoke with Clementine at [facility] to notify of d/c ppwk and pt's discharge. JOHN spoke with Melinda in intake at [facility], who confirmed info received. No additional SW needs identified at this time, but is available to assist should needs arise.
== END 2021-01-11 18:45 | disposition home health service (06) | DRG 871 ==
LOC: ER 10:58 → EROBS 13:45 → 3W 13:45
PROVIDERS: Internal Medicine Nephrology; Nurse Practitioner Family; ADMIT Internal Medicine; ATTEND Internal Medicine
DX: A41.9 Sepsis, unspecified organism (principal); N18.6 End stage renal disease; E43 Unspecified severe protein-calorie malnutrition; J96.90 Respiratory failure, unspecified, unspecified whether with hypoxia or hypercapnia; I13.2 Hypertensive heart and chronic kidney disease with heart failure and with stage 5 chronic kidney disease, or end stage renal disease; L03.116 Cellulitis of left lower limb; L97.919 Non-pressure chronic ulcer of unspecified part of right lower leg with unspecified severity; I50.42 Chronic combined systolic (congestive) and diastolic (congestive) heart failure; I42.9 Cardiomyopathy, unspecified; Z20.822 Contact with and (suspected) exposure to COVID-19; I25.10 Atherosclerotic heart disease of native coronary artery without angina pectoris; E11.22 Type 2 diabetes mellitus with diabetic chronic kidney disease; J44.9 Chronic obstructive pulmonary disease, unspecified; E78.5 Hyperlipidemia, unspecified; G47.33 Obstructive sleep apnea (adult) (pediatric); M17.0 Bilateral primary osteoarthritis of knee; E66.9 Obesity, unspecified; E11.51 Type 2 diabetes mellitus with diabetic peripheral angiopathy without gangrene; D63.8 Anemia in other chronic diseases classified elsewhere; J98.6 Disorders of diaphragm; I48.0 Paroxysmal atrial fibrillation; R60.1 Generalized edema; I87.8 Other specified disorders of veins; E11.65 Type 2 diabetes mellitus with hyperglycemia; R53.81 Other malaise; I49.5 Sick sinus syndrome; I89.0 Lymphedema, not elsewhere classified; Z91.19 Patient's noncompliance with other medical treatment and regimen; S81.801A Unspecified open wound, right lower leg, initial encounter; Z79.899 Other long term (current) drug therapy; X58.XXXA Exposure to other specified factors, initial encounter; Y93.89 Activity, other specified; Y92.89 Other specified places as the place of occurrence of the external cause; Y99.8 Other external cause status; Z79.4 Long term (current) use of insulin; Z95.5 Presence of coronary angioplasty implant and graft; Z95.0 Presence of cardiac pacemaker; Z88.8 Allergy status to other drugs, medicaments and biological substances; Z68.32 Body mass index [BMI] 32.0-32.9, adult; Z87.891 Personal history of nicotine dependence; Z79.82 Long term (current) use of aspirin
CPT/HCPCS: 10879; 32100

== ENCOUNTER → 2021-01-24 | Outpatient (CLI) | payer OTHER ==
[~2021-01-24] MED LIST changes: +CEPHALEXIN500 MG PO; +FISH OIL 1,0001 EAC9 PO; +MIDODRINE HCL 55 M1 PO; +TYLENOL325 MG PO
== END ==
LOC: HYPER 09:39
PROVIDERS: ATTEND Emergency Medicine
DX: T81.89XD Other complications of procedures, not elsewhere classified, subsequent encounter (principal); E11.622 Type 2 diabetes mellitus with other skin ulcer; L97.812 Non-pressure chronic ulcer of other part of right lower leg with fat layer exposed; L03.115 Cellulitis of right lower limb; A40.0 Sepsis due to streptococcus, group A; J44.9 Chronic obstructive pulmonary disease, unspecified; E43 Unspecified severe protein-calorie malnutrition; I25.10 Atherosclerotic heart disease of native coronary artery without angina pectoris; E11.22 Type 2 diabetes mellitus with diabetic chronic kidney disease; I13.2 Hypertensive heart and chronic kidney disease with heart failure and with stage 5 chronic kidney disease, or end stage renal disease; I50.9 Heart failure, unspecified; N18.4 Chronic kidney disease, stage 4 (severe); E66.9 Obesity, unspecified; G47.30 Sleep apnea, unspecified; Z87.891 Personal history of nicotine dependence; Z68.33 Body mass index [BMI] 33.0-33.9, adult; Z99.2 Dependence on renal dialysis; Z90.5 Acquired absence of kidney; Z79.4 Long term (current) use of insulin; Z79.82 Long term (current) use of aspirin; Z79.899 Other long term (current) drug therapy; Y83.8 Other surgical procedures as the cause of abnormal reaction of the patient, or of later complication, without mention of misadventure at the time of the procedure

== ENCOUNTER → 2021-01-31 | Outpatient (CLI) | payer OTHER | LOC: HYPER 09:20 | PROVIDERS: ATTEND Emergency Medicine Emergency Medical Services | DX: T81.89XD Other complications of procedures, not elsewhere classified, subsequent encounter (principal); E11.622 Type 2 diabetes mellitus with other skin ulcer; L97.812 Non-pressure chronic ulcer of other part of right lower leg with fat layer exposed; L03.115 Cellulitis of right lower limb; A40.0 Sepsis due to streptococcus, group A; J44.9 Chronic obstructive pulmonary disease, unspecified; E43 Unspecified severe protein-calorie malnutrition; I25.10 Atherosclerotic heart disease of native coronary artery without angina pectoris; E11.22 Type 2 diabetes mellitus with diabetic chronic kidney disease; I13.2 Hypertensive heart and chronic kidney disease with heart failure and with stage 5 chronic kidney disease, or end stage renal disease; I50.9 Heart failure, unspecified; N18.4 Chronic kidney disease, stage 4 (severe); E66.01 Morbid (severe) obesity due to excess calories; G47.30 Sleep apnea, unspecified; M35.3 Polymyalgia rheumatica; Z87.891 Personal history of nicotine dependence; Z68.33 Body mass index [BMI] 33.0-33.9, adult; Z99.2 Dependence on renal dialysis; Z90.5 Acquired absence of kidney; Y83.8 Other surgical procedures as the cause of abnormal reaction of the patient, or of later complication, without mention of misadventure at the time of the procedure ==

== ENCOUNTER 2021-02-06 13:15 | Inpatient (IN) | payer OTHER ==
[~2021-02-06] VITALS: Ht 177.8 cm; Wt 104.3 kg
[2021-02-06] VITALS (10 sets, daily range): BP systolic 110–130; BP diastolic 60–77
[2021-02-06 13:57] LABS: ABSOLUTE NEUTROPHILS 11.6 thou/uL (1.4-8.2); BASOPHILS 0.2 % (0.0-2.0); EOSINOPHILS 0.9 % (0.0-3.0); HEMATOCRIT 30.4 % (42.0-52.0); HEMOGLOBIN 9.5 gm/dL (14.0-18.0); MCH 24.8 pg (26.0-34.0); MCHC 31.1 g/dL (28.0-37.0); MCV 79.7 fL (80.0-100.0); MONOCYTES 9.1 % (1.0-8.0); PLATELET COUNT 263 thou/uL (150-400); POLYS 81.8 % (36.0-66.0); RBC 3.81 mil/uL (4.50-6.00); RDW 17.4 % (10.5-14.5); WBC 14.2 thou/uL (4.0-11.0)
[2021-02-06 14:02] LABS: ANION GAP 9 mmol/L (7-16); BUN 40 mg/dL (7-18); CALCIUM 8.9 mg/dL (8.5-10.1); CHLORIDE 102 mmol/L (98-107); CO2 30 mmol/L (21-32); CREATININE 4.1 mg/dL (0.7-1.3); GLUCOSE 75 mg/dL (74-106); POTASSIUM 4.3 mmol/L (3.5-5.1); SODIUM 141 mmol/L (136-145)
[2021-02-06 14:12] LABS: ALBUMIN 2.8 g/dL (3.4-5.0); SGOT 25 U/L (15-37); SGPT 23 U/L (30-65); TOTAL BILIRUBIN 0.5 mg/dL (0.2-1.0); TOTAL PROTEIN 8.2 g/dL (6.4-8.2); TROPONIN-I <0.06 ng/mL (<0.06)
[2021-02-06 14:15] LABS: BE(vivo) 1.5 mmol/L (-2 to +3); HCO3 28.5 mmol/L (22.0-26.0); PCO2 56.7 mmHg (35.0-45.0); PO2 73.6 mmHg (80.0-100.0); sO2 93.4 % (92.0-98.0)
[2021-02-06 14:17] LABS: pH 7.319 (7.360-7.450)
[2021-02-06 16:48] LABS: HCO3 30.6 mmol/L (22.0-26.0); PCO2 56.7 mmHg (35.0-45.0); PO2 159.8 mmHg (80.0-100.0); sO2 98.9 % (92.0-98.0)
[2021-02-06] MEDS ORDERED: CEPHALEXIN500 MG PO (18:31)
--- NOTE | 2021-02-06 23:47 | NUR ---
RECIEVED PT FROM ER TO ICU 238. PT RESP LABORED ON BIPAP. 02SAT 100. CONGESTED COUGH, -PT STATES THAT IS NORMAL FOR HIM. COVID NEG PER LAB. REMAINS IN ENHANCED PRECAUTIONS PER PLAN OF CARE IN PLACE
[2021-02-07] VITALS (32 sets, daily range): BP systolic 85–130; BP diastolic 40–81
[2021-02-07 05:56] LABS: CALCIUM 8.8 mg/dL (8.5-10.1); CREATININE 4.9 mg/dL (0.7-1.3)
[2021-02-07 06:03] LABS: POTASSIUM 6.6 mmol/L (3.5-5.1)
[2021-02-07 06:34] LABS: HEMATOCRIT 32.3 % (42.0-52.0); HEMOGLOBIN 9.9 gm/dL (14.0-18.0); MCH 25.1 pg (26.0-34.0); MCHC 30.7 g/dL (28.0-37.0); MCV 81.6 fL (80.0-100.0); RBC 3.96 mil/uL (4.50-6.00); RDW 17.5 % (10.5-14.5); WBC 9.6 thou/uL (4.0-11.0)
--- NOTE | 2021-02-07 07:30 | EKG ---
[address] [address] ELECTROCARDIOGRAM REPORT Name: MARILEE ADAMSIN Roxanne Room #: 238- ADM IN M.R.#: [id number] Admission: 02/06/21 Attend Phys: Violeta Siegel MD Discharge: Date of : 52 Report #: [id number] [facility] ED Test Date: 2021-02-06 Test Time: 13:18:10 Pat Name: KEITH ADAMS Department: Room: 238 Gender: M Attending Radiologist: debbie : 1950 Requested By: Jesus Duggan Order Number: [id number] MD: Denis Meneses Measurements Intervals [place] Rate: 130 P: 0 NH: 94 QRS: 132 QRSD: 104 T: 149 QT: 610 QTc: 897 Interpretive Statements A-V dual-paced complexes w/ some inhibition No further analysis attempted due to paced rhythm Baseline wander in lead(s) V1,V4,V5,V6 Compared to ECG 01/07/2021 11:55:37 No significant changes Electronically Signed On 02-07-2021 7:30:38 CDT by Denis Meneses [email or web address] <ELECTRONICALLY SIGNED> By: Denis Meneses MD, FACC 02/07/21 0730 1318 1318 Denis Meneses MD, [facility] /EPI
--- NOTE | 2021-02-07 09:45 | NUR ---
0700HRS- PT DEMANED TO HAVE HIS ROOM REARRANGED AND BED TURNED TO THE POSITION TO WHERE HE CAN LAY DOWN ON HIS LEF SIDE AND SEE OUT THE WINDOW. ALSO, TURN OFF ALL THE LIGHTS AND CLOSE ALL THE CURTAINS. DOES NOT WANT HIS BLOOD PRESSURE CUFF ON AND HIS BI-PAP TURNED OFF. PT SAT @ 97% RA. 0850HRS- BS 453 AFTER 0117HRS INSULIN [address] HARE INFORMED. VERBAL ORDERS TO GIVE 15 UNITS REG AND RECHECK AND DO NOT GIVE FOOD UNTIL BS IS AT APPROPRAE LEVEL. 0900HRS- PT DEMANDS HIS BREAKFAST. EDUCATED AND INFORMED PT OF HIS SITUATION AND ORDERS. PT SAID, "JUST GIVE IT TO ME AND I WILL TELL THEM I DON'T CARE AND TO BLAME ME". 0915HRS - TRANSMISSION TESTER ARRIVED. 0930HRS - PT DEMANDS HIS BREAKFAST AGAIN.
--- NOTE | 2021-02-07 09:56 | NUR ---
0845HRS - PT CALLED. SHE WAS INFORMED AND UPDATED ON THE STATUS OF HER . PHONE CALL TRANSFERRED INTO PT'S ROOM. PT SEEN TALKING TO ON PHONE.
--- NOTE | 2021-02-07 12:09 | NUR ---
70-year-old male here for complaints of shortness of air and hypotension. Noted in the ED to have obtained Pfizer vaccinations in August of 2020 and tested Covid negative upon admission. The patient has been admitted with Acute on Chronic Hypoxemia, and hypercapnic respiratory failure along with chronic calf wound. At present patient has been on 2.5L via NC. The patient was discharged on 01-11-21 from RLE wound and cellulitis and a Dialysis patient T-R-S at [facility]. Patient noted at this time to have a cane, walker, 02 and bipap at home. The patient as also noted as having [facility] in place and resumed HH services upon discharge. The patients spouse Lisbet Krishnan at [phone] or [phone] or Daughter Dona Krishnan at [phone] are listed as next of kin and contact (s). Unable to reach but speak with daughter and re-introduced role of CM. CM will continue to follow for discharge needs once plan of care is established by medical team.
--- NOTE | 2021-02-07 15:12 | NUR ---
1500HRS - DIALYSIS NURSE COMPLETED. REPORTED 2.8L TAKEN OFF.
[2021-02-08] VITALS (20 sets, daily range): BP systolic 90–119; BP diastolic 49–71
--- NOTE | 2021-02-08 08:13 | NUR ---
0730HRS - DIALYSIS NURSE AT PT'S BEDSIDE.
--- NOTE | 2021-02-08 10:55 | NUR ---
Discussed during [facility] home today after dialysis. Cont outpt dialysis at [facility] on , sun. No anticipated needs. Updates to be sent to [facility].
--- NOTE | 2021-02-08 12:12 | NUR ---
1213HRS - DISCHARGE NOTES REVIEWED WITH PATIENT AND IN HIS HAND. EDUCATION GIVEN. IV REMOVED AND INTACT.
--- NOTE | 2021-02-08 12:27 | NUR ---
1227HRS - PT IN WHEELCHAIR AND ESCORTED BY RT
--- NOTE | 2021-02-09 08:31 | HC ---
[facility] [place] [address] CONSULTATION Name: KEITH ADAMS Room #: 238-P [facility] IN M.R.#: [id number] Admission: 02/06/21 Attend Phys: Violeta Siegel MD Discharge: 02/08/21 Date of : 52 Report #: [id number] THIS REPORT FOR: cc: BALJINDER VOGEL MD, OSSAMA MD Althoff,Larry Eckert MD ~ DATE OF SERVICE: 02/07/2021 CHIEF COMPLAINT: Surgical wound to the left lower extremity. HISTORY OF PRESENT ILLNESS: This is a 70-year-old male patient with whom I am familiar from multiple hospitalizations as well as followup from outpatient who was admitted to the ICU. He has a history of type 2 diabetes mellitus and a history of a paralyzed right hemidiaphragm and chronic heart failure with ICD in place. He was admitted with increasing shortness of breath and decreased alertness. He has a chronic wound to his right leg, which we have followed. This initially started a couple of hospitalizations with some blistering and some skin necrosis. He underwent surgical debridement and placement of skin substitute. He has been slowly improving. We have managed him with both a wound VAC and then more recently with topical medical care. PAST MEDICAL HISTORY: Significant for type 2 diabetes mellitus, hypertension, hyperlipidemia, COPD, SVT, status post ablation, obstructive sleep apnea, chronic kidney disease, ALIDA, congestive heart failure. SOCIAL HISTORY: The patient admits to occasional alcohol use. He is a previous smoker, having quit greater than a year ago. FAMILY HISTORY: Noncontributory. MEDICATIONS: Include trazodone, insulin, ranolazine, Imdur, ProAmatine, Keflex, aspirin. ALLERGIES: ELIQUIS, BRILINTA, EFFIENT AND STATIN. REVIEW OF SYSTEMS: CONSTITUTIONAL: The patient denies fever, chills or weight loss. NEUROLOGICAL: The patient complains of generalized weakness. Denies focal weakness, numbness or tingling. EYES: The patient denies visual changes, redness or drainage. ENT: The patient denies earache, nasal drainage, sore throat. CARDIOVASCULAR: The patient denies chest pain, palpitations, diaphoresis. PULMONARY: The patient denies cough, but does complain of some mild to moderate shortness of breath. GASTROINTESTINAL: The patient denies nausea, vomiting, diarrhea or abdominal pain. [facility] [address] [place] [address] CONSULTATION Name: KEITH ADAMS Roxanne Room #: 238-P [facility] IN ..#: [id number] Admission: 02/06/21 Attend Phys: Violeta Siegel MD Discharge: 02/08/21 Date of : 52 Report #: [id number] ORTHOPEDIC: The patient notes the wound on the right leg. Others systems in a 14-point review of systems are negative. PHYSICAL EXAMINATION: VITAL SIGNS: At this time include temperature 36.7, pulse rate 77, respiratory rate of 20, blood pressure 100/53. GENERAL: This is a chronically ill-appearing male. The patient appears to be in minimal distress. HEENT: Normocephalic. Nose and throat are clear. NECK: Supple. LUNGS: Diminished. HEART: Irregular. ABDOMEN: Soft. EXTREMITIES: The lower extremities demonstrate surgical wound involving the right lower leg is actually healthy, clean, granulating and appears to be nearly flushed with the skin level. It is not infected and there is no exposure of deep structures. NEUROLOGIC: The patient is alert and oriented at this time and conversant. LABORATORY DATA: Include sodium 129, potassium 6.6, chloride 94, CO2 25, BUN 57, creatinine 4.9. White blood cell count 9.6 with a hemoglobin of 9.9. CLINICAL IMPRESSION: 1. Chronic ulceration following surgical debridement to the right lower extremity. 2. Chronic lymphedema, left lower extremity. 3. Respiratory failure with underlying chronic obstructive pulmonary disease. 4. End-stage renal disease. 5. Type 2 diabetes mellitus. 6. Moderate protein calorie malnutrition. RECOMMENDATIONS: At this point in time, we will recommend Aquacel Ag, ABD, Kerlix and William wrap involving the right lower leg, PRAFO boots while in bed. He has had previous normal arterial Dopplers in the past. We do not feel that they are needed to be repeated today. We will recommend elevation to the left leg to control edema. He does not want any sort of compression. He is to continue with medical management per the hospitalist and other specialists of his respiratory failure, end-stage renal disease and diabetes. I appreciate being asked to see him in consultation. <ELECTRONICALLY SIGNED> By: Larry Valentin MD 02/09/21 0831 [id number] [id number] Larry Valentin MD /nt
--- NOTE | 2021-02-09 09:56 | NUR ---
Phone call from [facility] asking for resume orders Estiven torres notified hospitalist and going to add hh orders. Fax to [facility] at [phone].
== END 2021-02-08 12:27 | disposition home or self-care (01) | DRG 177 ==
LOC: ER 13:15 → EROBS 19:01 → ICU 19:01
PROVIDERS: Nurse Practitioner; ADMIT Internal Medicine; ATTEND Internal Medicine
PROC: 5A09357 Assistance with Respiratory Ventilation, Less than 24 Consecutive Hours, Continuous Positive Airway Pressure (ICD-10-PCS; principal; 2021-02-06)
PROC: 5A1D70Z Performance of Urinary Filtration, Intermittent, Less than 6 Hours Per Day (ICD-10-PCS; 2021-02-07)
PROC: 5A09357 Assistance with Respiratory Ventilation, Less than 24 Consecutive Hours, Continuous Positive Airway Pressure (ICD-10-PCS; 2021-02-07)
PROC: 5A1D70Z Performance of Urinary Filtration, Intermittent, Less than 6 Hours Per Day (ICD-10-PCS; 2021-02-08)
DX: J69.0 Pneumonitis due to inhalation of food and vomit (principal); J96.21 Acute and chronic respiratory failure with hypoxia; J96.22 Acute and chronic respiratory failure with hypercapnia; N18.6 End stage renal disease; R65.11 Systemic inflammatory response syndrome (SIRS) of non-infectious origin with acute organ dysfunction; E87.1 Hypo-osmolality and hyponatremia; I42.9 Cardiomyopathy, unspecified; L97.919 Non-pressure chronic ulcer of unspecified part of right lower leg with unspecified severity; E44.0 Moderate protein-calorie malnutrition; L03.115 Cellulitis of right lower limb; I50.22 Chronic systolic (congestive) heart failure; I13.2 Hypertensive heart and chronic kidney disease with heart failure and with stage 5 chronic kidney disease, or end stage renal disease; J44.0 Chronic obstructive pulmonary disease with (acute) lower respiratory infection; Z20.822 Contact with and (suspected) exposure to COVID-19; E78.5 Hyperlipidemia, unspecified; G47.33 Obstructive sleep apnea (adult) (pediatric); I25.10 Atherosclerotic heart disease of native coronary artery without angina pectoris; E11.22 Type 2 diabetes mellitus with diabetic chronic kidney disease; M17.0 Bilateral primary osteoarthritis of knee; S81.801A Unspecified open wound, right lower leg, initial encounter; M35.3 Polymyalgia rheumatica; I89.0 Lymphedema, not elsewhere classified; E87.5 Hyperkalemia; R53.81 Other malaise; Z91.19 Patient's noncompliance with other medical treatment and regimen; Z95.810 Presence of automatic (implantable) cardiac defibrillator; Z79.82 Long term (current) use of aspirin; Z79.4 Long term (current) use of insulin; Z95.5 Presence of coronary angioplasty implant and graft; Z88.8 Allergy status to other drugs, medicaments and biological substances; Z87.891 Personal history of nicotine dependence; Z68.33 Body mass index [BMI] 33.0-33.9, adult; Z82.49 Family history of ischemic heart disease and other diseases of the circulatory system; Z83.3 Family history of diabetes mellitus; Z79.899 Other long term (current) drug therapy; X58.XXXA Exposure to other specified factors, initial encounter; Y93.89 Activity, other specified; Y92.89 Other specified places as the place of occurrence of the external cause; Y99.8 Other external cause status
CPT/HCPCS: 10078; 10203; 32100

== ENCOUNTER → 2021-02-14 | Outpatient (CLI) | payer OTHER | LOC: HYPER 09:01 | PROVIDERS: ATTEND Emergency Medicine | DX: T81.89XD Other complications of procedures, not elsewhere classified, subsequent encounter (principal); E11.622 Type 2 diabetes mellitus with other skin ulcer; L97.812 Non-pressure chronic ulcer of other part of right lower leg with fat layer exposed; L03.115 Cellulitis of right lower limb; A40.0 Sepsis due to streptococcus, group A; J44.9 Chronic obstructive pulmonary disease, unspecified; E43 Unspecified severe protein-calorie malnutrition; I25.10 Atherosclerotic heart disease of native coronary artery without angina pectoris; E11.22 Type 2 diabetes mellitus with diabetic chronic kidney disease; I13.2 Hypertensive heart and chronic kidney disease with heart failure and with stage 5 chronic kidney disease, or end stage renal disease; I50.9 Heart failure, unspecified; N18.4 Chronic kidney disease, stage 4 (severe); E66.01 Morbid (severe) obesity due to excess calories; G47.30 Sleep apnea, unspecified; M35.3 Polymyalgia rheumatica; Z87.891 Personal history of nicotine dependence; Z68.33 Body mass index [BMI] 33.0-33.9, adult; Z99.2 Dependence on renal dialysis; Z90.5 Acquired absence of kidney; Y83.8 Other surgical procedures as the cause of abnormal reaction of the patient, or of later complication, without mention of misadventure at the time of the procedure ==

== ENCOUNTER → 2021-02-21 | Outpatient (CLI) | payer OTHER | LOC: HYPER 07:56 | PROVIDERS: ATTEND Emergency Medicine | DX: T81.89XD Other complications of procedures, not elsewhere classified, subsequent encounter (principal); E11.622 Type 2 diabetes mellitus with other skin ulcer; L97.812 Non-pressure chronic ulcer of other part of right lower leg with fat layer exposed; L03.115 Cellulitis of right lower limb; A40.0 Sepsis due to streptococcus, group A; E11.22 Type 2 diabetes mellitus with diabetic chronic kidney disease; I13.2 Hypertensive heart and chronic kidney disease with heart failure and with stage 5 chronic kidney disease, or end stage renal disease; I50.9 Heart failure, unspecified; N18.4 Chronic kidney disease, stage 4 (severe); E43 Unspecified severe protein-calorie malnutrition; E66.01 Morbid (severe) obesity due to excess calories; G47.30 Sleep apnea, unspecified; J44.9 Chronic obstructive pulmonary disease, unspecified; I25.10 Atherosclerotic heart disease of native coronary artery without angina pectoris; M35.3 Polymyalgia rheumatica; Z87.891 Personal history of nicotine dependence; Z68.33 Body mass index [BMI] 33.0-33.9, adult; Z99.2 Dependence on renal dialysis; Z90.5 Acquired absence of kidney; Y83.8 Other surgical procedures as the cause of abnormal reaction of the patient, or of later complication, without mention of misadventure at the time of the procedure ==

== ENCOUNTER 2021-02-23 08:54 | Inpatient (IN) | payer OTHER ==
[2021-02-23] VITALS (8 sets, daily range): BP systolic 112–133; BP diastolic 52–103
[~2021-02-23] VITALS: Ht 152.4 cm; Wt 103.4 kg
--- NOTE | ~2021-02-23 | EMS ---
[address] [address] EMS Patient Care Report Name: KEITH ADAMS Room #: REG ANNMARIE Ragland#: [id number] Admission: 02/23/21 Attend Phys: Discharge: Date of : 52 Report #: [id number] THIS REPORT FOR: //name// Report Transmitted: 02/23/2021 09:30 EMS Care Summary [facility] Incident [id number] @ 02/23/2021 08:02 Incident Location [address] [place] [address] Patient KEITH ADAMS Male, 70 Years 1950 Patient Address [address] [place] [address] Patient History Other,Diabetes,Hypertension (HTN),Pacemaker/AICD,Kidney/Renal Failure, Patient Allergies Other drug allergy, Patient Medications Novolog, Trazodone, Hydrocodone, Torsemide, Dexamethasone, Lisinopril, Clopidogrel, Ranolazine, Amlodipine, None Reported, Chief Complaint General weakness Disposition Transported No Lights/[place] Dispatch Reason Sick Person Transported To [facility] dispatched to the residence of a 70 year old male pt with a chief complaint of general weakness. Upon arrival crew located pt sitting upright on a cough. Pt presented with a patent airway and warm dry skin. Pt [address] [address] EMS Patient Care Report Name: KEITH ADAMS Room #: [facility]#: [id number] Admission: 02/23/21 Attend Phys: Discharge: Date of : 52 Report #: [id number] on scene stated that the pt was very weak and confused. Pt stated that he had been feeling weak for the past week. Pt stated that he was SOA but stated that he had a paralyzed diaphragm and was always SOA. 4 L O2 was applied via NC. Pt stated that he was unable to get off the couch and get around the house on his own. Pt was placed on stretcher by crew and secured using straps. 20 g IV was attempted in pts left AC but unsuccessful. 3 lead ECG was preformed and pt was monitored for rhythm changes. Pt stated that he hurt all over. Pt reported the pain was worse in his joints. 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 Pt denied recent fever. Pt stated he was tested a few weeks prior for COVID and was negative. Pt was transported without incident to [facility] and care was transferred to ED staff. Initial Vitals @08:27P: 53,R: 31,BP: 146/73,CO: 0,SpO2: 100, @08:37P: 49,R: 22,CO: 0,SpO2: 97, @08:11P: 90,BP: 132/74,Pain: 4/10,GCS: 15, @08:40P: 63,R: 22,BP: 160/69,Pain: 4/10,GCS: 15,SpO2: 94,Revised Trauma: 12, Assessments @08:10MENTAL:Person Oriented,Time Oriented,Place Oriented,Event Oriented,SKIN:No Abnormalities,HEENT:Head/Face: No Abnormalities,Eyes: No Abnormalities,Neck/Airway: No Abnormalities,LUNG SOUNDS:General: No Abnormalities,Left Upper: No Abnormalities,Right Upper: No Abnormalities,Left Lower: No Abnormalities,Right Lower: No Abnormalities,ABDOMEN:General: No Abnormalities,Left Upper: No Abnormalities,Right Upper: No Abnormalities,Left Lower: No Abnormalities,Right Lower: No Abnormalities,PELVIS//GI:No Abnormalities,EXTREMITIES:Left Leg: Weakness,Right Leg: Weakness,Right Leg: Other,Capillary Refill: Right Upper: < 2 Sec,Left Arm: No Abnormalities,Right Arm: No Abnormalities,PULSE:Radial: 2+ Normal,NEURO:No Abnormalities,@08:20MENTAL:Person Oriented,Time Oriented,Place Oriented,Event Oriented,SKIN:No Abnormalities,HEENT:Head/Face: No Abnormalities,Eyes: No Abnormalities,Neck/Airway: No Abnormalities,LUNG SOUNDS:General: No Abnormalities,Left Upper: No Abnormalities,Right Upper: No Abnormalities,Left Lower: No Abnormalities,Right Lower: No Abnormalities,ABDOMEN:General: No Abnormalities,Left Upper: No Abnormalities,Right Upper: No Abnormalities,Left Lower: No Abnormalities,Right Lower: No Abnormalities,PELVIS//GI:No Abnormalities,EXTREMITIES:Left Leg: Weakness,Right Leg: Weakness,Right Leg: Other,Capillary Refill: Right Upper: < 2 Sec,Left Arm: No Abnormalities,Right Arm: No Abnormalities,PULSE:Radial: 2+ Normal,NEURO:No Abnormalities, Impression Generalized Weakness Procedures @08:23Saline Lock 0cc (20 ga) Site: Antecubital-LeftResponse: [facility] [address] [place] [address] EMS Patient Care Report Name: KEITH ADAMS Room #: REG ANNMARIE BellaR.#: [id number] Admission: 02/23/21 Attend Phys: Discharge: Date of : 52 Report #: [id number] UnchangedFailed@08:10ALS AssessmentResponse: UnchangedSucceeded@08:12Oxygen FlowRate: 4 Device: Nasal Cannula (NC) Response: UnchangedSucceeded Timeline 08:01,Call Received 08:01,Psap Call 08:02,Dispatched 08:05,En Route 08:09,On Scene 08:10,At Patient 08:10,ALS Assessment,Response: UnchangedSucceeded, 08:11,BP: 132/74 M,PULSE: 90,RR: R,SPO2: Ox,ETCO2: ,BG: ,PAIN: 4,GCS: 15, 08:12,Oxygen FlowRate: 4 Device: Nasal Cannula (NC) Response: UnchangedSucceeded, 08:22,Depart Scene 08:23,Saline Lock 0cc 20 ga Site: Antecubital-Left,Response: UnchangedFailed, 08:27,BP: 146/73 M,PULSE: 53,RR: 31 R,SPO2: 100 Ox,ETCO2: ,BG: ,PAIN: ,GCS: , 08:37,BP: / M,PULSE: 49,RR: 22 R,SPO2: 97 Ox,ETCO2: ,BG: ,PAIN: ,GCS: , 08:40,BP: 160/69 M,PULSE: 63,RR: 22 R,SPO2: 94 Ox,ETCO2: ,BG: ,PAIN: 4,GCS: 15, 08:46,At Destination 09:01,Call Closed Disclaimer v1.1 Copyright 2020 [employer] This EMS Care Summary contains data elements from the applicable legal record (which may be displayed differently). It is designed to provide pertinent information for the following purposes: continuity of care, clinical quality, and state data reporting. The complete legal record is available to ED staff and administrators of the receiving hospital in [facility]'s Patient Tracker. All data is provided "as is."
--- NOTE | ~2021-02-23 | EMS ---
[address] [address] EMS Patient Care Report Name: KEITH ADAMS Room #: 218-P [facility] IN M.R.#: [id number] Admission: 02/23/21 Attend Phys: New Urban MD Discharge: 02/26/21 Date of : 52 Report #: [id number] THIS REPORT FOR: //name// Report Transmitted: 03/03/2021 09:31 EMS Care Summary [facility] Incident [id number] @ 02/23/2021 08:02 Incident Location [address] [place] [address] Patient KEITH ADAMS Male, 70 Years 1950 Patient Address [address] [place] [address] Patient History Other,Diabetes,Hypertension (HTN),Pacemaker/AICD,Kidney/Renal Failure, Patient Allergies Other drug allergy, Patient Medications Novolog, Trazodone, Hydrocodone, Torsemide, Dexamethasone, Lisinopril, Clopidogrel, Ranolazine, Amlodipine, None Reported, Chief Complaint General weakness Disposition Transported No Lights/[place] Dispatch Reason Sick Person Transported To [facility] units dispatched to the residence of a 70 year old male pt with a chief complaint of general weakness. Upon arrival crew located pt sitting upright on a cough. Pt presented with a patent airway and warm dry skin. Pt [address] [address] EMS Patient Care Report Name: KEITH ADAMS Room #: 218-P [facility] IN ..#: [id number] Admission: 02/23/21 Attend Phys: New Urban MD Discharge: 02/26/21 Date of : 52 Report #: [id number] on scene stated that the pt was very weak and confused. Pt stated that he had been feeling weak for the past week. Pt stated that he was SOA but stated that he had a paralyzed diaphragm and was always SOA. 4 L O2 was applied via NC. Pt stated that he was unable to get off the couch and get around the house on his own. Pt was placed on stretcher by crew and secured using straps. 20 g IV was attempted in pts left AC but unsuccessful. 3 lead ECG was preformed and pt was monitored for rhythm changes. Pt stated that he hurt all over. Pt reported the pain was worse in his joints. 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 Pt denied recent fever. Pt stated he was tested a few weeks prior for COVID and was negative. Pt was transported without incident to [facility] and care was transferred to ED staff. Initial Vitals @08:27P: 53,R: 31,BP: 146/73,CO: 0,SpO2: 100, @08:37P: 49,R: 22,CO: 0,SpO2: 97, @08:11P: 90,BP: 132/74,Pain: 4/10,GCS: 15, @08:40P: 63,R: 22,BP: 160/69,Pain: 4/10,GCS: 15,SpO2: 94,Revised Trauma: 12, Assessments @08:10MENTAL:Person Oriented,Time Oriented,Place Oriented,Event Oriented,SKIN:No Abnormalities,HEENT:Head/Face: No Abnormalities,Eyes: No Abnormalities,Neck/Airway: No Abnormalities,LUNG SOUNDS:General: No Abnormalities,Left Upper: No Abnormalities,Right Upper: No Abnormalities,Left Lower: No Abnormalities,Right Lower: No Abnormalities,ABDOMEN:General: No Abnormalities,Left Upper: No Abnormalities,Right Upper: No Abnormalities,Left Lower: No Abnormalities,Right Lower: No Abnormalities,PELVIS//GI:No Abnormalities,EXTREMITIES:Left Leg: Weakness,Right Leg: Weakness,Right Leg: Other,Capillary Refill: Right Upper: < 2 Sec,Left Arm: No Abnormalities,Right Arm: No Abnormalities,PULSE:Radial: 2+ Normal,NEURO:No Abnormalities,@08:20MENTAL:Person Oriented,Time Oriented,Place Oriented,Event Oriented,SKIN:No Abnormalities,HEENT:Head/Face: No Abnormalities,Eyes: No Abnormalities,Neck/Airway: No Abnormalities,LUNG SOUNDS:General: No Abnormalities,Left Upper: No Abnormalities,Right Upper: No Abnormalities,Left Lower: No Abnormalities,Right Lower: No Abnormalities,ABDOMEN:General: No Abnormalities,Left Upper: No Abnormalities,Right Upper: No Abnormalities,Left Lower: No Abnormalities,Right Lower: No Abnormalities,PELVIS//GI:No Abnormalities,EXTREMITIES:Left Leg: Weakness,Right Leg: Weakness,Right Leg: Other,Capillary Refill: Right Upper: < 2 Sec,Left Arm: No Abnormalities,Right Arm: No Abnormalities,PULSE:Radial: 2+ Normal,NEURO:No Abnormalities, Impression Generalized Weakness Procedures @08:23Saline Lock 0cc (20 ga) Site: Antecubital-LeftResponse: [facility] [address] [place] [address] EMS Patient Care Report Name: KEITH ADAMS Room #: 218-P [facility] IN M.R.#: [id number] Admission: 02/23/21 Attend Phys: New Urban MD Discharge: 02/26/21 Date of : 52 Report #: [id number] UnchangedFailed@08:10ALS AssessmentResponse: UnchangedSucceeded@08:12Oxygen FlowRate: 4 Device: Nasal Cannula (NC) Response: UnchangedSucceeded Timeline 08:01,Call Received 08:01,Psap Call 08:02,Dispatched 08:05,En Route 08:09,On Scene 08:10,At Patient 08:10,ALS Assessment,Response: UnchangedSucceeded, 08:11,BP: 132/74 M,PULSE: 90,RR: R,SPO2: Ox,ETCO2: ,BG: ,PAIN: 4,GCS: 15, 08:12,Oxygen FlowRate: 4 Device: Nasal Cannula (NC) Response: UnchangedSucceeded, 08:22,Depart Scene 08:23,Saline Lock 0cc 20 ga Site: Antecubital-Left,Response: UnchangedFailed, 08:27,BP: 146/73 M,PULSE: 53,RR: 31 R,SPO2: 100 Ox,ETCO2: ,BG: ,PAIN: ,GCS: , 08:37,BP: / M,PULSE: 49,RR: 22 R,SPO2: 97 Ox,ETCO2: ,BG: ,PAIN: ,GCS: , 08:40,BP: 160/69 M,PULSE: 63,RR: 22 R,SPO2: 94 Ox,ETCO2: ,BG: ,PAIN: 4,GCS: 15, 08:46,At Destination 09:01,Call Closed Disclaimer v1.1 Copyright 2020 [employer] This EMS Care Summary contains data elements from the applicable legal record (which may be displayed differently). It is designed to provide pertinent information for the following purposes: continuity of care, clinical quality, and state data reporting. The complete legal record is available to ED staff and administrators of the receiving hospital in [facility]'s Patient Tracker. All data is provided "as is."
[2021-02-23 10:02] LABS: ABSOLUTE NEUTROPHILS 7.6 thou/uL (1.4-8.2); BASOPHILS 0.5 % (0.0-2.0); EOSINOPHILS 1.7 % (0.0-3.0); HEMATOCRIT 33.1 % (42.0-52.0); HEMOGLOBIN 10.1 gm/dL (14.0-18.0); LYMPHOCYTES 14.8 % (24.0-44.0); MCH 24.6 pg (26.0-34.0); MCHC 30.6 g/dL (28.0-37.0); MCV 80.5 fL (80.0-100.0); MONOCYTES 7.4 % (1.0-8.0); PLATELET COUNT 146 thou/uL (150-400); POLYS 75.6 % (36.0-66.0); RBC 4.12 mil/uL (4.50-6.00); RDW 19.2 % (10.5-14.5); WBC 10.1 thou/uL (4.0-11.0)
[2021-02-23 10:22] LABS: ALBUMIN 3.2 g/dL (3.4-5.0); CALCIUM 8.3 mg/dL (8.5-10.1); CREATININE 6.5 mg/dL (0.7-1.3); POTASSIUM 5.8 mmol/L (3.5-5.1); TOTAL BILIRUBIN 0.5 mg/dL (0.2-1.0); TOTAL PROTEIN 7.8 g/dL (6.4-8.2); TROPONIN-I 0.07 ng/mL (<0.06)
[2021-02-23 10:39] LABS: URINE BILIRUBIN NEGATIVE (Negative); URINE BLOOD NEGATIVE (Negative); URINE CLARITY CLEAR; URINE COLOR YELLOW; URINE GLUCOSE-RANDOM* NEGATIVE (Negative); URINE KETONES NEGATIVE (Negative); URINE LEUKOCYTES-REFLEX NEGATIVE (Negative); URINE NITRITE-REFLEX NEGATIVE (Negative); URINE PROTEIN (DIPSTICK) 1+ (Negative); URINE SPECIFIC GRAVITY >= 1.030 (1.005-1.035); URINE UROBILINOGEN 0.2 E.U./dl (0.2-1.0)
[2021-02-23 11:08] LABS: CRYSTALS None Seen /LPF (None Seen); FINE GRANULAR CASTS 0-3 Few /LPF (None Seen); SQUAMOUS 0-3 Few /LPF (0-3)
[2021-02-23 11:11] LABS: BACTERIA-REFLEX 1-9 Few /HPF (None Seen); URINE RBC None Seen /HPF (NONE SEEN); URINE WBC-REFLEX 0-5 Rare /HPF (0-5)
[2021-02-23 11:45] LABS: ANISOCYTOSIS 2+; PLATELET ESTIMATE NORMAL; POLYCHROMASIA 1+
--- NOTE | 2021-02-23 12:37 | EKG ---
[place] [address] [facility] [place] [address] ELECTROCARDIOGRAM REPORT Name: KEITH ADAMS Room #: 170-2 ADM IN M.R.#: [id number] Admission: 02/23/21 Attend Phys: New Urban MD Discharge: Date of : 51 Report #: [id number] [facility] ED Test Date: 2021-02-23 Test Time: 09:37:22 Pat Name: KEITH ADAMS Department: Room: 170 Gender: M Exhauster: : 1950 Requested By: Gonzalo Tello Order Number: [id number] MD: Denis Meneses Measurements Intervals [place] Rate: 92 P: 58 TX: 121 QRS: 118 QRSD: 167 T: 100 QT: 370 QTc: 458 Interpretive Statements Atrial-sensed ventricular-paced rhythm No further analysis attempted due to paced rhythm Compared to ECG 02/06/2021 13:18:10 No significant changes Electronically Signed On 02-23-2021 12:36:46 CDT by Denis Meneses [email or web address] <ELECTRONICALLY SIGNED> By: Denis Meneses MD, [facility] 02/23/21 1236 6 6 Denis Meneses MD, FACC /EPI
[2021-02-23 17:14] LABS: HCO3 24.9 mmol/L (22.0-26.0); PCO2 58.3 mmHg (35.0-45.0); PO2 62.5 mmHg (80.0-100.0); pH 7.249 (7.360-7.450); sO2 87.7 % (92.0-98.0)
--- NOTE | 2021-02-23 17:44 | NUR ---
70-year-old male with a history of ESRD on dialysis and hemidiaphragm paralysis presents to the ED on 02-23-21 with weakness, shortness of breath, and altered mentation for the last few days. Patient states that he has been feeling very weak and is no longer able to walk around his house anymore. reports that patient normally uses 1 to 2 L of oxygen at home, now requiring 2 to 3 L. Patient initially states that he got dialysis on 1-day prior to presentation, but spouse reports his last dialysis was on 02-19-21. Since then the patient's weakness and confusion have become prevalent. It is noted the patient has chronic right leg wound that has been healing. ID NOW in the ED is negative and the patient per ED Triage assessment has received both vaccinations of ISpeak in August of 2020. The patient has been admitted for: Cough which is being assessed as viral vs Fluid congestion, ESRD on HD, DM II, HTN, HLD, COPD, CAD, possible UTI, and Chronic RLE wound. At present patient is on full face bipap at 10L,noting pH of 7.249, PC02 of 58.3. CXR reveals vascular congestion. The patient last discharged from the hospital on February the with acute on Chronic Hypoxemic, hypercapnic Resp failure, LEAH/COPD/PARALYZED RT HEMIDIAPHAGM/on CPAP at home. The patients spouse is Lisbet Krishnan at [phone] or [phone]. Daughter Dona Krishnan is at [phone] and per daughter on last admission patient had used [facility] in the past, however upon last discharge did discharge home with spouse and no needs. CM will continue to follow for discharge needs as plan of care by medical team is reviewed for discharge need.
--- NOTE | 2021-02-23 19:30 | NUR ---
DIALYSIS COMPLETED, PRIOR TO DIALYSIS PATIENT PLACED ON HOME BIPAP MACHINE DUE TO NO BIPAP MACHINES IN HOUSE. HOME BIPAP MACHINE SETTINGS VERIFIED BY RT FRANK. ON COMPLETION OF DIALYSIS PATIENT HAS A DECLINE IN OVERALL STATUS, THIS RN NOTIFIED CHAIN OF COMMAND OF THIS PATIENTS DECLINE AND REQUEST FOR ICU BED.
[2021-02-23 21:00] LABS: HCO3 23.1 mmol/L (22.0-26.0); PO2 59.4 mmHg (80.0-100.0)
[2021-02-23 21:02] LABS: PCO2 71.3 mmHg (35.0-45.0); pH 7.128 (7.360-7.450)
--- NOTE | 2021-02-23 23:09 | NUR ---
PT TRANSFERRED TO ICU AT 2130 FROM CCU DUE TO HYPOXIA, HYPERCARBNIA, AND NON-RESPONSIVENESS. PT IS V-PACED ON MONITOR. ON BIPAP 18/6, 100% FiO2, RATE 22. PT DOES NOT RESPOND TO STERNAL RUB OR OTHER NOXIOUS STIMULI; PUPILS 3 AND BRISK BILATERALLY. PER REPORT PT RECEIVED AIVAN 0.5 MG IN ED AT APPOXIMATELY 1630. PT ALSO HAD HEMODIALYSIS TODAY. WOUND ON RIGHT LEG AND PER REPORT ALSO POSSIBLE DEEP TISSUE INJURY RIGHT BUTTOCK. WILL TAKE PHOTOS AND START WOUND DOCUMENTATION.
[2021-02-24] VITALS (33 sets, daily range): BP systolic 85–128; BP diastolic 25–68
[2021-02-24 00:05] LABS: BE(vivo) -5.3 mmol/L (-2 to +3); HCO3 24.7 mmol/L (22.0-26.0); PCO2 71.8 mmHg (35.0-45.0); PO2 316.8 mmHg (80.0-100.0); pH 7.154 (7.360-7.450); sO2 99.6 % (92.0-98.0)
--- NOTE | 2021-02-24 01:05 | NUR ---
RIGHT LEG WOUND APPEARS TO BE A NEW SKIN GRAFT; WILL CONSULT WOUND CARE TO COME SEE. RIGHT BUTTOCK AREA IS SIMPLY DISCOLORED, LIKE AN OLD SKIN GRAFT THAT HAS HEALED OR A ARINA; NO OPEN AREAS, DTI, OR REDNESS.
[2021-02-24 03:13] LABS: HEMATOCRIT 32.3 % (42.0-52.0); HEMOGLOBIN 9.8 gm/dL (14.0-18.0); MCH 24.8 pg (26.0-34.0); MCHC 30.4 g/dL (28.0-37.0); MCV 81.6 fL (80.0-100.0); RBC 3.95 mil/uL (4.50-6.00); RDW 19.1 % (10.5-14.5); WBC 11.7 thou/uL (4.0-11.0)
[2021-02-24 03:26] LABS: POTASSIUM 5.8 mmol/L (3.5-5.1)
--- NOTE | 2021-02-24 04:47 | NUR ---
Pt beginning to withdraw from noxious stimuli. Flinches and attempts to shut eyes when checking pupil response. Still does not open eyes or move spontaneously. FiO2 titrated down to 60%, sat still 94-100%.
[2021-02-24 05:46] LABS: BE(vivo) -5.9 mmol/L (-2 to +3); HCO3 21.5 mmol/L (22.0-26.0); PCO2 50.9 mmHg (35.0-45.0); sO2 98.6 % (92.0-98.0)
[2021-02-24 05:53] LABS: pH 7.243 (7.360-7.450)
--- NOTE | 2021-02-24 08:24 | NUR ---
Chart review. He resting with eyes closed. He was just here recently at [facility]. he has been on acute rehab in the past and had [facility]. He lives at home wit his , goes to dialysis at [facility], Last dialysis was on the 02/19/21 non complaints with his cares and dialysis. Had dialysis on 02/19/21 was his tx for dialysis. Lives at home wit , 2 steps enter. Has cane, walker at home. cpap/bipap ? which one at home?. Will cont following as needed for dc needs.
--- NOTE | 2021-02-24 08:46 | NUR ---
Pt TRANSFERRED TO ICU FROM CCU LAST NIGHT D/T NEED FOR HIGHER LEVEL OF CARE. Pt ON HOLD FOR PT EVALUATION UNTIL NEW ORDERS RECEIVED IF/WHEN Pt APPROPRIATE FOR PT INTERVENTIONS.
--- NOTE | 2021-02-24 10:19 | NUR ---
PT MORE AWAKE & RESTLESS.CONFUSED. PT COUGHING WHILE HD IN PROGRESS,BENT RT ARM & IMMED DEVOPLED GOLF BALL SIZE HEMATOMA AT AV FISTULA SITE. HD STOPPED,UNABLE TO RETURN BLOOD.DIRECT PRESSURE HELD ~8MIN'S W DEC IN SIZE OF HEMATOMA.NO ACTIVE BLEEDING.ARM VERY BRUISED PRIOR TO START OF DIALYSIS.THRILL & BRUIT W/O CHANGE.LOTTIE,BREAKFAST AND ROOM ATTENDANT,INFORMED . 1.1 L OFF,RUN ONLY 3 HRS. PIV LT ARM TAPED W ~1/4 OF CATH VISABLE UNDER DRSG. FLUSHED,LEAKING AT SITE.REMOVED. NO IV ACCESS AT THIS TIME.WILL ATTEMPT &/OR HAVE IVT ASSESS.--VW
[2021-02-24 12:07] LABS: HEP B SURFACE Ab(ANTI-HBS Non Reactive (()); HEPATITIS B SURFACE AG Negative (Negative)
[2021-02-25] VITALS (7 sets, daily range): BP systolic 97–116; BP diastolic 47–61
[2021-02-25 01:35] LABS: HEMATOCRIT 31.7 % (42.0-52.0); HEMOGLOBIN 9.7 gm/dL (14.0-18.0); MCH 24.9 pg (26.0-34.0); MCHC 30.6 g/dL (28.0-37.0); MCV 81.5 fL (80.0-100.0); RBC 3.89 mil/uL (4.50-6.00); RDW 18.9 % (10.5-14.5); WBC 9.1 thou/uL (4.0-11.0)
[2021-02-25 01:50] LABS: CREATININE 5.2 mg/dL (0.7-1.3); POTASSIUM 5.8 mmol/L (3.5-5.1)
--- NOTE | 2021-02-25 02:00 | NUR ---
PT ACCUCHECK > GLUCOSE DRAWER PER LAB 559. SOM BIGGS NOTIFIED. LEFT ORDERS FOR REGUALR INSULIN 12 UNITS NOW. WILL CONT TO MONITOR
--- NOTE | 2021-02-25 06:00 | NUR ---
PT AWAKE AND ALERT COOPERATIVE. IMPULSIVE AT TIMES. USED HIS OWN CPAP TONIGHT. NOW ON NC 4 LITERS. MARY MORRELL PER PT REQUEST. SOM DEVRIES GAVE ORDER. BLOOD SUGAR 314 AT 0545 9 UNITS NOVALOG GIVEN. REMAINS V PACED. HAS A STONG COUGH. PROGRESSING TOWARD GOALS.
--- NOTE | 2021-02-25 11:22 | NUR ---
Chart review, discussed during los with hospitalist and during unite rounds with pulmonary. Possible move out of unite when bed opens up. On BIPAP. No anticipated dc over the weekend, will cont. following as needed for dc needs.
--- NOTE | 2021-02-25 11:55 | NUR ---
PT ALERT AND ORIENTED X4. PT IS CALM AND COOPERATIVE THROUGHOUT THE NIGHT PER MANUFACTURERS SERVICE REPRESENTATIVE REPORT. PT HAS BEEN COOPERATIVE AND COMPLIANT WITH THIS RN THROUGHTOUT THIS MORNING. PT LIKES TO SIT AT THE SIDE OF THE BED BUT WOULD CALL FOR HELP AND DOESNT GET UP WITHOUT NOTIFYING THE RN OUTSIDE THE ROOM. PT DRESSING CHANGED BY MANUFACTURERS SERVICE REPRESENTATIVE RN YANET ESPINO AT 0527 THE MEDICATION WAS SCANNED AT 0527 THIS AM PER SHIFT CHANGE REPORT GIVEN BY NIGHT RN. PT DID NOT WANT TO STAY IN THE ROOM RIGHT OUTSIDE THE NURSING STATION IN CCU. HOUSE SUPERVISER WAS INFORMED THAT PT IS COOPERATIVE AND WOULD CALL FOR HELP. PT SITTING IN THE CHAIR WITH CHAIR ALARM ON WHEN THIS RN EXIST THE ROOM. BELONGINGS WERE TRANSFERRED WITH THE PATIENT.
--- NOTE | 2021-02-25 18:34 | NUR ---
ASSESSMENT CHARTED - MEDS PER MAR - PT WANTING MUCINES FOR COUGH - DR DAVALOS NOTIFIED AND MUCINEX ORDERED - PT ALSO REQUESTING CARDIOLOGY CONSULT AND THAT WAS OBTAINED. PT UP IN THE CHAIR AND AT THE SIDE OF THE BED - AMBULATING TO THE BATHROOM. SEEN BY WOUND CARE AND LEGS DRESSINGS CHANGED AND GARCÍA WRAPS APPLIED BILATERALLY. ACCUCHECKS CHARTED - COVERED PER SSI. PT TRANSFERED TO THE UNIT FROM THE ICU AND ORIENTED TO BEDSPACE. AT THE BEDSIDE. NO CO'S AT THE PRESENT TIME.
[2021-02-26 04:15] VITALS: BP 116/48
[2021-02-26 08:00] VITALS: BP 151/126
--- NOTE | 2021-02-26 11:03 | 2DMMODE ---
[facility] [place] [address] 2 D/M-MODE ECHOCARDIOGRAM Name: KEITH ADAMS Room #: 218-P ADM IN M.R.#: [id number] Admission: 02/23/21 Attend Phys: New Urban MD Discharge: Date of : 52 Report #: [id number] THIS REPORT FOR: cc: BALJINDER VOGEL MD, OSSAMA MD Mancuso, Gerald M. MD [facility] ~ APPROVED REPORT Study performed: 02/26/2021 09:46:34 EXAM: Comprehensive 2D, Doppler, and color-flow Echocardiogram Patient Location: Bedside Room #: 218 Status: on-call BSA: 2.21 HR: 68 bpm BP: 118/79 mmHg Other Information Study Quality: Technically Difficult Technically limited study due to pt sitting up in bed getting dialysis. Indications Congestive Heart Failure COPD Diabetes Pacemaker CAD 2D Dimensions RVDd: 48.02 mm IVSd: 13.31 (7-11mm) LVOT Diam: 20.95 (18-24mm) LVDd: 53.75 mm PWd: 15.40 (7-11mm) Ascending Ao: 42.29 (22-36mm) LVDs: 44.00 (25-40mm) Aortic Root: 33.55 mm IVC: 29.00 mm Volumes Left Atrial Volume (Systole) Single Plane 4CH: 75.26 mL Single Plane 2CH: 56.62 mL LA ESV Index: 33.00 mL/m2 Aortic Valve [facility] [address] [place] [address] 2 D/M-MODE ECHOCARDIOGRAM Name: KEITH ADAMS Roxanne Room #: 218-P [facility] IN .R.#: [id number] Admission: 02/23/21 Attend Phys: New Urban MD Discharge: Date of : 52 Report #: [id number] AoV Peak Henok.: 1.46 m/s AO Peak Gr.: 8.54 mmHg LVOT Max P.99 mmHg LVOT Max V: 0.87 m/s TYRA Vmax: 2.04 cm2 Mitral Valve E/A Ratio: 2.3 MV Decel. Time: 272.47 ms MV E Max Henok.: 0.95 m/s MV A Henok.: 0.41 m/s MV PHT: 79.01 ms IVRT: 69.20 ms Pulmonary Valve PV Peak Henok.: 0.99 m/s PV Peak Gr.: 3.89 mmHg Pulmonary Vein P Vein S: 0.28 m/s P Vein A: 0.20 m/s P Vein D: 0.49 m/s P Vein A Dur.: 110.7 msec P Vein S/D Ratio: 0.57 Tricuspid Valve TR Peak Henok.: 2.81 m/s RAP Estimate: 15.00 mmHg TR Peak Gr.: 31.58 mmHg PA Pressure: 47.00 mmHg Left Ventricle The left ventricle is normal size. There is global hypokinesis of the left ventricle. Mild concentric left ventricular hypertrophy. Left ventricular systolic function is moderate to severely decreased. LVEF is 30%. Transmitral Doppler flow pattern suggests restrictive physiology. Right Ventricle Right ventricle is moderately dilated. Right ventricle is hypokinetic. Atria The left atrium size is normal. Right atrium is mildly dilated. Aortic Valve The aortic valve is mildly sclerotic. Trace aortic regurgitation. There is no aortic valvular stenosis. Mitral Valve [facility] [address] [place] [address] 2 D/M-MODE ECHOCARDIOGRAM Name: KEITH ADAMS Roxanne Room #: 218-P [facility] IN .R.#: [id number] Admission: 02/23/21 Attend Phys: New Urban MD Discharge: Date of : 52 Report #: [id number] The mitral valve is normal in structure. Mild mitral regurgitation. No evidence of mitral valve stenosis. Tricuspid Valve The tricuspid valve is normal in structure. Mild to moderate tricuspid regurgitation. PAP is estimated at 47 mmHg. Pulmonic Valve Pulmonic valve is not well visualized. Great Vessels The aortic root is normal in size. The ascending aorta is mildly dilated at 4.2 cm. IVC is dilated and collapses <50% with inspiration. Pericardium There is no pericardial effusion. <Conclusion> The left ventricle is normal size. Mild concentric left ventricular hypertrophy. Left ventricular systolic function is moderate to severely decreased. LVEF is 30%. Transmitral Doppler flow pattern suggests restrictive physiology. There is global hypokinesis of the left ventricle. Right ventricle is moderately dilated. Right ventricle is hypokinetic. Right atrium is mildly dilated. The aortic valve is mildly sclerotic. Trace aortic regurgitation. Mild mitral regurgitation. Mild to moderate tricuspid regurgitation. PAP is estimated at 47 mmHg. The aortic root is normal in size. The ascending aorta is mildly dilated at 4.2 cm. There is no pericardial effusion. <ELECTRONICALLY SIGNED> By: Daniel Pulliam MD, FACC 02/26/21 1103 1103 110 Daniel Pulliam MD, FACC /INF
[2021-02-26 11:49] VITALS: BP 151/126
[2021-02-26 12:00] VITALS: BP 128/68
--- NOTE | 2021-02-26 14:31 | NUR ---
PATIENT DISCHARGED. AT BEDSIDE DURING DISCHARGE TEACHING, NO QUESTIONS OR CONCERNS AT TIME OF EDUCATION. IV AND TELE REMOVED. TAKEN OUT BY STAFF IN WHEELCHAIR TO PRIVATE VEHICLE.
--- NOTE | 2021-02-27 20:27 | NUR ---
FAXED HOME HEALTH REFERRAL TO [facility]. PATIENT HAD WITH [facility] IN THE PAST. PATIENT WAS ANXIOUS TO DISCHARGE AFTER DIALYSIS IN THE HOSPITAL. DCP DID NOT HAVE OPPORTUNITY TO TALK WITH PATIENT OR SPOUSE. WILL FOLLOW UP WITH [facility] [employer] [facility] ON 02/28/21 TO CONFIRM IF [facility] WILL ACCEPT AND AVAILABILITY. FAXED DISCHARGE ORDERS, SUMMARY, H&P, NEGATIVE COVID RESULT (02/23/21) AND FLOW SHEETS TO DIALYSIS CLINIC IN [place], [place]. WILL CONFIRM THEY RECEIVED. [facility] P [phone]; FAX [phone]; FAX [phone]
--- NOTE | 2021-02-28 11:00 | HC ---
[facility] [place] [address] CONSULTATION Name: KEITH ADAMS Room #: 218-P [facility] IN M.R.#: [id number] Admission: 02/23/21 Attend Phys: New Urban MD Discharge: 02/26/21 Date of : 52 Report #: [id number] THIS REPORT FOR: cc: BALJINDER VOGEL MD, OSSAMA MD Althoff,Larry Eckert MD ~ DATE OF SERVICE: 02/24/2021 CHIEF COMPLAINT: Chronic ulceration to the right lower leg. HISTORY OF PRESENT ILLNESS: This is a 70-year-old male patient with whom I am familiar from multiple hospitalizations with a chronic ulceration to his right lower leg. The etiology was indeterminate. He did undergo prior surgical debridement and grafting with a skin substitute. It has been slowly improving. It had been managed with a wound VAC and we have more recently transitioned away. He was last admitted earlier this month. He is in the ICU, currently on BiPAP. He is somnolent and not easily arousable and not able to answer any questions. PAST MEDICAL HISTORY: Positive for type 2 diabetes mellitus, hypertension, hyperlipidemia, COPD, SVT, status post ablation, obstructive sleep apnea, chronic kidney disease, and congestive heart failure. SOCIAL HISTORY: Positive for occasional alcohol use. He is a prior smoker. FAMILY HISTORY: Noncontributory. MEDICATIONS: Trazodone, insulin, ranolazine, Imdur, ProAmatine, Keflex, aspirin. ALLERGIES: ELIQUIS, BRILINTA, EFFIENT, AND STATINS. REVIEW OF SYSTEMS: Not obtainable due to the patient's somnolence and confusion. PHYSICAL EXAMINATION: VITAL SIGNS: The patient's vital signs at this time include temperature 37.1, pulse 69, respiratory rate of 22, blood pressure 92/48. GENERAL: This is a chronically ill-appearing male. The patient appears to be somnolent and a little bit confused. HEENT: Head is normocephalic. Nose and throat are not evaluated as he is on BiPAP. NECK: Supple. LUNGS: Diminished. HEART: Irregular. ABDOMEN: Soft. [facility] [address] [place] [address] CONSULTATION Name: KEITH ADAMS Room #: 218-P [facility] IN M.R.#: [id number] Admission: 02/23/21 Attend Phys: New Urban MD Discharge: 02/26/21 Date of : 52 Report #: [id number] EXTREMITIES: Lower extremities demonstrate the skin is pink, warm, and dry. Trace edema is noted. He has a large wound to the right lower leg. It is healthy, clean, granulating is not infected. NEUROLOGIC: The patient is somewhat subdued, appears to be moving symmetrically. LABORATORY STUDIES: Sodium 138, potassium 5.8, chloride 98, CO2 of 28, BUN 57, creatinine 5.0, glucose 196. White blood cell count 11.7, hemoglobin 9.8. CLINICAL IMPRESSION: 1. Ulcer to the right lower extremity following cellulitis with multiple ____, now status post debridement on 10/18/2020 and 10/22/2020 which has now been slowly improving and has chronic lymphedema to the left lower extremity. 2. Moisture-associated skin damage in sacral gluteal region. 3. Respiratory failure with underlying chronic obstructive pulmonary disease. 4. End-stage renal disease, requiring hemodialysis. 5. Type 2 diabetes mellitus. 6. Mild protein calorie malnutrition. RECOMMENDATIONS: At this point in time, we will recommend Xeroform, ABD, Kerlix, William from toe to knee involving the bilateral lower extremities. He has had no occlusions on prior Dopplers, no additional studies required at this time. Recommend Silvadene, morphine, barrier cream to the sacral gluteal region. Low air loss mattress q.2 hour turning and positioning. Continue medical management. I appreciate being asked to see the patient in consultation. <ELECTRONICALLY SIGNED> By: Larry Valentin MD 02/28/21 1100 1024 Larry Valentin MD /nt
== END 2021-02-26 14:34 | disposition home health service (06) | DRG 177 ==
LOC: ER 08:54 → EROBS 12:10 → ICU 12:10 → EROBS 13:00 → 2N 20:13 → ICU 20:20 → 2N 02-25 11:22
PROVIDERS: Internal Medicine Nephrology; Internal Medicine Pulmonary Disease; Nurse Practitioner Family; Student in an Organized Health Care Education/Training Program; ADMIT Hospitalist; ATTEND Hospitalist
PROC: 5A09357 Assistance with Respiratory Ventilation, Less than 24 Consecutive Hours, Continuous Positive Airway Pressure (ICD-10-PCS; principal; 2021-02-23)
PROC: 5A1D70Z Performance of Urinary Filtration, Intermittent, Less than 6 Hours Per Day (ICD-10-PCS; principal; 2021-02-23)
PROC: 5A09357 Assistance with Respiratory Ventilation, Less than 24 Consecutive Hours, Continuous Positive Airway Pressure (ICD-10-PCS; 2021-02-24)
PROC: 5A09357 Assistance with Respiratory Ventilation, Less than 24 Consecutive Hours, Continuous Positive Airway Pressure (ICD-10-PCS; 2021-02-25)
PROC: 5A1D70Z Performance of Urinary Filtration, Intermittent, Less than 6 Hours Per Day (ICD-10-PCS; 2021-02-26)
DX: J69.0 Pneumonitis due to inhalation of food and vomit (principal); J96.21 Acute and chronic respiratory failure with hypoxia; N18.6 End stage renal disease; G93.41 Metabolic encephalopathy; I50.43 Acute on chronic combined systolic (congestive) and diastolic (congestive) heart failure; J96.22 Acute and chronic respiratory failure with hypercapnia; I13.2 Hypertensive heart and chronic kidney disease with heart failure and with stage 5 chronic kidney disease, or end stage renal disease; N39.0 Urinary tract infection, site not specified; Z68.41 Body mass index [BMI] 40.0-44.9, adult; L97.919 Non-pressure chronic ulcer of unspecified part of right lower leg with unspecified severity; L03.115 Cellulitis of right lower limb; E44.1 Mild protein-calorie malnutrition; I42.9 Cardiomyopathy, unspecified; E11.22 Type 2 diabetes mellitus with diabetic chronic kidney disease; E78.5 Hyperlipidemia, unspecified; I25.10 Atherosclerotic heart disease of native coronary artery without angina pectoris; J44.9 Chronic obstructive pulmonary disease, unspecified; E87.5 Hyperkalemia; I95.9 Hypotension, unspecified; E66.9 Obesity, unspecified; E11.51 Type 2 diabetes mellitus with diabetic peripheral angiopathy without gangrene; G47.33 Obstructive sleep apnea (adult) (pediatric); M17.0 Bilateral primary osteoarthritis of knee; I49.5 Sick sinus syndrome; Z20.822 Contact with and (suspected) exposure to COVID-19; Z95.5 Presence of coronary angioplasty implant and graft; Z95.0 Presence of cardiac pacemaker; Z79.4 Long term (current) use of insulin; Z79.82 Long term (current) use of aspirin; Z79.899 Other long term (current) drug therapy; Z88.8 Allergy status to other drugs, medicaments and biological substances; Z87.891 Personal history of nicotine dependence; Z91.19 Patient's noncompliance with other medical treatment and regimen
CPT/HCPCS: 10078; 10081; 32100